=== PATIENT | male | born 1970 | race Caucasian/White ===

== ENCOUNTER 2020-10-26 08:46 | Emergency (ER) | payer OTHER, SELFPAY ==
--- NOTE | ~2020-10-26 | CT_ITS ---
EXAMINATION: CT abdomen pelvis w con DATE: 10/26/2020 11:10 INDICATION: Abdominal pain, nausea and vomiting. TECHNIQUE: Computed tomography (CT) of the abdomen and pelvis was performed with 100 mL Omnipaque-350 intravenous contrast. Automated exposure control and iterative reconstruction technique were employe d. The dose-length product was 579.25 mGy-cm. COMPARISON: None FINDINGS: Minimal atelectasis at the posterior sulcus of the left lower lobe. Visualized inferior heart is norm al. No pericardial or pleural effusion. Small sliding-type hiatal hernia. Diffuse hepatic steatosis w ith focal sparing along the gallbladder fossa and more focal fat at the ligamentum teres. Gallbladder , spleen, pancreas and left adrenal gland are normal. 1.5 cm right adrenal nodule. Normal bilateral k idneys with symmetric parenchymal enhancement and no hydronephrosis. Bowels including the appendix ar e normal. Bladder is normal. Mild prostatomegaly measuring 4.1 x 3.5 cm. No free intraperitoneal gas or fluid. Small bilateral fat-containing inguinal hernias. No pathologically enlarged abdominal or pe lvic lymphadenopathy. Moderate disc height loss with degenerative endplate changes at L5-S1 with 7 mm retrolisthesis L5 on S1. Otherwise mild thoracolumbar spondylosis. IMPRESSION: 1. Small sliding-type hiatal hernia. 2. Diffuse hepatic steatosis. 3. 1.5 cm indeterminate right adrenal nodule statistically most likely to represent an adenoma. Consi abby 12 month follow-up pre and postcontrast adrenal protocol CT. 4. Prostatomegaly. Reviewed, dictated and finalized at location A. IMPRESSION: 1. Small sliding-type hiatal hernia. 2. Diffuse hepatic steatosis. 3. 1.5 cm indeterminate right adrenal nodule statistically most likely to repre sent an adenoma. Consider 12 month follow-up pre and postcontrast adrenal gucci col CT. 4. Prostatomegaly.
--- NOTE | ~2020-10-26 | XR_ITS ---
EXAMINATION: XR chest 2V DATE: 10/26/2020 09:42 INDICATION: Chest pain and shortness of breath TECHNIQUE: PA and lateral views of the chest are obtained. COMPARISON: None available FINDINGS: The lungs are free of acute opacities. There is no pleural effusion or pneumothorax. The ca rdiomediastinal silhouette is normal. There is mild thoracic spondylosis. A chronic-appearing disloca tion of the right acromioclavicular joint is noted. IMPRESSION: 1. No acute cardiopulmonary abnormality. Reviewed, dictated and finalized at location A.
[2020-10-26 08:50] VITALS: BP 162/120; PULSE 112; RESP 15; TEMP 36.4; O2SAT 98
[2020-10-26 09:20] LABS: Basophils Absolute Auto 0.1 K/mm3 (0.0-0.1); Eosinophils Absolute Auto 0.1 K/mm3 (0-0.3); Hematocrit 46.3 % (42.0-52.0); Immature Granulocyte Absolute 0.07 K/mm3 (0.00-0.031); Immature Granulocyte Percent A 0.9 % (0-0.5); Lymphocytes Absolute Auto 1.74 K/mm3 (0.9-3.2); Lymphocytes Percent Auto 21.3 % (18.3-44.2); Mean Corpuscular HGB Conc 34.6 g/dl (32-36); Mean Corpuscular Hemoglobin 34.1 pg (26-34); Mean Corpuscular Volume 98.7 fl (80-100); Mean Platelet Volume 10.1 fl (7.4-10.4); Monocytes Absolute Auto 0.7 K/mm3 (0.1-0.6); Monocytes Percent Auto 9.1 % (2.6-8.5); Neutrophils Absolute Auto 5.5 K/mm3 (1.3-6.7); Neutrophils Percent Auto 66.7 % (45.5-73.1); Nucleated Red Blood Cells Perc 0.2 % (0.0-0.2); Platelet Count Result 179 k/mm3 (150-375); Red Blood Count 4.69 M/mm3 (4.6-6.20); Red Cell Distribution Width 15.5 % (11.5-14.5); White Blood Count 8.2 K/mm3 (4.5-10.0)
--- NOTE | 2020-10-26 09:27 | ECG_ITS ---
Measurements Intervals [place] Rate: 103 P: 40 [place]: 135 QRS: 50 QRSD: 98 T: 59 QT: 323 QTc: 423 Interpretive Statements SINUS TACHYCARDIA BASELINE ARTIFACT- II BORDERLINE ECG Electronically Signed On 10-26-2020 11:03:09 CDT by Mustapha Wooten D.O.
--- NOTE | 2020-10-26 09:28 | ED.GIBLEED ---
HPI - GI Bleed General Chief complaint: GI Bleed Stated complaint: abd pain, bloody stool Time Seen by Provider: 10/26/20 09:13 Source: patient Mode of arrival: ambulatory Limitations: no limitations History of Present Illness HPI Narrative: This is a 50 year old male that presents to the ER for abdominal pain present since yesterday. Reports intermittent sharp pains on the side of his abdomen that radiate medially. Also reports nausea and vomiting. Reports the pain sometimes radiates into his chest. Does report some shortness of breath with exertion. Reports yesterday he was having bright red blood in the stool which then turned dark. He does report history of hemorrhoids. Denies any current pain. Denies fever, dysuria, or hematuria. Related Data Home Medications Medication Instructions Recorded Confirmed folic acid 10/26/20 Allergies Allergy/AdvReac Type Severity Reaction Status Date / Time No Known Allergies Allergy Verified 10/26/20 09:05 Review of Systems Review of Systems: Narrative: CONSTITUTIONAL: Denies fever CARDIOVASCULAR: Reports chest pain. Denies edema. RESPIRATORY: Reports dyspnea. GASTROINTESTINAL: Reports abdominal pain, nausea, vomiting, and diarrhea. GENITOURINARY: Denies dysuria or hematuria. All systems reviewed & are unremarkable except as noted in HPI and below PMFSH Past Medical History Medical History (Updated 10/26/20 @ 14:16 by Ellyn Littlejohn PA-C) No active medical problems Social History Social History (Updated 10/26/20 @ 10:32 by Ellyn Littlejohn PA-C) Smoking status: Current every day smoker Alcohol intake: current Exam Narrative: Exam Narrative: GENERAL: Well-appearing, well-nourished, and in no acute distress. HEAD: Normocephalic, atraumatic. EYES: EOMI. ENT: Mucous membranes moist. Oropharynx without tonsillar hypertrophy exudate or other lesions. CHEST: Clear to auscultation. No respiratory distress. No wheezes rales or rhonchi HEART: Regular rate and rhythm. No murmur heard. Normal peripheral pulses. ABDOMEN: Soft, nontender, nondistended, normal active bowel sounds. No CVA tenderness EXTREMITIES: Normal range of motion. No edema. SKIN: Warm, dry, no rash. NEURO: No focal deficits. Alert and oriented x3. PSYCH: Normal mood and affect RECTAL: No hemorrhoids or fissures noted. Hemoccult negative Course Vital Signs Vital signs: Vital Signs Temperature 97.5 F L 10/26/20 08:50 Pulse Rate 112 H 10/26/20 08:50 Respiratory Rate 15 10/26/20 08:50 Blood Pressure 162/120 H 10/26/20 08:50 Pulse Oximetry 98 10/26/20 08:50 Temperature 97.5 F L 10/26/20 08:50 Pulse Rate 89 10/26/20 14:29 Respiratory Rate 18 10/26/20 14:29 Blood Pressure 133/98 H 10/26/20 14:29 Pulse Oximetry 97 10/26/20 14:29 MDM - GI Bleed MDM Narrative Medical decision making narrative: Patient presents the emergency department for abdominal pain since yesterday. Also reporting blood in the stool. He is Hemoccult negative today. He is afebrile and nontoxic-appearing. Blood pressure and heart rate elevated on arrival, this improved after IV fluid administration antiemetic. Current blood pressure 122/93. Heart rate is in the 80s. He reports improvement in symptoms. CBC without concerning findings. Metabolic panel with transaminitis. Likely due to patient's drinking history. He does report he drinks about 6 beers a night. His last drink was 3 days ago. Denies any history of alcohol withdrawal seizures. Lipase is normal. UA without evidence of infection. CT scan of the abdomen and pelvis is without acute findings. Shows hiatal hernia, diffuse hepatic steatosis, prostatomegaly, and right adrenal adenoma which will need follow-up with further imaging in the next year. Chest x-ray is without acute findings. EKG without concerning changes. Patient reports relief of his symptoms and would like to go home. Does not want to stay for any further evaluation
[2020-10-26 09:29] LABS: Alanine Aminotransferase 67 U/L (4-50); Albumin Level 5.3 g/dL (3.5-5.1); Alkaline Phosphatase 89 U/L (38-126); Anion Gap 16 mmol/L (8-16); Aspartate Amino Transferase 114 U/L (17-59); Bilirubin,Total 2.1 mg/dL (0.2-1.3); Blood Urea Nitrogen 14 mg/dL (9-20); Calcium 10.1 mg/dL (8.4-10.2); Carbon Dioxide 24 mmol/L (22-30); Chloride 92 mmol/L (98-107); Estimated CRCL calculation 81 ml/min; Estimated Glomerular Filt Rate > 60; Glucose 95 mg/dL (75-110); Potassium 3.9 mmol/L (3.4-5.0); Sodium 132 mmol/L (137-145)
[2020-10-26 09:30] LABS: INR 0.9; Prothrombin Time 13.1 Seconds (11.1-14.7)
[2020-10-26] MEDS: SODIUM CHLORIDE 0.9% IV 1,000 ML 999 ML IV CONT (09:44)
[2020-10-26] MEDS: ONDANSETRON INJ 4 MG/2 ML VIAL IV PUSH (09:45)
[2020-10-26 09:55] LABS: Lipase 196 U/L (23-300)
--- NOTE | 2020-10-26 09:55 | PC.NURSE ---
pt unable to give urine sample at this time. and declining straight catheter. started 1000 mL of IV normal saline and will check back.
[2020-10-26 09:58] VITALS: BP 149/106; PULSE 99; RESP 14; O2SAT 97
[2020-10-26 10:00] LABS: Troponin I < 0.012 ng/mL (0.000-0.034)
[2020-10-26 10:05] LABS: Ethanol < 10 mg/dL (<10)
[2020-10-26 10:34] LABS: Add Urine Microscopic? YES; Appearance Urine Clear (Clear); Bilirubin Urine Negative (Negative); Blood Urine Negative (Negative); Color Urine Yellow (Yellow); Glucose Urine UA Negative (Negative); Ketones Urine 1+ mg/dL (Negative); Leukocyte Esterase Ur Negative LEU/UL (Negative); Mucus Urine Rare /lpf; Nitrate Urine Negative (Negative); Protein Urine Negative (Negative); RBC Urine 0-2 /hpf (0-2); Specific Grav Ur 1.011 (1.001-1.035); Squamous Epithelial Cell Urine Rare /hpf (Few); Urobilinogen Urine Negative mg/dL (<2.0); WBC Urine 0-3 /hpf
[2020-10-26] MEDS: PANTOPRAZOLE SODIUM IV 40 MG VIAL IV PUSH (10:39)
[2020-10-26] MEDS: THIAMINE HCL INJ 100 MG, FOLIC ACID INJ 1 MG, MULTIVITAMINS-12 INJ VIAL 1 5 ML, MULTIVI... 250 MG IV CONT (11:23)
[2020-10-26 12:21] VITALS: BP 141/107; PULSE 97; RESP 19; O2SAT 97
[2020-10-26 14:29] VITALS: BP 133/98; PULSE 89; RESP 18; O2SAT 97
== END 2020-10-26 14:52 | disposition home or self-care (01) ==
PROVIDERS: Physician Assistant; Emergency Provider Emergency Medicine
DX: D35.01 Benign neoplasm of right adrenal gland (principal); R74.01 Elevation of levels of liver transaminase levels; K76.0 Fatty (change of) liver, not elsewhere classified; K92.1 Melena; R00.0 Tachycardia, unspecified; F17.210 Nicotine dependence, cigarettes, uncomplicated
CPT/HCPCS: 36415; 71046; 74177; 80053; 80307; 81001; 83690; 84484; 85025; 85610; 85730; 86850; 86900; 86901; 93005; 96361; 96365; 96366; 96375; 99284; C9113; J2405; J3411; J3475; J7030; J7120; Q9967

== ENCOUNTER 2021-01-19 11:47 | Outpatient (CLI) | payer OTHER, SELFPAY ==
[2021-01-19 12:33] LABS: INR 0.9
[2021-01-19 12:41] LABS: Alanine Aminotransferase 45 U/L (4-50); Albumin Level 4.4 g/dL (3.5-5.1); Alkaline Phosphatase 79 U/L (38-126); Anion Gap 9 mmol/L (8-16); Aspartate Amino Transferase 89 U/L (17-59); Bilirubin,Total 0.6 mg/dL (0.2-1.3); Blood Urea Nitrogen 7 mg/dL (9-20); Calcium 9.1 mg/dL (8.4-10.2); Carbon Dioxide 26 mmol/L (22-30); Chloride 108 mmol/L (98-107); Estimated Glomerular Filt Rate > 60; Glucose 83 mg/dL (65-110); Potassium 4.3 mmol/L (3.4-5.0); Sodium 143 mmol/L (137-145)
[2021-01-19 13:29] LABS: Iron 186 ug/dL (49-181); Percent Iron Saturation 67 % (20-50)
[2021-01-19 15:52] LABS: Hepatitis B Surface Antigen Negative (Negative)
[2021-01-19 15:58] LABS: HAV RESULT Negative (Negative); Hepatitis B Core IgM Result Negative (Negative)
[2021-01-19 16:10] LABS: Hepatitis C Virus Antibody Negative (Negative)
[2021-01-22 15:02] LABS: Ceruloplasmin 25 mg/dL (18-36)
[2021-01-22 18:21] LABS: Mitochondrial (M2) Ab (IgG) <=20.0 U (<=20.0)
[2021-01-25 00:13] LABS: ALT 35 U/L (9-46); Alpha-2-Macroglobulin 157 mg/dL (106-279); Apolipoprotein A1 239 mg/dL (94-176); Fibrosis Score 0.12; Fibrosis Stage F0; GGT 155 U/L (3-95); Haptoglobin 133 mg/dL (43-212); Necroinflammat Act Grade A0; Total Bilirubin 0.5 mg/dL (0.2-1.2)
== END 2021-01-19 11:48 | disposition home or self-care (01) ==
PROVIDERS: PCP Emergency Medicine; Visit Provider Internal Medicine Gastroenterology
DX: F10.10 Alcohol abuse, uncomplicated (principal); R74.8 Abnormal levels of other serum enzymes; Z72.0 Tobacco use
CPT/HCPCS: 36415; 80053; 80074; 81596; 82104; 82390; 83520; 83540; 83550; 85610; 86038

== ENCOUNTER 2021-02-01 10:29 | Emergency (ER) | payer OTHER, SELFPAY ==
[2021-02-01] VITALS (7 sets, daily range): BP systolic 140–172; BP diastolic 90–119; PULSE 98–119; RESP 13–20; TEMP 36.6–37.2; O2SAT 96–98
--- NOTE | ~2021-02-01 | XR_ITS ---
EXAMINATION: XR chest 2V EXAM DATE: 02/01/2021 11:10 INDICATION: Shortness of breath. TECHNIQUE: Frontal and lateral projections of the chest obtained and reviewed. Comparison is made to prior examination from 10/26/2020. FINDINGS: The lungs are clear. There are no pleural effusions. The cardiomediastinal silhouette is within normal limits. There is no pneumothorax suspected. 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 Could be sequela from prior injury given asymmetry. IMPRESSION: No acute cardiopulmonary findings. Reviewed, dictated and finalized at location B.
--- NOTE | ~2021-02-01 | CT_ITS ---
EXAMINATION: CT abdomen pelvis wo con DATE: 02/01/2021 14:31 INDICATION: Left flank pain TECHNIQUE: Computed tomography (CT) of the abdomen and pelvis was performed without intravenous contr ast. The dose-length product (DLP) was 364.72 mGy-cm. Automated exposure control and iterative recons truction technique were employed. COMPARISON: 10/26/2020 FINDINGS: The lung bases are clear. The heart size is normal. There is a small sliding hiatal hernia. The liver is diffusely low in attenuation when compared with the spleen, consistent with hepatic edgardo atosis. The spleen, pancreas, gallbladder, and the left adrenal gland are normal. There is a 1.5 cm a denoma of the right adrenal gland. The kidneys are unremarkable. No stones are identified in the kidn eys, ureters, or bladder. There is no hydronephrosis or hydroureter. No pathologically enlarged abdom inal or pelvic lymph nodes are identified. There is no free intraperitoneal gas or evidence of bowel obstruction. The appendix is normal. There is moderate lumbar spondylosis at L5-S1. IMPRESSION: 1. No CT correlate for the patient's symptoms. 2. Diffuse hepatic steatosis. Reviewed, dictated and finalized at location A.
--- NOTE | 2021-02-01 10:50 | ECG_ITS ---
Measurements Intervals [place] Rate: 108 P: 44 [place]: 140 QRS: 58 QRSD: 98 T: 52 QT: 314 QTc: 422 Interpretive Statements SINUS TACHYCARDIA INCOMPLETE RIGHT BUNDLE BRANCH BLOCK DELAYED PRECORDIAL R/S TRANSITION BASELINE ARTIFACT- III, AVF ABNORMAL ECG Electronically Signed On 02-01-2021 11:17:29 CDT by Mustapha Wooten D.O.
[2021-02-01 11:25] LABS: Anion Gap 18 mmol/L (8-16); Blood Urea Nitrogen 8 mg/dL (9-20); Calcium 9.8 mg/dL (8.4-10.2); Carbon Dioxide 21 mmol/L (22-30); Chloride 95 mmol/L (98-107); Estimated CRCL calculation 90 ml/min; Estimated Glomerular Filt Rate > 60; Glucose 93 mg/dL (65-110); Sodium 134 mmol/L (137-145)
[2021-02-01 11:38] LABS: Basophils Absolute Auto 0.1 K/mm3 (0.0-0.1); Basophils Percent Auto 0.8 % (0.2-1.2); Eosinophils Percent Auto 0.3 % (0-4.4); Hematocrit 39.8 % (42.0-52.0); Hemoglobin 13.4 g/dL (14.0-18.0); Immature Granulocyte Absolute 0.06 K/mm3 (0.00-0.031); Immature Granulocyte Percent A 0.8 % (0-0.5); Immature Platelet Fraction Pct 11.1 % (0.9-11.2); Lymphocytes Absolute Auto 1.01 K/mm3 (0.9-3.2); Mean Corpuscular HGB Conc 33.7 g/dl (32-36); Mean Corpuscular Hemoglobin 33.7 pg (26-34); Mean Platelet Volume 10.6 fl (7.4-10.4); Monocytes Absolute Auto 0.5 K/mm3 (0.1-0.6); Monocytes Percent Auto 6.9 % (2.6-8.5); Neutrophils Absolute Auto 5.6 K/mm3 (1.3-6.7); Neutrophils Percent Auto 77.2 % (45.5-73.1); Nucleated Red Blood Cells Perc 0.3 % (0.0-0.2); Platelet Count Result 144 k/mm3 (150-375); Red Blood Count 3.98 M/mm3 (4.6-6.20); Red Cell Distribution Width 15.9 % (11.5-14.5); White Blood Count 7.2 K/mm3 (4.5-10.0)
--- NOTE | 2021-02-01 13:43 | ED.SOB ---
HPI - SOB/Dyspnea General Chief Complaint: Shortness of Breath/Dyspnea Stated Complaint: Multiple C/O Swabbed for COVID today Time Seen by Provider: 02/01/21 13:17 Source: patient Mode of arrival: ambulatory Limitations: no limitations History of Present Illness HPI Narrative: Patient is a 50-year-old male complaining of shortness of breath, worse with exertion x2 days. Patient also complaining of left flank pain that started yesterday. Patient states his pain is a 9 out of 10, sharp, nonradiating. Patient states that he has a history of COPD. Denies any abdominal pain, nausea, vomiting, diarrhea, fever or chills. Patient states that he has not been vaccinated. Related Data Home Medications Medication Instructions Recorded Confirmed folic acid 10/26/20 01/19/21 amlodipine 10 mg tablet 10 mg PO DAILY 01/19/21 01/19/21 bupropion HCl 150 mg 24 hr tablet, 150 mg PO QAM 01/19/21 01/19/21 extended release omeprazole 20 mg capsule,delayed 20 mg PO DAILY 01/19/21 01/19/21 release paroxetine HCl 10 mg tablet 10 mg PO DAILY 01/19/21 01/19/21 rosuvastatin 10 mg tablet 10 mg PO DAILY 01/19/21 01/19/21 Allergies Allergy/AdvReac Type Severity Reaction Status Date / Time No Known Allergies Allergy Verified 01/19/21 11:09 Review of Systems Review of Systems: All systems reviewed & are unremarkable except as noted in HPI and below Constitutional: Constitutional: Denies body ache(s), Denies chills, Denies excessive sweating, Denies fatigue, Denies fever(s), Denies headache(s), Denies lethargy, Denies malaise, Denies weakness and Denies weight loss Eyes: Eyes: Denies blurry vision, Denies change in vision and Denies loss of vision ENT: Denies dizziness, Denies ear discharge, Denies headache(s), Denies lip swelling, Denies epistaxis, Denies nasal congestion, Denies neck pain, Denies throat swelling and Denies tongue swelling Cardiovascular: Cardiovascular: Denies chest pain, Denies chest pain at rest, Denies chest pain with activity, Denies diaphoresis, Denies rapid heart rate, Denies edema, Denies irregular heart rhythm, Denies lightheadedness and Denies palpitations Respiratory: Respiratory: Denies chest congestion, Denies cough and Denies hemoptysis Gastrointestinal: Gastrointestinal: Denies abdominal pain, Denies melena, Denies hematochezia, Denies diarrhea, Denies nausea, Denies vomiting and Denies hematemesis Musculoskeletal: Musculoskeletal: Denies abnormal gait, Denies deformity, Denies joint swelling, Denies limited range of motion, Denies neck pain and Denies numbness Neurologic: Denies Abnormal speech present, Denies abnormal gait, Denies confusion, Denies dizziness, Denies headache(s), Denies focal weakness, Denies loss of vision, Denies numbness, Denies Other visual disturbances, Denies Sensory deficit (Neuro) and Denies weakness Psychiatric: Psychiatric: Denies confusion, Denies depression, Denies auditory hallucinations, Denies homicidal ideation and Denies suicidal ideation Endocrine: Endocrine: Denies cold intolerance, Denies excessive sweating, Denies fatigue, Denies heat intolerance and Denies palpitations Hematologic/Lymphatic: Hematologic/Lymphatic: Denies easy bleeding and Denies easy bruising Allergic/Immunologic: Allergic/Immunologic: Denies lip swelling, Denies throat swelling and Denies tongue swelling PMFSH Past Medical History Medical History Abdominal pain Alcohol abuse Blood in stool Elevated liver enzymes GERD (gastroesophageal reflux disease) No active medical problems Tobacco consumption Social History Social History Smoking status: Current every day smoker Alcohol intake: current Substance use: never Exam Const: General: cooperative, well developed, alert and awake; No confusion Orientation/consciousness: oriented to person, oriented to place, oriented to time, patient oriented x3 and No confusion Limitations: no limita
[2021-02-01] MEDS: IPRATROPIUM BR 0.02% INH SOLN 0.5 MG/2.5 ML VIAL INHALATION (13:52)
[2021-02-01] MEDS: ALBUTEROL SULFATE NEB 2.5 MG/0.5 ML INH 5 MG INHALATION (13:53)
[2021-02-01] MEDS: DEXAMETHASONE SOD PHOS INJ 4 MG/ML VIAL 10 MG IV PUSH (13:59)
[2021-02-01 14:56] LABS: NT Pro B Type Natriuretic Pept 89 pg/mL (5-100)
[2021-02-01 16:31] LABS: Add Urine Microscopic? YES; Appearance Urine Clear (Clear); Bilirubin Urine 1+ (Negative); Blood Urine Negative (Negative); Color Urine Amber (Yellow); Glucose Urine UA Negative (Negative); Hyaline Casts Urine 15-19 /lpf; Ketones Urine 2+ mg/dL (Negative); Leukocyte Esterase Ur Negative LEU/UL (Negative); Mucus Urine Rare /lpf; Nitrate Urine Negative (Negative); Protein Urine 2+ mg/dL (Negative); Specific Grav Ur 1.025 (1.001-1.035); Squamous Epithelial Cell Urine Rare /hpf (Few); WBC Urine 0-3 /hpf
== END 2021-02-01 17:38 | disposition home or self-care (01) ==
PROVIDERS: Emergency Provider Emergency Medicine; PCP Emergency Medicine
DX: J44.1 Chronic obstructive pulmonary disease with (acute) exacerbation (principal); R10.9 Unspecified abdominal pain; K21.9 Gastro-esophageal reflux disease without esophagitis; F17.200 Nicotine dependence, unspecified, uncomplicated; R00.0 Tachycardia, unspecified; I45.10 Unspecified right bundle-branch block
CPT/HCPCS: 36415; 71046; 74176; 80048; 81001; 83880; 85025; 85055; 93005; 94640; 96374; 99284; J1100

== ENCOUNTER 2021-02-13 06:51 | Outpatient (CLI) | payer OTHER, SELFPAY ==
--- NOTE | ~2021-02-13 | US_ITS ---
EXAMINATION: US abdomen complete DATE: 02/13/2021 08:08 INDICATION: Alcohol abuse, uncomplicated TECHNIQUE: Multiple grayscale and Doppler ultrasound images of the abdomen were obtained. COMPARISON: CT, 02/01/2021 FINDINGS: The head and body of the pancreas are normal. The pancreatic tail is obscured by bowel gas. The liver demonstrates increased echogenicity, heterogenous echotexture, and decreased through trans mission. No surface nodularity. Normal hepatopetal flow in the main portal vein. The gallbladder is n ormal with no abnormal wall thickening, pericholecystic fluid or stones. The common bile duct measure s 7 mm. There was no sonographic Bhatt sign. The visualized portions of the aorta and inferior vena cava are normal. The right kidney measures 10.8 x 5.4 x 5.2 cm. The left kidney measures 11.5 x 6.0 x 4.9 cm. The kidn eys demonstrate normal parenchymal echogenicity. There is no hydronephrosis. The spleen is normal in appearance and measures 8.4 cm. IMPRESSION: 1. Mildly dilated common bile duct of unclear significance. Recommend correlation with liver function tests. 2. Diffuse hepatic steatosis. Reviewed, dictated and finalized at location A. IMPRESSION: 1. Mildly dilated common bile duct of unclear significance. Recommend correlati on with liver function tests. 2. Diffuse hepatic steatosis.
== END 2021-02-13 06:52 | disposition home or self-care (01) ==
LOC: ANHIMG 06:55
PROVIDERS: PCP Emergency Medicine; Visit Provider Internal Medicine Gastroenterology
DX: F10.10 Alcohol abuse, uncomplicated (principal); R74.8 Abnormal levels of other serum enzymes; K76.0 Fatty (change of) liver, not elsewhere classified
CPT/HCPCS: 76700

== ENCOUNTER 2021-05-02 02:12 | Day surgery (SDC) | payer OTHER, SELFPAY ==
[2021-05-02 09:20] VITALS: BP 147/98; PULSE 92; RESP 16; TEMP 36; O2SAT 100
--- NOTE | 2021-05-02 09:25 | WPDANESEPPF ---
Anes - Initial Pre Proc Eval Procedure: Operation Date: 05/02/21 11:15 Proposed Procedures p Esophagogastroduodenoscopy & Screening Colonoscopy - Bridger Huston MD Date/Time: 05/02/21 09:25 Surgeon: Bridger Huston MD Pre Op Diagnosis: abdominal pain, neoplasm screening Patient Data Age: 50 Gender: M Height: 1.8 m Weight: 78.6 kg Last Vital Signs Temp 96.8 F L 05/02/21 09:20 Pulse 92 05/02/21 09:20 Resp 16 05/02/21 09:20 BP 147/98 H 05/02/21 09:20 Pulse Ox 100 05/02/21 09:20 Allergies Allergy/AdvReac Type Severity Reaction Status Date / Time No Known Allergies Allergy Verified 05/02/21 09:20 Home Medications Medication Instructions Recorded Confirmed Type folic acid 1 mg PO DAILY 10/26/20 04/13/21 History rosuvastatin 10 mg tablet 10 mg PO DAILY 01/19/21 04/13/21 History multivit with min-folic acid 1 tablet PO DAILY 04/13/21 04/13/21 History [Adult One Daily Multivitamin] potassium chloride 20 meq PO DAILY 04/13/21 04/13/21 History verapamil 240 mg PO DAILY 04/13/21 04/13/21 History Patient hx anesthesia problems: none Family hx anesthesia problems: none Results Review: All pre-operative results and documents have been reviewed as part of the pre-operative evaluation. PMFSH Past Medical History Medical History Abdominal pain Alcohol abuse Blood in stool Elevated liver enzymes GERD (gastroesophageal reflux disease) No active medical problems Tobacco consumption Social History Social History Smoking packs per day: 1 Smoking cigarettes per day: 20.0 Years smoked: 40 Smoking pack-years: 40.00 Smoking status: Current every day smoker Tobacco type: cigarettes Alcohol intake: current Alcohol use details: daily Substance use: current Substance use type: marijuana Other substance usage details: daily Living arrangements: alone Spiritual care concerns: No Anes - Eval Final PreProcedure Day of Procedure 05/02/21 09:25 Patient weight: normal Heart: regular rate and rhythm Lungs: clear to auscultation Airway: Mallampati scale class II Neurological: alert and oriented Last oral intake: >/= 8 hours ASA classification: III Emergent: no Anesthetic plan: proceed Anesthesia type and monitoring: general GIVS and standard monitoring Results Review: All pre-operative results and documents have been reviewed as part of the pre-operative evaluation. Informed Consent: The patient's anesthetic plan and its attendant risks and benefits were discussed with the patient/family/POA. Questions were solicited and answers provided to the satisfaction of the patient/family/POA.
[2021-05-02] MEDS: LACTATED RINGERS 1,000 ML 150 ML IV CONT (09:31)
--- NOTE | 2021-05-02 09:38 | PM.HPGS ---
History of Present Illness History of Present Illness Consent: Risks, benefits, and alternatives have been discussed and questions answered. Patient agrees to proceed with procedure. Chief complaint: abdominal pain, neoplasm screening Narrative: Luigi Beltran is a 50 year old male here for egd and colonoscopy, he drinks alcohol, has bloating and abdominal discomfort. Never had scopes. Review of Systems Constitutional: Constitutional: Denies headache(s) and Denies weakness Eyes: Eyes: Denies blurry vision ENT: Reports Normal hearing present, Denies headache(s) and Denies neck pain Cardiovascular: Cardiovascular: Denies chest pain and Denies dyspnea Respiratory: Respiratory: Denies dyspnea Gastrointestinal: Gastrointestinal: Reports no additional gastrointestinal complaints Genitourinary: Genitourinary: Denies dysuria Musculoskeletal: Musculoskeletal: Denies neck pain Integumentary/Breasts: Skin/Breast: Denies dry skin Neurologic: Reports Normal hearing present, Denies headache(s) and Denies weakness Psychiatric: Psychiatric: Denies anxiety Endocrine: Endocrine: Denies change in body appearance Hematologic/Lymphatic: Hematologic/Lymphatic: Denies easy bleeding Allergic/Immunologic: Allergic/Immunologic: Denies urticaria PMFSH Past Medical History Medical History Abdominal pain Alcohol abuse Blood in stool Colon cancer screening Elevated liver enzymes GERD (gastroesophageal reflux disease) No active medical problems Tobacco consumption Social History Social History Smoking packs per day: 1 Smoking cigarettes per day: 20.0 Years smoked: 40 Smoking pack-years: 40.00 Smoking status: Current every day smoker Tobacco type: cigarettes Alcohol intake: current Alcohol use details: daily Substance use: current Substance use type: marijuana Other substance usage details: daily Living arrangements: alone Spiritual care concerns: No Meds Home Medications and Allergies Home Medications Medication Instructions Recorded Confirmed Type folic acid 1 mg PO DAILY 10/26/20 05/02/21 History rosuvastatin 10 mg tablet 10 mg PO DAILY 01/19/21 05/02/21 History multivit with min-folic acid 1 tablet PO DAILY 04/13/21 05/02/21 History [Adult One Daily Multivitamin] potassium chloride 20 meq PO DAILY 04/13/21 05/02/21 History verapamil 240 mg PO DAILY 04/13/21 05/02/21 History Allergies Allergy/AdvReac Type Severity Reaction Status Date / Time No Known Allergies Allergy Verified 05/02/21 09:20 Vital Signs Vital Signs - 24 hr 05/02/21 09:20 Temperature 96.8 F L Pulse Rate 92 Respiratory Rate 16 Blood Pressure 147/98 H Pulse Oximetry 100 Exam Const: General: comfortable and no acute distress HENMT: General nose exam: Normal nares present Eyes: General: appearance normal, both eyes and all related structures Neck: Neck: no JVD Resp: Auscultation: clear to auscultation bilaterally Cardio: Rate: regular rate Rhythm: regular rhythm GI: Inspection: non-distended GI Palp: Yes Soft to palpation Skin: General skin exam: normal color Neuro: General: gait normal Speech: normal speech Extrem: General: normal to inspection Psych: Mental Status: mental status grossly normal Assessment and Plan Assessment and plan (1) Abdominal pain: Code(s): R10.9 - Unspecified abdominal pain Status: Acute Assessment and Plan: egd with bx (2) Alcohol abuse: Code(s): F10.10 - Alcohol abuse, uncomplicated Status: Acute (3) Colon cancer screening: Code(s): Z12.11 - Encounter for screening for malignant neoplasm of colon Status: Acute Assessment and Plan: colonoscopy
--- NOTE | 2021-05-02 09:54 | SUR.OPER ---
EGD ended at 947. Colonoscopy started at 953.
[2021-05-02 10:09] VITALS: BP 135/101; PULSE 85; RESP 14; O2SAT 97
[2021-05-02 10:19] VITALS: BP 143/109; PULSE 83; RESP 17; O2SAT 100
[2021-05-02 10:29] VITALS: BP 148/100; PULSE 84; RESP 18; O2SAT 98
== END 2021-05-02 10:45 | disposition home or self-care (01) ==
PROVIDERS: PCP Emergency Medicine; Visit Provider Internal Medicine Gastroenterology
PROC: 0DJ08ZZ Inspection of Upper Intestinal Tract, Via Natural or Artificial Opening Endoscopic (ICD-10-PCS; CPT 43235; principal; 2021-05-02 11:15)
DX: Z12.11 Encounter for screening for malignant neoplasm of colon (principal); D12.3 Benign neoplasm of transverse colon; D12.4 Benign neoplasm of descending colon; K64.8 Other hemorrhoids; K21.00 Gastro-esophageal reflux disease with esophagitis, without bleeding; K44.9 Diaphragmatic hernia without obstruction or gangrene; K29.70 Gastritis, unspecified, without bleeding; F17.210 Nicotine dependence, cigarettes, uncomplicated; F12.90 Cannabis use, unspecified, uncomplicated; F10.10 Alcohol abuse, uncomplicated
CPT/HCPCS: 45380; 45385; 43239; 88305; J2704; J7120

== ENCOUNTER 2022-07-04 14:59 | Observation (INO) | payer OTHER, SELFPAY ==
[2022-07-04] VITALS (9 sets, daily range): BP systolic 116–148; BP diastolic 88–107; PULSE 79–99; RESP 14–18; TEMP 36.3–36.4; O2SAT 98–100; BMI 23.6
--- NOTE | ~2022-07-04 | XR_ITS ---
EXAMINATION: XR chest 2V DATE: 07/04/2022 15:56 INDICATION: Chest pain and shortness of breath. TECHNIQUE: Frontal and lateral views of the chest were obtained. COMPARISON: Chest 2 views 02/01/2021, CT abdomen and pelvis 02/01/2021 FINDINGS: The chest demonstrates clear lungs without pneumonia, pleural effusion, or pneumothorax. Th e heart size is normal. There are changes of old right type III acromioclavicular separation. IMPRESSION: 1. No acute cardiopulmonary disease. Reviewed, dictated and finalized at location A. TIME [facility] REPORTER
--- NOTE | 2022-07-04 15:08 | ECG_ITS ---
Measurements Intervals [place] Rate: 94 P: 86 [place]: 162 QRS: 48 QRSD: 110 T: 58 QT: 362 QTc: 453 Interpretive Statements SINUS RHYTHM CANNOT RULE OUT SEPTAL INFARCTION ABNORMAL EKG COMPARED TO ECG 02/01/2021 10:55:37 SINUS RHYTHM NOW PRESENT Electronically Signed On 07-05-2022 10:01:38 WORM [facility]ISER by Jared Smith M.D.
[2022-07-04 15:42] LABS: Basophils Absolute Auto 0.1 K/mm3 (0.0-0.1); Basophils Percent Auto 2.2 % (0.2-1.2); Eosinophils Absolute Auto 0.1 K/mm3 (0-0.3); Eosinophils Percent Auto 2.1 % (0-4.4); Hematocrit 40.6 % (42.0-52.0); Hemoglobin 13.5 g/dL (14.0-18.0); Immature Granulocyte Absolute 0.05 K/mm3 (0.00-0.031); Immature Granulocyte Percent A 0.9 % (0-0.5); Lymphocytes Absolute Auto 2.03 K/mm3 (0.9-3.2); Lymphocytes Percent Auto 34.8 % (18.3-44.2); Mean Corpuscular HGB Conc 33.3 g/dl (32-36); Mean Corpuscular Hemoglobin 33.3 pg (26-34); Mean Platelet Volume 10.6 fl (7.4-10.4); Monocytes Absolute Auto 0.6 K/mm3 (0.1-0.6); Monocytes Percent Auto 9.6 % (2.6-8.5); Neutrophils Percent Auto 50.4 % (45.5-73.1); Nucleated Red Blood Cells Perc 0.3 % (0.0-0.2); Platelet Count Result 153 k/mm3 (150-375); Red Blood Count 4.06 M/mm3 (4.6-6.20); Red Cell Distribution Width 20.5 % (11.5-14.5); White Blood Count 5.8 K/mm3 (4.5-10.0)
--- NOTE | 2022-07-04 15:48 | PC.NURSE ---
Pt to XRAY via stretcher at this time.
[2022-07-04 15:51] LABS: Chloride 106 mmol/L (98-107)
[2022-07-04 15:53] LABS: Partial Thromboplastin Time 29.6 SECONDS (22.3-36.8)
[2022-07-04 16:04] LABS: Alanine Aminotransferase 48 U/L (6-50); Albumin Level 3.8 g/dL (3.5-5.1); Alkaline Phosphatase 136 U/L (38-126); Anion Gap 8 mmol/L (8-16); Aspartate Amino Transferase 137 U/L (17-59); Bilirubin,Total 0.6 mg/dL (0.2-1.3); Blood Urea Nitrogen 5 mg/dL (9-20); Calcium 7.5 mg/dL (8.4-10.2); Carbon Dioxide 28 mmol/L (22-30); Estimated CRCL calculation 93 ml/min; Estimated Glomerular Filt Rate > 60; Glucose 88 mg/dL (65-110); NT Pro B Type Natriuretic Pept 48 pg/mL (19.9-100); Potassium 3.2 mmol/L (3.4-5.0); Sodium 142 mmol/L (137-145); Troponin I < 0.012 ng/mL (0.000-0.034)
--- NOTE | 2022-07-04 16:15 | ED.CHESTPAIN ---
HPI - Chest Pain General Chief Complaint: Chest Pain Stated Complaint: CP/SOB Time Seen by Provider: 07/04/22 15:07 Source: RN notes reviewed History of Present Illness HPI narrative: Patient presents emergency department from home for chest pain. Patient states earlier today he had chest pain left side of his chest states the pain was described as a pressure nature and did not radiate states that it was associated with shortness of breath. Patient states that the pain is resolved at this time and states that he did take an inhaler for his symptoms with minimal relief he denies any fevers or chills abdominal pain nausea or vomiting denies any previous cardiac history patient states he has been drinking alcohol today Related Data Home Medications Medication Instructions Recorded Confirmed folic acid 1 mg PO DAILY 10/26/20 05/02/21 rosuvastatin 10 mg tablet 10 mg PO DAILY 01/19/21 05/02/21 multivitamin with minerals-folic 1 tablet PO DAILY 04/13/21 05/02/21 acid 0.4 mg tablet potassium chloride 20 mEq 20 meq PO DAILY 04/13/21 05/02/21 tablet,extended release verapamil 240 mg tablet,extended 240 mg PO DAILY 04/13/21 05/02/21 release Allergies Allergy/AdvReac Type Severity Reaction Status Date / Time No Known Allergies Allergy Verified 05/02/21 09:20 Review of Systems Review of Systems: Gen.: Denies fevers or chills ENT: Denies congestion Respiratory reports shortness of breath CV: See HPI GI: Denies abdominal pain nausea, emesis or diarrhea Musculoskeletal: Denies back pain or muscle pain Neuro: Denies numbness, tingling, weakness or focal weakness Skin: Denies rash Except as documented, all other systems reviewed and negative [facility] Past Medical History Medical History Abdominal pain Alcohol abuse Blood in stool Colon cancer screening Elevated liver enzymes GERD (gastroesophageal reflux disease) Hyperlipidemia Hypertension Tobacco consumption Surgical History Surgical History (Updated 07/04/22 @ 17:53 by Criss Fuentes NP) History of cardiac cath 2020 History of colonoscopy Hx of chest tube placement Family History Family History (Updated 07/04/22 @ 17:54 by Criss Fuentes NP) Father Respiratory acidosis Mother Arthritis Social History Social History (Updated 07/04/22 @ 17:56 by Criss Fuentes NP) Social History: [place] work beer 12-20 one daughter Smoking packs per day: 1 Smoking cigarettes per day: 20.0 Years smoked: 40 Smoking pack-years: 40.00 Smoking status: Current every day smoker Tobacco type: cigarettes Alcohol intake: current Alcohol use details: daily Substance use: current Substance use type: marijuana Other substance usage details: daily Living arrangements: alone Spiritual care concerns: No Exam Narrative: APPEARANCE: No acute distress, nontoxic, resting in bed EYES: EOMI HEENT: Normocephalic, atraumatic, OMM RESPIRATORY: No respiratory distress Clear to auscultation bilaterally with no rhonchi wheezing or rales. CARDIOVASCULAR: Regular rate and rhythm without murmurs rubs or gallops. ABDOMINAL: Soft, nontender, nondistended, no rebound or guarding MUSCULOSKELETAl: Moves all extremities. No clubbing, cyanosis or edema. NEURO: Awake and alert. Following commands, speech normal, no focal deficits SKIN:: Warm, dry. No rashes lesions or abrasions PSYCHIATRIC: Normal affect/mood, Course Course Emergency Course: Patient remained chest pain-free in ED Discussed with LETICIA Kahn for Dr Koroma presentation work-up agrees with admission Discussed with patient and family results of workup and diagnosis. Discussed need for admission. Patient and family understand and agree to current treatment plan Vital Signs Vital signs: Vital Signs Temperature 97.5 F L 07/04/22 14:58 Pulse Rate 99 07/04/22 14:58 Respiratory Rate 16 07/04/22 14:58 Blood Pressure 138/99 H 07/04/22 14:58 Pulse Oximetry 98 02/
[2022-07-04] MEDS: THIAMINE HCL 200 MG/2 ML VIAL 100 MG IV PUSH (16:30)
[2022-07-04] MEDS: POTASSIUM CHLORIDE 20 MEQ TABLET PO (16:30)
[2022-07-04] MEDS: ASPIRIN 81 MG CHEWABLE TABLET 324 MG PO (16:54)
--- NOTE | 2022-07-04 17:50 | PM.IMHP ---
H&P: HPI History of Present Illness Date/Time: 07/04/22 17:50 Chief Complaint: Chest pain Narrative: This is a 52-year-old male patient who has a history of alcoholism and hypertension. The patient came to the emergency room with complaints of chest pain. The patient stated that he has been started on his left side of his chest and did not radiate. The discomfort was associated with shortness of breath. His chest pain is now gone. The patient stated that he used an inhaler in a did help. He denies any fever chills the patient drinks anywhere from 12-20 beers a day. The patient has had no previous cardiac history he stated that he had a cardiac catheterization within the last year 2 and it was reportedly clear. His H&H is 13.5 and 40.6 which is his baseline. Potassium is 3.2. First troponin is nonreactive. Lipase is 430. Patient's ethyl alcohol level is 446. The patient is negative for influenza A/B and COVID. Chest x-ray was read as no acute cardiopulmonary disease. EKG was read as sinus rhythm. The patient was given a potassium supplement, thiamin an aspirin. Patient is being admitted to observation status on the date of service of 07/04/2022. Review of Systems Review of Systems: see hpi All systems reviewed & are unremarkable except as noted in HPI and below Constitutional: Constitutional: Reports as per HPI and Reports no additional constitutional complaints Eyes: Eyes: Reports as per HPI and Reports no additional eye complaints ENT: Reports system reviewed and no additional complaints, except as documented and Reports Normal hearing present Cardiovascular: Cardiovascular: Reports no additional cardiovascular complaints Respiratory: Respiratory: Reports no additional respiratory complaints and Reports no additional respiratory complaints Gastrointestinal: Gastrointestinal: Reports as per HPI and Reports no additional gastrointestinal complaints Musculoskeletal: Musculoskeletal: Reports no additional musculoskeletal complaints Integumentary/Breasts: Skin/Breast: Reports system reviewed and no additional complaints, except as docu and Reports as per HPI Neurologic: Reports system reviewed and no additional complaints, except as documented, Reports as per HPI and Reports Normal hearing present Psychiatric: Psychiatric: Reports no additional psychiatric complaints and Reports as per HPI Endocrine: Endocrine: Reports no additional endocrine complaints Hematologic/Lymphatic: Hematologic/Lymphatic: Reports no additional hematologic/lymphatic complaints Allergic/Immunologic: Allergic/Immunologic: Reports no additional allergic/immunologic complaints [facility] Past Medical History Medical History Abdominal pain Alcohol abuse Blood in stool Colon cancer screening Elevated liver enzymes GERD (gastroesophageal reflux disease) Hyperlipidemia Hypertension Tobacco consumption Surgical History Surgical History History of cardiac cath 2020 History of colonoscopy Hx of chest tube placement Family History Family History Father Respiratory acidosis Mother Arthritis Social History Social History (Updated 07/04/22 @ 19:41 by Criss Fuentes NP) Social History: The patient does [place] work except for during the winter. The patient will during 12-20 Beers a day. He is and one daughter. The patient continues to smoke at least 1 pack a cigarettes a day. Code status full code Smoking packs per day: 1 Smoking cigarettes per day: 20.0 Years smoked: 43 Smoking pack-years: 43.00 Smoking status: Current every day smoker Tobacco type: cigarettes Alcohol intake: current Drinks per week: 25 Alcohol use details: daily Substance use: unknown Substance use type: marijuana Other substance usage details: daily Lack of Transportation: No Lack of Food: Never True Curre
[2022-07-04 17:59] LABS: Ethanol 446 mg/dL (<10)
[2022-07-04 17:59] LABS: Influenza A QL RT-PCR Negative (Negative); Influenza B QL RT-PCR Negative (Negative); SARS-CoV-2 RNA PCR Negative
[2022-07-04 18:08] LABS: Lipase 430 U/L (23-300); Magnesium 1.7 mg/dL (1.6-2.3)
--- NOTE | 2022-07-04 18:12 | ADMGEN ---
This patient, Luigi Beltran, was admitted to IMU Room 201-01. Patient/family oriented to hospital policies and general routines including ID bracelet, bed and alarms, visiting hours, pain management, procedures, bathroom and other care routines, personal items, smoking policy, room service/diet, and visiting hours. Information on how to activate the Rapid Response Team has been discussed. Patient/Family are encouraged to report perceived risks to care and to ask questions if they do not understand what they are told or what they should do.
[2022-07-04 20:22] LABS: Troponin I < 0.012 ng/mL (0.000-0.034)
[2022-07-04] MEDS: chlordiazePOXIDE (*CRX) 25 MG CAPSULE 50 MG PO (22:19)
[2022-07-04 23:21] LABS: Troponin I < 0.012 ng/mL (0.000-0.034)
[2022-07-05] VITALS (15 sets, daily range): BP systolic 134–161; BP diastolic 82–99; PULSE 58–110; RESP 16–24; TEMP 36.2–36.6; O2SAT 95–100
--- NOTE | 2022-07-05 | ECHO_ITS ---
Patient Info Name: Luigi Beltran Age: 52 years : 1970 Gender: Male Ht: 71 in Wt: 169 lbs BSA: 1.96 m2 HR: 64 bpm BP: 139 / 96 mmHg Technical Quality: Good Exam Date: 07/05/2022 8:25 AM Exam Location: [facility] Patient Status: Inpatient Admit Date: 07/04/2022 Staff Ordering Physician: Criss Fuentes NP [facility] Owner: Anderson Bhatt RDCS, RT Attending Provider: Octavio Koroma MD Referring Physician: Gina US; Exam Type: CA echo doppler color flow Study Info Indications R07.9 - Chest pain, unspecified Complete two-dimensional, color flow and Doppler transthoracic echocardiogram is performed. Strain analysis performed. Summary 1. Complete two-dimensional, color flow and Doppler transthoracic echocardiogram is performed. 2. Left ventricular chamber dimension is normal. 3. Left ventricular systolic function is normal, estimated at 60-65%. 4. There is mild concentric increased left ventricular wall thickness. 5. The left ventricular diastolic function is grade I diastolic dysfunction. 6. E/e' 8 is minimally elevated. 7. Global longitudinal strain is normal at -20.2%. 8. Left atrial chamber dimension is mildly enlarged. Left Ventricle E/e' 8 is minimally elevated. Global longitudinal strain is normal at -20.2%. Left ventricular chamber dimension is normal. Left ventricular systolic function is normal, estimated at 60-65%. There is mild concentric increased left ventricular wall thickness. The left ventricular diastolic function is grade I diastolic dysfunction. Right Ventricle Right ventricular systolic function is normal and with normal TAPSE 2.7 cm. Right ventricular chamber dimension is normal. Left Atria Left atrial chamber dimension is mildly enlarged. Right Atria Right atrial chamber dimension is normal. Aortic Valve The aortic valve is trileaflet. There is no aortic valve stenosis. There is no aortic valve regurgitation. Pulmonic Valve There is no pulmonic regurgitation. Mitral Valve There is no mitral valve stenosis. There is no mitral valve regurgitation. Tricuspid Valve There is no tricuspid valve regurgitation. Pericardium/Pleural There is no pericardial effusion. Inferior Vena Cava Normal inferior vena cava with >50% collapse upon inspiration consistent with normal right atrial pressure, 5 mmHg. Aorta The aortic root size at the sinus of Valsalva is normal. Left Ventricular Outflow Tract Name Value Normal LVOT 2D LVOT Diameter 2.1 cm LVOT Doppler LVOT Peak Gradient 4 mmHg LVOT Mean Gradient 2 mmHg LVOT VTI 20 cm LVOT VTI/AV VTI Ratio 0.9 LVOT Stroke Volume 70 ml LVOT CO 5.4 l/min LVOT CI 2.8 l/min/m2 Mitral Valve Name Value Normal
[2022-07-05] MEDS: chlordiazePOXIDE (*CRX) 25 MG CAPSULE 50 MG PO ×3 (02:02→18:32)
[2022-07-05 04:21] LABS: Basophils Absolute Auto 0.1 K/mm3 (0.0-0.1); Basophils Percent Auto 2.2 % (0.2-1.2); Eosinophils Absolute Auto 0.1 K/mm3 (0-0.3); Hemoglobin 11.7 g/dL (14.0-18.0); Immature Granulocyte Absolute 0.03 K/mm3 (0.00-0.031); Immature Granulocyte Percent A 0.6 % (0-0.5); Lymphocytes Absolute Auto 1.57 K/mm3 (0.9-3.2); Lymphocytes Percent Auto 33.8 % (18.3-44.2); Mean Corpuscular HGB Conc 33.4 g/dl (32-36); Mean Corpuscular Hemoglobin 33.2 pg (26-34); Mean Corpuscular Volume 99.4 fl (80-100); Monocytes Absolute Auto 0.5 K/mm3 (0.1-0.6); Monocytes Percent Auto 9.7 % (2.6-8.5); Neutrophils Absolute Auto 2.4 K/mm3 (1.3-6.7); Neutrophils Percent Auto 50.7 % (45.5-73.1); Platelet Count Result 118 k/mm3 (150-375); Red Blood Count 3.52 M/mm3 (4.6-6.20); Red Cell Distribution Width 20.5 % (11.5-14.5); White Blood Count 4.7 K/mm3 (4.5-10.0)
[2022-07-05 05:19] LABS: Alanine Aminotransferase 41 U/L (6-50); Alkaline Phosphatase 102 U/L (38-126); Anion Gap 7 mmol/L (8-16); Aspartate Amino Transferase 118 U/L (17-59); Bilirubin,Total 0.9 mg/dL (0.2-1.3); Blood Urea Nitrogen 6 mg/dL (9-20); Calcium 6.9 mg/dL (8.4-10.2); Carbon Dioxide 26 mmol/L (22-30); Chloride 108 mmol/L (98-107); Estimated CRCL calculation 111 ml/min; Estimated Glomerular Filt Rate > 60; Glucose 65 mg/dL (65-110); Lipase 189 U/L (23-300); Magnesium 1.6 mg/dL (1.6-2.3); Potassium 3.6 mmol/L (3.4-5.0); Sodium 141 mmol/L (137-145)
[2022-07-05] MEDS: METOPROLOL TARTRATE 50 MG TAB PO (08:54)
[2022-07-05] MEDS: FOLIC ACID 1 MG/0.2 ML INJ IV PUSH (08:55)
[2022-07-05] MEDS: THIAMINE HCL 200 MG/2 ML VIAL 100 MG IV PUSH (08:55)
[2022-07-05] MEDS: ENOXAPARIN 40 MG/0.4 ML SYRINGE SUB-Q (09:00)
[2022-07-05] MEDS: chlordiazePOXIDE (*CRX) 25 MG CAPSULE PO (09:58)
[2022-07-05] MEDS: chlordiazePOXIDE (*CRX) 25 MG CAPSULE 50 MG (14:06)
[2022-07-05] MEDS: NICOTINE (*PBKC) 21 MG PATCH 1 PATCH TRANSDERM (14:08)
[2022-07-05] MEDS: hydrALAZINE HCL 25 MG TABLET PO (17:15)
--- NOTE | 2022-07-05 17:28 | PM.IMPN ---
Progress Note: A&P Assessment and Plan (1) Chest pain: Code(s): R07.9 - Chest pain, unspecified Status: Acute Assessment and Plan: -1st troponin was negative. Continue to monitor troponins. -I did order an echo. -a stress test has been ordered for tomorrow. -the patient stated he had a cardiac catheterization within the last year to and was told that was negative. 07/05/2022 interval history: patient with history of alcohol abuse has visible tremors, anxious and elevated blood pressure patient appeared to be in DT, patient is placed on CIWA protocol, will give the patient Librium 50 mg every 6 hours x4 doses, will give hydralazine 25 mg every 8 hours as needed to keep the blood pressure below 160, patient with complaint of chest, there are no acute changes on EKG, 3 sets of cardiac enzymes are negative and cardiac echo showed preserved LV function with ejection fraction of 65% and grade 1 diastolic dysfunction, will reassess the patient tomorrow and further recommendation to follow (2) Alcohol intoxication: Code(s): F10.929 - Alcohol use, unspecified with intoxication, unspecified Status: Acute Assessment and Plan: Continue with CIWA -scheduled Librium with p.r.n. Ativan -p.r.n. Haldol -thiamin and folic acid (3) Hyperlipidemia: Code(s): E78.5 - Hyperlipidemia, unspecified Status: Acute Assessment and Plan: Check lipid profile and continue with heart healthy diet (4) Hypertension: Code(s): I10 - Essential (primary) hypertension Status: Acute Assessment and Plan: Continue with metoprolol (5) Tobacco consumption: Code(s): Z72.0 - Tobacco use Status: Acute Assessment and Plan: -was discussed smoking cessation for approximately 5 minutes. Subjective Date/time seen: 07/05/22 17:28 Chief Complaint: Chest pain HPI-Narrative: This is a 52-year-old male patient who has a history of alcoholism and hypertension.? The patient came to the emergency room with complaints of chest pain.? The patient stated that he has been started on his left side of his chest and did not radiate.? The discomfort was associated with shortness of breath.? His chest pain is now gone.? The patient stated that he used an inhaler in a did help.? He denies any fever chills the patient drinks anywhere from 12-20 beers a day.? The patient has had no previous cardiac history he stated that he had a cardiac catheterization within the last year 2 and it was reportedly clear.? His H&H is 13.5 and 40.6 which is his baseline.? Potassium is 3.2.? First troponin is nonreactive.? Lipase is 430.? Patient's ethyl alcohol level is 446.? The patient is negative for influenza A/B and COVID.? Chest x-ray was read as no acute cardiopulmonary disease.? EKG was read as sinus rhythm.? The patient was given a potassium supplement, thiamin an aspirin.? 07/05/2022 interval history: patient with history of alcohol abuse has visible tremors, anxious and elevated blood pressure patient appeared to be in DT, patient is placed on CIWA protocol, will give the patient Librium 50 mg every 6 hours x4 doses, will give hydralazine 25 mg every 8 hours as needed to keep the blood pressure below 160, patient with complaint of chest, there are no acute changes on EKG, 3 sets of cardiac enzymes are negative and cardiac echo showed preserved LV function with ejection fraction of 65% and grade 1 diastolic dysfunction, will reassess the patient tomorrow and further recommendation to follow Review of Systems Review of Systems: All systems reviewed & are unremarkable except as noted in HPI and below Objective Data Vital Signs Vital Signs: Vital Signs - 24 hr 07/04/22 18:12 07/04/22 19:59 07/04/22 19:33 Temperature 97.4 F L Pulse Rate 84 Pulse Rate [Bilateral Posterior Tibial] Pulse Rate [Bilateral Radial] Respiratory Rate 18 Blood Pressure 148/107 H 148/107 H Pulse Oximetry 100 Oxygen Delivery
[2022-07-06] VITALS (9 sets, daily range): BP systolic 139–155; BP diastolic 92–106; PULSE 58–123; RESP 16–20; TEMP 36.7–37; O2SAT 96–100
[2022-07-06] MEDS: chlordiazePOXIDE (*CRX) 25 MG CAPSULE 50 MG PO ×3 (00:47→12:07)
[2022-07-06 04:16] LABS: Hematocrit 38.1 % (42.0-52.0); Hemoglobin 12.7 g/dL (14.0-18.0); Immature Platelet Fraction Pct 13.2 % (0.9-11.2); Mean Corpuscular HGB Conc 33.3 g/dl (32-36); Mean Corpuscular Hemoglobin 33.6 pg (26-34); Mean Corpuscular Volume 100.8 fl (80-100); Mean Platelet Volume 11.5 fl (7.4-10.4); Platelet Count Result 118 k/mm3 (150-375); Red Blood Count 3.78 M/mm3 (4.6-6.20); Red Cell Distribution Width 19.8 % (11.5-14.5); White Blood Count 6.1 K/mm3 (4.5-10.0)
[2022-07-06 04:26] LABS: Albumin Level 3.2 g/dL (3.5-5.1); Anion Gap 7 mmol/L (8-16); Blood Urea Nitrogen 6 mg/dL (9-20); Calcium 7.5 mg/dL (8.4-10.2); Carbon Dioxide 25 mmol/L (22-30); Chloride 105 mmol/L (98-107); Estimated CRCL calculation 127 ml/min; Estimated Glomerular Filt Rate > 60; Glucose 77 mg/dL (65-110); Magnesium 1.5 mg/dL (1.6-2.3); Phosphorus 2.4 mg/dL (2.5-4.5); Potassium 3.2 mmol/L (3.4-5.0); Sodium 137 mmol/L (137-145)
[2022-07-06] MEDS: THIAMINE HCL 200 MG/2 ML VIAL 100 MG IV PUSH (08:10)
[2022-07-06] MEDS: METOPROLOL TARTRATE 50 MG TAB PO (08:10)
[2022-07-06] MEDS: ENOXAPARIN 40 MG/0.4 ML SYRINGE SUB-Q (08:11)
[2022-07-06] MEDS: NICOTINE (*PBKC) 21 MG PATCH 1 PATCH TRANSDERM (09:43)
[2022-07-06] MEDS: FOLIC ACID 1 MG/0.2 ML INJ IV PUSH (09:43)
[2022-07-06] MEDS: POTASSIUM CHLORIDE 20 MEQ TABLET 40 MEQ PO (12:08)
[2022-07-06] MEDS: MAGNESIUM SULF 2 GM/WATER 50ML 2 GM/50 ML BAG IVPB (12:08)
--- NOTE | 2022-07-06 16:22 | PM.IMPN ---
Progress Note: A&P Assessment and Plan (1) Chest pain: Code(s): R07.9 - Chest pain, unspecified Status: Acute Assessment and Plan: -1st troponin was negative. Continue to monitor troponins. -I did order an echo. -a stress test has been ordered for tomorrow. -the patient stated he had a cardiac catheterization within the last year to and was told that was negative. 07/06/2022 interval history: patient with history of alcohol abuse on 07/05 had visible tremors, anxious and elevated blood pressure patient appeared to be in DT, patient was placed on CIWA protocol, patient was started on Librium 50 mg every 6 hours x4 doses, and hydralazine 25 mg every 8 hours as needed to keep the blood pressure below 160, patient with complaint of chest, there were no acute changes on EKG, 3 sets of cardiac enzymes were negative and cardiac echo showed preserved LV function with ejection fraction of 65% and grade 1 diastolic dysfunction, today patient is not as tremulous however anxious, will taper Librium 25 mg every 6 hours as needed will continue to monitor CIWA protocol, will reassess the patient tomorrow and further recommendation to follow (2) Alcohol intoxication: Code(s): F10.929 - Alcohol use, unspecified with intoxication, unspecified Status: Acute Assessment and Plan: Continue with CIWA -scheduled Librium with p.r.n. Ativan -p.r.n. Haldol -thiamin and folic acid (3) Hyperlipidemia: Code(s): E78.5 - Hyperlipidemia, unspecified Status: Acute Assessment and Plan: Check lipid profile and continue with heart healthy diet (4) Hypertension: Code(s): I10 - Essential (primary) hypertension Status: Acute Assessment and Plan: Continue with metoprolol (5) Tobacco consumption: Code(s): Z72.0 - Tobacco use Status: Acute Assessment and Plan: -was discussed smoking cessation for approximately 5 minutes. Subjective Date/time seen: 07/06/22 16:22 07/06/2022 interval history: patient with history of alcohol abuse on 07/05 had visible tremors, anxious and elevated blood pressure patient appeared to be in DT, patient was placed on CIWA protocol, patient was started on Librium 50 mg every 6 hours x4 doses, and hydralazine 25 mg every 8 hours as needed to keep the blood pressure below 160, patient with complaint of chest, there were no acute changes on EKG, 3 sets of cardiac enzymes were negative and cardiac echo showed preserved LV function with ejection fraction of 65% and grade 1 diastolic dysfunction, today patient is not as tremulous however anxious, will taper Librium 25 mg every 6 hours as needed will continue to monitor CIWA protocol, will reassess the patient tomorrow and further recommendation to follow Review of Systems Review of Systems: All systems reviewed & are unremarkable except as noted in HPI and below Objective Data Vital Signs Vital Signs: Vital Signs - 24 hr 07/05/22 18:00 07/05/22 20:00 07/05/22 20:00 Temperature Pulse Rate 70 58 L Pulse Rate [Bilateral Posterior Tibial] 62 Pulse Rate [Bilateral Radial] 62 Respiratory Rate Blood Pressure 161/99 H Pulse Oximetry Oxygen Delivery 07/05/22 20:00 07/05/22 20:00 07/05/22 22:00 Temperature 97.7 F Pulse Rate 58 L 58 L 65 Pulse Rate [Bilateral Posterior Tibial] Pulse Rate [Bilateral Radial] Respiratory Rate 16 16 Blood Pressure 145/97 H Pulse Oximetry 96 96 Oxygen Delivery Room Air 07/05/22 23:43 07/06/22 00:00 07/06/22 00:00 Temperature 97.5 F L Pulse Rate 58 L 61 Pulse Rate [Bilateral Posterior Tibial] 62 Pulse Rate [Bilateral Radial] 62 Respiratory Rate 20 Blood Pressure 153/97 H 153/97 H Pulse Oximetry 98 Oxygen Delivery 07/06/22 00:00 07/06/22 02:00 07/06/22 04:00 Temperature Pulse Rate 61 67 58 L Pulse Rate [Bilateral Posterior Tibial] Pulse Rate [Bilateral Radial] Respiratory Rate 20
--- NOTE | 2022-07-06 16:29 | PM.DS ---
DS: Admitting Diagnosis Discharge Date 07/06/22 Admitting Diagnosis chest pain DS: Discharge Diagnosis Discharge Diagnosis (1) Chest pain: Code(s): R07.9 - Chest pain, unspecified Status: Acute Assessment and Plan: -1st troponin was negative. Continue to monitor troponins. -I did order an echo. -a stress test has been ordered for tomorrow. -the patient stated he had a cardiac catheterization within the last year to and was told that was negative. 07/06/2022 interval history: patient with history of alcohol abuse on 07/05 had visible tremors, anxious and elevated blood pressure patient appeared to be in DT, patient was placed on CIWA protocol, patient was started on Librium 50 mg every 6 hours x4 doses, and hydralazine 25 mg every 8 hours as needed to keep the blood pressure below 160, patient with complaint of chest, there were no acute changes on EKG, 3 sets of cardiac enzymes were negative and cardiac echo showed preserved LV function with ejection fraction of 65% and grade 1 diastolic dysfunction, today patient is not as tremulous however anxious, will taper Librium 25 mg every 6 hours as needed will continue to monitor CIWA protocol, will reassess the patient tomorrow and further recommendation to follow (2) Alcohol intoxication: Code(s): F10.929 - Alcohol use, unspecified with intoxication, unspecified Status: Acute Assessment and Plan: Continue with CIWA -scheduled Librium with p.r.n. Ativan -p.r.n. Haldol -thiamin and folic acid (3) Hyperlipidemia: Code(s): E78.5 - Hyperlipidemia, unspecified Status: Acute Assessment and Plan: Check lipid profile and continue with heart healthy diet (4) Hypertension: Code(s): I10 - Essential (primary) hypertension Status: Acute Assessment and Plan: Continue with metoprolol (5) Tobacco consumption: Code(s): Z72.0 - Tobacco use Status: Acute Assessment and Plan: -was discussed smoking cessation for approximately 5 minutes. DS: Summary Hospital Course Reason for hospitalization: Chest pain Narrative: This is a 52-year-old male patient who has a history of alcoholism and hypertension.? The patient came to the emergency room with complaints of chest pain.? The patient stated that he has been started on his left side of his chest and did not radiate.? The discomfort was associated with shortness of breath.? His chest pain is now gone.? The patient stated that he used an inhaler in a did help.? He denies any fever chills the patient drinks anywhere from 12-20 beers a day.? The patient has had no previous cardiac history he stated that he had a cardiac catheterization within the last year 2 and it was reportedly clear.? His H&H is 13.5 and 40.6 which is his baseline.? Potassium is 3.2.? First troponin is nonreactive.? Lipase is 430.? Patient's ethyl alcohol level is 446.? The patient is negative for influenza A/B and COVID.? Chest x-ray was read as no acute cardiopulmonary disease.? EKG was read as sinus rhythm.? The patient was given a potassium supplement, thiamin an aspirin.? Hospital Course: patient with history of alcohol abuse on 07/05? had visible tremors, anxious and elevated blood pressure? patient appeared to be in DT, patient was placed on CIWA protocol, patient was started on Librium 50 mg every 6 hours x4 doses, and? hydralazine 25 mg every 8 hours as needed to keep the blood pressure below 160,? patient with complaint of chest, there were no acute changes on EKG, 3 sets of cardiac enzymes were? negative and cardiac echo showed preserved LV function with ejection fraction of 65% and grade 1 diastolic dysfunction,? today patient is not as tremulous however anxious, will taper Librium 25 mg every 6 hours as needed will continue to monitor CIWA protocol,? will reassess the patient tomorrow and further recommendation to follow left AMA Time Spent with Patient Time attestation: Total time sp
== END 2022-07-06 16:14 | disposition left against medical advice (07) ==
LOC: ANHED 16:00 → ANHIMU 18:13
PROVIDERS: Nurse Practitioner; Admitting Provider Internal Medicine; Emergency Provider Emergency Medicine; PCP Emergency Medicine; Visit Provider Family Medicine
DX: R07.9 Chest pain, unspecified (principal); F10.929 Alcohol use, unspecified with intoxication, unspecified; Y90.8 Blood alcohol level of 240 mg/100 ml or more; R06.02 Shortness of breath; R94.31 Abnormal electrocardiogram [ECG] [EKG]; I11.9 Hypertensive heart disease without heart failure; Z20.822 Contact with and (suspected) exposure to COVID-19; E78.5 Hyperlipidemia, unspecified; F41.9 Anxiety disorder, unspecified; Z79.899 Other long term (current) drug therapy
CPT/HCPCS: 36415; 71046; 80053; 80069; 80307; 83690; 83735; 83880; 84443; 84484; 85025; 85027; 85055; 85610; 85730; 87636; 93005; 93306; 96372; 96374; 96375; 99285; A9270; G0378; J1650; J3411; J3475

== ENCOUNTER 2022-07-18 13:48 | Emergency (ER) | payer OTHER, SELFPAY ==
[2022-07-18] VITALS (15 sets, daily range): BP systolic 57–138; BP diastolic 46–89; PULSE 97–115; RESP 12–23; TEMP 36.6; O2SAT 88–100
--- NOTE | ~2022-07-18 | XR_ITS ---
EXAMINATION: XR chest 1V portable INDICATION: Shortness of breath TECHNIQUE: Portable AP chest at 1424 hours COMPARISON: 07/04/2022 FINDINGS: There are minimal airspace opacities of the left lung base. No pleural effusion or pneumoth orax. The cardiomediastinal silhouette is normal. IMPRESSION: 1. Minimal left basilar airspace opacity, consistent with atelectasis versus pneumonia. Reviewed, dictated and finalized at location B. ROOTER OPERATOR IMPRESSION: 1. Minimal left basilar airspace opacity, consistent with atelectasis versus pn eumonia.
--- NOTE | ~2022-07-18 | CT_ITS ---
EXAMINATION: CT abdomen pelvis w con DATE: 07/18/2022 17:30 INDICATION: epigastric pain TECHNIQUE: Computed tomography (CT) of the abdomen and pelvis was performed with 100 mL Omnipaque-350 intravenous contrast. Automated exposure control and iterative reconstruction technique were employe d. The dose-length product was 354.94 mGy-cm. COMPARISON: 02/01/2021. FINDINGS: Lower thorax: Dependent scar/atelectasis Liver: Enlarged. Diffusely fatty infiltrated. No definite parenchymal defect is detected. Biliary/Gallbladder: Gallbladder is normal. No bile duct dilation. Pancreas: No mass or duct dilation. Spleen: Normal. Adrenals:Stable right adrenal adenoma Kidneys: No mass, stone, or hydronephrosis. Moderate bilateral perinephric stranding. GI tract: No small or large bowel dilation. Normal appendix. Mesentery/Peritoneum: No mass or free air. Mixed density moderate volume perihepatic fluid collection , with most of the hyperdense material along the right lobe (the sentinel clot sign). Moderate volume peritoneal fluid, with layering dependent hyperdense material. Retroperitoneum: No mass. Atherosclerotic abdominal aortic and/or arterial calcifications. No IVC fla ttening. Pelvis: Pelvic organs are within normal limits. Soft Tissues: Soft tissues and body wall unremarkable. Bones: No acute osseous finding. IMPRESSION: Moderate volume hemoperitoneum. The source is likely the right lobe of the liver, although a specific liver injury is not detected. Reviewed, dictated and finalized at [facility] K. SION PLANT ENGINEER IMPRESSION: Moderate volume hemoperitoneum. The source is likely the right lobe of the live r, although a specific liver injury is not detected.
--- NOTE | 2022-07-18 14:02 | ECG_ITS ---
Measurements Intervals [place] Rate: 105 P: 79 [place]: 120 QRS: 34 QRSD: 102 T: 10 QT: 361 QTc: 479 Interpretive Statements SINUS TACHYCARDIA ABNORMAL RHYTHM ECG COMPARED TO ECG 07/04/2022 15:03:31 SINUS TACHYCARDIA NOW PRESENT Electronically Signed On 07-18-2022 15:32:59 [employer]INE ENGINE MACHINIST APPRENTICE by Surjit Bowles M.D.
[2022-07-18] MEDS: SODIUM CHLORIDE 0.9% IV 1,000 ML 999 ML IV CONT ×2 (14:11→16:16)
[2022-07-18 14:17] LABS: Basophils Absolute Auto 0.1 K/mm3 (0.0-0.1); Basophils Percent Auto 0.9 % (0.2-1.2); Eosinophils Absolute Auto 0.1 K/mm3 (0-0.3); Eosinophils Percent Auto 0.9 % (0-4.4); Hematocrit 32.2 % (42.0-52.0); Hemoglobin 10.5 g/dL (14.0-18.0); Immature Granulocyte Absolute 0.09 K/mm3 (0.00-0.031); Immature Granulocyte Percent A 0.9 % (0-0.5); Lymphocytes Absolute Auto 2.53 K/mm3 (0.9-3.2); Lymphocytes Percent Auto 24.5 % (18.3-44.2); Mean Corpuscular HGB Conc 32.6 g/dl (32-36); Mean Corpuscular Hemoglobin 33.1 pg (26-34); Mean Corpuscular Volume 101.6 fl (80-100); Mean Platelet Volume 10.4 fl (7.4-10.4); Monocytes Absolute Auto 0.9 K/mm3 (0.1-0.6); Monocytes Percent Auto 8.6 % (2.6-8.5); Neutrophils Absolute Auto 6.7 K/mm3 (1.3-6.7); Neutrophils Percent Auto 64.2 % (45.5-73.1); Nucleated Red Blood Cells Absolute Auto 0.1 K/mm3 (0.0-0.012); Nucleated Red Blood Cells Perc 0.5 % (0.0-0.2); Platelet Count Result 192 k/mm3 (150-375); Red Blood Count 3.17 M/mm3 (4.6-6.20); Red Cell Distribution Width 20.3 % (11.5-14.5); White Blood Count 10.3 K/mm3 (4.5-10.0)
[2022-07-18 14:28] LABS: INR 1.2; Prothrombin Time 14.7 Seconds (11.1-14.7)
[2022-07-18 14:29] LABS: Partial Thromboplastin Time 31.8 SECONDS (22.3-36.8)
[2022-07-18 14:42] LABS: NT Pro B Type Natriuretic Pept 86 pg/mL (19.9-100); Troponin I < 0.012 ng/mL (0.000-0.034)
[2022-07-18 14:44] LABS: Alanine Aminotransferase 38 U/L (6-50); Albumin Level 2.9 g/dL (3.5-5.1); Alkaline Phosphatase 97 U/L (38-126); Anion Gap 6 mmol/L (8-16); Aspartate Amino Transferase 122 U/L (17-59); Bilirubin,Total 0.5 mg/dL (0.2-1.3); Blood Urea Nitrogen 6 mg/dL (9-20); Carbon Dioxide 27 mmol/L (22-30); Chloride 109 mmol/L (98-107); Estimated CRCL calculation 85 ml/min; Estimated Glomerular Filt Rate > 60; Ethanol 362 mg/dL (<10); Glucose 96 mg/dL (65-110); Potassium 2.8 mmol/L (3.4-5.0); Sodium 142 mmol/L (137-145)
[2022-07-18 15:23] LABS: Influenza A QL RT-PCR Negative (Negative); Influenza B QL RT-PCR Negative (Negative); SARS-CoV-2 RNA PCR Negative
[2022-07-18] MEDS: IPRATROPIUM BR 0.02% INH SOLN 0.5 MG/2.5 ML VIAL INHALATION (15:28)
[2022-07-18] MEDS: ALBUTEROL SULFATE NEB 2.5 MG/3 ML INH INHALATION (15:29)
--- NOTE | 2022-07-18 16:17 | PC.NURSE ---
EDP Dr Luna at bedside due to pt increased lethargy, diaphoretic, hypotensive. BS 200s NS infusing w/ pressure bag Pt remains alert w/ slurred speech, supine position, requesting water and informed cannot have at this time
[2022-07-18 16:19] LABS: Glucose Point of Care 257 mg/dl (65-105)
[2022-07-18] MEDS: LACTATED RINGERS 1,000 ML 999 ML IV CONT (16:22)
[2022-07-18] MEDS: CALCIUM GLUCONATE 1,000 MG/10 ML VIAL 1000 MG IV PUSH (16:22)
[2022-07-18] MEDS: POTASSIUM CHLORIDE INJ 40 MEQ in SODIUM CHLORIDE 0.9% IV 500 ML 130 MEQ IVPB (17:10)
[2022-07-18 17:21] LABS: Troponin I < 0.012 ng/mL (0.000-0.034)
--- NOTE | 2022-07-18 18:01 | ED.GENADULT ---
HPI - General Adult General Chief complaint: Chest Pain Stated complaint: CP Time Seen by Provider: 07/18/22 13:51 History of Present Illness HPI narrative: Patient is a 52-year-old male who presents ER with chest pain and shortness of breath. Reports she has been having cough since being hospitalized last week. He is also has some wheezing. Chest pain is central. Denies exertional chest discomfort. In route EMS gave patient nitro x2. Blood pressure dropped significantly into the 70s. Patient was diaphoretic. Patient reports drinking 3 beers today. Related Data Home Medications Medication Instructions Recorded Confirmed metoprolol tartrate 50 mg tablet 50 mg PO DAILY 07/04/22 07/04/22 Allergies Allergy/AdvReac Type Severity Reaction Status Date / Time No Known Allergies Allergy Verified 07/04/22 18:24 Review of Systems Review of Systems: ROS unobtainable: Yes unobtainable due to medical condition (Intoxication) PMFSH Past Medical History Medical History Abdominal pain Alcohol abuse Blood in stool Colon cancer screening Elevated liver enzymes GERD (gastroesophageal reflux disease) Hyperlipidemia Hypertension Tobacco consumption Surgical History Surgical History History of cardiac cath 2020 History of colonoscopy Hx of chest tube placement Family History Family History Father Respiratory acidosis Mother Arthritis Social History Social History (Updated 07/04/22 @ 19:41 by Criss Fuentes NP) Social History: The patient does [place] work except for during the winter. The patient will during 12-20 Beers a day. He is and one daughter. The patient continues to smoke at least 1 pack a cigarettes a day. Code status full code Smoking packs per day: 1 Smoking cigarettes per day: 20.0 Years smoked: 43 Smoking pack-years: 43.00 Smoking status: Current every day smoker Tobacco type: cigarettes Alcohol intake: current Drinks per week: 25 Alcohol use details: daily Substance use: unknown Substance use type: marijuana Other substance usage details: daily Lack of Transportation: No Lack of Food: Never True Current Housing: I Have Housing Concerned About Future Housing: No Difficulty Paying Gas/Electric Bills: No Difficulty Paying for Meds: No Currently Unemployed: No Education: High School Diploma/GED Difficulty w/ Childcare or Family Care: No Living arrangements: alone Spiritual care concerns: No Exam Narrative: GENERAL: Ill-appearing, well-nourished, and in mild distress. HEAD: Normocephalic, atraumatic. EYES: PERRL and EOMI. ENT: Mucous membranes moist. CHEST: Wheezing bilaterally. No respiratory distress. HEART: Tachycardic and regular. Normal peripheral pulses. ABDOMEN: Soft, mild epigastric tenderness without guarding, nondistended, normal active bowel sounds. Contusion of the right upper quadrant of the abdomen and the lower ribs of the chest wall. EXTREMITIES: Normal range of motion. No edema. Abrasions to the fingers of the left hand with normal strength and range of motion. SKIN: Warm, diaphoretic, no rash. NEURO: Alert and oriented x3. PSYCH: Normal mood and affect. Course Course Emergency Course: Patient initially presented diaphoretic and hypotensive after receiving nitroglycerin. Received IV fluid and was starting to respond into the 90s systolic. Patient then had recurrent diaphoresis with low blood pressure into the 50s. He was given additional 2 L of IV fluid. He has had a total of 2 L of normal saline and 1 L of lactated Ringer's. He is having epigastric discomfort on exam and CT scan was ordered. There is evidence of hemoperitoneum and concern for liver laceration. Patient does have bruising along the right costophrenic border. Patient is receiving IV potassium for his hypokalemia and received
[2022-07-18] MEDS: TUBING, BLOOD SET 1 EACH XX (18:39)
--- NOTE | 2022-07-18 18:44 | PC.NURSE ---
Pt has blood products initiated and transfusing at time of departure w/ [facility]. Bedside report given to Gaetano MAZARIEGOS and medic Marco, EDP Dr Luna at bedside for report as well. Pt is alert and aware of situation/plan. Family notified per pts permission. VSS at time of departure. Pt has belongings.
== END 2022-07-18 18:52 | disposition short-term general hospital (02) ==
PROVIDERS: Emergency Provider Emergency Medicine; PCP Emergency Medicine
DX: K66.1 Hemoperitoneum (principal); F10.129 Alcohol abuse with intoxication, unspecified; Y90.8 Blood alcohol level of 240 mg/100 ml or more; S36.113A Laceration of liver, unspecified degree, initial encounter; E87.6 Hypokalemia; E83.51 Hypocalcemia; R00.0 Tachycardia, unspecified; Z20.822 Contact with and (suspected) exposure to COVID-19; I10 Essential (primary) hypertension; K21.9 Gastro-esophageal reflux disease without esophagitis; F17.210 Nicotine dependence, cigarettes, uncomplicated; X58.XXXA Exposure to other specified factors, initial encounter
CPT/HCPCS: 36415; 36430; 71045; 74177; 80053; 80307; 82948; 83880; 84484; 85025; 85610; 85730; 86850; 86900; 86901; 86920; 87636; 93005; 94640; 96361; 96365; 96366; 96375; 99285; J0610; J3480; J7030; J7040; J7120; P9016; Q9967

== ENCOUNTER 2025-05-04 15:44 | Inpatient (IN) | payer MEDICAID, SELFPAY ==
[2025-05-04] VITALS (20 sets, daily range): BP systolic 128–172; BP diastolic 87–116; PULSE 76–106; RESP 12–22; TEMP 36.8–37.3; O2SAT 95–100; BMI 24.0
--- NOTE | ~2025-05-04 | XR_ITS ---
EXAMINATION:KUB: DATE: 05/10/2025 INDICATION: Pre-MRI clearance TECHNIQUE: Supine AP view of the abdomen. COMPARISON: CT abdomen dated 02/01/2021. FINDINGS: No abnormal radiopaque foreign objects are seen within the field of vision in the abdomen. Soft tissue structures are unremarkable. EKG leads and wires are noted over the lower chest and upper abdomen. IMPRESSION: 1. No radiopaque or abnormal foreign objects in the abdomen. EKG leads are noted. Reviewed, dictated and finalized at location T. AGE MAKER IMPRESSION: 1. No radiopaque or abnormal foreign objects in the abdomen. EKG leads are note d.
--- NOTE | ~2025-05-04 | US_ITS ---
EXAMINATION: US venous doppler [facility], 05/10/2025 17:00 WRAPPING MACHINE TENDER HISTORY: new fever COMPARISON: None Technique: Fritz-scale and color Doppler images were attempted of the lower saphenofemoral junction, common femoral vein,superficial femoral vein, proximal deep femoral vein, proximal deep femoral vein, popliteal vein and posterior tibial veins. Findings: Deep Venous System:Normal flow, augmentation and compressibility. No echogenic thrombus identified. Superficial Venous SystemNo superficial thrombophlebitis. Soft tissues: Soft tissues are unremarkable. Impression: Negative for DVT. Reviewed, dictated and finalized at location P. PING MACHINE TENDER Impression: Negative for DVT.
--- NOTE | ~2025-05-04 | CT_ITS ---
EXAM/PROCEDURE: CT chest abdomen pelvis w con HISTORY: FEver, recurrent COMPARISON: May 13, 2025 TECHNIQUE: IV contrast enhanced CT of the chest abdomen and pelvis performed. FINDINGS: CHEST CT: Minimal dependent atelectatic appearing changes present in the both lung bases right greater than left. Aeration improved since the May 13 exam. Trace effusions also smaller. No focal consolidation or pneumothorax. Central and large airways are patent. Heart and great vessels appear normal. No significant pericardial effusion. No bulky lymphadenopathy. The bony thorax appears intact. ABDOMEN AND PELVIS: Moderate amount of stool is present in the colon extending to the hepatic flexure. Mild wall thickening may be present in the rectosigmoid region Multiple loops of fluid-filled small bowel are present. No grossly distended loops of bowel, free air, free fluid or pneumatosis seen. No AAA. Appendix normal size. No hydroureteronephrosis. Spleen pancreas stomach and adrenal glands and liver unchanged. 1.5 cm right adrenal nodule with minus attenuation on the noncontrast chest CT consistent with benign adenoma. The gallbladder is contracted but no gross CT evidence of acute cholecystitis seen. The bones are intact. No bulky mesenteric or retroperitoneal lymphadenopathy or masses seen. Urinary bladder unremarkable for technique. IMPRESSION: 1. Improved aeration of the lung bases with trace effusion smaller as well compared to the May 13 exam. 2. Mildly thickened appearance of the rectosigmoid large bowel wall. Findings could represent early developing colitis. 3. Fluid-filled loops of small bowel could be associated with inflammatory or infectious enteritis. 4. Other findings as above. Reviewed, dictated and finalized at location A. CLERK PULLMAN IMPRESSION: 1. Improved aeration of the lung bases with trace effusion smaller as well comp ared to the May 13 exam. 2. Mildly thickened appearance of the rectosigmoid large bowel wall. Findings c ould represent early developing colitis. 3. Fluid-filled loops of small bowel could be associated with inflammatory or i nfectious enteritis. 4. Other findings as above.
--- NOTE | ~2025-05-04 | MR_ITS ---
EXAMINATION: MR brain/brain stem wo con DATE: 05/11/2025 12:38 INDICATION: Mental status changes TECHNIQUE: Magnetic resonance imaging (MRI) of the brain and brainstem was performed without intravenous contrast. Sequences included sagittal and axial T1-weighted SE, axial diffusion-weighted FS SE, axial T2*-weighted GRE, axial T2-weighted FLAIR, and axial T2-weighted FSE. Postcontrast axial and coronal T1- weighted SE was obtained. Apparent diffusion coefficient (ADC) maps were created. COMPARISON: Head CT dated 05/04/2025 FINDINGS: There are no areas of restricted diffusion to suggest acute infarction. No intracranial hemorrhage or abnormal intracranial mass lesion. There are no intraparenchymal signal abnormalities seen on the other pulse sequences. The ventricles are symmetric and normal in size. There are no abnormal extra-axial fluid collections. Flow voids are seen in the cerebral arteries on the T2- weighted sequences consistent with their expected patency. Mucosal thickening in the paranasal sinuses with prominent in the posterior right ethmoid and bilateral maxillary sinuses. Visualized orbits and soft tissues are unrem arkable. IMPRESSION: 1. Normal brain. No acute intracranial process. Reviewed, dictated and finalized at location A. BED OPERATOR
--- NOTE | ~2025-05-04 | CT_ITS ---
CT brain wo con HISTORY:ams COMPARISON: None. TECHNIQUE: Axial images were obtained of the head without intravenous contrast. FINDINGS: No acute intracranial hemorrhage, mass effect or midline shift. No extra-axial fluid collections. The calvarium is intact. Visualized paranasal sinuses and mastoid air cells are clear. IMPRESSION: No acute intracranial hemorrhage or extra axial fluid collections. All CT scans at this facility are performed using low dose modulation techniques as appropriate to perform exam including the following: automated exposure control; use of iterative reconstruction technique; adjustment of the mA and/or kV according to patient size (this includes techniques or standardized protocols for targeted exams where dose is matched to indication/reason for exam). Reviewed, dictated and finalized at location S. INE RESERVATION AGENT IMPRESSION: No acute intracranial hemorrhage or extra axial fluid collections. All CT scans at this facility are performed using low dose modulation techniqu es as appropriate to perform exam including the following: automated exposure c ontrol; use of iterative reconstruction technique; adjustment of the mA and/or kV according to patient size (this includes techniques or standardized protocol s for targeted exams where dose is matched to indication/reason for exam).
--- NOTE | ~2025-05-04 | CT_ITS ---
EXAMINATION:CT diagnostic chest wo con DATE: 05/13/2025 12:57 INDICATION: Pneumonia TECHNIQUE: Computed tomography (CT) of the chest was performed without intravenous contrast. The dose-length product (DLP) was 238.50 mGy-cm. COMPARISON: Chest x-ray May 04 FINDINGS: Trace bilateral pleural effusions with subsegmental atelectatic changes, left worse than right; few air bronchograms are present in the left lung base. The remaining lung robertson are clear. Heart size is borderline enlarged. Great vessels appear normal in size. Trace pericardial effusion. No bulky adenopathy. Central large airways are patent. Degenerative changes throughout the bones. No acute process seen in the visualized portions of the upper abdomen or extrathoracic soft tissues. IMPRESSION: Trace bilateral pleural effusions with subsegmental atelectatic changes left worse than right; air bronchograms in the left lung base may represent developing pneumonia or aspiration. Reviewed, dictated and finalized at location A. NESS SUPPORT LIAISON IMPRESSION: Trace bilateral pleural effusions with subsegmental atelectatic chepe nges left worse than right; air bronchograms in the left lung base may represen t developing pneumonia or aspiration.
--- NOTE | ~2025-05-04 | XR_ITS ---
[id number] Indication: PRE MRI CLEARANCE Comparison: None Findings: Levoconvex scoliosis. Moderate loss of vertebral height throughout. Severe loss of disc height C5-6 and C6-7. Soft tissues demonstrate no metallic radiopaque foreign body. Impression: No acute abnormality. Reviewed, dictated and finalized at location P. ETING DEVELOPMENT REPRESENTATIVE Impression: No acute abnormality.
--- NOTE | ~2025-05-04 | CT_ITS ---
EXAMINATION: CT brain wo con, 05/04/2025 17:25 MANUFACTURING ENGINEERING INTERN HISTORY: ETOH use, w/drawal, unresponsive, hypoglycemic COMPARISON: No comparisons available. Technique: Axial images obtained of the brain without contrast. One or more of the following dose reduction techniques were used: automated exposure control, adjustment of the mA and/or kV according to patient size, use of iterative reconstruction technique. Findings: No acute infarct or parenchymal hemorrhage. No abnormal mass or mass effect. No midline shift. No extra-axial fluid collections. No hydrocephalus. Mastoid air cells unremarkable. Sinuses and orbits unremarkable. No acute fracture. No significant facial or scalp soft tissue swelling evident. No radiopaque foreign body is seen. Impression: 1.No acute intracranial abnormality. Reviewed, dictated and finalized at location P. FACTURING ENGINEERING INTERN Impression: 1.No acute intracranial abnormality.
--- NOTE | ~2025-05-04 | US_ITS ---
EXAMINATION: US abdomen limited DATE: 05/09/2025 07:48 INDICATION: Cirrhosis of the liver. TECHNIQUE: Multiple grayscale and Doppler ultrasound images of the abdomen were obtained. COMPARISON: CT abdomen and pelvis 07/18/2022 FINDINGS: The visualized portions of the head and body of the pancreas are normal. There is diffuse hepatic steatosis. No liver surface nodularity. There is normal flow in main portal vein. The gallbladder is normal in size and contains sludge. No gallstones or gallbladder wall thickening. There was no sonographic Bhatt's sign. The common duct is normal and measures 4 mm. IMPRESSION: 1. Diffuse hepatic steatosis. Reviewed, dictated and finalized at location E. D DESIGNER
--- NOTE | ~2025-05-04 | XR_ITS ---
EXAMINATION: XR chest 1V DATE: 05/10/2025 13:54 INDICATION: Chest pain TECHNIQUE: A single frontal view of the chest was obtained. COMPARISON: Chest x-ray dated 07/04/2022. FINDINGS: Heart size is upper normal. Lungs are clear of acute process on the left side. Minimal infiltrates are suspected in the right infrahilar region. No effusion. IMPRESSION: 1. Suspect minimal airspace opacities of right infrahilar region. Please correlate with clinical and lab findings. Reviewed, dictated and finalized at location T. DER MILL OPERATOR IMPRESSION: 1. Suspect minimal airspace opacities of right infrahilar region. Please correl ate with clinical and lab findings.
--- NOTE | ~2025-05-04 | XR_ITS ---
EXAMINATION: XR chest 1V portable DATE: 05/12/2025 22:12 INDICATION: Possible aspiration TECHNIQUE: frontal view of the chest was obtained. COMPARISON: Chest radiograph dated 07/18/2022 05/10/2025 FINDINGS: Mild thin linear atelectasis/scarring at the bilateral lung bases. No other airspace opacities, ulnar edema, pleural effusion or pneumothorax. The cardiomediastinal silhouette is normal. Mild thoracic dextrocurvature with mild spondylosis. IMPRESSION: 1. Mild bibasilar atelectasis. Reviewed, dictated and finalized at location A. APEUTIC RECREATION DIRECTOR
--- NOTE | ~2025-05-04 | XR_ITS ---
EXAMINATION: XR lumbar puncture diagnostic DATE: 05/17/2025 14:56 INDICATION: Altered mental status TECHNIQUE: The procedure including the risks and benefits was discussed with the patient's daughter. The patient's daughter understood the risks and agreed to proceed. A timeout was performed to verify the patient's name, date of , and procedure to be performed. The skin overlying the L4-L5 level was prepped and draped in usual sterile fashion. Subcutaneous 1% lidocaine was used for local anesthesia. A 20 gauge spinal needle was advanced under fluoroscopic guidance. The needle was removed and the entry site was cleaned and dressed. There were no immediate complications. A total of 1 fluoroscopic image(s) were obtained. The amount of fluoroscopy time used during this procedure was 0.4 mi nutes. Total DAP was 2.896 Gycm^2. The patient was returned to the floor in unchanged condition. FINDINGS: Real-time fluoroscopy demonstrates the needle at the L4-L5 level. Opening pressure was 13 cm water. (Normal range is variably defined as 6-20 cm water and up to 25 cm water in obese patients. Pressure >25 cm water is one of the modified Dandy criteria for idiopathic intracranial hypertension). 13 mL of clear, colorless fluid was collected in 4 tubes. IMPRESSION: 1. Successful fluoro-guided lumbar puncture with normal opening pressure of 13 cm water. Reviewed, dictated and finalized at location A. NE ENGINE MECHANIC
--- NOTE | ~2025-05-04 | XR_ITS ---
Examination: XR chest 1V portable Clinical History: fever, BEST OBTAINABLE IMAGES PT UNCOOPERATIVE Comparison: 05/10/2025 Technique: Portable AP Findings: Heart size normal. Lungs clear. No acute bony abnormality. IMPRESSION: 1. No definite acute cardiopulmonary findings given portable technique and poor positioning. Reviewed, dictated and finalized at location R. IS COUNSELOR IMPRESSION: 1. No definite acute cardiopulmonary findings given portable technique and poo r positioning.
--- NOTE | ~2025-05-04 | US_ITS ---
EXAM/PROCEDURE: US venous doppler UE RT HISTORY: Swollen arm COMPARISON: None available. TECHNIQUE: V 70 duplex venous exam of the right arm FINDINGS: No DVT seen in the visualized portions of the right jugular subclavian axillary brachial basilic cephalic radial and ulnar veins.. IMPRESSION: No DVT seen. Reviewed, dictated and finalized at location A. AL DEVELOPER IMPRESSION: No DVT seen.
[2025-05-04] MEDS: THIAMINE HCL 200 MG/2 ML VIAL 100 MG IV PUSH (15:50)
[2025-05-04] MEDS: DEXTROSE 50% 25 GM/50 ML SYRINGE IV PUSH ×2 (15:50→20:03)
[2025-05-04] MEDS: PHENobarbitaL sodium (*CRX) 130 MG/ML VIAL 260 MG IV PUSH (15:57)
[2025-05-04 16:15] LABS: Hematocrit 32.8 % (42.0-52.0); Hemoglobin 10.6 g/dL (14.0-18.0); Immature Granulocyte Percent A 1.3 % (0-0.5); Immature Platelet Fraction Pct 14.9 % (0.9-11.2); Lymphocytes Absolute Auto 0.61 K/mm3 (0.9-3.2); Mean Corpuscular HGB Conc 32.3 g/dl (32-36); Mean Corpuscular Hemoglobin 32.6 pg (26-34); Mean Corpuscular Volume 100.9 fl (80-100); Nucleated Red Blood Cells Absolute Auto 0.020 K/mm3 (0.0-0.012); Nucleated Red Blood Cells Perc 0.2 % (0.0-0.2); Platelet Count Result 74 k/mm3 (150-375); Red Blood Count 3.25 M/mm3 (4.6-6.20); White Blood Count 10.1 K/mm3 (4.5-10.0)
[2025-05-04 16:24] LABS: Anion Gap 9 mmol/L (4-12); Blood Urea Nitrogen 14 mg/dL (9-20); Calcium 8.2 mg/dL (8.4-10.2); Carbon Dioxide 21 mmol/L (22-30); Chloride 105 mmol/L (98-107); Estimated CRCL calculation 93 ml/min; Estimated Glomerular Filt Rate > 60; Glucose 53 mg/dL (65-110); Potassium 3.2 mmol/L (3.4-5.0); Sodium 135 mmol/L (137-145)
--- NOTE | 2025-05-04 16:37 | ED.RECABL ---
HPI - Recheck/Abnormal Lab/Rx General Chief Complaint: Recheck/Abnormal Lab/Rx Stated Complaint: hypoglycemia Time Seen by Provider: 05/04/25 15:50 History of Present Illness HPI narrative: Patient with history of alcohol use disorder presents here with altered mental status, was apparently unresponsive, found have low blood sugar, given glucagon with very minimal/slow improvement. Unable to tell me much other than he drinks 6 shooters daily, that he was brought here for being unresponsive Related Data Home Medications ?Medication ?Instructions ?Recorded ?Confirmed ?Last Taken ?Type metoprolol tartrate 50 mg tablet 50 mg PO DAILY 07/04/22 07/04/22 Unknown History Allergies Allergy/AdvReac Type Severity Reaction Status Date / Time No Known Allergies Allergy Verified 07/04/22 18:24 Review of Systems Review of Systems: All systems reviewed & are unremarkable except as noted in HPI and below PMFSH Past Medical History Medical History Abdominal pain Alcohol abuse Blood in stool Colon cancer screening Elevated liver enzymes GERD (gastroesophageal reflux disease) Hyperlipidemia Hypertension Tobacco consumption Surgical History Surgical History History of cardiac cath 2020 History of colonoscopy Hx of chest tube placement Family History Family History Father Respiratory acidosis Mother Arthritis Social History Social History (Updated 07/04/22 @ 19:41 by Criss Fuentes APRN) Social History: The patient does [place] work except for during the winter. The patient will during 12-20 Beers a day. He is and one daughter. The patient continues to smoke at least 1 pack a cigarettes a day. Code status full code Smoking packs per day: 1 Smoking cigarettes per day: 20.0 Years smoked: 43 Smoking pack-years: 43.00 Smoking status: Current every day smoker Tobacco type: cigarettes Alcohol intake: current Drinks per week: 25 Alcohol use details: daily Substance use: unknown Substance use type: marijuana Other substance usage details: daily Lack of Transportation: No Lack of Food: Never True Current Housing: I Have Housing Concerned About Future Housing: No Difficulty Paying Gas/Electric Bills: No Difficulty Paying for Meds: No Currently Unemployed: No Education: High School Diploma/GED Difficulty w/ Childcare or Family Care: No Living arrangements: alone Spiritual care concerns: No Exam Narrative: EXAMINATION OF ORGAN SYSTEMS/BODY AREAS: Constitutional: Vital signs per nursing GENERAL: Very shaky HEAD: Normal with no signs of head trauma. EYES: Dry eyes ENT: Extensive tongue wag; dry mucous membranes LUNGS: Nonlabored breathing. HEART: [Regular rate and rhythm] ABD: Soft, nontender palpation EXT: Tremors all extremities SKIN: Flushed NEURO: [Extensive tremors, slightly dysarthric speech.] Course Vital Signs Vital signs: Vital Signs Temperature 98.6 F 05/04/25 15:21 Pulse Rate 103 H 05/04/25 15:21 Respiratory Rate 14 05/04/25 15:21 Blood Pressure 159/116 H 05/04/25 15:21 Pulse Oximetry 99 05/04/25 15:21 Oxygen Delivery Room Air 05/04/25 15:21 Temperature 98.6 F 05/04/25 15:21 Pulse Rate 94 05/04/25 17:22 Respiratory Rate 15 05/04/25 17:22 Blood Pressure 172/106 H 05/04/25 17:22 Pulse Oximetry 97 05/04/25 17:22 Oxygen Delivery Room Air 05/04/25 15:21 [facility] MDM Narrative Medical decision making narrative: Patient presents unresponsive, EMS blood sugar was 49, again he gone, not much improvement in symptoms, by the time he arrived he is a bit more alert and blood sugars improved, given the history of alcohol use disorder he is given a dose of thiamine before getting dextrose, on exam he is extremely tremulous, he is able to tell me that he was brought here due to being unresponsive, is denying any complaints to me, tells me he takes 6 shooters a day. Further information obtained from patient's daughter that he drinks much more than that daily. I highly suspect alcohol withdrawal, this is in line with his negative alcohol level here, he is started on phenobarbital, with improvement in his vital signs and symptoms, discussed with hospitalist and business support professional for admission. CT brain obtained within acceptable limits. K repleted. Differential Diagnosis Differential Diagnosis: Alcohol withdrawal, CVA/hemorrhagic stroke, electrolyte abnormality, hypoglycemia , intoxication Lab Data 05/04/25 15:56 05/04/25 15:56 Labs: Lab Results 05/04/25 05/04/25 05/04/25 Range/Units 15:56 16:04 17:19 WBC 10.1 H (4.5-10.0) K/mm3 RBC 3.25 L (4.6-6.20) M/mm3 Hgb 10.6 L (14.0-18.0) g/dL Hct 32.8 L (42.0-52.0) % MCV 100.9 H (80-100) fl MCH 32.6 (26-34) pg MCHC 32.3 (32-36) g/dl RDW 23.7 H (11.5-14.5) % Plt Count 74 L D (150-375) k/mm3 MPV TNP Immature Gran % (Auto) 1.3 H (0-0.5) % Neut % (Auto) 86.8 H (45.5-73.1) % Lymph % (Auto) 6.0 L (18.3-44.2) % [place] % (Auto) 5.4 (2.6-8.5) % Eos % (Auto) 0.0 (0-4.4) % Baso % (Auto) 0.5 (0.2-1.2) % Lymph # (Auto) 0.61 L (0.9-3.2) K/mm3 [place] # (Auto) 0.6 (0.1-0.6) K/mm3 Eos # (Auto) 0.0 (0-0.3) K/mm3 Baso # (Auto) 0.1 (0.0-0.1) K/mm3 Abs Immat Gran (auto) 0.13 H (0.00-0.031) K/mm3 Absolute Neuts (auto) 8.8 H (1.3-6.7) K/mm3 Absolute Nucleated RBC 0.020 H (0.0-0.012) K/mm3 Band Neutrophils % Not Reportable Nucleated RBC % 0.2 (0.0-0.2) % Platelet Estimate Decreased (Adequate) % Immature Plt Fraction 14.9 H (0.9-11.2) % Hypochromasia 1+ Anisocytosis 1+ Tear Drop Cells Occasional Schistocytes None seen Sodium 135 L (137-145) mmol/L Potassium 3.2 L (3.4-5.0) mmol/L Chloride 105 (98-107) mmol/L Carbon Dioxide 21 L (22-30) mmol/L Anion Gap 9 (4-12) mmol/L BUN 14 D (9-20) mg/dL Creatinine 0.77 (0.7-1.3) mg/dL Estim Creat Clear Calc 93 ml/min Estimated GFR > 60 (59 - ) Glucose 53 L* (65-110) mg/dL POC Capillary Glucose 206 H 111 H (65-105) mg/dl Calcium 8.2 L (8.4-10.2) mg/dL Nasal MRSA (PCR) Ethyl Alcohol < 10 (<10) mg/dL 05/04/25 Range/Units 18:04 WBC (4.5-10.0) K/mm3 RBC (4.6-6.20) M/mm3 Hgb (14.0-18.0) g/dL Hct (42.0-52.0) % MCV (80-100) fl MCH (26-34) pg MCHC (32-36) g/dl RDW (11.5-14.5) % Plt Count (150-375) k/mm3 MPV Immature Gran % (Auto) (0-0.5) % Neut % (Auto) (45.5-73.1) % Lymph % (Auto) (18.3-44.2) % [place] % (Auto) (2.6-8.5) % Eos % (Auto) (0-4.4) % Baso % (Auto) (0.2-1.2) % Lymph # (Auto) (0.9-3.2) K/mm3 [place] # (Auto) (0.1-0.6) K/mm3 Eos # (Auto) (0-0.3) K/mm3 Baso # (Auto) (0.0-0.1) K/mm3 Abs Immat Gran (auto) (0.00-0.031) K/mm3 Absolute Neuts (auto) (1.3-6.7) K/mm3 Absolute Nucleated RBC (0.0-0.012) K/mm3 Band Neutrophils % Nucleated RBC % (0.0-0.2) % Platelet Estimate (Adequate) % Immature Plt Fraction (0.9-11.2) % Hypochromasia Anisocytosis Tear Drop Cells Schistocytes Sodium (137-145) mmol/L Potassium (3.4-5.0) mmol/L Chloride (98-107) mmol/L Carbon Dioxide (22-30) mmol/L Anion Gap (4-12) mmol/L BUN (9-20) mg/dL Creatinine (0.7-1.3) mg/dL Estim Creat Clear Calc ml/min Estimated GFR (59 - ) Glucose (65-110) mg/dL POC Capillary Glucose (65-105) mg/dl Calcium (8.4-10.2) mg/dL Nasal MRSA (PCR) Pending Ethyl Alcohol (<10) mg/dL Imaging Data Radiologist's impression: ITS Impressions Head CT 05/04/25 17:33 Impression: 1.No acute intracranial abnormality. Critical Care Time Critical Care Time Critical Care Time: Yes Indication: Alcohol withdrawal, hypoglycemia, altered mental status Initial evaluation, discuss w/ involved parties, attempting to gather old records: 10 minutes Documenting medical record: 5 minutes Review of results (EKG's, labs, imaging): 5 minutes Serial repeat bedside evaluation: 10 minutes Discussing case with multiple memebers of the care team and consultants: 5 minutes Total Critical Care Time: 35 Discharge Plan Discharge Clinical Impression: Alcohol withdrawal, Hypoglycemia, Hypokalemia Patient Disposition: Still a Patient Condition: Serious Patient Language: Slovak Prescriptions: No Action metoprolol tartrate 50 mg tablet 50 mg PO DAILY Follow-up/Referrals: Prem Interiano MD [Primary Care Provider, [facility]]
[2025-05-04 16:48] LABS: Anisocytosis 1+; Hypochromasia 1+; Schistocytes None Seen; Tear Drop Cells Occasional
--- OUTSIDE RECORDS SUMMARY | 2025-05-04 17:07 | XMS_ITS | Clinical Summary ---
Author Organization [facility] Address [address] [place] [address] Care Team Providers Care Custom Car Builder Name Role Phone No, Physician Primary Care Provider [phone] Allergies No known active allergies Medications amLODIPine (NORVASC) 5 mg tabletIndicatio ns:hypertension Take 1 tablet (5 mg total) by mouth daily 30 tablet 2 04/16/2022 Active folic acid (FOLVITE) 1 mg tabletIndicatio ns:Folate Deficiency Take 1 tablet (1 mg total) by mouth daily 30 tablet 2 04/16/2022 Active LORazepam (ATIVAN) 1 mg tabletIndicatio ns:Alcohol Withdrawal Delirium 1 tab t.i.d. x 5 days, 1 tab b.i.d. x5 days, 1 tab daily for 5 days, 0.5 tab daily for 6 days and then stop 33 tablet 04/15/2022 Active magnesium oxide (MAG-OX) 400 mg (241.3 mg elemental magnesium) tabletIndicatio ns:hypomagnesem ia Take 2 tablets (800 mg total) by mouth 2 (two) times a day 120 tablet 2 04/15/2022 Active metoprolol tartrate (LOPRESSOR) 50 mg immediate release tablet Take 1 tablet (50 mg total) by mouth 3 (three) times a day 90 tablet 2 04/15/[address] (PROTONIX) 40 mg EC tabletIndicatio ns:Treatment of Non-Bleeding Gastric Disorder,Gastri c acid reflux disease Take 1 tablet (40 mg total) by mouth daily 30 tablet 2 04/16/2022 Active Active Problems Problem Noted Date Diagnosed Date Thrombocytopenia 04/11/2022 High anion gap metabolic acidosis 04/11/2022 Elevated LFTs 04/11/2022 Hypoglycemia 04/11/2022 Essential (primary) hypertension 04/11/2022 Alcohol withdrawal delirium 04/11/2022 Alcohol withdrawal seizure without complication 04/10/2022 Acute metabolic encephalopathy due to hypoglycem ia Hyponatremia Hypokalemia Hypomagnesemia Hypophosphatemia Hypocalcemia Macrocytic anemia Hyperbilirubinemia Chronic alcohol abuse Medical History Medical History Date Comments ETOH abuse Fatty liver HTN (hypertension) Family History Medical History Relation Name Comments Hypertension Father Relation Name Status Comments Father Social History Tobacco Use Types Packs/Day Years Used Date Smoking Tobacco: Every Day Cigarettes Tobacco Cessation:Ready to Q uit: No; Counseling Given: No AUDIT-C Answer Date Recorded Q1: How often do you have a drink containing alcohol? 4 or more times a week 04/11/2022 Average Number of Drinks Not on file 022 Frequency of Binge Drinking Not on file 02/2022 Personal Safety Answer Date Recorded Getting School Help Needed Not on file 08/02 Sex and Gender Information Value Date Recorded Sex Assigned at Not on file Legal Sex Male 5:59 PM BEER COOLER Gender Identity Not on file Sexual Orientation Not on file Last Filed Vital Signs Vital Sign Reading Time Taken Comments Blood Pressure 140/65 04/15/2022 12:00 PM BEER COOLER Pulse 97 04/15/2022 12:00 PM BEER COOLER Temperature 36.7 C (98 F) 04/15/2022 12:00 PM BEER COOLER Respiratory Rate 18 04/15/2022 12:00 PM BEER COOLER Oxygen Saturation 97% 04/15/2022 12:00 PM BEER COOLER Inhaled Oxygen Concentration - - Weight 80 kg (176 lb 5.9 oz) 04/11/2022 12:18 AM BEER COOLER Height 180.3 cm (5' 11) 04/11/2022 12:18 AM BEER COOLER Body Mass Index 24.6 04/11/2022 12:18 AM BEER COOLER Plan of Treatment Not on file Advance Directives For more information, please contact: [phone] * Full Code (Latest Code Status on File) Date Activated Date Inactivated Comments 04/11/2022 1:33 AM 04/15/2022 9:57 PM Care Teams Custom Car Builder Relationship Specialty Start Date End Date No, Physician PCP - General 04/10/22
--- NOTE | 2025-05-04 17:22 | PC.NURSE ---
PT to CT on portable monitor at this time
--- NOTE | 2025-05-04 18:19 | P.HP_ITS ---
H&P: HPI History of Present Illness Date/Time: 05/04/25 18:19 Chief Complaint: Altered mental status Narrative: 54-year-old male ETOH use, hypertension hyperlipidemia with found unresponsive. Patient was found to be hypoglycemic. He was given glucagon with minimal response. Patient stand emergency room, he is snoring respirations but wakes up to touch. Patient was given phenobarbital in emergency room. Patient is being admitted to the ICU due to alcohol withdrawals. Lab work in the ED shows leukocytosis at 10.1, hemoglobin 10.6, sodium of 135, potassium of 3.2, glucose of 53, calcium 8.2, alcohol level was negative. Patient was given phenobarbital in the emergency room for alcohol withdrawals. CT head shows no acute abnormalities. Review of Systems Review of Systems: ROS unobtainable: Yes unobtainable due to medical condition PMF Past Medical History Medical History Abdominal pain Alcohol abuse Blood in stool Colon cancer screening Elevated liver enzymes GERD (gastroesophageal reflux disease) Hyperlipidemia Hypertension Tobacco consumption Surgical History Surgical History History of cardiac cath 2020 History of colonoscopy Hx of chest tube placement Family History Family History Father Respiratory acidosis Mother Arthritis Social History Social History (Updated 07/04/22 @ 19:41 by Criss Fuentes, DEACON) Social History: The patient does [place] work except for during the winter. The patient will during 12-20 Beers a day. He is and one daughter. The patient continues to smoke at least 1 pack a cigarettes a day. Code status full code Smoking packs per day: 1.5 Smoking cigarettes per day: 30.0 Years smoked: 43 Smoking pack-years: 64.50 Smoking status: Current every day smoker Tobacco type: cigarettes Alcohol intake: current Drinks per week: 80 Alcohol use details: daily Substance use: current Substance use type: marijuana, amphetamines and sedatives Other substance usage details: daily Last use: 05/03/2025 Lack of Transportation: No Lack of Food: Sometimes True Current Housing: I Do Not Have Housing Concerned About Future Housing: YES Difficulty Paying Gas/Electric Bills: YES Difficulty Paying for Meds: YES Currently Unemployed: No Education: High School Diploma/GED Difficulty w/ Childcare or Family Care: No Living arrangements: alone Spiritual care concerns: No Meds Home Medications and Allergies Home Medications ?Medication ?Instructions ?Recorded ?Confirmed ?Type metoprolol tartrate 50 mg tablet 50 mg PO DAILY 05/04/25 History Allergies Allergy/AdvReac Type Severity Reaction Status Date / Time No Known Allergies Allergy Verified 05/04/25 20:33 Vital Signs Vital Signs - 24 hr 05/04/25 15:21 05/04/25 15:44 05/04/25 15:55 Temperature 98.6 F Pulse Rate 103 H 106 H Respiratory Rate 14 13 14 Blood Pressure 159/116 H 172/109 H Pulse Oximetry 99 96 98 Oxygen Delivery Room Air 05/04/25 17:22 Temperature Pulse Rate 94 Respiratory Rate 15 Blood Pressure 172/106 H Pulse Oximetry 97 Oxygen Delivery Exam Narrative: General: well appearing, appears stated age. HEENT: normocephalic, atraumatic. Mucous membranes moist. EOMI, PERRLA, bilateral sclera anicteric, no conjunctival injection. Neck supple without JVD, lymphadenopathy, or bruit. Respiratory: clear bilaterally. No rales/rhonic/wheezes. Cardiovascular: Regular rate and rhythm, normal S1-S2. No murmurs, rubs, or clicks. PMI is nondisplaced, capillary refill less than 3 second. Abdomen: Soft, round, no pulsatile masses, nondistended and nontender. No rebound, no guarding. Bowel sounds present to all four quadrants. No high pitch or tinkling sounds, resonant to percussion. Extremities: No cyanosis, clubbing, or edema present. Pulses are palpable 2/2. Active ROM to all four extremities. Neuro: Able move all extremities, arouses to touch. PERRLA. Cranial nerves 2-12 intact without focal deficit. Skin: Warm, dry, and intact, without rash, erythema, or lesion. Psych: pleasant, cooperative, normal speech, normal affect, no hallucinations, no dysarthia Results Labs Labs: Short CBC 05/04/25 Range/Units 15:56 WBC 10.1 H (4.5-10.0) K/mm3 Hgb 10.6 L (14.0-18.0) g/dL Hct 32.8 L (42.0-52.0) % Plt Count 74 L D (150-375) k/mm3 [facility] 05/04/25 15:56 Sodium 135 L Potassium 3.2 L Chloride 105 Carbon Dioxide 21 L BUN 14 D Creatinine 0.77 Glucose 53 L* Calcium 8.2 L Quality VTE Prophylaxis VTE prophylaxis: mechanical ordered Assessment and Plan Assessment and plan (1) Alcohol withdrawal: Code(s): F10.939 - Alcohol use, unspecified with withdrawal, unspecified Status: Acute Assessment and Plan: Precedex drip Banana bag Valium, thiamine, multivitamin Toxicology screen per incentive for barbiturates, benzos, cannabinoids and amphetamines Ethanol level negative on admission (2) Hypoglycemia: Code(s): E16.2 - Hypoglycemia, unspecified Status: Acute Assessment and Plan: D5 drip Q.6 Accu-Cheks (3) Hypertension: Code(s): I10 - Essential (primary) hypertension Status: Acute Assessment and Plan: Patient does not appear to be on home medications (4) Hypokalemia: Code(s): E87.6 - Hypokalemia Status: Acute Assessment and Plan: Replete as needed Daily labs Hospitalist [facility] Advance Care Plan I have confirmed that the patient's Advanced Care Plan is present, code status is documented, or surrogate decision maker is listed in patient medical record.: Yes Medication Reconciliation I have utilized all available resources to obtain, update and review the patients current medications (includes all prescriptions, OTC, herbals, cannabis, and nutritional supplements).: Yes
[2025-05-04] MEDS: LACTATED RINGERS 1,000 ML 400 ML IV CONT (18:46)
[2025-05-04] MEDS: KCL 20 MEQ/SW 100 ML 100 ML 50 MEQ IVPB (18:49)
[2025-05-04 19:19] LABS: Cannabinoid Screen Urine Positive (Negative)
--- NOTE | 2025-05-04 19:23 | PC.NURSE ---
Report given to Alexus MAZARIEGOS, all questions answered
[2025-05-04 19:24] LABS: MRSA (PCR) NOT DETECTED (NOT DETECTE)
[2025-05-04 19:35] LABS: Add Urine Microscopic? YES; Appearance Urine Clear (Clear); Glucose Urine UA 1+ mg/dL (Negative); Leukocyte Esterase Ur Negative LEU/UL (Negative); Need Manual Microscopic Reviewed; Nitrate Urine Negative (Negative); Non Pathogenic Casts 0-2; Specific Grav Ur 1.019 (1.001-1.035)
[2025-05-04] MEDS: THIAMINE HCL INJ 100 MG, FOLIC ACID INJ 1 MG, MAGNESIUM SULFATE INJ 1 GM, MULTIVITAMINS... 125 MG IV CONT (19:35)
--- NOTE | 2025-05-04 19:56 | WPCEDHO ---
ED Hand Off Checklist All vitals saved: Y IV Site documented: Y All med administrations documented: No, precidex unverfied Triage Note Triage Note Pt to the ED via EMS from home 05/04/25 15:21 for evaluation of hypoglycemia. Pts blood sugar for EMS was 49 and they administered 1mg glucagon IM which brought his blood sugar up to 60. Pt is an alcoholic, drinks 6 shooters a day. Pt states his last drink was this morning. Pt has hx of CVA with R sided deficits. Allergies No Known Allergies Allergy (Verified 07/04/22 18:24) Family History (Last Reviewed 07/04/22 @ 19:33 by Criss Fuentes APRN) Father Respiratory acidosis Mother Arthritis Active Medications including assessments/comments Potassium Chloride (Kcl 20 Meq/Sw 100 Ml) 100 mls @ 50 mls/hr IVPB ONCE STA Stop: 05/04/25 20:21 Last Admin: 05/04/25 18:49 Dose: 50 mls/hr Documented By: AYSHA Co-signed By: CEDRIC Infusion/Titration Document 05/04/25 18:49 AYSHA (Rec: 05/04/25 18:49 AYSHA [id number]) Co-signed By Rosenda Osuna RN Intake IV Site Peripheral Access Right Wrist Container Volume 100 Waste Amount 0 Dosing Infusion Rate 50 Cumulative Dose Not Applicable Increase/Decrease Started Elapsed Time Elapsed Time ( 0m minutes) Potassium Chloride Infusion Document 05/04/25 18:49 AYSHA (Rec: 05/04/25 18:49 AYSHA [id number]) Co-signed By Rosenda Osuna RN Infusion Action Potassium Chloride Initiated Infusion Action Thiamine HCl 100 mg/ Folic Acid 1 mg/ Magnesium Sulfate 1 gm/ Multivitamins 5 ml/Multivitamins 5 ml/ Sodium Chloride 1,013.2 mls @ 125 mls/hr IV CONT .Q8H7M ONE Stop: 05/05/25 03:06 Last Admin: 05/04/25 19:35 Dose: 125 mls/hr Documented By: SAK Co-signed By: HNK Infusion/Titration Document 05/04/25 19:35 SAK (Rec: 05/04/25 19:35 SAK [id number]) Co-signed By Alexus Esquivel RN Intake IV Site Peripheral Access Left Hand Container Volume 1,013.2 Waste Amount 0 Dosing Infusion Rate 125 Cumulative Dose Not Applicable Increase/Decrease Started Elapsed Time Elapsed Time ( 0m minutes) Magnesium Sulfate Infusion Document 05/04/25 19:35 [facility] (Rec: 05/04/25 19:35 [facility] [id number]) Co-signed By Alexus Esquivel RN Infusion Action Magnesium Sulfate Initiated Infusion Action Administered/Completed Medications Discontinued Medications Dextrose (Dextrose 50% 25 Gm/50 Ml Syringe) 25 gm IV PUSH ONCE ONE Stop: 05/04/25 15:48 Last Admin: 05/04/25 15:50 Dose: 25 gm Documented By: AYSHA Dextrose (Dextrose 50% 25 Gm/50 Ml Syringe) Confirm Administered Dose 25 gm .ROUTE .STK-MED ONE Stop: 05/04/25 15:49 Last Admin: 05/04/25 15:52 Dose: Not Given Documented By: AYSHA Non-Admin Reason: Duplicate Dose Lactated Ringer's (Lr - Lactated Ringers Iv) 1,000 mls @ 999 mls/hr IV CONT .Q1H1M STA Stop: 05/04/25 19:23 Last Admin: 05/04/25 18:46 Dose: 400 mls/hr Documented By: AYSHA Phenobarbital Sodium (Phenobarbital Sodium (*Crx) 130 Mg/Ml Vial) 260 mg IV PUSH ONCE ONE Stop: 05/04/25 15:53 Last Admin: 05/04/25 15:57 Dose: 260 mg Documented By: AYSHA Thiamine HCl (Thiamine Hcl 200 Mg/2 Ml Vial) 100 mg IV PUSH ONCE ONE Stop: 05/04/25 15:48 Last Admin: 05/04/25 15:50 Dose: 100 mg Documented By: AYSHA Thiamine HCl (Thiamine Hcl 200 Mg/2 Ml Vial) Confirm Administered Dose 200 mg .ROUTE .STK-MED ONE Stop: 05/04/25 15:49 Last Admin: 05/04/25 15:51 Dose: Not Given Documented By: AYSHA Non-Admin Reason: Duplicate Dose Notes 05/04/25 19:23 Nurse Note by Lakisha Orellana Report given to Alexus MAZARIEGOS, all questions answered Initialized on 05/04/25 19:23 - END OF NOTE 05/04/25 17:22 Nurse Note by Lakisha Orellana PT to CT on portable monitor at this time Initialized on 05/04/25 17:22 - END OF NOTE Interventions/Assessments General Assessment Start: 05/04/25 15:20 Freq: Status: Active Protocol: Document 05/04/25 15:44 KED (Rec: 05/04/25 15:48 KED [id number]) GA Neurological Assessment Level of Drowsy Consciousness Arousable to Verbal Orientation Oriented to Person,Oriented to Place Behavior Fatigued Speech Pattern Slurred GA Respiratory Assessment Symptoms None Respiratory Rate (12 13 -20) Effort Normal Pattern Regular Depth Normal Chest Expansion Symmetrical Adult Capillary Normal/Less than 2 Seconds Refill Oxygen Delivery Room Air Method Pulse Oximetry (90- 96 100) IV / Saline Lock, Insert Start: 05/04/25 15:20 Freq: Status: Active Protocol: Document 05/04/25 19:33 SAK (Rec: 05/04/25 19:34 SAK [id number]) IV Assessment Peripheral Access Left Hand IV Catheter Access Initiated IV Insertion Date 05/04/25 IV Insertion Time 19:33 Catheter Gauge 20 IV Insertion 1 Attempts Ultrasound Used for No Placement IV Site Assessment WNL IV Care and WNL Maintenance PA: Neurological Assessment Start: 05/04/25 18:51 Freq: Status: Active Protocol: Document 05/04/25 18:53 KED (Rec: 05/04/25 18:53 KED [id number]) Neurological Assessment Level of Drowsy Consciousness Arousable to Verbal Orientation Oriented to Person,Oriented to Place Neurological Confusion Symptoms Behavior Fatigued Speech Pattern Slurred Victor Coma Scale Eyes Open Verbal Disoriented Motor Follows Commands Victor Coma Total 14 Score Last Vital Signs Temperature 98.6 F 05/04/25 15:21 Pulse Rate 92 05/04/25 19:46 Respiratory Rate 13 05/04/25 19:46 Pulse Oximetry 96 05/04/25 19:46 Blood Pressure 142/91 H 05/04/25 19:46 Blood Pressure Mean 105 05/04/25 19:46 Blood Pressure Position Sitting 05/04/25 15:21 Oxygen Delivery Room Air 05/04/25 15:21 Weight 75 kg 05/04/25 15:21 Last Result - Abnormals Only WBC 10.1 K/mm3 (4.5-10.0) H 05/04/25 15:56 RBC 3.25 M/mm3 (4.6-6.20) L 05/04/25 15:56 Hgb 10.6 g/dL (14.0-18.0) L 05/04/25 15:56 Hct 32.8 % (42.0-52.0) L 05/04/25 15:56 MCV 100.9 fl (80-100) H 05/04/25 15:56 RDW 23.7 % (11.5-14.5) H 05/04/25 15:56 Plt Count 74 k/mm3 (150-375) L D 05/04/25 15:56 Immature Gran % (Auto) 1.3 % (0-0.5) H 05/04/25 15:56 Neut % (Auto) 86.8 % (45.5-73.1) H 05/04/25 15:56 Lymph % (Auto) 6.0 % (18.3-44.2) L 05/04/25 15:56 Lymph # (Auto) 0.61 K/mm3 (0.9-3.2) L 05/04/25 15:56 Abs Immat Gran (auto) 0.13 K/mm3 (0.00-0.031) H 05/04/25 15:56 Absolute Neuts (auto) 8.8 K/mm3 (1.3-6.7) H 05/04/25 15:56 Absolute Nucleated RBC 0.020 K/mm3 (0.0-0.012) H 05/04/25 15:56 % Immature Plt Fraction 14.9 % (0.9-11.2) H 05/04/25 15:56 Sodium 135 mmol/L (137-145) L 05/04/25 15:56 Potassium 3.2 mmol/L (3.4-5.0) L 05/04/25 15:56 Carbon Dioxide 21 mmol/L (22-30) L 05/04/25 15:56 Glucose 53 mg/dL (65-110) L* 05/04/25 15:56 POC Capillary Glucose 111 mg/dl (65-105) H 05/04/25 17:19 Calcium 8.2 mg/dL (8.4-10.2) L 05/04/25 15:56 Urine Protein 1+ mg/dL (Negative) H 05/04/25 18:47 Urine Glucose (UA) 1+ mg/dL (Negative) H 05/04/25 18:47 Urine Ketones 2+ mg/dL (Negative) H 05/04/25 18:47 Ur Blood (Man) 2+ (Negative) H 05/04/25 18:47 Urine RBC 6-10 /hpf (0-2) H 05/04/25 18:47 Ur Barbiturates Screen Positive (Negative) A 05/04/25 18:47 Ur Amphetamine Screen Positive (Negative) A 05/04/25 18:47 U Benzodiazepines Scrn Positive (Negative) A 05/04/25 18:47 U Cannabinoids Screen Positive (Negative) A 05/04/25 18:47 Most Recent CIWA Score CIWA Total Score 13 05/04/25 15:52
--- NOTE | 2025-05-04 20:37 | ADMGEN ---
This patient, Luigi Beltran, was admitted to Intensive Care Unit-5. Patient/family oriented to hospital policies and general routines including ID bracelet, bed and alarms, visiting hours, pain management, procedures, bathroom and other care routines, personal items, smoking policy, room service/diet, and visiting hours. Information on how to activate the Rapid Response Team has been discussed. Patient/Family are encouraged to report perceived risks to care and to ask questions if they do not understand what they are told or what they should do.
[2025-05-04] MEDS: DEXTROSE 5% 1,000 ML 1,000 ML 40 ML IV CONT (21:12)
[2025-05-04] MEDS: dexmedeTOMIDine 400 MCG/100 ML 400 MCG/100 ML BAG IV CONT (21:51)
--- NOTE | 2025-05-04 22:29 | PC.NURSE ---
Received phone call from patient's daughter Kalia for patient status update. Daughter updated about patient status and patient being in ICU. Daughter lives hours away but did say that patient has estranged himself from ex and daughter. Daughter stated that the patient was living in a trailer with no running water, no electricity, and no heat. Requested that case management be made aware of father's living situation prior to patient discharging. Admission assessment updated and SDOH added to patient's chart.
[2025-05-05] VITALS (40 sets, daily range): BP systolic 111–151; BP diastolic 56–106; PULSE 56–110; RESP 14–27; TEMP 36.6–37.3; O2SAT 90–100
[2025-05-05] MEDS: diazePAM INJ (*CRX) 10 MG/2 ML SYRINGE IV PUSH ×2 (00:55→04:57)
[2025-05-05 04:26] LABS: Alanine Aminotransferase 24 U/L (6-50); Albumin Level 3.4 g/dL (3.5-5.1); Alkaline Phosphatase 113 U/L (38-126); Anion Gap 5 mmol/L (4-12); Aspartate Amino Transferase 84 U/L (17-59); Bilirubin,Total 1.9 mg/dL (0.2-1.3); Blood Urea Nitrogen 12 mg/dL (9-20); Calcium 7.9 mg/dL (8.4-10.2); Carbon Dioxide 23 mmol/L (22-30); Chloride 105 mmol/L (98-107); Estimated CRCL calculation 98 ml/min; Estimated Glomerular Filt Rate > 60; Glucose 70 mg/dL (65-110); Potassium 3.0 mmol/L (3.4-5.0); Sodium 133 mmol/L (137-145); Total Protein 6.9 g/dL (6.3-8.2)
[2025-05-05 07:52] LABS: Lipase 36 U/L (23-300); Triglycerides 49 mg/dL (<150)
[2025-05-05 07:53] LABS: Hematocrit 30.1 % (42.0-52.0); Hemoglobin 10.0 g/dL (14.0-18.0); Immature Granulocyte Percent A 1.1 % (0-0.5); Immature Platelet Fraction Pct 15.6 % (0.9-11.2); Lymphocytes Absolute Auto 1.27 K/mm3 (0.9-3.2); Mean Corpuscular HGB Conc 33.2 g/dl (32-36); Mean Corpuscular Hemoglobin 33.6 pg (26-34); Mean Corpuscular Volume 101.0 fl (80-100); Nucleated Red Blood Cells Absolute Auto 0.050 K/mm3 (0.0-0.012); Nucleated Red Blood Cells Perc 0.9 % (0.0-0.2); Platelet Count Result 68 k/mm3 (150-375); Red Blood Count 2.98 M/mm3 (4.6-6.20); White Blood Count 5.6 K/mm3 (4.5-10.0)
[2025-05-05] MEDS: POTASSIUM CHLORIDE 20 MEQ ER TABLET PO (07:57)
[2025-05-05] MEDS: POTASSIUM CHLORIDE 20 MEQ ER TABLET 40 MEQ PO (08:00)
[2025-05-05] MEDS: LACTATED RINGERS 1,000 ML 999 ML IV CONT (08:01)
[2025-05-05] MEDS: MAGNESIUM SULF 2 GM/WATER 50ML 2 GM/50 ML BAG IVPB (08:08)
[2025-05-05 08:25] LABS: Anisocytosis 1+; Hypochromasia 2+; Schistocytes None Seen
[2025-05-05] MEDS: DEXTROSE 5%/LACTATED RINGERS 1,000 ML 125 ML IV CONT ×2 (09:15→17:15)
[2025-05-05] MEDS: THIAMINE HCL 100 MG TABLET PO (09:19)
[2025-05-05] MEDS: PHENobarbital (*CRX) 60 MG TABLET PO (09:19)
[2025-05-05] MEDS: FOLIC ACID 1 MG TABLET PO (09:20)
[2025-05-05] MEDS: THERAPEUTIC MULTIVITAMINS/MINERALS TAB (*BKC) 1 TABLET PO (09:20)
[2025-05-05] MEDS: METOPROLOL TARTRATE 50 MG TAB PO (09:20)
--- NOTE | 2025-05-05 11:58 | PC.NURSE ---
with pt's consent I spoke with nephews about his progress and possible avenues going forward, nephews express concern that pt has no heat/water at his house at this time and ask that care coordination help with possible short term snf placement, ashley de leon is aware
--- NOTE | 2025-05-05 11:58 | WPDCNINT2 ---
Assessment and Plan Assessment and plan (1) Altered mental status: Code(s): R41.82 - Altered mental status, unspecified Status: Acute Assessment and Plan: 05/04/2025: Patient presented the ED with complaints of altered mental status, hypoglycemia -05/04: CT brain with no acute intracranial abnormality -this morning patient is more awake, able to have liquids and swallow pills. -able to follow simple commands but still has a garbled speech. (2) Alcohol use disorder: Code(s): F10.90 - Alcohol use, unspecified, uncomplicated Status: Acute Assessment and Plan: History of alcohol use disorder, currently drinks 6 units daily but according to the ER physician note when she discussed with patient's daughter, the daughter stated that he drinks more more than what he stated. -alcohol levels were within normal limits -this could be related to alcohol withdrawal -was given a dose of phenobarbital in the ER -will continue phenobarbital p.o. in the ICU and will wean phenobarb gradually over the next 3-4 days -continue CIWA protocol -Precedex if required (3) Alcohol withdrawal: Code(s): F10.939 - Alcohol use, unspecified with withdrawal, unspecified Status: Acute Assessment and Plan: As above (4) Hypoglycemia: Code(s): E16.2 - Hypoglycemia, unspecified Status: Acute Assessment and Plan: Hypoglycemia, could be related to excess alcohol intake, decreased oral intake, patient on metoprolol which can be associated with hypoglycemia -currently on D5% LR at 125 mL/hour -will give glucagon given patient was on metoprolol at home -and blood sugars do not improve, will place him on D10 LR on D10 NS (5) Hypertension: Code(s): I10 - Essential (primary) hypertension Status: Acute Assessment and Plan: Hold metoprolol -will add hydralazine p.r.n. for SBP > 150 mmHg (6) Electrolyte imbalance: Code(s): E87.8 - Other disorders of electrolyte and fluid balance, not elsewhere classified Status: Acute Assessment and Plan: Hypokalemia, potassium was replaced -, will recheck potassium, magnesium and phosphorus (7) Thrombocytopenia: Code(s): D69.6 - Thrombocytopenia, unspecified Status: Acute Assessment and Plan: Thrombocytopenia likely related to alcohol use disorder, possible liver dysfunction given elevated AST. Plan DVT prophylaxis: SCDs, no chemoprophylaxis due to thrombocytopenia Stress ulcer prophylaxis: Not indicated Nutrition: Heart healthy diet Code Status: Full code Critical Care Time Spent: 49 minutes Due to a high probability of clinically significant, life threatening deterioration, the patient required my highest level of preparedness to intervene emergently and I personally spent this critical care time directly and personally managing the patient. This critical care time included obtaining a history; examining the patient; pulse oximetry; ordering and review of studies; arranging urgent treatment with development of a management plan; evaluation of patient's response to treatment; frequent reassessment; and discussions with other providers. It was exclusive of separately billable procedures and treating other patients and teaching time. Please see Assessment and Plan section and the rest of the note for further information on patient assessment and treatment This dictation may have been done utilizing a voice recognition system. Attempts have been made to correct errors. However, there may be uncorrected grammatical, spelling, and recognitions errors present. Infrastructure Security Architect Consult Note Consult date: 05/05/25 Reason for consult: Alcohol withdrawal, hypoglycemia HPI: Luigi Beltran is a 54 year old male gentleman with past medical history of hypertension, hyperlipidemia, alcoholic use disorder presented the ED on 05/04/2025 with complains of altered mental status, unresponsive, garbled speech, found to have low blood sugars by EMS, was given glucagon with not much improvement. Patient stated that he drinks sick showed his daily. Blood sugars were 49 when EMS picked him up from home. After arrival to the ED was little bit more alert and blood sugars were 53. According the ER physician's report the daughter stated that he drinks much more than the 6 sutures daily. He was given phenobarbital for possible alcohol withdrawal as his alcohol levels were normal. Patient was transferred to the ICU for further management Labs on admission: WBC 10.1, hemoglobin 10.6, platelets 74, sodium 135, potassium 3.2, CO2 21, BUN 14, creatinine 0.77, blood sugars 53. Bilirubin 1.9, AST 84, ALT 24. UA was negative. Negative MRSA screen. Urine tox screen was positive for barbiturates, amphetamine, benzodiazepine and cannabinoids, ETOH < 10. 05/04/2025: CT head: No acute intracranial abnormality Patient seen and examined the ICU this morning, is awake,. Continues to have garbled speech, tremulous. Hemodynamically stable, urine output has been adequate, afebrile. Remains hyperglycemic, currently on D5 at 40 mL/hour, have switched that to D5 LR at 125 mL/hour this morning. Patient denies any pain, nausea, vomiting, shortness of breath Review of Systems Review of Systems: All systems reviewed & are unremarkable except as noted in HPI and below PMFSH Past Medical History Medical History Abdominal pain Alcohol abuse Blood in stool Colon cancer screening Elevated liver enzymes GERD (gastroesophageal reflux disease) Hyperlipidemia Hypertension Tobacco consumption Surgical History Surgical History History of cardiac cath 2020 History of colonoscopy Hx of chest tube placement Family History Family History Father Respiratory acidosis Mother Arthritis Social History Social History (Updated 07/04/22 @ 19:41 by Criss Fuentes, [employer] MISTRESS) Social History: The patient does [employer] work except for during the winter. The patient will during 12-20 Beers a day. He is and one daughter. The patient continues to smoke at least 1 pack a cigarettes a day. Code status full code Smoking packs per day: 1.5 Smoking cigarettes per day: 30.0 Years smoked: 43 Smoking pack-years: 64.50 Smoking status: Current every day smoker Tobacco type: cigarettes Alcohol intake: current Drinks per week: 80 Alcohol use details: daily Substance use: current Substance use type: marijuana, amphetamines and sedatives Other substance usage details: daily Last use: 05/03/2025 Lack of Transportation: No Lack of Food: Sometimes True Current Housing: I Do Not Have Housing Concerned About Future Housing: YES Difficulty Paying Gas/Electric Bills: YES Difficulty Paying for Meds: YES Currently Unemployed: No Education: High School Diploma/GED Difficulty w/ Childcare or Family Care: No Living arrangements: alone Spiritual care concerns: No Meds Home Medications and Allergies Home Medications ?Medication ?Instructions ?Recorded ?Confirmed ?Type metoprolol tartrate 50 mg tablet 50 mg PO DAILY 07/04/22 05/04/25 History Allergies Allergy/AdvReac Type Severity Reaction Status Date / Time No Known Allergies Allergy Verified 05/04/25 20:33 Vital Signs Vital Signs - 24 hr 05/04/25 15:21 05/04/25 15:44 05/04/25 15:55 Temperature 98.6 F Pulse Rate 103 H 106 H Pulse Rate [Bilateral Pedal (Dorsalis Pedis) Palpation] Respiratory Rate 14 13 14 Blood Pressure 159/116 H 172/109 H Pulse Oximetry 99 96 98 Oxygen Delivery Room Air 05/04/25 17:22 05/04/25 19:01 05/04/25 19:15 Temperature Pulse Rate 94 92 88 Pulse Rate [Bilateral Pedal (Dorsalis Pedis) Palpation] Respiratory Rate 15 18 14 Blood Pressure 172/106 H 128/87 Pulse Oximetry 97 97 100 Oxygen Delivery 05/04/25 19:16 05/04/25 19:31 05/04/25 19:32 Temperature Pulse Rate 83 90 86 Pulse Rate [Bilateral Pedal (Dorsalis Pedis) Palpation] Respiratory Rate 15 15 13 Blood Pressure 156/90 H 154/97 H Pulse Oximetry 97 Oxygen Delivery 05/04/25 19:45 05/04/25 19:46 05/04/25 19:47 Temperature 98.3 F Pulse Rate 88 92 91 Pulse Rate [Bilateral Pedal (Dorsalis Pedis) Palpation] Respiratory Rate 13 13 14 Blood Pressure 142/91 H 137/87 Pulse Oximetry 96 96 96 Oxygen Delivery 05/04/25 20:29 05/04/25 21:00 05/04/25 21:00 Temperature 98.5 F 98.6 F Pulse Rate 95 76 92 Pulse Rate [Bilateral Pedal (Dorsalis Pedis) Palpation] Respiratory Rate 12 12 14 Blood Pressure 166/102 H 160/96 H Pulse Oximetry 95 97 97 Oxygen Delivery Room Air 05/04/25 21:51 05/04/25 22:00 05/04/25 22:00 Temperature 99.1 F Pulse Rate 104 H 96 95 Pulse Rate [Bilateral Pedal (Dorsalis Pedis) Palpation] Respiratory Rate 22 H 16 Blood Pressure 147/87 H Pulse Oximetry 96 Oxygen Delivery 05/04/25 22:00 05/04/25 22:18 05/04/25 23:00 Temperature 98.9 F Pulse Rate 96 98 92 Pulse Rate [Bilateral Pedal (Dorsalis Pedis) Palpation] Respiratory Rate 17 14 14 Blood Pressure 147/89 H Pulse Oximetry 97 Oxygen Delivery 05/04/25 23:42 05/04/25 23:43 05/05/25 00:00 Temperature 98.4 F Pulse Rate 96 93 Pulse Rate [Bilateral Pedal (Dorsalis Pedis) Palpation] 95 Respiratory Rate 14 14 Blood Pressure 144/88 H Pulse Oximetry 95 97 Oxygen Delivery Room Air 05/05/25 00:00 05/05/25 00:00 05/05/25 01:00 Temperature 98.4 F Pulse Rate 92 94 95 Pulse Rate [Bilateral Pedal (Dorsalis Pedis) Palpation] Respiratory Rate 14 15 Blood Pressure 130/89 Pulse Oximetry 98 Oxygen Delivery 05/05/25 02:00 05/05/25 02:00 05/05/25 02:00 Temperature 98.4 F Pulse Rate 92 91 91 Pulse Rate [Bilateral Pedal (Dorsalis Pedis) Palpation] Respiratory Rate 14 14 Blood Pressure 128/80 Pulse Oximetry 96 Oxygen Delivery 05/05/25 03:00 05/05/25 03:50 05/05/25 04:00 Temperature 98.2 F 98.4 F Pulse Rate 78 75 73 Pulse Rate [Bilateral Pedal (Dorsalis Pedis) Palpation] Respiratory Rate 15 15 16 Blood Pressure 139/85 135/95 H Pulse Oximetry 97 97 97 Oxygen Delivery Room Air 05/05/25 04:00 05/05/25 04:00 05/05/25 04:57 Temperature Pulse Rate 75 74 Pulse Rate [Bilateral Pedal (Dorsalis Pedis) Palpation] 110 H Respiratory Rate 15 Blood Pressure Pulse Oximetry Oxygen Delivery 05/05/25 05:00 05/05/25 06:00 05/05/25 06:00 Temperature 98.7 F 98.2 F Pulse Rate 85 80 83 Pulse Rate [Bilateral Pedal (Dorsalis Pedis) Palpation] Respiratory Rate 18 14 Blood Pressure 150/96 H 137/81 Pulse Oximetry 98 94 Oxygen Delivery 05/05/25 06:00 05/05/25 07:00 05/05/25 08:00 Temperature 98.7 F 98.7 F Pulse Rate 83 106 H 98 Pulse Rate [Bilateral Pedal (Dorsalis Pedis) Palpation] Respiratory Rate 14 25 H 16 Blood Pressure 148/89 H 119/93 H Pulse Oximetry 95 90 Oxygen Delivery 05/05/25 08:00 05/05/25 08:00 05/05/25 08:00 Temperature Pulse Rate 79 99 Pulse Rate [Bilateral Pedal (Dorsalis Pedis) Palpation] 79 Respiratory Rate 14 Blood Pressure Pulse Oximetry Oxygen Delivery 05/05/25 09:00 05/05/25 09:20 05/05/25 10:00 Temperature 98.9 F 98.9 F Pulse Rate 98 95 101 H Pulse Rate [Bilateral Pedal (Dorsalis Pedis) Palpation] Respiratory Rate 22 H 16 Blood Pressure 145/106 H 118/69 Pulse Oximetry 94 96 Oxygen Delivery 05/05/25 10:00 05/05/25 10:00 05/05/25 11:00 Temperature 98.9 F Pulse Rate 84 84 76 Pulse Rate [Bilateral Pedal (Dorsalis Pedis) Palpation] Respiratory Rate 15 16 Blood Pressure 111/56 L Pulse Oximetry 94 Oxygen Delivery Exam Narrative: General: Appears older than his age, currently in no acute distress HEENT:? Pupils equal and reactive, sclera is clear, moist oral mucosa Neck:? Supple Respiratory:? Clear to auscultation bilaterally, no wheezing, adequate air entry Cardiac:? S1-S2 is normal, regular rate and rhythm Abdomen:? Soft, nontender, nondistended, hypoactive bowel sounds Extremities:? No edema, palpable pedal pulses, has a callus on his right foot on the plantar aspect Neuro:? Patient is awake, alert, able to answer few questions but he has a garbled speech, nods to questions and follows simple commands, tremulous and upper extremities Skin:? No skin lesions noted Psych:? Unable to assess at this time Results Labs 05/05/25 04:02 05/05/25 04:09 Labs: Short CBC 05/04/25 05/05/25 Range/Units 15:56 04:02 WBC 10.1 H 5.6 (4.5-10.0) K/mm3 Hgb 10.6 L 10.0 L (14.0-18.0) g/dL Hct 32.8 L 30.1 L (42.0-52.0) % Plt Count 74 L D 68 L (150-375) k/mm3 BMP 05/04/25 05/05/25 15:56 04:09 Sodium 135 L 133 L Potassium 3.2 L 3.0 L Chloride 105 105 Carbon Dioxide 21 L 23 BUN 14 D 12 Creatinine 0.77 0.73 Glucose 53 L* 70 Calcium 8.2 L 7.9 L Liver Function 05/05/25 Range/Units 04:09 Total Bilirubin 1.9 H (0.2-1.3) mg/dL AST 84 H (17-59) U/L ALT 24 (6-50) U/L Alkaline Phosphatase 113 (38-126) U/L Albumin 3.4 L (3.5-5.1) g/dL Urine 05/04/25 Range/Units 18:47 Urine Color Yellow (Yellow) Urine Appearance Clear (Clear) Urine pH 7.5 (5.0-9.0) Ur Specific [place] 1.019 (1.001-1.035) Urine Protein 1+ H (Negative) mg/dL Urine Glucose (UA) 1+ H (Negative) mg/dL Quality VTE Prophylaxis VTE prophylaxis: mechanical ordered Hospitalist MIPS Advance Care Plan I have confirmed that the patient's Advanced Care Plan is present, code status is documented, or surrogate decision maker is listed in patient medical record.: Yes Medication Reconciliation I have utilized all available resources to obtain, update and review the patients current medications (includes all prescriptions, OTC, herbals, cannabis, and nutritional supplements).: Yes
--- NOTE | 2025-05-05 12:19 | PC.NURSE ---
wallet and keys placed in safe with shooters and cigarettes, spoke with daughter jeanna on phone, moises will come up and speak with family
[2025-05-05 13:00] LABS: Anion Gap 1 mmol/L (4-12); Blood Urea Nitrogen 10 mg/dL (9-20); Calcium 7.8 mg/dL (8.4-10.2); Carbon Dioxide 27 mmol/L (22-30); Chloride 105 mmol/L (98-107); Estimated CRCL calculation 94 ml/min; Estimated Glomerular Filt Rate > 60; Glucose 86 mg/dL (65-110); Magnesium 1.9 mg/dL (1.6-2.3); Potassium 3.3 mmol/L (3.4-5.0); Sodium 133 mmol/L (137-145)
[2025-05-05] MEDS: PHENobarbitaL sodium (*CRX) 130 MG/ML VIAL IV PUSH (13:29)
[2025-05-05] MEDS: GLUCAGON FOR INJ 1 MG VIAL 2 MG IV PUSH (13:52)
[2025-05-05] MEDS: LORazepam INJ (*CRX) 2 MG/ML VIAL IV PUSH ×2 (15:17→17:10)
[2025-05-05] MEDS: PHENobarbitaL sodium (*CRX) 130 MG/ML VIAL 60 MG IV PUSH (19:52)
[2025-05-06] VITALS (31 sets, daily range): BP systolic 119–163; BP diastolic 65–120; PULSE 59–104; RESP 12–23; TEMP 36.7–37.9; O2SAT 87–100
[2025-05-06] MEDS: PHENobarbitaL sodium (*CRX) 130 MG/ML VIAL 60 MG IV PUSH ×4 (04:36→22:25)
[2025-05-06] MEDS: dexmedeTOMIDine 400 MCG/100 ML 400 MCG/100 ML BAG 5.63 MCG IV CONT (04:37)
[2025-05-06 05:24] LABS: Hematocrit 31.7 % (42.0-52.0); Hemoglobin 10.3 g/dL (14.0-18.0); Immature Granulocyte Percent A 1.0 % (0-0.5); Immature Platelet Fraction Pct 16.8 % (0.9-11.2); Lymphocytes Absolute Auto 1.07 K/mm3 (0.9-3.2); Mean Corpuscular HGB Conc 32.5 g/dl (32-36); Mean Corpuscular Hemoglobin 32.8 pg (26-34); Mean Corpuscular Volume 101.0 fl (80-100); Nucleated Red Blood Cells Absolute Auto 0.020 K/mm3 (0.0-0.012); Nucleated Red Blood Cells Perc 0.3 % (0.0-0.2); Platelet Count Result 75 k/mm3 (150-375); Red Blood Count 3.14 M/mm3 (4.6-6.20); White Blood Count 6.9 K/mm3 (4.5-10.0)
[2025-05-06 05:34] LABS: Alanine Aminotransferase 27 U/L (6-50); Albumin Level 3.3 g/dL (3.5-5.1); Alkaline Phosphatase 110 U/L (38-126); Anion Gap 3 mmol/L (4-12); Aspartate Amino Transferase 101 U/L (17-59); Bilirubin,Total 1.3 mg/dL (0.2-1.3); Blood Urea Nitrogen 7 mg/dL (9-20); Calcium 8.1 mg/dL (8.4-10.2); Carbon Dioxide 25 mmol/L (22-30); Chloride 107 mmol/L (98-107); Estimated CRCL calculation 96 ml/min; Estimated Glomerular Filt Rate > 60; Glucose 80 mg/dL (65-110); Magnesium 1.5 mg/dL (1.6-2.3); Potassium 3.2 mmol/L (3.4-5.0); Sodium 135 mmol/L (137-145); Total Protein 6.8 g/dL (6.3-8.2)
[2025-05-06 05:45] LABS: INR 1.0; Prothrombin Time 13.7 Seconds (11.1-14.7)
[2025-05-06 05:46] LABS: Partial Thromboplastin Time 35.4 Seconds (22.3-36.8)
[2025-05-06 05:59] LABS: Anisocytosis 1+
[2025-05-06 06:00] LABS: Hypochromasia 1+; Schistocytes None Seen
[2025-05-06 06:09] LABS: Thyroid Stimulating Hormone 4.510 uIU/mL (0.465-4.680)
[2025-05-06] MEDS: FOLIC ACID 1 MG TABLET PO (08:46)
[2025-05-06] MEDS: THIAMINE HCL 100 MG TABLET PO (08:47)
[2025-05-06] MEDS: POTASSIUM CHLORIDE INJ 40 MEQ in SODIUM CHLORIDE 0.9% IV 500 ML 130 MEQ IVPB (08:47)
[2025-05-06] MEDS: THERAPEUTIC MULTIVITAMINS/MINERALS TAB (*BKC) 1 TABLET PO (08:47)
[2025-05-06] MEDS: POTASSIUM CHLORIDE 20 MEQ PACKET (FOR LIQUID) 40 MEQ PO (08:48)
[2025-05-06] MEDS: MAGNESIUM SULF 2 GM/WATER 50ML 2 GM/50 ML BAG IVPB (08:49)
[2025-05-06] MEDS: DEXTROSE 5%/LACTATED RINGERS 1,000 ML 100 ML IV CONT ×2 (08:50→22:34)
--- NOTE | 2025-05-06 12:17 | WPDINTPN2 ---
Assessment and Plan Assessment and Plan (1) Altered mental status: Code(s): R41.82 - Altered mental status, unspecified Status: Acute Assessment and Plan: 05/04/2025: Patient presented to the ED with complaints of altered mental status, hypoglycemia -05/04: CT brain with no acute intracranial abnormality -patient is awake, able to able to have a p.o. diet, drink fluids and take his pills -able to follow simple commands but still has a garbled speech which is clear than yesterday (2) Alcohol use disorder: Code(s): F10.90 - Alcohol use, unspecified, uncomplicated Status: Acute Assessment and Plan: History of alcohol use disorder, currently drinks 6 units daily but according to the ER physician note when she discussed with patient's daughter, the daughter stated that he drinks more more than what he stated. -alcohol levels were within normal limits -this could be related to alcohol withdrawal -was given a dose of phenobarbital in the ER -will continue phenobarbital p.o. in the ICU and will wean phenobarb gradually over the next 3-4 days -continue [facility] protocol -05/06: patient was on Precedex overnight which has been turned of this morning, increased days IV phenobarbital which seems to be helping (3) Alcohol withdrawal: Code(s): F10.939 - Alcohol use, unspecified with withdrawal, unspecified Status: Acute Assessment and Plan: As above (4) Hypoglycemia: Code(s): E16.2 - Hypoglycemia, unspecified Status: Acute Assessment and Plan: Hypoglycemia, could be related to excess alcohol intake, decreased oral intake, patient on metoprolol which can be associated with hypoglycemia -currently on D5% LR at 125 mL/hour -will give glucagon given patient was on metoprolol at home -status post D10 LR on D10 NS -05/06: This morning blood sugars dropped to 97, D5 LR was restarted -TSH within normal limits (5) Hypertension: Code(s): I10 - Essential (primary) hypertension Status: Acute Assessment and Plan: Hold metoprolol -will add hydralazine p.r.n. for SBP > 150 mmHg (6) Electrolyte imbalance: Code(s): E87.8 - Other disorders of electrolyte and fluid balance, not elsewhere classified Status: Acute Assessment and Plan: Hypokalemia, potassium and magnesium replaced (7) Thrombocytopenia: Code(s): D69.6 - Thrombocytopenia, unspecified Status: Acute Assessment and Plan: Thrombocytopenia likely related to alcohol use disorder, possible liver dysfunction given elevated AST. -platelet count gradually improving, continue to monitor Plan DVT prophylaxis: SCDs, no chemoprophylaxis due to thrombocytopenia Stress ulcer prophylaxis: Not indicated Nutrition: Heart healthy diet Code Status: Full code Critical Care Time Spent: 31 minutes Patient be transferred to IMU Due to a high probability of clinically significant, life threatening deterioration, the patient required my highest level of preparedness to intervene emergently and I personally spent this critical care time directly and personally managing the patient. This critical care time included obtaining a history; examining the patient; pulse oximetry; ordering and review of studies; arranging urgent treatment with development of a management plan; evaluation of patient's response to treatment; frequent reassessment; and discussions with other providers. It was exclusive of separately billable procedures and treating other patients and teaching time. Please see Assessment and Plan section and the rest of the note for further information on patient assessment and treatment This dictation may have been done utilizing a voice recognition system. Attempts have been made to correct errors. However, there may be uncorrected grammatical, spelling, and recognitions errors present. Subjective Date/time seen: 05/06/25 12:17 Interval history: Reason for consult: Alcohol withdrawal, hypoglycemia 05/06/2025: Patient seen examined the ICU, is awake, able to answer few questions and follows commands. Has garbled speech which is more clear than yesterday. States he does not want to eat breakfast this morning. Continues to be tremulous. Was on Precedex infusion overnight which has been turned off. Receiving IV phenobarbital. D5 LR was turned off, blood sugars this morning were 97, so restarted D5 LR at 100 mL/hour. Patient is hemodynamically stable, afebrile, good urine output Denies any chest pain, shortness of breath, abdominal pain Lipase and triglycerides a within normal limits Review of Systems Review of Systems: All systems reviewed & are unremarkable except as noted in HPI and below Exam Narrative: General: Appears older than his age, currently in no acute distress HEENT:? Pupils equal and reactive, sclera is clear, moist oral mucosa Neck:? Supple Respiratory:? Clear to auscultation bilaterally, no wheezing, adequate air entry Cardiac:? S1-S2 is normal, regular rate and rhythm Abdomen:? Soft, nontender, nondistended, hypoactive bowel sounds Extremities:? No edema, palpable pedal pulses, has a callus on his right foot on the plantar aspect Neuro:? Patient is awake, alert, able to answer few questions but he has a garbled speech but more clear than yesterday, follows simple commands, tremulous and upper extremities Skin:? No skin lesions noted Psych:? Unable to assess at this time Objective Data Vital Signs Vital Signs: Vital Signs - 24 hr 05/05/25 13:00 05/05/25 14:00 05/05/25 14:00 Temperature 98.7 F 99.1 F Pulse Rate 81 82 86 Pulse Rate [Bilateral Pedal (Dorsalis Pedis) Palpation] Respiratory Rate 27 H 16 Blood Pressure 136/93 H 151/84 H Pulse Oximetry 97 97 Oxygen Delivery Oxygen Flow Rate 05/05/25 15:00 05/05/25 15:33 05/05/25 16:00 Temperature 99.0 F 98.5 F Pulse Rate 76 86 83 Pulse Rate [Bilateral Pedal (Dorsalis Pedis) Palpation] Respiratory Rate 19 18 23 H Blood Pressure 119/65 129/81 Pulse Oximetry 97 92 Oxygen Delivery Oxygen Flow Rate 05/05/25 16:00 05/05/25 16:00 05/05/25 16:00 Temperature Pulse Rate 83 83 Pulse Rate [Bilateral Pedal (Dorsalis Pedis) Palpation] Respiratory Rate 23 H Blood Pressure Pulse Oximetry Oxygen Delivery Room Air Oxygen Flow Rate 05/05/25 17:00 05/05/25 17:24 05/05/25 17:53 Temperature 98.8 F Pulse Rate 91 87 88 Pulse Rate [Bilateral Pedal (Dorsalis Pedis) Palpation] Respiratory Rate 14 16 20 Blood Pressure 146/97 H Pulse Oximetry 99 Oxygen Delivery Oxygen Flow Rate 05/05/25 18:00 05/05/25 18:00 05/05/25 19:00 Temperature 98.8 F 98.5 F Pulse Rate 69 64 64 Pulse Rate [Bilateral Pedal (Dorsalis Pedis) Palpation] Respiratory Rate 21 H 14 Blood Pressure 147/90 H 147/90 H Pulse Oximetry 95 94 Oxygen Delivery Oxygen Flow Rate 05/05/25 19:20 05/05/25 19:34 05/05/25 19:54 Temperature 98.0 F Pulse Rate 60 84 76 Pulse Rate [Bilateral Pedal (Dorsalis Pedis) Palpation] Respiratory Rate 14 16 18 Blood Pressure 139/93 H Pulse Oximetry 98 Oxygen Delivery Oxygen Flow Rate 05/05/25 19:54 05/05/25 19:55 05/05/25 19:56 Temperature Pulse Rate 80 80 Pulse Rate [Bilateral Pedal (Dorsalis Pedis) Palpation] 81 Respiratory Rate 24 H 24 H Blood Pressure Pulse Oximetry 98 Oxygen Delivery Nasal Cannula Oxygen Flow Rate 2 05/05/25 20:00 05/05/25 20:00 05/05/25 20:44 Temperature 98.1 F Pulse Rate 71 56 L 57 L Pulse Rate [Bilateral Pedal (Dorsalis Pedis) Palpation] Respiratory Rate 20 14 Blood Pressure 137/87 Pulse Oximetry 100 Oxygen Delivery Oxygen Flow Rate 05/05/25 20:59 05/05/25 21:50 05/05/25 22:00 Temperature 98.1 F Pulse Rate 60 80 Pulse Rate [Bilateral Pedal (Dorsalis Pedis) Palpation] Respiratory Rate 15 Blood Pressure 127/81 Pulse Oximetry 97 96 Oxygen Delivery Nasal Cannula Oxygen Flow Rate 2 05/05/25 22:00 05/05/25 22:00 05/05/25 23:00 Temperature 97.9 F 98.2 F Pulse Rate 80 78 58 L Pulse Rate [Bilateral Pedal (Dorsalis Pedis) Palpation] Respiratory Rate 19 19 15 Blood Pressure 119/87 125/88 Pulse Oximetry 98 96 Oxygen Delivery Oxygen Flow Rate 05/05/25 23:44 05/05/25 23:45 05/06/25 00:00 Temperature 98.1 F Pulse Rate 58 L 81 Pulse Rate [Bilateral Pedal (Dorsalis Pedis) Palpation] 68 Respiratory Rate 15 21 H Blood Pressure 139/85 Pulse Oximetry 96 98 Oxygen Delivery Nasal Cannula Oxygen Flow Rate 2 05/06/25 00:00 05/06/25 00:00 05/06/25 01:00 Temperature 98.5 F Pulse Rate 80 83 80 Pulse Rate [Bilateral Pedal (Dorsalis Pedis) Palpation] Respiratory Rate 20 20 Blood Pressure 128/74 Pulse Oximetry 98 Oxygen Delivery Oxygen Flow Rate 05/06/25 01:09 05/06/25 02:00 05/06/25 02:00 Temperature 98.5 F Pulse Rate 77 67 65 Pulse Rate [Bilateral Pedal (Dorsalis Pedis) Palpation] Respiratory Rate 14 14 Blood Pressure 133/74 Pulse Oximetry 98 Oxygen Delivery Oxygen Flow Rate 05/06/25 02:00 05/06/25 02:57 05/06/25 03:00 Temperature 98.6 F Pulse Rate 68 82 59 L Pulse Rate [Bilateral Pedal (Dorsalis Pedis) Palpation] Respiratory Rate 14 18 16 Blood Pressure 141/89 H Pulse Oximetry 98 Oxygen Delivery Oxygen Flow Rate 05/06/25 03:20 05/06/25 03:40 05/06/25 04:00 Temperature 98.7 F Pulse Rate 61 61 60 Pulse Rate [Bilateral Pedal (Dorsalis Pedis) Palpation] Respiratory Rate 14 14 12 Blood Pressure 133/89 Pulse Oximetry 98 98 Oxygen Delivery Nasal Cannula Oxygen Flow Rate 2 05/06/25 04:00 05/06/25 04:00 05/06/25 04:37 Temperature Pulse Rate 60 59 L 85 Pulse Rate [Bilateral Pedal (Dorsalis Pedis) Palpation] Respiratory Rate 13 15 Blood Pressure Pulse Oximetry Oxygen Delivery Oxygen Flow Rate 05/06/25 04:37 05/06/25 05:00 05/06/25 05:20 Temperature 98.1 F Pulse Rate 85 92 95 Pulse Rate [Bilateral Pedal (Dorsalis Pedis) Palpation] Respiratory Rate 13 17 21 H Blood Pressure 143/120 H Pulse Oximetry 100 Oxygen Delivery Oxygen Flow Rate 05/06/25 06:00 05/06/25 06:00 05/06/25 06:00 Temperature 98.5 F Pulse Rate 60 62 60 Pulse Rate [Bilateral Pedal (Dorsalis Pedis) Palpation] Respiratory Rate 15 15 Blood Pressure 143/88 H Pulse Oximetry 99 Oxygen Delivery Oxygen Flow Rate 05/06/25 06:35 05/06/25 07:00 05/06/25 08:00 Temperature 98.3 F 98.1 F Pulse Rate 59 L 62 60 Pulse Rate [Bilateral Pedal (Dorsalis Pedis) Palpation] Respiratory Rate 14 13 17 Blood Pressure 148/92 H 129/83 Pulse Oximetry 99 Oxygen Delivery Oxygen Flow Rate 05/06/25 08:00 05/06/25 08:00 05/06/25 08:00 Temperature Pulse Rate 64 64 Pulse Rate [Bilateral Pedal (Dorsalis Pedis) Palpation] 64 Respiratory Rate 13 Blood Pressure 129/83 Pulse Oximetry 99 Oxygen Delivery Nasal Cannula Oxygen Flow Rate 2 05/06/25 09:00 05/06/25 10:00 05/06/25 11:00 Temperature 98.7 F 98.1 F 98.1 F Pulse Rate 67 63 65 Pulse Rate [Bilateral Pedal (Dorsalis Pedis) Palpation] Respiratory Rate 17 13 13 Blood Pressure 130/92 H 123/85 Pulse Oximetry 97 99 99 Oxygen Delivery Oxygen Flow Rate 05/06/25 12:00 Temperature 98.7 F Pulse Rate 76 Pulse Rate [Bilateral Pedal (Dorsalis Pedis) Palpation] Respiratory Rate 22 H Blood Pressure 156/98 H Pulse Oximetry 99 Oxygen Delivery Oxygen Flow Rate Intake/Output Intake/Output: Intake & Output 05/03/25 05/04/25 05/05/25 05/06/25 23:59 23:59 23:59 23:59 Intake Total 1101.7 3463.3 263.1 Output Total 2500 2200 Balance 1101.7 963.3 -1936.9 Meds/Results Medications: Active Medications Generic Name Dose Route Start Last Admin Trade Name Freq PRN Reason Stop Dose Admin Dextrose 12.5 gm 05/04/25 15:47 05/04/25 20:03 Dextrose 50% 25 Gm/50 Ml Syringe IV PUSH 12.5 gm PRN PRN Administration Hypoglycemia Protocol Folic Acid 1 mg 05/05/25 09:00 05/06/25 08:46 Folic Acid 1 Mg Tablet PO 1 mg DAILY VIANEY Administration Glucagon 1 mg 05/04/25 15:47 Glucagon For Inj 1 Mg Vial IM PRN PRN Hypoglycemia Protocol Glucose 15 gm 05/04/25 15:47 Glucose Oral Gel 15 Gm Of Glucse In 37.5 Gm Tube PO PRN PRN Hypoglycemia Protocol Hydralazine HCl 10 mg 05/05/25 12:15 Hydralazine Hcl 20 Mg/Ml Vial IV PUSH Q4H PRN Blood Pressure - High Dextrose 1,000 mls @ 100 mls/hr 05/04/25 15:47 Dextrose 5% 1,000 Ml IVPB PRN PRN Hypoglycemia Protocol Dexmedetomidine HCl 400 mcg in 100 mls @ 5.625 mls/hr 05/04/25 19:50 05/06/25 06:35 Precedex 400 Mcg/100 Ml IV CONT 0.3 mcg/kg/hr .[id number] VIANEY 5.63 mls/hr Protocol Titration 0.3 MCG/KG/HR Dextrose/Lactated Ringer's 1,000 mls @ 100 mls/hr 05/06/25 07:25 05/06/25 08:50 Dextrose 5%/Lactated Ringers IV CONT 05/07/25 03:24 100 mls/hr .Q10H VIANEY Administration Potassium Chloride 40 meq/ 520 mls @ 130 mls/hr 05/06/25 08:30 05/06/25 08:47 Sodium Chloride IVPB 05/06/25 12:29 130 mls/hr ONCE ONE Administration Lorazepam 2 mg 05/05/25 12:38 05/05/25 17:10 Lorazepam Inj (*Crx) 2 Mg/Ml Vial IV PUSH 2 mg Q2H PRN Administration ALCOHOL WITHDRAWAL Metoprolol Tartrate 50 mg 05/05/25 09:00 05/05/25 09:20 Metoprolol Tartrate 50 Mg Tab PO 50 mg On Hold: 05/05/25 12:15 DAILY VIANEY Administration Multivitamins/Calcium 1 tablet 05/05/25 09:00 05/06/25 08:47 Therapeutic Multivitamins/Minerals Tab (*Bkc) PO 1 tablet DAILY VIANEY Administration Phenobarbital Sodium 60 mg 05/06/25 10:00 05/06/25 09:58 Phenobarbital Sodium (*Crx) 130 Mg/Ml Vial IV PUSH 05/08/25 09:59 60 mg Q6H VIANEY Administration Thiamine HCl 100 mg 05/05/25 09:00 05/06/25 08:47 Thiamine Hcl 100 Mg Tablet PO 100 mg DAILY VIANEY Administration Radiology Results: ITS Impressions Head CT 05/04/25 17:33 Impression: 1.No acute intracranial abnormality. Labs Labs: Laboratory Results - last 24 hr 05/05/25 05/05/25 05/05/25 12:28 13:35 18:15 WBC RBC Hgb Hct MCV MCH MCHC RDW Plt Count MPV Immature Gran % (Auto) Neut % (Auto) Lymph % (Auto) [place] % (Auto) Eos % (Auto) Baso % (Auto) Lymph # (Auto) [place] # (Auto) Eos # (Auto) Baso # (Auto) Abs Immat Gran (auto) Absolute Neuts (auto) Absolute Nucleated RBC Band Neutrophils % Nucleated RBC % Platelet Estimate % Immature Plt Fraction Hypochromasia Anisocytosis Schistocytes PT INR APTT Sodium 133 L Potassium 3.3 L Chloride 105 Carbon Dioxide 27 Anion Gap 1 L BUN 10 Creatinine 0.76 Estim Creat Clear Calc 94 Estimated GFR > 60 Glucose 86 POC Capillary Glucose 182 H 120 H Lactic Acid Calcium 7.8 L Phosphorus 1.6 L Magnesium 1.9 Total Bilirubin AST ALT Alkaline Phosphatase Total Protein Albumin TSH 05/05/25 05/06/25 05/06/25 23:31 04:52 11:16 WBC 6.9 RBC 3.14 L Hgb 10.3 L Hct 31.7 L MCV 101.0 H MCH 32.8 MCHC 32.5 RDW 23.1 H Plt Count 75 L MPV TNP Immature Gran % (Auto) 1.0 H Neut % (Auto) 75.8 H Lymph % (Auto) 15.5 L [place] % (Auto) 5.1 Eos % (Auto) 1.9 Baso % (Auto) 0.7 Lymph # (Auto) 1.07 [place] # (Auto) 0.4 Eos # (Auto) 0.1 Baso # (Auto) 0.1 Abs Immat Gran (auto) 0.07 H Absolute Neuts (auto) 5.2 Absolute Nucleated RBC 0.020 H Band Neutrophils % Not Reportable Nucleated RBC % 0.3 H Platelet Estimate Decreased % Immature Plt Fraction 16.8 H Hypochromasia 1+ Anisocytosis 1+ Schistocytes None seen PT 13.7 INR 1.0 APTT 35.4 Sodium 135 L Potassium 3.2 L Chloride 107 Carbon Dioxide 25 Anion Gap 3 L BUN 7 L Creatinine 0.74 Estim Creat Clear Calc 96 Estimated GFR > 60 Glucose 80 POC Capillary Glucose 97 100 Lactic Acid 1.0 Calcium 8.1 L Phosphorus 2.5 Magnesium 1.5 L Total Bilirubin 1.3 AST 101 H ALT 27 Alkaline Phosphatase 110 Total Protein 6.8 Albumin 3.3 L TSH 4.510 Quality VTE Prophylaxis VTE prophylaxis: mechanical ordered
[2025-05-06] MEDS: chlordiazePOXIDE (*CRX) 25 MG CAPSULE PO ×3 (12:26→22:25)
[2025-05-07] VITALS (21 sets, daily range): BP systolic 109–148; BP diastolic 74–91; PULSE 73–117; RESP 15–22; TEMP 36.4–37.6; O2SAT 94–98
[2025-05-07] MEDS: PHENobarbitaL sodium (*CRX) 130 MG/ML VIAL 60 MG IV PUSH ×4 (03:00→22:00)
[2025-05-07] MEDS: chlordiazePOXIDE (*CRX) 25 MG CAPSULE PO ×4 (06:50→23:39)
[2025-05-07 07:52] LABS: Hematocrit 30.0 % (42.0-52.0); Hemoglobin 9.7 g/dL (14.0-18.0); Immature Granulocyte Percent A 1.5 % (0-0.5); Immature Platelet Fraction Pct 13.3 % (0.9-11.2); Lymphocytes Absolute Auto 1.07 K/mm3 (0.9-3.2); Mean Corpuscular HGB Conc 32.3 g/dl (32-36); Mean Corpuscular Hemoglobin 32.9 pg (26-34); Mean Corpuscular Volume 101.7 fl (80-100); Nucleated Red Blood Cells Absolute Auto 0.000 K/mm3 (0.0-0.012); Nucleated Red Blood Cells Perc 0.0 % (0.0-0.2); Platelet Count Result 85 k/mm3 (150-375); Red Blood Count 2.95 M/mm3 (4.6-6.20); White Blood Count 6.6 K/mm3 (4.5-10.0)
[2025-05-07 08:13] LABS: Alanine Aminotransferase 27 U/L (6-50); Albumin Level 3.0 g/dL (3.5-5.1); Alkaline Phosphatase 100 U/L (38-126); Anion Gap 3 mmol/L (4-12); Aspartate Amino Transferase 83 U/L (17-59); Bilirubin,Total 0.9 mg/dL (0.2-1.3); Blood Urea Nitrogen 3 mg/dL (9-20); Calcium 7.8 mg/dL (8.4-10.2); Carbon Dioxide 25 mmol/L (22-30); Chloride 105 mmol/L (98-107); Estimated CRCL calculation 106 ml/min; Estimated Glomerular Filt Rate > 60; Glucose 95 mg/dL (65-110); Magnesium 1.3 mg/dL (1.6-2.3); Potassium 3.0 mmol/L (3.4-5.0); Sodium 133 mmol/L (137-145); Total Protein 6.4 g/dL (6.3-8.2)
[2025-05-07] MEDS: POTASSIUM CHLORIDE 20 MEQ ER TABLET 40 MEQ PO (08:28)
[2025-05-07] MEDS: POTASSIUM CHLORIDE 20 MEQ ER TABLET PO (08:28)
[2025-05-07] MEDS: FOLIC ACID 1 MG TABLET PO (08:29)
[2025-05-07] MEDS: THERAPEUTIC MULTIVITAMINS/MINERALS TAB (*BKC) 1 TABLET PO (08:29)
[2025-05-07] MEDS: THIAMINE HCL 100 MG TABLET PO (08:29)
[2025-05-07 08:35] LABS: Anisocytosis 2+; Hypochromasia 2+
[2025-05-07 08:36] LABS: Schistocytes Occasional
[2025-05-07] MEDS: MAGNESIUM SULF 2 GM/WATER 50ML 2 GM/50 ML BAG IVPB (09:12)
--- NOTE | 2025-05-07 13:01 | P.PNIM_ITS ---
Assessment and Plan Assessment and Plan (1) Altered mental status: Code(s): R41.82 - Altered mental status, unspecified Status: Acute Assessment and Plan: 05/04/2025: Patient presented to the ED with complaints of altered mental status, hypoglycemia -05/04: CT brain with no acute intracranial abnormality -patient is awake, able to able to have a p.o. diet, drink fluids and take his pills -able to follow simple commands but still has a garbled speech which is clear than yesterday (2) Alcohol use disorder: Code(s): F10.90 - Alcohol use, unspecified, uncomplicated Status: Acute Assessment and Plan: History of alcohol use disorder, currently drinks 6 units daily but according to the ER physician note when she discussed with patient's daughter, the daughter stated that he drinks more more than what he stated. -alcohol levels were within normal limits -this could be related to alcohol withdrawal -was given a dose of phenobarbital in the ER -will continue phenobarbital p.o. in the ICU and will wean phenobarb gradually over the next 3-4 days -continue CIWA protocol -05/06: patient was on Precedex overnight which has been turned of this morning, increased days IV phenobarbital which seems to be helping 05/07: Off Precedex since yesterday morning, patient was started on IV phenobarbital which seems to be helping him. -continue Librium -will switch to p.o. phenobarbital on 05/08/2025 and taper him over the next 2-4 days. (3) Alcohol withdrawal: Code(s): F10.939 - Alcohol use, unspecified with withdrawal, unspecified Status: Acute Assessment and Plan: As above (4) Hypoglycemia: Code(s): E16.2 - Hypoglycemia, unspecified Status: Acute Assessment and Plan: Hypoglycemia, could be related to excess alcohol intake, decreased oral intake, patient on metoprolol which can be associated with hypoglycemia -currently on D5% LR at 125 mL/hour -will give glucagon given patient was on metoprolol at home -status post D10 LR on D10 NS -sugars have been adequate, D5 LR was discontinued, encourage oral intake -TSH within normal limits (5) Hypertension: Code(s): I10 - Essential (primary) hypertension Status: Acute Assessment and Plan: Hold metoprolol -continue hydralazine p.r.n. for SBP > 150 mmHg (6) Electrolyte imbalance: Code(s): E87.8 - Other disorders of electrolyte and fluid balance, not elsewhere classified Status: Acute Assessment and Plan: Hypokalemia, potassium and magnesium replaced (7) Thrombocytopenia: Code(s): D69.6 - Thrombocytopenia, unspecified Status: Acute Assessment and Plan: Thrombocytopenia likely related to alcohol use disorder, possible liver dysfunction given elevated AST. -platelet count gradually improving, continue to monitor Plan DVT prophylaxis: SCDs, no chemoprophylaxis due to thrombocytopenia Stress ulcer prophylaxis: Not indicated Nutrition: Heart healthy diet Code Status: Full code Due to a high probability of clinically significant, life threatening deterioration, the patient required my highest level of preparedness to intervene emergently and I personally spent this critical care time directly and personally managing the patient. This critical care time included obtaining a history; examining the patient; pulse oximetry; ordering and review of studies; arranging urgent treatment with development of a management plan; evaluation of patient's response to treatment; frequent reassessment; and discussions with other providers. It was exclusive of separately billable procedures and treating other patients and teaching time. Please see Assessment and Plan section and the rest of the note for further information on patient assessment and treatment This dictation may have been done utilizing a voice recognition system. Attempts have been made to correct errors. However, there may be uncorrected grammatical, spelling, and recognitions errors present. Subjective Date/time seen: 05/07/25 13:01 Interval history: Reason for consult: Alcohol withdrawal, hypoglycemia 05/07/2025: Patient being seen for hospitalist group Patient is awake, alert, more awake and follows simple commands, speech is getting clear. Patient denies any chest pain, shortness on breath abdominal pain, nausea vomiting continues to have mild tremors of the upper extremity. Has been off Precedex infusion since yesterday morning, patient tolerating IV phenobarbital. Urine output has been adequate, hemodynamically stable, afebrile Review of Systems Review of Systems: All systems reviewed & are unremarkable except as noted in HPI and below Exam Narrative: General: Appears older than his age, currently in no acute distress HEENT:? Pupils equal and reactive, sclera is clear, moist oral mucosa Neck:? Supple Respiratory:? Clear to auscultation bilaterally, no wheezing, adequate air entry Cardiac:? S1-S2 is normal, regular rate and rhythm Abdomen:? Soft, nontender, nondistended, hypoactive bowel sounds Extremities:? No edema, palpable pedal pulses, has a callus on his right foot on the plantar aspect Neuro:? Patient is awake, alert, able to answer few questions but he has a garbled speech but more clear than yesterday, follows simple commands, tremulous and upper extremities Skin:? No skin lesions noted Psych:? Unable to assess at this time Objective Data Vital Signs Vital Signs: Vital Signs - 24 hr 05/06/25 14:00 05/06/25 14:00 05/06/25 14:12 Temperature 99.0 F 98.6 F Pulse Rate 91 79 75 Pulse Rate [Bilateral Pedal (Dorsalis Pedis) Palpation] Respiratory Rate 13 16 Blood Pressure 127/79 130/92 H Pulse Oximetry 100 87 L Oxygen Delivery 05/06/25 16:00 05/06/25 16:00 05/06/25 16:00 Temperature 99.5 F Pulse Rate 80 80 Pulse Rate [Bilateral Pedal (Dorsalis Pedis) Palpation] 84 Respiratory Rate 21 H 21 H Blood Pressure 163/85 H 163/85 H Pulse Oximetry 99 99 Oxygen Delivery Room Air 05/06/25 16:00 05/06/25 17:00 05/06/25 18:00 Temperature 99.7 F H 100.2 F H Pulse Rate 84 96 95 Pulse Rate [Bilateral Pedal (Dorsalis Pedis) Palpation] Respiratory Rate 18 23 H Blood Pressure 151/100 H Pulse Oximetry 97 97 Oxygen Delivery 05/06/25 18:00 05/06/25 19:00 05/06/25 19:50 Temperature 100.2 F H Pulse Rate 87 100 100 Pulse Rate [Bilateral Pedal (Dorsalis Pedis) Palpation] Respiratory Rate 20 20 Blood Pressure 122/65 Pulse Oximetry 99 99 Oxygen Delivery Room Air 05/06/25 20:00 05/06/25 20:00 05/06/25 21:00 Temperature 100.3 F H 100.3 F H Pulse Rate 104 H 83 83 Pulse Rate [Bilateral Pedal (Dorsalis Pedis) Palpation] Respiratory Rate 20 23 H Blood Pressure 130/70 130/70 Pulse Oximetry 98 98 Oxygen Delivery 05/06/25 22:00 05/07/25 00:00 05/07/25 00:00 Temperature 99.6 F Pulse Rate 84 89 85 Pulse Rate [Bilateral Pedal (Dorsalis Pedis) Palpation] Respiratory Rate 19 Blood Pressure 139/83 Pulse Oximetry 97 Oxygen Delivery 05/07/25 00:10 05/07/25 00:14 05/07/25 02:00 Temperature Pulse Rate 89 78 Pulse Rate [Bilateral Pedal (Dorsalis Pedis) Palpation] 89 Respiratory Rate 19 Blood Pressure Pulse Oximetry 97 Oxygen Delivery Room Air 05/07/25 03:45 05/07/25 04:00 05/07/25 04:00 Temperature 99.5 F Pulse Rate 83 82 Pulse Rate [Bilateral Pedal (Dorsalis Pedis) Palpation] 82 Respiratory Rate 18 15 Blood Pressure 126/74 Pulse Oximetry 97 97 Oxygen Delivery Room Air 05/07/25 04:00 05/07/25 06:00 05/07/25 08:00 Temperature Pulse Rate 87 86 115 H Pulse Rate [Bilateral Pedal (Dorsalis Pedis) Palpation] Respiratory Rate 22 H Blood Pressure 109/91 H Pulse Oximetry 98 Oxygen Delivery 05/07/25 08:00 05/07/25 08:00 05/07/25 08:00 Temperature Pulse Rate 117 H 117 H Pulse Rate [Bilateral Pedal (Dorsalis Pedis) Palpation] 117 H Respiratory Rate 22 H Blood Pressure 109/91 H Pulse Oximetry 98 Oxygen Delivery Room Air 05/07/25 08:20 05/07/25 10:00 05/07/25 12:00 Temperature 99.4 F 99.4 F Pulse Rate 76 80 Pulse Rate [Bilateral Pedal (Dorsalis Pedis) Palpation] Respiratory Rate 15 Blood Pressure 148/88 H Pulse Oximetry 97 Oxygen Delivery 05/07/25 12:00 05/07/25 12:00 05/07/25 12:00 Temperature Pulse Rate 73 80 Pulse Rate [Bilateral Pedal (Dorsalis Pedis) Palpation] 75 Respiratory Rate 15 Blood Pressure 140/88 Pulse Oximetry 96 Oxygen Delivery Room Air Intake/Output Intake/Output: Intake & Output 05/04/25 05/05/25 05/06/25 05/07/25 23:59 23:59 23:59 23:59 Intake Total 1101.7 3463.3 3443.1 250 Output Total 2500 2850 1700 Balance 1101.7 963.3 593.1 -1450 Meds/Results Medications: Active Medications Generic Name Dose Route Start Last Admin Trade Name Freq PRN Reason Stop Dose Admin Chlordiazepoxide HCl 25 mg 05/06/25 12:20 05/07/25 12:49 Chlordiazepoxide (*Crx) 25 Mg Capsule PO 25 mg Q6HR VIANEY Administration Dextrose 12.5 gm 05/04/25 15:47 05/04/25 20:03 Dextrose 50% 25 Gm/50 Ml Syringe IV PUSH 12.5 gm PRN PRN Administration Hypoglycemia Protocol Folic Acid 1 mg 05/05/25 09:00 05/07/25 08:29 Folic Acid 1 Mg Tablet PO 1 mg DAILY VIANEY Administration Glucagon 1 mg 05/04/25 15:47 Glucagon For Inj 1 Mg Vial IM PRN PRN Hypoglycemia Protocol Glucose 15 gm 05/04/25 15:47 Glucose Oral Gel 15 Gm Of Glucse In 37.5 Gm Tube PO PRN PRN Hypoglycemia Protocol Hydralazine HCl 10 mg 05/05/25 12:15 Hydralazine Hcl 20 Mg/Ml Vial IV PUSH Q4H PRN Blood Pressure - High Dextrose 1,000 mls @ 100 mls/hr 05/04/25 15:47 Dextrose 5% 1,000 Ml IVPB PRN PRN Hypoglycemia Protocol Lorazepam 2 mg 05/05/25 12:38 05/05/25 17:10 Lorazepam Inj (*Crx) 2 Mg/Ml Vial IV PUSH 2 mg Q2H PRN Administration ALCOHOL WITHDRAWAL Metoprolol Tartrate 50 mg 05/05/25 09:00 05/05/25 09:20 Metoprolol Tartrate 50 Mg Tab PO 50 mg On Hold: 05/05/25 12:15 DAILY VIANEY Administration Multivitamins/Calcium 1 tablet 05/05/25 09:00 05/07/25 08:29 Therapeutic Multivitamins/Minerals Tab (*Bkc) PO 1 tablet DAILY VIANEY Administration Phenobarbital Sodium 60 mg 05/06/25 10:00 05/07/25 10:09 Phenobarbital Sodium (*Crx) 130 Mg/Ml Vial IV PUSH 05/08/25 09:59 60 mg Q6H VIANEY Administration Thiamine HCl 100 mg 05/05/25 09:00 05/07/25 08:29 Thiamine Hcl 100 Mg Tablet PO 100 mg DAILY VIANEY Administration Radiology Results: ITS Impressions Head CT 05/04/25 17:33 Impression: 1.No acute intracranial abnormality. Labs Labs: Laboratory Results - last 24 hr 05/06/25 05/06/25 05/07/25 18:23 22:30 07:38 WBC 6.6 RBC 2.95 L Hgb 9.7 L Hct 30.0 L MCV 101.7 H MCH 32.9 MCHC 32.3 RDW 22.7 H Plt Count 85 L MPV 11.2 H Immature Gran % (Auto) 1.5 H Neut % (Auto) 70.0 Lymph % (Auto) 16.3 L [place] % (Auto) 9.0 H Eos % (Auto) 2.1 Baso % (Auto) 1.1 Lymph # (Auto) 1.07 [place] # (Auto) 0.6 Eos # (Auto) 0.1 Baso # (Auto) 0.1 Abs Immat Gran (auto) 0.10 H Absolute Neuts (auto) 4.6 Absolute Nucleated RBC 0.000 Band Neutrophils % Not Reportable Nucleated RBC % 0.0 Platelet Estimate Decreased % Immature Plt Fraction 13.3 H Hypochromasia 2+ Anisocytosis 2+ Schistocytes Occasional Sodium 133 L Potassium 3.0 L Chloride 105 Carbon Dioxide 25 Anion Gap 3 L BUN 3 L Creatinine 0.67 L Estim Creat Clear Calc 106 Estimated GFR > 60 Glucose 95 POC Capillary Glucose 157 H 89 Calcium 7.8 L Phosphorus 2.7 Magnesium 1.3 L Total Bilirubin 0.9 AST 83 H ALT 27 Alkaline Phosphatase 100 Total Protein 6.4 Albumin 3.0 L 05/07/25 11:44 WBC RBC Hgb Hct MCV MCH MCHC RDW Plt Count MPV Immature Gran % (Auto) Neut % (Auto) Lymph % (Auto) [place] % (Auto) Eos % (Auto) Baso % (Auto) Lymph # (Auto) [place] # (Auto) Eos # (Auto) Baso # (Auto) Abs Immat Gran (auto) Absolute Neuts (auto) Absolute Nucleated RBC Band Neutrophils % Nucleated RBC % Platelet Estimate % Immature Plt Fraction Hypochromasia Anisocytosis Schistocytes Sodium Potassium Chloride Carbon Dioxide Anion Gap BUN Creatinine Estim Creat Clear Calc Estimated GFR Glucose POC Capillary Glucose 107 H Calcium Phosphorus Magnesium Total Bilirubin AST ALT Alkaline Phosphatase Total Protein Albumin Quality VTE Prophylaxis VTE prophylaxis: mechanical ordered
--- NOTE | 2025-05-07 13:11 | PC.NURSE ---
Patient transfered to room 203 per bed. Report given to Raquel Thakur RN. All questions answered. Belongings sent.
[2025-05-08] VITALS (19 sets, daily range): BP systolic 137–159; BP diastolic 75–95; PULSE 74–122; RESP 16–22; TEMP 36.5–37.3; O2SAT 93–98
[2025-05-08 04:42] LABS: Hematocrit 27.4 % (42.0-52.0); Hemoglobin 9.0 g/dL (14.0-18.0); Immature Granulocyte Percent A 1.6 % (0-0.5); Immature Platelet Fraction Pct 11.8 % (0.9-11.2); Lymphocytes Absolute Auto 1.40 K/mm3 (0.9-3.2); Mean Corpuscular HGB Conc 32.8 g/dl (32-36); Mean Corpuscular Hemoglobin 33.0 pg (26-34); Mean Corpuscular Volume 100.4 fl (80-100); Nucleated Red Blood Cells Absolute Auto 0.020 K/mm3 (0.0-0.012); Nucleated Red Blood Cells Perc 0.3 % (0.0-0.2); Red Blood Count 2.73 M/mm3 (4.6-6.20); White Blood Count 7.0 K/mm3 (4.5-10.0)
[2025-05-08 05:10] LABS: Platelet Count Result 90 k/mm3 (150-375)
[2025-05-08] MEDS: PHENobarbitaL sodium (*CRX) 130 MG/ML VIAL 60 MG IV PUSH ×2 (05:12→13:10)
[2025-05-08 05:13] LABS: Anisocytosis 1+; Hypochromasia 1+; Microcytosis 1+ (NORMAL); Schistocytes None Seen
[2025-05-08] MEDS: chlordiazePOXIDE (*CRX) 25 MG CAPSULE PO ×4 (05:15→23:24)
[2025-05-08 05:27] LABS: Alanine Aminotransferase 28 U/L (6-50); Albumin Level 3.0 g/dL (3.5-5.1); Alkaline Phosphatase 94 U/L (38-126); Anion Gap 3 mmol/L (4-12); Aspartate Amino Transferase 75 U/L (17-59); Bilirubin,Total 0.6 mg/dL (0.2-1.3); Blood Urea Nitrogen 5 mg/dL (9-20); Calcium 8.3 mg/dL (8.4-10.2); Carbon Dioxide 23 mmol/L (22-30); Chloride 106 mmol/L (98-107); Estimated CRCL calculation 96 ml/min; Estimated Glomerular Filt Rate > 60; Glucose 118 mg/dL (65-110); Lipase 125 U/L (23-300); Magnesium 1.4 mg/dL (1.6-2.3); Potassium 3.3 mmol/L (3.4-5.0); Sodium 132 mmol/L (137-145); Total Protein 6.3 g/dL (6.3-8.2)
[2025-05-08] MEDS: THERAPEUTIC MULTIVITAMINS/MINERALS TAB (*BKC) 1 TABLET PO (09:25)
[2025-05-08] MEDS: FOLIC ACID 1 MG TABLET PO (09:25)
[2025-05-08] MEDS: THIAMINE HCL 100 MG TABLET PO (09:25)
[2025-05-08] MEDS: POTASSIUM CHLORIDE 20 MEQ ER TABLET 40 MEQ PO (09:30)
--- NOTE | 2025-05-08 09:55 | PC.NURSE ---
On 05/08/25, the student, [Flor Cobb & Ailyn Hayes], provided care and completed fypio documentation on this patient. I have reviewed the student's documentation and agree with the findings.
--- NOTE | 2025-05-08 15:13 | P.PNIM_ITS ---
Assessment and Plan Assessment and Plan (1) Altered mental status: Code(s): R41.82 - Altered mental status, unspecified Status: Acute Assessment and Plan: 05/04/2025: Patient presented to the ED with complaints of altered mental status, hypoglycemia -05/04: CT brain with no acute intracranial abnormality -patient is awake, able to able to have a p.o. diet, drink fluids and take his pills -able to follow simple commands but still has a garbled speech which is clear than yesterday (2) Alcohol use disorder: Code(s): F10.90 - Alcohol use, unspecified, uncomplicated Status: Acute Assessment and Plan: History of alcohol use disorder, currently drinks 6 units daily but according to the ER physician note when she discussed with patient's daughter, the daughter stated that he drinks more more than what he stated. -alcohol levels were within normal limits -this could be related to alcohol withdrawal -was given a dose of phenobarbital in the ER -will continue phenobarbital p.o. in the ICU and will wean phenobarb gradually over the next 3-4 days -continue CIAZ protocol -05/06: patient was on Precedex overnight which has been turned of this morning, increased days IV phenobarbital which seems to be helping 05/07: Off Precedex since yesterday morning, patient was started on IV phenobarbital which seems to be helping him. -continue Librium -will switch to p.o. phenobarbital on 05/08/2025 and taper him over the next 2-4 days. 05/08: Tapering down phenobarbital further, switching to p.o. phenobarbital 60 mg b.i.d. (3) Alcohol withdrawal: Code(s): F10.939 - Alcohol use, unspecified with withdrawal, unspecified Status: Acute Assessment and Plan: As above (4) Hypoglycemia: Code(s): E16.2 - Hypoglycemia, unspecified Status: Acute Assessment and Plan: Hypoglycemia, could be related to excess alcohol intake, decreased oral intake, patient on metoprolol which can be associated with hypoglycemia -currently on D5% LR at 125 mL/hour -will give glucagon given patient was on metoprolol at home -status post D10 LR on D10 NS -sugars have been adequate, D5 LR was discontinued, encourage oral intake -TSH within normal limits (5) Hypertension: Code(s): I10 - Essential (primary) hypertension Status: Acute Assessment and Plan: Hold metoprolol -continue hydralazine p.r.n. for SBP > 150 mmHg (6) Electrolyte imbalance: Code(s): E87.8 - Other disorders of electrolyte and fluid balance, not elsewhere classified Status: Acute Assessment and Plan: Hypokalemia, potassium and magnesium replaced (7) Thrombocytopenia: Code(s): D69.6 - Thrombocytopenia, unspecified Status: Acute Assessment and Plan: Thrombocytopenia likely related to alcohol use disorder, possible liver dysfunction given elevated AST. -platelet count gradually improving, continue to monitor -Liver US ordered to assess for cirrhosis- follow Plan Continue down titrating phenobarbital oral as tolerated, follow liver ultrasound DVT prophylaxis: SCDs, no chemoprophylaxis due to thrombocytopenia Stress ulcer prophylaxis: Not indicated Nutrition: Heart healthy diet Subjective Date/time seen: 05/08/25 15:13 Interval history: 54-year-old male ETOH use, hypertension hyperlipidemia with found unresponsive. Patient was found to be hypoglycemic. He was given glucagon with minimal response. Patient stand emergency room, he is snoring respirations but wakes up to touch. Patient was given phenobarbital in emergency room. Patient is being admitted to the ICU due to alcohol withdrawals. Lab work in the ED shows leukocytosis at 10.1, hemoglobin 10.6, sodium of 135, potassium of 3.2, glucose of 53, calcium 8.2, alcohol level was negative. Patient was given phenobarbital in the emergency room for alcohol withdrawals. CT head shows no acute abnormalities. Review of Systems Review of Systems: All systems reviewed & are unremarkable except as noted in HPI and below Exam Narrative: General: Appears older than his age, currently in no acute distress HEENT:? Pupils equal and reactive, sclera is clear, moist oral mucosa Neck:? Supple Respiratory:? Clear to auscultation bilaterally, no wheezing, adequate air entry Cardiac:? S1-S2 is normal, regular rate and rhythm Abdomen:? Soft, nontender, nondistended, hypoactive bowel sounds Extremities:? No edema, palpable pedal pulses, has a callus on his right foot on the plantar aspect Neuro:? Patient is awake, alert, able to answer few questions but he has a garbled speech, follows simple commands, tremulous and upper extremities Skin:? No skin lesions noted Psych:? Unable to assess at this time Objective Data Vital Signs Vital Signs: Vital Signs - 24 hr 05/07/25 15:15 05/07/25 16:00 05/07/25 16:00 Temperature 97.6 F Pulse Rate 109 H 79 Pulse Rate [Apical Monitor] Pulse Rate [Bilateral Pedal (Dorsalis Pedis) Palpation] 83 Respiratory Rate 18 Blood Pressure 148/89 H Pulse Oximetry 94 Oxygen Delivery 05/07/25 17:38 05/07/25 20:00 05/07/25 20:20 Temperature 97.7 F Pulse Rate 101 H 107 H 90 Pulse Rate [Apical Monitor] Pulse Rate [Bilateral Pedal (Dorsalis Pedis) Palpation] Respiratory Rate 15 Blood Pressure 142/84 H Pulse Oximetry 94 Oxygen Delivery 05/07/25 21:09 05/07/25 21:09 05/07/25 22:00 Temperature Pulse Rate 90 102 H Pulse Rate [Apical Monitor] 90 Pulse Rate [Bilateral Pedal (Dorsalis Pedis) Palpation] Respiratory Rate 15 Blood Pressure 142/84 H Pulse Oximetry 94 Oxygen Delivery Room Air 05/07/25 23:38 05/07/25 23:38 05/07/25 23:50 Temperature 97.6 F Pulse Rate 106 H 106 H Pulse Rate [Apical Monitor] 106 H Pulse Rate [Bilateral Pedal (Dorsalis Pedis) Palpation] Respiratory Rate 18 18 Blood Pressure 129/85 129/85 Pulse Oximetry 98 98 Oxygen Delivery Room Air 05/08/25 00:00 05/08/25 02:00 05/08/25 04:00 Temperature Pulse Rate 106 H 95 88 Pulse Rate [Apical Monitor] Pulse Rate [Bilateral Pedal (Dorsalis Pedis) Palpation] Respiratory Rate Blood Pressure Pulse Oximetry Oxygen Delivery 05/08/25 04:38 05/08/25 04:38 05/08/25 05:17 Temperature 98.2 F Pulse Rate 93 93 Pulse Rate [Apical Monitor] 93 Pulse Rate [Bilateral Pedal (Dorsalis Pedis) Palpation] Respiratory Rate 18 18 Blood Pressure 140/75 140/75 Pulse Oximetry 94 94 Oxygen Delivery Room Air 05/08/25 06:00 05/08/25 07:50 05/08/25 08:00 Temperature 98.1 F Pulse Rate 81 97 86 Pulse Rate [Apical Monitor] Pulse Rate [Bilateral Pedal (Dorsalis Pedis) Palpation] Respiratory Rate 22 H Blood Pressure 137/86 Pulse Oximetry 97 Oxygen Delivery 05/08/25 10:00 05/08/25 10:25 05/08/25 11:29 Temperature Pulse Rate 93 Pulse Rate [Apical Monitor] 122 H Pulse Rate [Bilateral Pedal (Dorsalis Pedis) Palpation] Respiratory Rate Blood Pressure Pulse Oximetry Oxygen Delivery Room Air 05/08/25 12:00 05/08/25 12:00 05/08/25 12:39 Temperature 98.7 F Pulse Rate 85 120 H Pulse Rate [Apical Monitor] Pulse Rate [Bilateral Pedal (Dorsalis Pedis) Palpation] Respiratory Rate 16 Blood Pressure 149/95 H Pulse Oximetry 93 Oxygen Delivery Room Air 05/08/25 14:00 Temperature Pulse Rate 99 Pulse Rate [Apical Monitor] Pulse Rate [Bilateral Pedal (Dorsalis Pedis) Palpation] Respiratory Rate Blood Pressure Pulse Oximetry Oxygen Delivery Intake/Output Intake/Output: Intake & Output 05/05/25 05/06/25 05/07/25 05/08/25 23:59 23:59 23:59 23:59 Intake Total 3463.3 3443.1 1420 1455 Output Total 2500 2850 2250 850 Balance 963.3 593.1 -830 605 Meds/Results Medications: Active Medications Generic Name Dose Route Start Last Admin Trade Name Freq PRN Reason Stop Dose Admin Chlordiazepoxide HCl 25 mg 05/06/25 12:20 05/08/25 12:03 Chlordiazepoxide (*Crx) 25 Mg Capsule PO 25 mg Q6HR VIANEY Administration Dextrose 12.5 gm 05/04/25 15:47 05/04/25 20:03 Dextrose 50% 25 Gm/50 Ml Syringe IV PUSH 12.5 gm PRN PRN Administration Hypoglycemia Protocol Folic Acid 1 mg 05/05/25 09:00 05/08/25 09:25 Folic Acid 1 Mg Tablet PO 1 mg DAILY VIANEY Administration Glucagon 1 mg 05/04/25 15:47 Glucagon For Inj 1 Mg Vial IM PRN PRN Hypoglycemia Protocol Glucose 15 gm 05/04/25 15:47 Glucose Oral Gel 15 Gm Of Glucse In 37.5 Gm Tube PO PRN PRN Hypoglycemia Protocol Hydralazine HCl 10 mg 05/05/25 12:15 Hydralazine Hcl 20 Mg/Ml Vial IV PUSH Q4H PRN Blood Pressure - High Dextrose 1,000 mls @ 100 mls/hr 05/04/25 15:47 Dextrose 5% 1,000 Ml IVPB PRN PRN Hypoglycemia Protocol Lorazepam 2 mg 05/05/25 12:38 05/05/25 17:10 Lorazepam Inj (*Crx) 2 Mg/Ml Vial IV PUSH 2 mg Q2H PRN Administration ALCOHOL WITHDRAWAL Metoprolol Tartrate 50 mg 05/05/25 09:00 05/05/25 09:20 Metoprolol Tartrate 50 Mg Tab PO 50 mg On Hold: 05/05/25 12:15 DAILY VIANEY Administration Multivitamins/Calcium 1 tablet 05/05/25 09:00 05/08/25 09:25 Therapeutic Multivitamins/Minerals Tab (*Bkc) PO 1 tablet DAILY VIANEY Administration Phenobarbital Sodium 60 mg 05/08/25 14:00 05/08/25 13:10 Phenobarbital Sodium (*Crx) 130 Mg/Ml Vial IV PUSH 60 mg Q8HR VIANEY Administration Thiamine HCl 100 mg 05/05/25 09:00 05/08/25 09:25 Thiamine Hcl 100 Mg Tablet PO 100 mg DAILY VIANEY Administration Radiology Results: ITS Impressions Head CT 05/04/25 17:33 Impression: 1.No acute intracranial abnormality. Labs Labs: Laboratory Results - last 24 hr 05/07/25 05/08/25 05/08/25 18:30 00:08 04:28 WBC 7.0 RBC 2.73 L Hgb 9.0 L Hct 27.4 L MCV 100.4 H MCH 33.0 MCHC 32.8 RDW 23.1 H Plt Count 90 L MPV TNP Immature Gran % (Auto) 1.6 H Neut % (Auto) 64.8 Lymph % (Auto) 20.1 [place] % (Auto) 10.6 H Eos % (Auto) 2.0 Baso % (Auto) 0.9 Lymph # (Auto) 1.40 [place] # (Auto) 0.7 H Eos # (Auto) 0.1 Baso # (Auto) 0.1 Abs Immat Gran (auto) 0.11 H Absolute Neuts (auto) 4.5 Absolute Nucleated RBC 0.020 H Band Neutrophils % Not Reportable Nucleated RBC % 0.3 H Platelet Estimate Decreased % Immature Plt Fraction 11.8 H Hypochromasia 1+ Anisocytosis 1+ Microcytosis 1+ Schistocytes None seen Sodium 132 L Potassium 3.3 L Chloride 106 Carbon Dioxide 23 Anion Gap 3 L BUN 5 L Creatinine 0.74 Estim Creat Clear Calc 96 Estimated GFR > 60 Glucose 118 H POC Capillary Glucose 137 H 115 H Calcium 8.3 L Phosphorus 2.8 Magnesium 1.4 L Total Bilirubin 0.6 AST 75 H ALT 28 Alkaline Phosphatase 94 Total Protein 6.3 Albumin 3.0 L Lipase 125 05/08/25 11:29 WBC RBC Hgb Hct MCV MCH MCHC RDW Plt Count MPV Immature Gran % (Auto) Neut % (Auto) Lymph % (Auto) [place] % (Auto) Eos % (Auto) Baso % (Auto) Lymph # (Auto) [place] # (Auto) Eos # (Auto) Baso # (Auto) Abs Immat Gran (auto) Absolute Neuts (auto) Absolute Nucleated RBC Band Neutrophils % Nucleated RBC % Platelet Estimate % Immature Plt Fraction Hypochromasia Anisocytosis Microcytosis Schistocytes Sodium Potassium Chloride Carbon Dioxide Anion Gap BUN Creatinine Estim Creat Clear Calc Estimated GFR Glucose POC Capillary Glucose 107 H Calcium Phosphorus Magnesium Total Bilirubin AST ALT Alkaline Phosphatase Total Protein Albumin Lipase Hospitalist MIPS Advance Care Plan I have confirmed that the patient's Advanced Care Plan is present, code status is documented, or surrogate decision maker is listed in patient medical record.: Yes Medication Reconciliation I have utilized all available resources to obtain, update and review the patients current medications (includes all prescriptions, OTC, herbals, cannabis, and nutritional supplements).: Yes
[2025-05-08] MEDS: NICOTINE (*PBKC) 21 MG PATCH 1 PATCH TRANSDERM (19:24)
[2025-05-08] MEDS: PHENobarbital (*CRX) 60 MG TABLET PO (20:27)
[2025-05-08] MEDS: LORazepam INJ (*CRX) 2 MG/ML VIAL IV PUSH ×2 (20:29→22:31)
[2025-05-08] MEDS: ALPRAZolam (*CRX) 0.5 MG TABLET 1 MG PO (23:23)
[2025-05-09] VITALS (19 sets, daily range): BP systolic 142–173; BP diastolic 80–94; PULSE 84–125; RESP 18–24; TEMP 36.3–37.2; O2SAT 95–99
--- NOTE | 2025-05-09 00:18 | ECG_ITS ---
Test Date: 2025-05-09 00:28:20 Measurements Intervals [place] Rate: 118 P: 43 [place]: 100 QRS: 66 QRSD: 102 T: 62 QT: 299 QTc: 419 Interpretive Statements SINUS TACHYCARDIA WITH SHORT WI INTERVAL INCOMPLETE RIGHT BUNDLE BRANCH BLOCK CONSIDER ANTERIOR INFARCT, AGE INDETERMINATE BASELINE ARTIFACT- I, II, III, AVR, AVL ,AVF ABNORMAL ECG No previous ECG available for comparison Electronically Signed On 05-09-2025 09:14:42 [employer] by Mustapha Wooten D.O.
[2025-05-09] MEDS: diazePAM INJ (*CRX) 10 MG/2 ML SYRINGE 5 MG IV PUSH (00:30)
[2025-05-09 04:52] LABS: Hematocrit 27.3 % (42.0-52.0); Hemoglobin 8.8 g/dL (14.0-18.0); Immature Platelet Fraction Pct 10.1 % (0.9-11.2); Mean Corpuscular HGB Conc 32.2 g/dl (32-36); Mean Corpuscular Hemoglobin 32.4 pg (26-34); Mean Corpuscular Volume 100.4 fl (80-100); Platelet Count Result 122 k/mm3 (150-375); Red Blood Count 2.72 M/mm3 (4.6-6.20); White Blood Count 8.0 K/mm3 (4.5-10.0)
[2025-05-09 05:21] LABS: Alanine Aminotransferase 30 U/L (6-50); Albumin Level 3.3 g/dL (3.5-5.1); Alkaline Phosphatase 97 U/L (38-126); Anion Gap 7 mmol/L (4-12); Aspartate Amino Transferase 74 U/L (17-59); Bilirubin,Total 0.7 mg/dL (0.2-1.3); Blood Urea Nitrogen 4 mg/dL (9-20); Calcium 8.8 mg/dL (8.4-10.2); Carbon Dioxide 21 mmol/L (22-30); Chloride 108 mmol/L (98-107); Estimated CRCL calculation 98 ml/min; Estimated Glomerular Filt Rate > 60; Glucose 86 mg/dL (65-110); Potassium 3.2 mmol/L (3.4-5.0); Sodium 136 mmol/L (137-145); Total Protein 6.8 g/dL (6.3-8.2)
[2025-05-09] MEDS: chlordiazePOXIDE (*CRX) 25 MG CAPSULE PO ×4 (05:39→23:19)
[2025-05-09] MEDS: LORazepam INJ (*CRX) 2 MG/ML VIAL IV PUSH ×5 (05:39→23:23)
[2025-05-09] MEDS: THERAPEUTIC MULTIVITAMINS/MINERALS TAB (*BKC) 1 TABLET PO (08:15)
[2025-05-09] MEDS: FOLIC ACID 1 MG TABLET PO (08:15)
[2025-05-09] MEDS: THIAMINE HCL 100 MG TABLET PO (08:15)
[2025-05-09] MEDS: NICOTINE (*PBKC) 21 MG PATCH 1 PATCH TRANSDERM (08:15)
[2025-05-09] MEDS: PHENobarbital (*CRX) 60 MG TABLET PO (08:15)
[2025-05-09] MEDS: POTASSIUM CHLORIDE 20 MEQ ER TABLET 40 MEQ PO ×2 (08:28→12:01)
[2025-05-09] MEDS: MAGNESIUM SULF 2 GM/WATER 50ML 2 GM/50 ML BAG IVPB (08:28)
--- NOTE | 2025-05-09 10:24 | P.PNIM_ITS ---
Assessment and Plan Assessment and Plan (1) Altered mental status: Code(s): R41.82 - Altered mental status, unspecified Status: Acute Assessment and Plan: 05/04/2025: Patient presented to the ED with complaints of altered mental status, hypoglycemia -05/04: CT brain with no acute intracranial abnormality -patient is awake, able to able to have a p.o. diet, drink fluids and take his pills -05/09 Ox3 (2) Alcohol use disorder: Code(s): F10.90 - Alcohol use, unspecified, uncomplicated Status: Acute Assessment and Plan: History of alcohol use disorder, currently drinks 6 units daily but according to the ER physician note when she discussed with patient's daughter, the daughter stated that he drinks more more than what he stated. -alcohol levels were within normal limits, CT brain w/o acute findings -this could be related to alcohol withdrawal -was given a dose of phenobarbital in the ER -will continue phenobarbital p.o. in the ICU and will wean phenobarb gradually over the next 3-4 days -continue [facility] protocol -05/06: patient was on Precedex overnight which has been turned of this morning, increased days IV phenobarbital which seems to be helping 05/07: Off Precedex since yesterday morning, patient was started on IV phenobarbital which seems to be helping him. -continue Librium -will switch to p.o. phenobarbital on 05/08/2025 and taper him over the next 2-4 days. 05/08: Tapering down phenobarbital further, switching to p.o. phenobarbital 60 mg b.i.d. 05/09 D/c phenobarbital, continue chordiazepoxie to 25 mg q 6 hours (3) Alcohol withdrawal: Code(s): F10.939 - Alcohol use, unspecified with withdrawal, unspecified Status: Acute Assessment and Plan: Weaning meds (4) Hypoglycemia: Code(s): E16.2 - Hypoglycemia, unspecified Status: Acute Assessment and Plan: Hypoglycemia, could be related to excess alcohol intake, decreased oral intake, patient on metoprolol which can be associated with hypoglycemia -currently on D5% LR at 125 mL/hour -will give glucagon given patient was on metoprolol at home -status post D10 LR on D10 NS -sugars have been adequate, D5 LR was discontinued, encourage oral intake -TSH within normal limits BS WNL (5) Hypertension: Code(s): I10 - Essential (primary) hypertension Status: Acute Assessment and Plan: Hold metoprolol -continue hydralazine p.r.n. for SBP > 150 mmHg (6) Electrolyte imbalance: Code(s): E87.8 - Other disorders of electrolyte and fluid balance, not elsewhere classified Status: Acute Assessment and Plan: Hypokalemia, potassium and magnesium replaced 05/09 Additional Mag and K given (7) Thrombocytopenia: Code(s): D69.6 - Thrombocytopenia, unspecified Status: Acute Assessment and Plan: Thrombocytopenia likely related to alcohol use disorder, possible liver dysfunction given elevated AST. -platelet count gradually improving, continue to monitor -05/09 Liver US done to assess for cirrhosis, results pending (8) Anemia: Code(s): D64.9 - Anemia, unspecified Status: Acute Assessment and Plan: - 05/09 Hgb 8.8, decreasing, labs ordered, pantoprazole added Subjective Date/time seen: 05/09/25 10:24 Interval history: Denied pain. Hungry. Tolerated diet last night. Denied shortness of breath. Denies GI or difficulties. Notes fatigue and generalized weakness. Denied bleeding. Review of Systems Review of Systems: All systems reviewed & are unremarkable except as noted in HPI and below Exam Narrative: HEENT: PERRL, sclerae nonicteric, pharyngeal mucosa pink and intact NECK: No JVD CHEST: Clear to auscultation, normal effort HEART: NL S1/S2, regular, no murmur ABDOMEN: BS+, soft, nontender, no mass, no bruits EXTREMITIES: No cyanosis, edema, or clubbing NEUROLOGIC: CN intact and symmetric to inspection, DTR's with slight increase reflexes on left vs right, speech slow and slurred MUSCULOSKELETAL: No deformities to inspection PSYCH: Drowsy but arouses easily, oriented to person place year and month Objective Data Vital Signs Vital Signs: Vital Signs - 24 hr 05/08/25 10:25 05/08/25 11:29 05/08/25 12:00 Temperature 98.7 F Pulse Rate 85 Pulse Rate [Apical Monitor] 122 H Pulse Rate [Bilateral Pedal (Dorsalis Pedis) Palpation] Respiratory Rate 16 Blood Pressure 149/95 H Pulse Oximetry 93 Oxygen Delivery Room Air 05/08/25 12:00 05/08/25 12:39 05/08/25 14:00 Temperature Pulse Rate 120 H 99 Pulse Rate [Apical Monitor] Pulse Rate [Bilateral Pedal (Dorsalis Pedis) Palpation] Respiratory Rate Blood Pressure Pulse Oximetry Oxygen Delivery Room Air 05/08/25 16:00 05/08/25 16:00 05/08/25 16:00 Temperature 99.2 F Pulse Rate 88 88 Pulse Rate [Apical Monitor] 74 Pulse Rate [Bilateral Pedal (Dorsalis Pedis) Palpation] Respiratory Rate 16 Blood Pressure 159/91 H Pulse Oximetry 95 Oxygen Delivery 05/08/25 17:49 05/08/25 20:00 05/08/25 20:00 Temperature 97.7 F Pulse Rate 111 H 97 Pulse Rate [Apical Monitor] 104 H Pulse Rate [Bilateral Pedal (Dorsalis Pedis) Palpation] Respiratory Rate 18 Blood Pressure 149/89 H 149/89 H Pulse Oximetry 98 Oxygen Delivery 05/08/25 20:00 05/08/25 20:22 05/08/25 22:00 Temperature Pulse Rate 94 97 93 Pulse Rate [Apical Monitor] Pulse Rate [Bilateral Pedal (Dorsalis Pedis) Palpation] Respiratory Rate 18 Blood Pressure Pulse Oximetry 98 Oxygen Delivery Room Air 05/08/25 22:30 05/08/25 23:44 05/08/25 23:44 Temperature 98.3 F Pulse Rate 88 Pulse Rate [Apical Monitor] 114 H 88 Pulse Rate [Bilateral Pedal (Dorsalis Pedis) Palpation] Respiratory Rate 20 Blood Pressure 149/89 H 159/90 H 159/90 H Pulse Oximetry 98 Oxygen Delivery 05/08/25 23:44 05/09/25 00:00 05/09/25 01:59 Temperature Pulse Rate 88 107 H 125 H Pulse Rate [Apical Monitor] Pulse Rate [Bilateral Pedal (Dorsalis Pedis) Palpation] Respiratory Rate 20 Blood Pressure Pulse Oximetry 98 Oxygen Delivery Room Air 05/09/25 03:50 05/09/25 03:50 05/09/25 03:55 Temperature 97.9 F Pulse Rate 117 H 117 H Pulse Rate [Apical Monitor] 117 H Pulse Rate [Bilateral Pedal (Dorsalis Pedis) Palpation] Respiratory Rate 22 H 22 H Blood Pressure 151/94 H 151/94 H Pulse Oximetry 95 95 Oxygen Delivery Room Air 05/09/25 04:00 05/09/25 06:00 05/09/25 07:19 Temperature 98.9 F Pulse Rate 116 H 94 112 H Pulse Rate [Apical Monitor] Pulse Rate [Bilateral Pedal (Dorsalis Pedis) Palpation] Respiratory Rate 23 H Blood Pressure 142/92 H Pulse Oximetry 95 Oxygen Delivery 05/09/25 08:00 05/09/25 08:00 Temperature Pulse Rate 98 Pulse Rate [Apical Monitor] Pulse Rate [Bilateral Pedal (Dorsalis Pedis) Palpation] 98 Respiratory Rate Blood Pressure Pulse Oximetry Oxygen Delivery Intake/Output Intake/Output: Intake & Output 05/06/25 05/07/25 05/08/25 05/09/25 23:59 23:59 23:59 23:59 Intake Total 3443.1 1420 2175 750 Output Total 2850 2250 1350 1100 Balance 593.1 -830 825 -350 Meds/Results Medications: Active Medications Generic Name Dose Route Start Last Admin Trade Name Freq PRN Reason Stop Dose Admin Chlordiazepoxide HCl 25 mg 05/06/25 12:20 05/09/25 05:39 Chlordiazepoxide (*Crx) 25 Mg Capsule PO 25 mg Q6HR VIANEY Administration Dextrose 12.5 gm 05/04/25 15:47 05/04/25 20:03 Dextrose 50% 25 Gm/50 Ml Syringe IV PUSH 12.5 gm PRN PRN Administration Hypoglycemia Protocol Folic Acid 1 mg 05/05/25 09:00 05/09/25 08:15 Folic Acid 1 Mg Tablet PO 1 mg DAILY VIANEY Administration Glucagon 1 mg 05/04/25 15:47 Glucagon For Inj 1 Mg Vial IM PRN PRN Hypoglycemia Protocol Glucose 15 gm 05/04/25 15:47 Glucose Oral Gel 15 Gm Of Glucse In 37.5 Gm Tube PO PRN PRN Hypoglycemia Protocol Hydralazine HCl 10 mg 05/05/25 12:15 Hydralazine Hcl 20 Mg/Ml Vial IV PUSH Q4H PRN Blood Pressure - High Dextrose 1,000 mls @ 100 mls/hr 05/04/25 15:47 Dextrose 5% 1,000 Ml IVPB PRN PRN Hypoglycemia Protocol Lorazepam 2 mg 05/05/25 12:38 05/09/25 08:15 Lorazepam Inj (*Crx) 2 Mg/Ml Vial IV PUSH 2 mg Q2H PRN Administration ALCOHOL WITHDRAWAL Metoprolol Tartrate 50 mg 05/05/25 09:00 05/05/25 09:20 Metoprolol Tartrate 50 Mg Tab PO 50 mg On Hold: 05/05/25 12:15 DAILY VIANEY Administration Multivitamins/Calcium 1 tablet 05/05/25 09:00 05/09/25 08:15 Therapeutic Multivitamins/Minerals Tab (*Bkc) PO 1 tablet DAILY VIANEY Administration Nicotine 1 patch 05/08/25 19:00 05/09/25 08:15 Nicotine (*Pbkc) 21 Mg Patch TRANSDERM 1 patch DAILY VIANEY Administration Phenobarbital 60 mg 05/08/25 21:00 05/09/25 08:15 Phenobarbital (*Crx) 60 Mg Tablet PO 60 mg Q12HR VIANEY Administration Potassium Chloride 40 meq 05/09/25 12:00 Potassium Chloride 20 Meq Er Tablet PO 05/09/25 12:01 ONCE ONE Thiamine HCl 100 mg 05/05/25 09:00 05/09/25 08:15 Thiamine Hcl 100 Mg Tablet PO 100 mg DAILY VIANEY Administration Radiology Results: ITS Impressions Head CT 05/04/25 17:33 Impression: 1.No acute intracranial abnormality. Labs Labs: Laboratory Results - last 24 hr 05/08/25 05/08/25 05/08/25 11:29 18:06 23:10 WBC RBC Hgb Hct MCV MCH MCHC RDW Plt Count MPV % Immature Plt Fraction Sodium Potassium Chloride Carbon Dioxide Anion Gap BUN Creatinine Estim Creat Clear Calc Estimated GFR Glucose POC Capillary Glucose 107 H 176 H 108 H Calcium Total Bilirubin AST ALT Alkaline Phosphatase Total Protein Albumin 05/09/25 04:24 WBC 8.0 RBC 2.72 L Hgb 8.8 L Hct 27.3 L MCV 100.4 H MCH 32.4 MCHC 32.2 RDW 22.6 H Plt Count 122 L MPV 11.2 H % Immature Plt Fraction 10.1 Sodium 136 L Potassium 3.2 L Chloride 108 H Carbon Dioxide 21 L Anion Gap 7 BUN 4 L Creatinine 0.73 Estim Creat Clear Calc 98 Estimated GFR > 60 Glucose 86 POC Capillary Glucose Calcium 8.8 Total Bilirubin 0.7 AST 74 H ALT 30 Alkaline Phosphatase 97 Total Protein 6.8 Albumin 3.3 L
[2025-05-09] MEDS: PANTOPRAZOLE 40 MG TABLET PO (11:59)
[2025-05-10] VITALS (20 sets, daily range): BP systolic 117–165; BP diastolic 70–109; PULSE 79–133; RESP 16–32; TEMP 36.5–38.9; O2SAT 92–98
[2025-05-10] MEDS: LORazepam INJ (*CRX) 2 MG/ML VIAL IV PUSH ×3 (01:33→09:09)
[2025-05-10 04:16] LABS: Hematocrit 29.1 % (42.0-52.0); Hemoglobin 9.5 g/dL (14.0-18.0); Immature Platelet Fraction Pct 8.6 % (0.9-11.2); Immature Reticulocyte Fraction 30.9 % (3.0-15.9); Mean Corpuscular HGB Conc 32.6 g/dl (32-36); Mean Corpuscular Hemoglobin 32.9 pg (26-34); Mean Corpuscular Volume 100.7 fl (80-100); Platelet Count Result 196 k/mm3 (150-375); Red Blood Count 2.89 M/mm3 (4.6-6.20); Reticulocyte Hemoglobin Conten 32.0 pg (28.2-36.6); Reticulocytes Absolute 0.11 10^6/uL (0.02-0.10); White Blood Count 6.3 K/mm3 (4.5-10.0)
[2025-05-10] MEDS: chlordiazePOXIDE (*CRX) 25 MG CAPSULE PO (05:08)
[2025-05-10 05:30] LABS: Iron 39 ug/dL (49-181)
[2025-05-10 05:40] LABS: Percent Iron Saturation 15 % (20-50)
[2025-05-10 06:13] LABS: Alanine Aminotransferase 33 U/L (6-50); Albumin Level 3.6 g/dL (3.5-5.1); Alkaline Phosphatase 98 U/L (38-126); Anion Gap 7 mmol/L (4-12); Aspartate Amino Transferase 71 U/L (17-59); Bilirubin,Total 0.7 mg/dL (0.2-1.3); Blood Urea Nitrogen 6 mg/dL (9-20); Calcium 8.7 mg/dL (8.4-10.2); Carbon Dioxide 22 mmol/L (22-30); Chloride 106 mmol/L (98-107); Estimated CRCL calculation 93 ml/min; Estimated Glomerular Filt Rate > 60; Glucose 86 mg/dL (65-110); Magnesium 1.5 mg/dL (1.6-2.3); Potassium 3.7 mmol/L (3.4-5.0); Sodium 135 mmol/L (137-145); Total Protein 7.3 g/dL (6.3-8.2)
--- NOTE | 2025-05-10 08:23 | PCPTNOTE ---
Patient sleeping and calm at this time per RN. PT will continue to follow.
[2025-05-10 08:29] LABS: Vitamin B12 800.0 pg/mL (239-931)
--- NOTE | 2025-05-10 08:32 | PCOTNOTE ---
The patient treatment was not able to be completed. Patient in restraints. Will plan to continue treatment per plan of care.
[2025-05-10] MEDS: NICOTINE (*PBKC) 21 MG PATCH 1 PATCH TRANSDERM (09:09)
[2025-05-10] MEDS: MAGNESIUM SULF 2 GM/WATER 50ML 2 GM/50 ML BAG IVPB (11:16)
--- NOTE | 2025-05-10 11:45 | PC.NURSE ---
daughter jeanna called for update, aware of fever and that we are starting fluids for 70 sugar
--- NOTE | 2025-05-10 12:21 | PC.NURSE ---
spoke with daughter jeanna, she gives phone consent for mri
--- NOTE | 2025-05-10 13:31 | PC.NURSE ---
pt taken down to xray with float nurse daryl
[2025-05-10] MEDS: DEXTROSE 10% 1,000 ML 50 ML IV CONT (14:08)
[2025-05-10 15:15] LABS: Add Urine Microscopic? NO; Appearance Urine Clear (Clear); Glucose Urine UA Negative (Negative); Leukocyte Esterase Ur Negative LEU/UL (Negative); Nitrate Urine Negative (Negative); Specific Grav Ur 1.018 (1.001-1.035)
--- NOTE | 2025-05-10 15:22 | PM.IMPN2 ---
Assessment and Plan Assessment and Plan (1) Altered mental status: Code(s): R41.82 - Altered mental status, unspecified Status: Acute (2) Alcohol use disorder: Code(s): F10.90 - Alcohol use, unspecified, uncomplicated Status: Acute (3) Alcohol withdrawal: Code(s): F10.939 - Alcohol use, unspecified with withdrawal, unspecified Status: Acute (4) Hypoglycemia: Code(s): E16.2 - Hypoglycemia, unspecified Status: Acute (5) Hypertension: Code(s): I10 - Essential (primary) hypertension Status: Acute (6) Electrolyte imbalance: Code(s): E87.8 - Other disorders of electrolyte and fluid balance, not elsewhere classified Status: Acute (7) Thrombocytopenia: Code(s): D69.6 - Thrombocytopenia, unspecified Status: Acute (8) Anemia: Code(s): D64.9 - Anemia, unspecified Status: Acute Plan 54-year-old male ETOH use, hypertension hyperlipidemia with found unresponsive. Patient was found to be hypoglycemic. He was given glucagon with minimal response. Patient stand emergency room, he is snoring respirations but wakes up to touch. Patient was given phenobarbital in emergency room. Patient was admitted to ICU initially. CT head was unremarkable. (1) Altered mental status: Presented to the ER with altered mental status, hypoglycemia CT head on admission was unremarkable Continues to be very drowsy Await MRI brain this morning Neurology consult 2. Fever: New onset Obtain blood culture, urinalysis Will start on vancomycin, ceftriaxone, ampicillin Neurology consult Unable to assess for meningeal signs given drowsy status If continues to worsen we might get LP tomorrow morning Obtain DVT study as well NPO except for sips with meds Noted tachycardia as well Takes metoprolol at home Will switch to IV metoprolol 3. Alcohol use disorder: Currently drinks 6 units daily Alcohol levels were within normal limits Received phenobarbital in the ER Continue with CIWA protocol Persistent elevated CIWA scores Continue with Librium Monitor mental status Continue with thiamine, folic acid Supplement magnesium 4. Hypoglycemia: Likely secondary to excess alcohol intake Will start on D10 today Blood glucose check q.6 hours 5. Code status: Full 6. DVT prophylaxis: Heparin SubQ 7. Disposition: Pending improvement, critically sick Time Spent With Patient Time with patient: Greater than 35 minutes Subjective Date/time seen: 05/10/25 15:22 Interval history: Patient is lethargic, new onset of fever Persistent elevated CIWA score Review of Systems Review of Systems: ROS unobtainable: Yes unobtainable due to medical condition Exam Narrative: HEENT: Drowsy NECK: No JVD CHEST: Clear to auscultation, normal effort HEART: NL S1/S2, regular, no murmur ABDOMEN: BS+, soft, EXTREMITIES: Moving spontaneously NEUROLOGIC: Unable to assess MUSCULOSKELETAL: No deformities to inspection PSYCH: Very drowsy, moans with deep sternal rub Objective Data Vital Signs Vital Signs: Vital Signs - 24 hr 05/09/25 16:00 05/09/25 16:00 05/09/25 16:00 Temperature Pulse Rate 97 Pulse Rate [Apical Monitor] Pulse Rate [Bilateral Pedal (Dorsalis Pedis) Palpation] 97 Respiratory Rate Blood Pressure Pulse Oximetry 95 Oxygen Delivery Room Air 05/09/25 16:00 05/09/25 18:00 05/09/25 20:00 Temperature 97.4 F L Pulse Rate 103 H 103 H 100 Pulse Rate [Apical Monitor] Pulse Rate [Bilateral Pedal (Dorsalis Pedis) Palpation] Respiratory Rate 24 H Blood Pressure 146/80 H Pulse Oximetry 99 Oxygen Delivery 05/09/25 20:24 05/09/25 22:00 05/09/25 22:31 Temperature 97.6 F Pulse Rate 99 84 Pulse Rate [Apical Monitor] 99 Pulse Rate [Bilateral Pedal (Dorsalis Pedis) Palpation] Respiratory Rate 18 Blood Pressure 173/92 H 173/92 H Pulse Oximetry 99 Oxygen Delivery 05/09/25 22:31 05/09/25 23:02 05/10/25 00:00 Temperature Pulse Rate 99 93 Pulse Rate [Apical Monitor] 93 Pulse Rate [Bilateral Pedal (Dorsalis Pedis) Palpation] Respiratory Rate 18 16 Blood Pressure 173/92 H Pulse Oximetry 99 98 Oxygen Delivery Room Air Room Air 05/10/25 00:00 05/10/25 00:06 05/10/25 01:27 Temperature 97.8 F Pulse Rate 87 93 Pulse Rate [Apical Monitor] 133 H Pulse Rate [Bilateral Pedal (Dorsalis Pedis) Palpation] Respiratory Rate 16 Blood Pressure 149/87 H 149/87 H Pulse Oximetry 98 Oxygen Delivery 05/10/25 02:00 05/10/25 04:00 05/10/25 04:30 Temperature 97.7 F Pulse Rate 109 H 96 95 Pulse Rate [Apical Monitor] Pulse Rate [Bilateral Pedal (Dorsalis Pedis) Palpation] Respiratory Rate 18 Blood Pressure 165/70 H Pulse Oximetry 96 Oxygen Delivery 05/10/25 04:52 05/10/25 04:52 05/10/25 06:00 Temperature Pulse Rate 95 79 Pulse Rate [Apical Monitor] 95 Pulse Rate [Bilateral Pedal (Dorsalis Pedis) Palpation] Respiratory Rate 18 Blood Pressure 165/70 H Pulse Oximetry 96 Oxygen Delivery Room Air 05/10/25 08:00 05/10/25 08:00 05/10/25 12:00 Temperature 100.8 F H 102.0 F H Pulse Rate 117 H 104 H Pulse Rate [Apical Monitor] Pulse Rate [Bilateral Pedal (Dorsalis Pedis) Palpation] 101 H Respiratory Rate 24 H 22 H Blood Pressure 144/93 H 144/93 H 165/95 H Pulse Oximetry 97 96 Oxygen Delivery 05/10/25 12:00 Temperature Pulse Rate Pulse Rate [Apical Monitor] Pulse Rate [Bilateral Pedal (Dorsalis Pedis) Palpation] 119 H Respiratory Rate Blood Pressure 165/95 H Pulse Oximetry Oxygen Delivery Intake/Output Intake/Output: Intake & Output 05/07/25 05/08/25 05/09/25 05/10/25 23:59 23:59 23:59 23:59 Intake Total 1420 2175 1480 600 Output Total 2250 1350 1100 Balance -830 825 380 600 Meds/Results Medications: Active Medications Generic Name Dose Route Start Last Admin Trade Name Freq PRN Reason Stop Dose Admin Acetaminophen 650 mg 05/10/25 11:47 Acetaminophen 650 Mg Suppository RECTAL Q6H PRN Mild Pain (1-3) or Fever Acetaminophen 650 mg 05/10/25 11:47 Acetaminophen 325 Mg Tablet PO Q4H PRN Mild Pain (1-3) or Fever Chlordiazepoxide HCl 25 mg 05/10/25 18:00 Chlordiazepoxide (*Crx) 25 Mg Capsule PO Q6HR [facility] Dextrose 12.5 gm 05/04/25 15:47 05/04/25 20:03 Dextrose 50% 25 Gm/50 Ml Syringe IV PUSH 12.5 gm PRN PRN Administration Hypoglycemia Protocol Folic Acid 1 mg 05/05/25 09:00 05/10/25 12:35 Folic Acid 1 Mg Tablet PO Not Given DAILY VIANEY Glucagon 1 mg 05/04/25 15:47 Glucagon For Inj 1 Mg Vial IM PRN PRN Hypoglycemia Protocol Glucose 15 gm 05/04/25 15:47 Glucose Oral Gel 15 Gm Of Glucse In 37.5 Gm Tube PO PRN PRN Hypoglycemia Protocol Hydralazine HCl 10 mg 05/05/25 12:15 05/10/25 05:08 Hydralazine Hcl 20 Mg/Ml Vial IV PUSH 10 mg Q4H PRN Administration Blood Pressure - High Dextrose 1,000 mls @ 100 mls/hr 05/04/25 15:47 Dextrose 5% 1,000 Ml IVPB PRN PRN Hypoglycemia Protocol Dextrose 1,000 mls @ 50 mls/hr 05/10/25 11:50 05/10/25 14:08 Dextrose 10% IV CONT 50 mls/hr .Q20H VIANEY Administration Ceftriaxone Sodium 2 gm/ 100 mls @ 200 mls/hr 05/10/25 17:00 Sodium Chloride IVPB Q24H VIANEY Ampicillin Sodium 1 gm/ Sodium 50 mls @ 100 mls/hr 05/10/25 16:00 Chloride IVPB Q6H VIANEY Lorazepam 2 mg 05/05/25 12:38 05/10/25 09:09 Lorazepam Inj (*Crx) 2 Mg/Ml Vial IV PUSH 2 mg Q2H PRN Administration ALCOHOL WITHDRAWAL Metoprolol Tartrate 50 mg 05/05/25 09:00 05/05/25 09:20 Metoprolol Tartrate 50 Mg Tab PO 50 mg On Hold: 05/05/25 12:15 DAILY VIANEY Administration Multivitamins/Calcium 1 tablet 05/05/25 09:00 05/10/25 12:35 Therapeutic Multivitamins/Minerals Tab (*Bkc) PO Not Given DAILY VIANEY Nicotine 1 patch 05/08/25 19:00 05/10/25 09:09 Nicotine (*Pbkc) 21 Mg Patch TRANSDERM 1 patch DAILY VIANEY Administration Pantoprazole Sodium 40 mg 05/09/25 10:55 05/10/25 12:35 Pantoprazole 40 Mg Tablet PO Not Given QAM VIANEY Thiamine HCl 100 mg 05/05/25 09:00 05/10/25 12:35 Thiamine Hcl 100 Mg Tablet PO Not Given DAILY VIANEY Vancomycin HCl 1 each 05/10/25 15:20 Vancomycin Pharmacist To Dose IVPB PER PROTOCOL [facility] Radiology Results: ITS Impressions Head CT 05/04/25 17:33 Impression: 1.No acute intracranial abnormality. Abdomen Ultrasound 05/09/25 11:01 IMPRESSION: 1. Diffuse hepatic steatosis. Chest X-Ray 05/10/25 13:58 IMPRESSION: 1. Suspect minimal airspace opacities of right infrahilar region. Please correlate with clinical and lab findings. Abdomen X-Ray 05/10/25 14:00 IMPRESSION: 1. No radiopaque or abnormal foreign objects in the abdomen. EKG leads are noted. Cervical Spine X-Ray 05/10/25 14:00 Impression: No acute abnormality. Labs Labs: Laboratory Results - last 24 hr 05/09/25 05/10/25 05/10/25 18:47 00:37 03:52 WBC 6.3 RBC 2.89 L Hgb 9.5 L Hct 29.1 L MCV 100.7 H MCH 32.9 MCHC 32.6 RDW 23.1 H Plt Count 196 D MPV 10.1 % Immature Plt Fraction 8.6 Absolute Retic 0.11 H Percent Retic 3.89 Immature Retic Fraction 30.9 H Retic Hgb Content 32.0 Sodium 135 L Potassium 3.7 Chloride 106 Carbon Dioxide 22 Anion Gap 7 BUN 6 L Creatinine 0.77 Estim Creat Clear Calc 93 Estimated GFR > 60 Glucose 86 POC Capillary Glucose 101 76 Calcium 8.7 Magnesium 1.5 L Iron 39 L TIBC 261 L % Saturation 15 L Total Bilirubin 0.7 AST 71 H ALT 33 Alkaline Phosphatase 98 Total Protein 7.3 Albumin 3.6 Vitamin B12 800.0 Folate 14.5 05/10/25 05/10/25 11:40 14:32 WBC RBC Hgb Hct MCV MCH MCHC RDW Plt Count MPV % Immature Plt Fraction Absolute Retic Percent Retic Immature Retic Fraction Retic Hgb Content Sodium Potassium Chloride Carbon Dioxide Anion Gap BUN Creatinine Estim Creat Clear Calc Estimated GFR Glucose POC Capillary Glucose 70 86 Calcium Magnesium Iron TIBC % Saturation Total Bilirubin AST ALT Alkaline Phosphatase Total Protein Albumin Vitamin B12 Folate Quality VTE Prophylaxis VTE prophylaxis: pharmacologic ordered
[2025-05-10] MEDS: METOPROLOL TARTRATE INJ 5 MG/5 ML VIAL IV PUSH ×2 (16:32→21:40)
[2025-05-10] MEDS: AMPICILLIN SODIUM 1 GM in SODIUM CHLORIDE 0.9% IV 50 ML 100 ML IVPB ×2 (16:35→21:39)
[2025-05-10 16:38] LABS: Alveolar/Arterial O2 Gradient 91.5 mmHg; Fractional Inspired Oxygen 28 %; HCO3 ABG 19.8 mEq/l (22.0-26.0); Oxygen Content ABG 18.3 %vol (16.0-22.0); Oxygen Saturation ABG 94.6 % (95.0-100.0); PCO2 ABG 31.8 mmHg (35.0-45.0); PO2 ABG 70.6 mmHg (80.0-100.0); PO2 FiO2 Ratio Arterial Blood 2.52 %
[2025-05-10 16:40] LABS: Liters per Minute 2.0 LPM; Modified Allen's Test Pass; Site Drawn RIGHT RADIAL
[2025-05-10] MEDS: cefTRIAXone 2 GM in SODIUM CHLORIDE 0.9% IV 100 ML 200 ML IVPB (16:41)
--- NOTE | 2025-05-10 16:41 | PCRCNOTE ---
ABG'S delayed pt hard stick
[2025-05-10] MEDS: VANCOMYCIN 1,750 MG/NS 500 ML 1,750 MG/500 ML BAG 250 MG IVPB (17:25)
--- NOTE | 2025-05-10 20:51 | PC.NURSE ---
Report received from day shift that Richardson catheter was removed today, patient experienced retention, and catheter was again placed. Richardson catheter patent and draining jaleel urine.
[2025-05-10] MEDS: PANTOPRAZOLE SODIUM IV 40 MG VIAL IV PUSH (21:30)
[2025-05-10] MEDS: ACETAMINOPHEN 650 MG SUPPOSITORY RECTAL (23:51)
[2025-05-11] VITALS (19 sets, daily range): BP systolic 119–157; BP diastolic 71–86; PULSE 63–102; RESP 16–24; TEMP 36.5–38.3; O2SAT 94–99; BMI 23.2
[2025-05-11 04:23] LABS: Hematocrit 30.8 % (42.0-52.0); Hemoglobin 9.7 g/dL (14.0-18.0); Mean Corpuscular HGB Conc 31.5 g/dl (32-36); Mean Corpuscular Hemoglobin 32.6 pg (26-34); Mean Corpuscular Volume 103.4 fl (80-100); Platelet Count Result 240 k/mm3 (150-375); Red Blood Count 2.98 M/mm3 (4.6-6.20); White Blood Count 9.1 K/mm3 (4.5-10.0)
[2025-05-11] MEDS: AMPICILLIN SODIUM 1 GM in SODIUM CHLORIDE 0.9% IV 50 ML 100 ML IVPB ×2 (04:35→09:46)
[2025-05-11 04:52] LABS: Alanine Aminotransferase 25 U/L (6-50); Albumin Level 3.4 g/dL (3.5-5.1); Alkaline Phosphatase 85 U/L (38-126); Anion Gap 4 mmol/L (4-12); Aspartate Amino Transferase 44 U/L (17-59); Bilirubin,Total 0.5 mg/dL (0.2-1.3); Blood Urea Nitrogen 8 mg/dL (9-20); Calcium 8.7 mg/dL (8.4-10.2); Carbon Dioxide 25 mmol/L (22-30); Chloride 105 mmol/L (98-107); Estimated CRCL calculation 87 ml/min; Estimated Glomerular Filt Rate > 60; Glucose 137 mg/dL (65-110); Potassium 4.3 mmol/L (3.4-5.0); Sodium 134 mmol/L (137-145); Total Protein 7.0 g/dL (6.3-8.2)
[2025-05-11] MEDS: VANCOMYCIN 1,250 MG/NS 250 ML 1,250 MG/250 ML BAG 166.67 MG IVPB (06:35)
[2025-05-11] MEDS: METOPROLOL TARTRATE INJ 5 MG/5 ML VIAL IV PUSH ×3 (06:44→21:11)
[2025-05-11] MEDS: DEXTROSE 10% 1,000 ML 50 ML IV CONT (09:45)
[2025-05-11] MEDS: PANTOPRAZOLE SODIUM IV 40 MG VIAL IV PUSH ×2 (09:48→21:06)
[2025-05-11] MEDS: NICOTINE (*PBKC) 21 MG PATCH 1 PATCH TRANSDERM (09:48)
--- NOTE | 2025-05-11 11:23 | PCPTNOTE ---
The patient treatment was not able to be completed. Patient sleeping soundly and does not arouse to participate in therapy. RN aware. Will plan to continue treatment per plan of care.
--- NOTE | 2025-05-11 12:09 | PCOTNOTE ---
Patient out of the room at this time. Patient is down having a MRI.
[2025-05-11] MEDS: cefTRIAXone 2 GM in SODIUM CHLORIDE 0.9% IV 100 ML 200 ML IVPB ×2 (12:48→20:24)
[2025-05-11] MEDS: AMPICILLIN SODIUM 2 GM in SODIUM CHLORIDE 0.9% IV 100 ML 200 ML IVPB ×3 (13:27→20:27)
--- NOTE | 2025-05-11 14:29 | PM.IMPN2 ---
Assessment and Plan Assessment and Plan (1) Altered mental status: Code(s): R41.82 - Altered mental status, unspecified Status: Acute (2) Alcohol use disorder: Code(s): F10.90 - Alcohol use, unspecified, uncomplicated Status: Acute (3) Alcohol withdrawal: Code(s): F10.939 - Alcohol use, unspecified with withdrawal, unspecified Status: Acute (4) Hypoglycemia: Code(s): E16.2 - Hypoglycemia, unspecified Status: Acute (5) Hypertension: Code(s): I10 - Essential (primary) hypertension Status: Acute (6) Electrolyte imbalance: Code(s): E87.8 - Other disorders of electrolyte and fluid balance, not elsewhere classified Status: Acute (7) Thrombocytopenia: Code(s): D69.6 - Thrombocytopenia, unspecified Status: Acute (8) Anemia: Code(s): D64.9 - Anemia, unspecified Status: Acute Plan 54-year-old male ETOH use, hypertension hyperlipidemia with found unresponsive. Patient was found to be hypoglycemic. He was given glucagon with minimal response. Patient stand emergency room, he is snoring respirations but wakes up to touch. Patient was given phenobarbital in emergency room. Patient was admitted to ICU initially. CT head was unremarkable. (1) Altered mental status: Presented to the ER with altered mental status, hypoglycemia CT head on admission was unremarkable Continues to be very drowsy MRI brain no acute changes, LP and CSF analysis Neurology consult 2. Fever: New onset Obtain blood culture, urinalysis Will start on vancomycin, ceftriaxone, ampicillin Unable to assess for meningeal signs given drowsy status If continues to worsen we might get LP tomorrow morning Obtain DVT study as well NPO except for sips with meds Takes metoprolol at home Will switch to IV metoprolol Neurology following ID consulted 3. Alcohol use disorder: Currently drinks 6 units daily Alcohol levels were within normal limits Received phenobarbital in the ER Continue with CIWA protocol Persistent elevated CIWA scores Continue with Librium Monitor mental status Continue with thiamine, folic acid Supplement magnesium 4. Hypoglycemia: Likely secondary to excess alcohol intake D5/NS Blood glucose check q.6 hours 5. Code status: Full 6. DVT prophylaxis: Heparin SubQ 7. Disposition: Pending improvement, critically sick PT/OT/ST Subjective Date/time seen: 05/11/25 14:29 Interval history: Patient is lethargic, new onset of fever Persistent elevated CIWA score Review of Systems Review of Systems: 12 systems were reviewed and are negative except for as per HPI. All systems reviewed & are unremarkable except as noted in HPI and below ROS unobtainable: Yes unobtainable due to medical condition Exam Narrative: HEENT: Drowsy NECK: No JVD CHEST: Clear to auscultation, normal effort HEART: NL S1/S2, regular, no murmur ABDOMEN: BS+, soft, EXTREMITIES: Moving spontaneously NEUROLOGIC: Unable to assess MUSCULOSKELETAL: No deformities to inspection PSYCH: Very drowsy, moans with deep sternal rub Objective Data Vital Signs Vital Signs: Vital Signs - 24 hr 05/10/25 16:00 05/10/25 16:00 05/10/25 16:00 Temperature 100.0 F H Pulse Rate 89 95 Pulse Rate [Bilateral Pedal (Dorsalis Pedis) Palpation] 89 Respiratory Rate 32 H Blood Pressure 117/74 117/74 Pulse Oximetry 92 Oxygen Delivery Oxygen Flow Rate 05/10/25 16:00 05/10/25 16:23 05/10/25 16:32 Temperature Pulse Rate 101 H 92 Pulse Rate [Bilateral Pedal (Dorsalis Pedis) Palpation] Respiratory Rate 20 Blood Pressure Pulse Oximetry 93 92 Oxygen Delivery Nasal Cannula Nasal Cannula Oxygen Flow Rate 3 2 05/10/25 18:00 05/10/25 20:00 05/10/25 20:00 Temperature Pulse Rate 90 Pulse Rate [Bilateral Pedal (Dorsalis Pedis) Palpation] 88 Respiratory Rate Blood Pressure Pulse Oximetry 93 Oxygen Delivery Nasal Cannula Oxygen Flow Rate 2 05/10/25 20:00 05/10/25 20:00 05/10/25 21:40 Temperature 99.1 F Pulse Rate 112 H 83 91 Pulse Rate [Bilateral Pedal (Dorsalis Pedis) Palpation] Respiratory Rate 28 H Blood Pressure 137/109 H Pulse Oximetry 94 Oxygen Delivery Oxygen Flow Rate 05/10/25 22:00 05/10/25 23:51 05/11/25 00:00 Temperature 101 F H 101.0 F H Pulse Rate 81 96 Pulse Rate [Bilateral Pedal (Dorsalis Pedis) Palpation] Respiratory Rate 24 H Blood Pressure 157/86 H Pulse Oximetry 94 Oxygen Delivery Oxygen Flow Rate 05/11/25 00:00 05/11/25 00:00 05/11/25 00:00 Temperature Pulse Rate 102 H Pulse Rate [Bilateral Pedal (Dorsalis Pedis) Palpation] 102 H Respiratory Rate Blood Pressure Pulse Oximetry 94 Oxygen Delivery Nasal Cannula Oxygen Flow Rate 2 05/11/25 00:50 05/11/25 02:00 05/11/25 04:00 Temperature 98.6 F Pulse Rate 82 Pulse Rate [Bilateral Pedal (Dorsalis Pedis) Palpation] 73 Respiratory Rate Blood Pressure Pulse Oximetry Oxygen Delivery Oxygen Flow Rate 05/11/25 04:00 05/11/25 04:00 05/11/25 04:00 Temperature 98.7 F Pulse Rate 66 94 Pulse Rate [Bilateral Pedal (Dorsalis Pedis) Palpation] Respiratory Rate 24 H Blood Pressure 119/71 Pulse Oximetry 94 99 Oxygen Delivery Nasal Cannula Oxygen Flow Rate 2 05/11/25 06:00 05/11/25 06:44 05/11/25 08:00 Temperature 99.5 F Pulse Rate 72 95 63 Pulse Rate [Bilateral Pedal (Dorsalis Pedis) Palpation] Respiratory Rate 20 Blood Pressure 129/77 Pulse Oximetry 97 Oxygen Delivery Oxygen Flow Rate 05/11/25 12:00 05/11/25 14:13 Temperature 99 F Pulse Rate 75 84 Pulse Rate [Bilateral Pedal (Dorsalis Pedis) Palpation] Respiratory Rate 20 Blood Pressure 136/73 Pulse Oximetry 99 Oxygen Delivery Oxygen Flow Rate Intake/Output Intake/Output: Intake & Output 05/08/25 05/09/25 05/10/25 05/11/25 23:59 23:59 23:59 23:59 Intake Total 2175 7444 943 7437.8 Output Total 1350 1100 400 250 Balance 825 534 569 8641.8 Meds/Results Medications: Active Medications Generic Name Dose Route Start Last Admin Trade Name Freq PRN Reason Stop Dose Admin Acetaminophen 650 mg 05/10/25 11:47 05/10/25 23:51 Acetaminophen 650 Mg Suppository RECTAL 650 mg Q6H PRN Administration Mild Pain (1-3) or Fever Acetaminophen 650 mg 05/10/25 11:47 Acetaminophen 325 Mg Tablet PO Q4H PRN Mild Pain (1-3) or Fever Chlordiazepoxide HCl 25 mg 05/10/25 18:00 05/11/25 13:28 Chlordiazepoxide (*Crx) 25 Mg Capsule PO Not Given Q6HR VIANEY Dextrose 12.5 gm 05/04/25 15:47 05/04/25 20:03 Dextrose 50% 25 Gm/50 Ml Syringe IV PUSH 12.5 gm PRN PRN Administration Hypoglycemia Protocol Folic Acid 1 mg 05/05/25 09:00 05/11/25 13:27 Folic Acid 1 Mg Tablet PO Not Given DAILY VIANEY Folic Acid 1 mg 05/12/25 09:00 Folic Acid 1 Mg/0.2 Ml Inj IV PUSH QAM VIANEY Glucagon 1 mg 05/04/25 15:47 Glucagon For Inj 1 Mg Vial IM PRN PRN Hypoglycemia Protocol Glucose 15 gm 05/04/25 15:47 Glucose Oral Gel 15 Gm Of Glucse In 37.5 Gm Tube PO PRN PRN Hypoglycemia Protocol Heparin Sodium (Porcine) 5,000 units 05/10/25 22:00 05/11/25 14:13 Heparin Sodium 5,000 Units/Ml Vial SUB-Q 5,000 units Q8HR VIANEY Administration Hydralazine HCl 10 mg 05/05/25 12:15 05/10/25 05:08 Hydralazine Hcl 20 Mg/Ml Vial IV PUSH 10 mg Q4H PRN Administration Blood Pressure - High Dextrose 1,000 mls @ 100 mls/hr 05/04/25 15:47 Dextrose 5% 1,000 Ml IVPB PRN PRN Hypoglycemia Protocol Dextrose 1,000 mls @ 50 mls/hr 05/10/25 11:50 05/11/25 09:45 Dextrose 10% IV CONT 50 mls/hr .Q20H VIANEY Administration Vancomycin HCl 1,250 mg in 250 mls @ 166.667 mls/hr 05/11/25 06:00 05/11/25 08:10 Vancomycin 1,250 Mg/Ns 250 Ml IVPB Infused Q12H VIANEY Infusion Ceftriaxone Sodium 2 gm/ 100 mls @ 200 mls/hr 05/11/25 11:35 05/11/25 14:07 Sodium Chloride IVPB Infused Q12HR VIANEY Infusion Ampicillin Sodium 2 gm/ Sodium 100 mls @ 200 mls/hr 05/11/25 13:00 05/11/25 14:07 Chloride IVPB Infused Q4HR VIANEY Infusion Dextrose/Sodium Chloride 1,000 mls @ 75 mls/hr 05/11/25 14:30 Dextrose 5% Sodium Chloride 0.9% IV CONT .[id number] VIANEY Ketorolac Tromethamine 15 mg 05/10/25 15:31 Ketorolac 15 Mg/Ml Vial (*Bkc) IV PUSH Q6H PRN Pain Rated 4-6 Lorazepam 2 mg 05/05/25 12:38 05/10/25 09:09 Lorazepam Inj (*Crx) 2 Mg/Ml Vial IV PUSH 2 mg Q2H PRN Administration ALCOHOL WITHDRAWAL Metoprolol Tartrate 50 mg 05/05/25 09:00 05/05/25 09:20 Metoprolol Tartrate 50 Mg Tab PO 50 mg On Hold: 05/05/25 12:15 DAILY VIANEY Administration Metoprolol Tartrate 5 mg 05/10/25 15:30 05/11/25 14:13 Metoprolol Tartrate Inj 5 Mg/5 Ml Vial IV PUSH 5 mg Q8HR VIANEY Administration Multivitamins/Calcium 1 tablet 05/05/25 09:00 05/10/25 12:35 Therapeutic Multivitamins/Minerals Tab (*Bkc) PO Not Given On Hold: 05/10/25 15:32 DAILY [facility] Nicotine 1 patch 05/08/25 19:00 05/11/25 09:48 Nicotine (*Pbkc) 21 Mg Patch TRANSDERM 1 patch DAILY [facility] Administration Pantoprazole Sodium 40 mg 05/09/25 10:55 05/10/25 12:35 Pantoprazole 40 Mg Tablet PO Not Given On Hold: 05/10/25 15:32 QAM [facility] Pantoprazole Sodium 40 mg 05/10/25 21:00 05/11/25 09:48 Pantoprazole Sodium Iv 40 Mg Vial IV PUSH 40 mg Q12HR [facility] Administration Thiamine HCl 100 mg 05/05/25 09:00 05/11/25 13:27 Thiamine Hcl 100 Mg Tablet PO Not Given DAILY [facility] Thiamine HCl 100 mg 05/12/25 09:00 Thiamine Hcl 200 Mg/2 Ml Vial IV PUSH QAM [facility] Radiology Results: ITS Impressions Head CT 05/04/25 17:33 Impression: 1.No acute intracranial abnormality. Abdomen Ultrasound 05/09/25 11:01 IMPRESSION: 1. Diffuse hepatic steatosis. Chest X-Ray 05/10/25 13:58 IMPRESSION: 1. Suspect minimal airspace opacities of right infrahilar region. Please correlate with clinical and lab findings. Abdomen X-Ray 05/10/25 14:00 IMPRESSION: 1. No radiopaque or abnormal foreign objects in the abdomen. EKG leads are noted. Cervical Spine X-Ray 05/10/25 14:00 Impression: No acute abnormality. Venous Doppler Study 05/10/25 17:25 Impression: Negative for DVT. Brain MRI 05/11/25 12:40 IMPRESSION: 1. Normal brain. No acute intracranial process. Labs Labs: Laboratory Results - last 24 hr 05/10/25 05/10/25 05/10/25 14:32 15:08 16:21 WBC RBC Hgb Hct MCV MCH MCHC RDW Plt Count MPV Puncture Site Right radial ABG pH 7.413 ABG pCO2 31.8 L ABG pO2 70.6 L ABG PO2/FiO2 Ratio 2.52 ABG HCO3 19.8 L ABG O2 Saturation 94.6 L ABG O2 Content 18.3 ABG Base Excess -3.7 A-a Gradient 91.5 Oxyhemoglobin 92.7 Total Hemoglobin 14.0 O2 Delivery Device Nasal cannula O2 Liters/Min 2.0 FiO2 28 Sodium Potassium Chloride Carbon Dioxide Anion Gap BUN Creatinine Estim Creat Clear Calc Estimated GFR Glucose POC Capillary Glucose 86 Calcium Total Bilirubin AST ALT Alkaline Phosphatase Total Protein Albumin Urine Color Yellow Urine Appearance Clear Urine pH 5.5 Ur Specific [place] 1.018 Urine Protein Negative Urine Glucose (UA) Negative Urine Ketones 3+ H Ur Blood (Man) Negative Urine Nitrate Negative Urine Bilirubin Negative Urine Urobilinogen 1.0 Leukocyte Esterase Rfl Negative 05/10/25 05/10/25 05/11/25 18:10 23:27 03:57 WBC 9.1 RBC 2.98 L Hgb 9.7 L Hct 30.8 L MCV 103.4 H MCH 32.6 MCHC 31.5 L RDW 24.0 H Plt Count 240 MPV 10.2 Puncture Site ABG pH ABG pCO2 ABG pO2 ABG PO2/FiO2 Ratio ABG HCO3 ABG O2 Saturation ABG O2 Content ABG Base Excess A-a Gradient Oxyhemoglobin Total Hemoglobin O2 Delivery Device O2 Liters/Min FiO2 Sodium 134 L Potassium 4.3 Chloride 105 Carbon Dioxide 25 Anion Gap 4 BUN 8 L Creatinine 0.83 Estim Creat Clear Calc 87 Estimated GFR > 60 Glucose 137 H POC Capillary Glucose 107 H 116 H Calcium 8.7 Total Bilirubin 0.5 AST 44 ALT 25 Alkaline Phosphatase 85 Total Protein 7.0 Albumin 3.4 L Urine Color Urine Appearance Urine pH Ur Specific [place] Urine Protein Urine Glucose (UA) Urine Ketones Ur Blood (Man) Urine Nitrate Urine Bilirubin Urine Urobilinogen Leukocyte Esterase Rfl 05/11/25 11:36 WBC RBC Hgb Hct MCV MCH MCHC RDW Plt Count MPV Puncture Site ABG pH ABG pCO2 ABG pO2 ABG PO2/FiO2 Ratio ABG HCO3 ABG O2 Saturation ABG O2 Content ABG Base Excess A-a Gradient Oxyhemoglobin Total Hemoglobin O2 Delivery Device O2 Liters/Min FiO2 Sodium Potassium Chloride Carbon Dioxide Anion Gap BUN Creatinine Estim Creat Clear Calc Estimated GFR Glucose POC Capillary Glucose 117 H Calcium Total Bilirubin AST ALT Alkaline Phosphatase Total Protein Albumin Urine Color Urine Appearance Urine pH Ur Specific [place] Urine Protein Urine Glucose (UA) Urine Ketones Ur Blood (Man) Urine Nitrate Urine Bilirubin Urine Urobilinogen Leukocyte Esterase Rfl Quality VTE Prophylaxis VTE prophylaxis: pharmacologic ordered
[2025-05-11] MEDS: DEXTROSE 5%/0.9% SOD CHL 1,000 ML 75 ML IV CONT (14:53)
[2025-05-11] MEDS: THIAMINE HCL 200 MG/2 ML VIAL 100 MG IV PUSH (14:58)
[2025-05-11] MEDS: FOLIC ACID 1 MG/0.2 ML INJ IV PUSH (14:59)
--- NOTE | 2025-05-11 15:37 | PCSTNOTE ---
Please refer to the Bedside Swallow Evaluation in the EMR. Please note, silent aspiration cannot be ruled out at bedside. Pt seen for a bedside swallow evaluation; pt was confused but was able to follow simple commands for an oral motor exam which revealed mild generalized weakness and slowness; no asymmetry. Missing teeth in both upper and lower areas. Vocal quality was hoarse and dried secretions coated the back tongue and hard palate; [employer] QUALITY TECHNICIAN cleared oral cavity of secretions before any PO trials could be given. Pt was then presented with ice chips, tsp amounts of water, pudding and crackers in varying but controlled amounts. The thin liquids were also tested in uncontrolled amounts via cup sips and a straw. The oral stages were slow but pt did not exhibit leakage, pocketing or residue. Pharyngeal stage: the swallow appeared timely and laryngeal elevation appeared adequate. Pt ate the entire cup of pudding, pack of arslan crackers, and drank approximately 8 oz of water. Incidental cough noted x1 through the entire session which did not appear to be related to aspiration given the vast amount he ate without difficulty. Recommend: trial of level 6 soft diet with thin liquids via small sips through the evening; ST will follow up with nursing tomorrow to determine diet tolerance or need for further testing.
[2025-05-11] MEDS: chlordiazePOXIDE (*CRX) 25 MG CAPSULE PO (17:36)
[2025-05-11] MEDS: VANCOMYCIN 1,250 MG/NS 250 ML 1,250 MG/250 ML BAG 166.7 MG IVPB (17:38)
[2025-05-11 18:01] LABS: INR 1.3; Prothrombin Time 16.1 Seconds (11.1-14.7)
[2025-05-11 18:02] LABS: Partial Thromboplastin Time 38.4 Seconds (22.3-36.8)
[2025-05-12] VITALS (21 sets, daily range): BP systolic 102–151; BP diastolic 53–114; PULSE 68–101; RESP 14–18; TEMP 36.6–37.4; O2SAT 92–100
[2025-05-12] MEDS: DEXTROSE 5%/0.9% SOD CHL 1,000 ML 75 ML IV CONT ×2 (00:08→17:47)
[2025-05-12] MEDS: chlordiazePOXIDE (*CRX) 25 MG CAPSULE PO ×4 (00:09→17:09)
[2025-05-12] MEDS: AMPICILLIN SODIUM 2 GM in SODIUM CHLORIDE 0.9% IV 100 ML 200 ML IVPB ×5 (00:17→17:08)
[2025-05-12 05:07] LABS: Hematocrit 28.0 % (42.0-52.0); Hemoglobin 8.8 g/dL (14.0-18.0); Immature Granulocyte Percent A 4.4 % (0-0.5); Lymphocytes Absolute Auto 1.27 K/mm3 (0.9-3.2); Mean Corpuscular HGB Conc 31.4 g/dl (32-36); Mean Corpuscular Hemoglobin 32.2 pg (26-34); Mean Corpuscular Volume 102.6 fl (80-100); Nucleated Red Blood Cells Absolute Auto 0.040 K/mm3 (0.0-0.012); Nucleated Red Blood Cells Perc 0.6 % (0.0-0.2); Platelet Count Result 257 k/mm3 (150-375); Red Blood Count 2.73 M/mm3 (4.6-6.20); White Blood Count 7.0 K/mm3 (4.5-10.0)
[2025-05-12 05:23] LABS: Alanine Aminotransferase 19 U/L (6-50); Albumin Level 3.0 g/dL (3.5-5.1); Alkaline Phosphatase 79 U/L (38-126); Anion Gap 4 mmol/L (4-12); Aspartate Amino Transferase 35 U/L (17-59); Bilirubin,Total 0.4 mg/dL (0.2-1.3); Blood Urea Nitrogen 6 mg/dL (9-20); Calcium 8.2 mg/dL (8.4-10.2); Carbon Dioxide 22 mmol/L (22-30); Chloride 109 mmol/L (98-107); Estimated CRCL calculation 91 ml/min; Estimated Glomerular Filt Rate > 60; Glucose 113 mg/dL (65-110); Magnesium 1.6 mg/dL (1.6-2.3); Potassium 3.5 mmol/L (3.4-5.0); Sodium 135 mmol/L (137-145); Total Protein 6.2 g/dL (6.3-8.2)
[2025-05-12] MEDS: METOPROLOL TARTRATE INJ 5 MG/5 ML VIAL IV PUSH ×3 (05:29→21:40)
[2025-05-12 05:49] LABS: Anisocytosis 1+
[2025-05-12 05:50] LABS: Burr Cells 1+; Polychromasia 1+; Schistocytes None Seen
[2025-05-12] MEDS: VANCOMYCIN 1,500 MG/NS 500 ML 1,500 MG/500 ML BAG 250 MG IVPB ×2 (06:31→17:48)
[2025-05-12] MEDS: LORazepam INJ (*CRX) 2 MG/ML VIAL IV PUSH ×2 (06:42→20:19)
[2025-05-12 07:09] LABS: Varicella-Zoster Ab, IgG Non Reactive (Non Reactive)
[2025-05-12] MEDS: cefTRIAXone 2 GM in SODIUM CHLORIDE 0.9% IV 100 ML 200 ML IVPB (09:25)
[2025-05-12] MEDS: NICOTINE (*PBKC) 21 MG PATCH 1 PATCH TRANSDERM (09:28)
[2025-05-12] MEDS: PANTOPRAZOLE SODIUM IV 40 MG VIAL IV PUSH ×2 (09:30→21:39)
[2025-05-12] MEDS: THIAMINE HCL 200 MG/2 ML VIAL 100 MG IV PUSH (09:31)
[2025-05-12] MEDS: FOLIC ACID 1 MG/0.2 ML INJ IV PUSH (09:38)
[2025-05-12 12:08] LABS: CMV Quant DNA PCR, Plasma Negative (Negative)
--- NOTE | 2025-05-12 12:34 | P.PNIM_ITS ---
Assessment and Plan Assessment and Plan (1) Altered mental status: Code(s): R41.82 - Altered mental status, unspecified Status: Acute (2) Alcohol use disorder: Code(s): F10.90 - Alcohol use, unspecified, uncomplicated Status: Acute (3) Alcohol withdrawal: Code(s): F10.939 - Alcohol use, unspecified with withdrawal, unspecified Status: Acute (4) Hypoglycemia: Code(s): E16.2 - Hypoglycemia, unspecified Status: Acute (5) Hypertension: Code(s): I10 - Essential (primary) hypertension Status: Acute (6) Electrolyte imbalance: Code(s): E87.8 - Other disorders of electrolyte and fluid balance, not elsewhere classified Status: Acute (7) Thrombocytopenia: Code(s): D69.6 - Thrombocytopenia, unspecified Status: Acute (8) Anemia: Code(s): D64.9 - Anemia, unspecified Status: Acute Plan 54-year-old male ETOH use, hypertension hyperlipidemia with found unresponsive. Patient was found to be hypoglycemic. He was given glucagon with minimal response. Patient stand emergency room, he is snoring respirations but wakes up to touch. Patient was given phenobarbital in emergency room. Patient was admitted to ICU initially. CT head was unremarkable. (1) Altered mental status: Presented to the ER with altered mental status, hypoglycemia CT head on admission was unremarkable Continues to be very drowsy MRI brain no acute changes, LP and CSF analysis Neurology consult 2. Fever: New onset Obtain blood culture, urinalysis Will start on vancomycin, ceftriaxone, ampicillin Last fever was more than 24 hrs ago Venous doppler negative Takes metoprolol at home Will switch to IV metoprolol Neurology following ID consulted 3. Alcohol use disorder: Currently drinks 6 units daily Alcohol levels were within normal limits Received phenobarbital in the ER Continue with CIWA protocol Persistent elevated CIWA scores Continue with Librium Monitor mental status Continue with thiamine, folic acid Supplement magnesium 4. Hypoglycemia: Likely secondary to excess alcohol intake D5/NS Blood glucose check q.6 hours 5. Code status: Full 6. DVT prophylaxis: Heparin SubQ 7. Disposition: Pending improvement, critically sick PT/OT/ST Subjective Date/time seen: 05/12/25 12:34 Interval history: Patient is alert and oriented x 3 at bedside today, denies any discomfort Persistent elevated CIWA score Review of Systems Review of Systems: 12 systems were reviewed and are negativ e except for as per HPI. All systems reviewed & are unremarkable except as noted in HPI and below ROS unobtainable: Yes unobtainable due to medical condition Exam Narrative: HEENT: Drowsy NECK: No JVD CHEST: Clear to auscultation, normal effort HEART: NL S1/S2, regular, no murmur ABDOMEN: BS+, soft, EXTREMITIES: Moving spontaneously NEUROLOGIC: Unable to assess MUSCULOSKELETAL: No deformities to inspection PSYCH: Very drowsy, moans with deep sternal rub Objective Data Vital Signs Vital Signs: Vital Signs - 24 hr 05/11/25 14:00 05/11/25 14:13 05/11/25 16:00 Temperature 97.7 F Pulse Rate 86 84 78 Pulse Rate [Bilateral Pedal (Dorsalis Pedis) Palpation] Respiratory Rate 16 Blood Pressure 125/77 Pulse Oximetry 99 Oxygen Delivery Oxygen Flow Rate 05/11/25 16:00 05/11/25 16:00 05/11/25 18:00 Temperature Pulse Rate 84 84 Pulse Rate [Bilateral Pedal (Dorsalis Pedis) Palpation] 83 Respiratory Rate Blood Pressure Pulse Oximetry Oxygen Delivery Oxygen Flow Rate 05/11/25 19:22 05/11/25 19:44 05/11/25 20:00 Temperature 97.8 F Pulse Rate 84 81 Pulse Rate [Bilateral Pedal (Dorsalis Pedis) Palpation] Respiratory Rate 16 Blood Pressure 141/82 H Pulse Oximetry 96 94 Oxygen Delivery Nasal Cannula Oxygen Flow Rate 2 05/11/25 21:11 05/11/25 22:43 05/12/25 00:00 Temperature 98.5 F Pulse Rate 82 86 85 Pulse Rate [Bilateral Pedal (Dorsalis Pedis) Palpation] Respiratory Rate 18 Blood Pressure 140/72 Pulse Oximetry 93 Oxygen Delivery Oxygen Flow Rate 05/12/25 00:00 05/12/25 00:00 05/12/25 00:00 Temperature Pulse Rate 101 H Pulse Rate [Bilateral Pedal (Dorsalis Pedis) Palpation] 81 Respiratory Rate Blood Pressure Pulse Oximetry 95 Oxygen Delivery Nasal Cannula Oxygen Flow Rate 2 05/12/25 02:00 05/12/25 04:00 05/12/25 04:00 Temperature Pulse Rate 76 Pulse Rate [Bilateral Pedal (Dorsalis Pedis) Palpation] 79 Respiratory Rate Blood Pressure Pulse Oximetry 95 Oxygen Delivery Nasal Cannula Oxygen Flow Rate 2 05/12/25 04:00 05/12/25 04:31 05/12/25 05:29 Temperature 98.6 F Pulse Rate 76 80 76 Pulse Rate [Bilateral Pedal (Dorsalis Pedis) Palpation] Respiratory Rate 14 Blood Pressure 134/71 Pulse Oximetry 96 Oxygen Delivery Oxygen Flow Rate 05/12/25 06:00 05/12/25 06:38 05/12/25 07:37 Temperature 98 F Pulse Rate 80 68 Pulse Rate [Bilateral Pedal (Dorsalis Pedis) Palpation] 79 Respiratory Rate 16 Blood Pressure 102/53 L Pulse Oximetry 93 Oxygen Delivery Oxygen Flow Rate 05/12/25 12:00 Temperature 98.2 F Pulse Rate 73 Pulse Rate [Bilateral Pedal (Dorsalis Pedis) Palpation] Respiratory Rate 16 Blood Pressure 136/85 Pulse Oximetry 97 Oxygen Delivery Oxygen Flow Rate Intake/Output Intake/Output: Intake & Output 05/09/25 05/10/25 05/11/25 05/12/25 23:59 23:59 23:59 23:59 Intake Total 7929 480 4509.8 1693.8 Output Total 1100 400 625 625 Balance 627 265 9610.8 1068.8 Meds/Results Medications: Active Medications Generic Name Dose Route Start Last Admin Trade Name Freq PRN Reason Stop Dose Admin Acetaminophen 650 mg 05/10/25 11:47 05/10/25 23:51 Acetaminophen 650 Mg Suppository RECTAL 650 mg Q6H PRN Administration Mild Pain (1-3) or Fever Acetaminophen 650 mg 05/10/25 11:47 Acetaminophen 325 Mg Tablet PO Q4H PRN Mild Pain (1-3) or Fever Chlordiazepoxide HCl 25 mg 05/10/25 18:00 05/12/25 05:35 Chlordiazepoxide (*Crx) 25 Mg Capsule PO 25 mg Q6HR VIANEY Administration Dextrose 12.5 gm 05/04/25 15:47 05/04/25 20:03 Dextrose 50% 25 Gm/50 Ml Syringe IV PUSH 12.5 gm PRN PRN Administration Hypoglycemia Protocol Folic Acid 1 mg 05/05/25 09:00 05/11/25 13:27 Folic Acid 1 Mg Tablet PO Not Given On Hold: 05/11/25 14:37 DAILY VIANEY Comment: HOLD WHILE NPO Folic Acid 1 mg 05/12/25 09:00 05/12/25 09:38 Folic Acid 1 Mg/0.2 Ml Inj IV PUSH 1 mg QAM VIANEY Administration Glucagon 1 mg 05/04/25 15:47 Glucagon For Inj 1 Mg Vial IM PRN PRN Hypoglycemia Protocol Glucose 15 gm 05/04/25 15:47 Glucose Oral Gel 15 Gm Of Glucse In 37.5 Gm Tube PO PRN PRN Hypoglycemia Protocol Heparin Sodium (Porcine) 5,000 units 05/10/25 22:00 05/12/25 05:33 Heparin Sodium 5,000 Units/Ml Vial SUB-Q 5,000 units Q8HR VIANEY Administration Hydralazine HCl 10 mg 05/05/25 12:15 05/10/25 05:08 Hydralazine Hcl 20 Mg/Ml Vial IV PUSH 10 mg Q4H PRN Administration Blood Pressure - High Dextrose 1,000 mls @ 100 mls/hr 05/04/25 15:47 Dextrose 5% 1,000 Ml IVPB PRN PRN Hypoglycemia Protocol Ceftriaxone Sodium 2 gm/ 100 mls @ 200 mls/hr 05/11/25 11:35 05/12/25 09:25 Sodium Chloride IVPB 200 mls/hr Q12HR VIANEY Administration Ampicillin Sodium 2 gm/ Sodium 100 mls @ 200 mls/hr 05/11/25 13:00 05/12/25 10:00 Chloride IVPB Infused Q4HR VIANEY Infusion Dextrose/Sodium Chloride 1,000 mls @ 75 mls/hr 05/11/25 14:30 05/12/25 00:08 Dextrose 5% Sodium Chloride 0.9% IV CONT 75 mls/hr .[id number] VIANEY Administration Vancomycin HCl 1,500 mg in 500 mls @ 250 mls/hr 05/12/25 06:00 05/12/25 06:31 Vancomycin 1,500 Mg/Ns 500 Ml IVPB 250 mls/hr Q12H VIANEY Administration Ketorolac Tromethamine 15 mg 05/10/25 15:31 Ketorolac 15 Mg/Ml Vial (*Bkc) IV PUSH Q6H PRN Pain Rated 4-6 Lorazepam 2 mg 05/05/25 12:38 05/12/25 06:42 Lorazepam Inj (*Crx) 2 Mg/Ml Vial IV PUSH 2 mg Q2H PRN Administration ALCOHOL WITHDRAWAL Metoprolol Tartrate 50 mg 05/05/25 09:00 05/05/25 09:20 Metoprolol Tartrate 50 Mg Tab PO 50 mg On Hold: 05/05/25 12:15 DAILY VIANEY Administration Metoprolol Tartrate 5 mg 05/10/25 15:30 05/12/25 05:29 Metoprolol Tartrate Inj 5 Mg/5 Ml Vial IV PUSH 5 mg Q8HR VIANEY Administration Multivitamins/Calcium 1 tablet 05/05/25 09:00 05/10/25 12:35 Therapeutic Multivitamins/Minerals Tab (*Bkc) PO Not Given On Hold: 05/10/25 15:32 DAILY VIANEY Nicotine 1 patch 05/08/25 19:00 05/12/25 09:28 Nicotine (*Pbkc) 21 Mg Patch TRANSDERM 1 patch DAILY VIANEY Administration Pantoprazole Sodium 40 mg 05/09/25 10:55 05/10/25 12:35 Pantoprazole 40 Mg Tablet PO Not Given On Hold: 05/10/25 15:32 QAM VIANEY Pantoprazole Sodium 40 mg 05/10/25 21:00 05/12/25 09:30 Pantoprazole Sodium Iv 40 Mg Vial IV PUSH 40 mg Q12HR VIANEY Administration Thiamine HCl 100 mg 05/05/25 09:00 05/11/25 13:27 Thiamine Hcl 100 Mg Tablet PO Not Given On Hold: 05/11/25 14:39 DAILY VIANEY Comment: HOLD WHILE NPO Thiamine HCl 100 mg 05/12/25 09:00 05/12/25 09:31 Thiamine Hcl 200 Mg/2 Ml Vial IV PUSH 100 mg QAM VIANEY Administration Radiology Results: ITS Impressions Head CT 05/04/25 17:33 Impression: 1.No acute intracranial abnormality. Abdomen Ultrasound 05/09/25 11:01 IMPRESSION: 1. Diffuse hepatic steatosis. Chest X-Ray 05/10/25 13:58 IMPRESSION: 1. Suspect minimal airspace opacities of right infrahilar region. Please correlate with clinical and lab findings. Abdomen X-Ray 05/10/25 14:00 IMPRESSION: 1. No radiopaque or abnormal foreign objects in the abdomen. EKG leads are noted. Cervical Spine X-Ray 05/10/25 14:00 Impression: No acute abnormality. Venous Doppler Study 05/10/25 17:25 Impression: Negative for DVT. Brain MRI 05/11/25 12:40 IMPRESSION: 1. Normal brain. No acute intracranial process. Labs Labs: Laboratory Results - last 24 hr 05/11/25 05/11/25 05/11/25 11:36 15:59 16:07 WBC RBC Hgb Hct MCV MCH MCHC RDW Plt Count MPV Immature Gran % (Auto) Neut % (Auto) Lymph % (Auto) [place] % (Auto) Eos % (Auto) Baso % (Auto) Lymph # (Auto) [place] # (Auto) Eos # (Auto) Baso # (Auto) Abs Immat Gran (auto) Absolute Neuts (auto) Absolute Nucleated RBC Band Neutrophils % Nucleated RBC % Platelet Estimate Large Platelets Polychromasia Anisocytosis [place] Cells Schistocytes PT INR APTT Sodium Potassium Chloride Carbon Dioxide Anion Gap BUN Creatinine Estim Creat Clear Calc Estimated GFR Glucose POC Capillary Glucose 117 H Calcium Magnesium Total Bilirubin AST ALT Alkaline Phosphatase Total Protein Albumin Vancomycin Trough CMV DNA Quant PCR Negative CMV DNA PCR log IU/mL VZV IgG Antibody Non reactive 05/11/25 05/11/25 05/11/25 17:39 17:51 20:30 WBC RBC Hgb Hct MCV MCH MCHC RDW Plt Count MPV Immature Gran % (Auto) Neut % (Auto) Lymph % (Auto) [place] % (Auto) Eos % (Auto) Baso % (Auto) Lymph # (Auto) [place] # (Auto) Eos # (Auto) Baso # (Auto) Abs Immat Gran (auto) Absolute Neuts (auto) Absolute Nucleated RBC Band Neutrophils % Nucleated RBC % Platelet Estimate Large Platelets Polychromasia Anisocytosis [place] Cells Schistocytes PT 16.1 H INR 1.3 APTT 38.4 H Sodium Potassium Chloride Carbon Dioxide Anion Gap BUN Creatinine Estim Creat Clear Calc Estimated GFR Glucose POC Capillary Glucose 112 H 102 Calcium Magnesium Total Bilirubin AST ALT Alkaline Phosphatase Total Protein Albumin Vancomycin Trough CMV DNA Quant PCR CMV DNA PCR log IU/mL VZV IgG Antibody 05/12/25 05/12/25 05/12/25 00:11 04:54 12:02 WBC 7.0 RBC 2.73 L Hgb 8.8 L Hct 28.0 L MCV 102.6 H MCH 32.2 MCHC 31.4 L RDW 23.6 H Plt Count 257 MPV 10.3 Immature Gran % (Auto) 4.4 H Neut % (Auto) 60.4 Lymph % (Auto) 18.1 L [place] % (Auto) 12.7 H Eos % (Auto) 3.1 Baso % (Auto) 1.3 H Lymph # (Auto) 1.27 [place] # (Auto) 0.9 H Eos # (Auto) 0.2 Baso # (Auto) 0.1 Abs Immat Gran (auto) 0.31 H Absolute Neuts (auto) 4.2 Absolute Nucleated RBC 0.040 H Band Neutrophils % Not Reportable Nucleated RBC % 0.6 H Platelet Estimate Adequate Large Platelets Present Polychromasia 1+ Anisocytosis 1+ Michel Cells 1+ Schistocytes None seen PT INR APTT Sodium 135 L Potassium 3.5 Chloride 109 H Carbon Dioxide 22 Anion Gap 4 BUN 6 L Creatinine 0.79 Estim Creat Clear Calc 91 Estimated GFR > 60 Glucose 113 H POC Capillary Glucose 124 H 106 H Calcium 8.2 L Magnesium 1.6 Total Bilirubin 0.4 AST 35 ALT 19 Alkaline Phosphatase 79 Total Protein 6.2 L Albumin 3.0 L Vancomycin Trough 12.2 CMV DNA Quant PCR CMV DNA PCR log IU/mL VZV IgG Antibody Quality VTE Prophylaxis VTE prophylaxis: pharmacologic ordered
[2025-05-12 13:09] LABS: Varicella-Zoster Ab, IgM <0.91 index (0.00-0.90)
--- NOTE | 2025-05-12 15:18 | PC.NURSE ---
returned estephania che to pt - confirm 3 checks in jenniferet
--- NOTE | 2025-05-12 17:43 | WPDIDCN ---
Assessment and Plan Assessment and plan (1) Fever: Code(s): R50.9 - Fever, unspecified Status: Acute Plan ASSESSMENT: 1. low grade temps on 05/06 followed by fevers on 05/10--05/11--now resolved. Also with drowsiness. C/f meningitis was raised. No JENKINS, no neck stiffness, no leukocytosis. No fever on admit with AMS. Doubt this is meningitis; UA not c/w UTI. Blood cxs in process; MRI and CT neck without infectious focus 2. alcohol withdrawal with AUD 3. HTN HL RECOMMENDATIONS: -f/u on blood cxs--in process -repeat CXR but PA&L to look for aspiration -MRSA nares neg -doubt need for LP -stop ampicillin and ceftriaxone -start zosyn for possible aspiration and continue vanco while blood cxs in process d/w pharmacy staff Pt was seen via video telehealth consultation with the assistance of staff. Chart, data and patient info reviewed. Patient was located at [facility] while I was in my [place] office. Pt gave consent. HPI Data of Consult Date/Time: 05/12/25 17:43 Requesting Physician: Bora Lechuga MD Primary Care Provider: Prem Interiano MD Consult Narrative Reason for consult: AMS; possible meningitis Narrative: Luigi Beltran is a 54 year old male with pmhx/o HTN, HL, AUD, presented to ED with AMS, hypoglycemcia and alcohol withdrawal. Admitted to ICU. Had no fever or real leukocytosis on admit. Later developed low grade temps on 05/06 and then higher temps on 05/10--05/11. UA at that time was not c/w UTI. CXR with ???infiltrate. Blood cxs are still in process. Pt was drowsy. Given abx. Concern for meningitis. Now continues with no leukocytosis and fevers down. No headache. PMFSH Past Medical History Medical History Abdominal pain Alcohol abuse Blood in stool Colon cancer screening Elevated liver enzymes GERD (gastroesophageal reflux disease) Hyperlipidemia Hypertension Tobacco consumption Surgical History Surgical History History of cardiac cath 2020 History of colonoscopy Hx of chest tube placement Family History Family History Father Respiratory acidosis Mother Arthritis Social History Social History (Updated 07/04/22 @ 19:41 by Criss Fuentes, DEACON) Social History: The patient does [place] work except for during the winter. The patient will during 12-20 Beers a day. He is and one daughter. The patient continues to smoke at least 1 pack a cigarettes a day. Code status full code Smoking packs per day: 1.5 Smoking cigarettes per day: 30.0 Years smoked: 43 Smoking pack-years: 64.50 Smoking status: Current every day smoker Tobacco type: cigarettes Alcohol intake: current Drinks per week: 80 Alcohol use details: daily Substance use: current Substance use type: marijuana, amphetamines and sedatives Other substance usage details: daily Last use: 05/03/2025 Lack of Transportation: No Lack of Food: Sometimes True Current Housing: I Do Not Have Housing Concerned About Future Housing: YES Difficulty Paying Gas/Electric Bills: YES Difficulty Paying for Meds: YES Currently Unemployed: No Education: High School Diploma/GED Difficulty w/ Childcare or Family Care: No Living arrangements: alone Spiritual care concerns: No Meds Home Medications and Allergies Home Medications ?Medication ?Instructions ?Recorded ?Confirmed ?Type metoprolol tartrate 50 mg tablet 50 mg PO DAILY 07/04/22 05/04/25 History Allergies Allergy/AdvReac Type Severity Reaction Status Date / Time No Known Allergies Allergy Verified 05/04/25 20:33 Vital Signs Vital Signs - 24 hr 05/11/25 18:00 05/11/25 19:22 05/11/25 19:44 Temperature 97.8 F Pulse Rate 84 84 Pulse Rate [Bilateral Pedal (Dorsalis Pedis) Palpation] Respiratory Rate 16 Blood Pressure 141/82 H Pulse Oximetry 96 94 Oxygen Delivery Nasal Cannula Oxygen Flow Rate 2 05/11/25 20:00 05/11/25 21:11 05/11/25 22:43 Temperature Pulse Rate 81 82 86 Pulse Rate [Bilateral Pedal (Dorsalis Pedis) Palpation] Respiratory Rate Blood Pressure Pulse Oximetry Oxygen Delivery Oxygen Flow Rate 05/12/25 00:00 05/12/25 00:00 05/12/25 00:00 Temperature 98.5 F Pulse Rate 85 Pulse Rate [Bilateral Pedal (Dorsalis Pedis) Palpation] 81 Respiratory Rate 18 Blood Pressure 140/72 Pulse Oximetry 93 95 Oxygen Delivery Nasal Cannula Oxygen Flow Rate 2 05/12/25 00:00 05/12/25 02:00 05/12/25 04:00 Temperature Pulse Rate 101 H 76 Pulse Rate [Bilateral Pedal (Dorsalis Pedis) Palpation] 79 Respiratory Rate Blood Pressure Pulse Oximetry Oxygen Delivery Oxygen Flow Rate 05/12/25 04:00 05/12/25 04:00 05/12/25 04:31 Temperature 98.6 F Pulse Rate 76 80 Pulse Rate [Bilateral Pedal (Dorsalis Pedis) Palpation] Respiratory Rate 14 Blood Pressure 134/71 Pulse Oximetry 95 96 Oxygen Delivery Nasal Cannula Oxygen Flow Rate 2 05/12/25 05:29 05/12/25 06:00 05/12/25 06:38 Temperature Pulse Rate 76 80 Pulse Rate [Bilateral Pedal (Dorsalis Pedis) Palpation] 79 Respiratory Rate Blood Pressure Pulse Oximetry Oxygen Delivery Oxygen Flow Rate 05/12/25 07:37 05/12/25 08:35 05/12/25 08:35 Temperature 98 F Pulse Rate 68 71 Pulse Rate [Bilateral Pedal (Dorsalis Pedis) Palpation] 71 Respiratory Rate 16 Blood Pressure 102/53 L Pulse Oximetry 93 Oxygen Delivery Oxygen Flow Rate 05/12/25 10:00 05/12/25 12:00 05/12/25 12:00 Temperature 98.2 F Pulse Rate 79 73 Pulse Rate [Bilateral Pedal (Dorsalis Pedis) Palpation] 76 Respiratory Rate 16 Blood Pressure 136/85 Pulse Oximetry 97 Oxygen Delivery Oxygen Flow Rate 05/12/25 12:00 05/12/25 13:41 05/12/25 14:00 Temperature Pulse Rate 76 91 81 Pulse Rate [Bilateral Pedal (Dorsalis Pedis) Palpation] Respiratory Rate Blood Pressure Pulse Oximetry Oxygen Delivery Oxygen Flow Rate 05/12/25 15:34 Temperature 98.2 F Pulse Rate 88 Pulse Rate [Bilateral Pedal (Dorsalis Pedis) Palpation] Respiratory Rate 16 Blood Pressure 135/84 Pulse Oximetry 100 Oxygen Delivery Oxygen Flow Rate Exam Narrative: Pt standing up with walker on 2L O2 NC no neck stiffness +presley with clear urine Results Labs 05/12/25 04:54 05/12/25 04:54 Labs: Short CBC 05/12/25 Range/Units 04:54 WBC 7.0 (4.5-10.0) K/mm3 Hgb 8.8 L (14.0-18.0) g/dL Hct 28.0 L (42.0-52.0) % Plt Count 257 (150-375) k/mm3 BMP 05/12/25 04:54 Sodium 135 L Potassium 3.5 Chloride 109 H Carbon Dioxide 22 BUN 6 L Creatinine 0.79 Glucose 113 H Calcium 8.2 L Liver Function 05/12/25 Range/Units 04:54 Total Bilirubin 0.4 (0.2-1.3) mg/dL AST 35 (17-59) U/L ALT 19 (6-50) U/L Alkaline Phosphatase 79 (38-126) U/L Albumin 3.0 L (3.5-5.1) g/dL
[2025-05-12] MEDS: diazePAM INJ (*CRX) 10 MG/2 ML SYRINGE IV PUSH (20:39)
[2025-05-12] MEDS: PIPERACILLIN/TAZOBACTAM SOD 3.375 GM in SODIUM CHLORIDE 0.9% IV 50 ML 100 ML IVPB (21:55)
[2025-05-13] VITALS (24 sets, daily range): BP systolic 128–167; BP diastolic 69–94; PULSE 63–104; RESP 13–25; TEMP 36.6–37; O2SAT 87–99
[2025-05-13] MEDS: chlordiazePOXIDE (*CRX) 25 MG CAPSULE 50 MG PO ×3 (00:40→17:21)
[2025-05-13] MEDS: LORazepam INJ (*CRX) 2 MG/ML VIAL IV PUSH (01:19)
[2025-05-13] MEDS: diazePAM INJ (*CRX) 10 MG/2 ML SYRINGE IV PUSH ×4 (01:25→16:58)
--- NOTE | 2025-05-13 03:30 | PC.NURSE ---
This patient, Luigi Beltran, was transferred to ICU 6 on 05/13/25 at 0330. Personal belongings sent with patient. Report given to Antonette MAZARIEGOS. Appropriate documentation sent with patient.
[2025-05-13 04:28] LABS: Hematocrit 27.8 % (42.0-52.0); Hemoglobin 8.6 g/dL (14.0-18.0); Immature Granulocyte Percent A 2.9 % (0-0.5); Lymphocytes Absolute Auto 1.41 K/mm3 (0.9-3.2); Mean Corpuscular HGB Conc 30.9 g/dl (32-36); Mean Corpuscular Hemoglobin 32.2 pg (26-34); Mean Corpuscular Volume 104.1 fl (80-100); Nucleated Red Blood Cells Absolute Auto 0.030 K/mm3 (0.0-0.012); Nucleated Red Blood Cells Perc 0.3 % (0.0-0.2); Platelet Count Result 374 k/mm3 (150-375); Red Blood Count 2.67 M/mm3 (4.6-6.20); White Blood Count 8.9 K/mm3 (4.5-10.0)
[2025-05-13 04:51] LABS: Polychromasia Occasional
[2025-05-13 04:52] LABS: Anisocytosis 1+; Burr Cells Occasional; Ovalocytes Occasional; Schistocytes None Seen; Target Cells Occasional
[2025-05-13 04:54] LABS: Alanine Aminotransferase 22 U/L (6-50); Albumin Level 3.1 g/dL (3.5-5.1); Alkaline Phosphatase 84 U/L (38-126); Anion Gap 5 mmol/L (4-12); Aspartate Amino Transferase 39 U/L (17-59); Bilirubin,Total 0.4 mg/dL (0.2-1.3); Blood Urea Nitrogen 3 mg/dL (9-20); Calcium 8.5 mg/dL (8.4-10.2); Carbon Dioxide 21 mmol/L (22-30); Chloride 113 mmol/L (98-107); Estimated CRCL calculation 92 ml/min; Estimated Glomerular Filt Rate > 60; Glucose 87 mg/dL (65-110); Magnesium 1.5 mg/dL (1.6-2.3); Potassium 3.4 mmol/L (3.4-5.0); Sodium 139 mmol/L (137-145); Total Protein 6.6 g/dL (6.3-8.2)
[2025-05-13] MEDS: PIPERACILLIN/TAZOBACTAM SOD 3.375 GM in SODIUM CHLORIDE 0.9% IV 50 ML 100 ML IVPB ×3 (06:11→21:48)
[2025-05-13] MEDS: METOPROLOL TARTRATE INJ 5 MG/5 ML VIAL IV PUSH (06:18)
[2025-05-13] MEDS: DEXTROSE 5%/0.9% SOD CHL 1,000 ML 75 ML IV CONT (07:03)
[2025-05-13] MEDS: VANCOMYCIN 1,500 MG/NS 500 ML 1,500 MG/500 ML BAG 250 MG IVPB (07:03)
[2025-05-13] MEDS: THIAMINE HCL 200 MG/2 ML VIAL 100 MG IV PUSH (08:49)
[2025-05-13] MEDS: PANTOPRAZOLE SODIUM IV 40 MG VIAL IV PUSH ×2 (08:49→20:21)
[2025-05-13] MEDS: NICOTINE (*PBKC) 21 MG PATCH 1 PATCH TRANSDERM (08:49)
[2025-05-13] MEDS: POTASSIUM BICARBONATE 25 MEQ TABEF 50 MEQ PO (09:26)
[2025-05-13] MEDS: MAGNESIUM SULF 2 GM/WATER 50ML 2 GM/50 ML BAG IVPB (09:27)
[2025-05-13 09:29] LABS: Procalcitonin 0.2 ng/mL
[2025-05-13] MEDS: THERAPEUTIC MULTIVITAMINS/MINERALS TAB (*BKC) 1 TABLET PO (09:56)
[2025-05-13] MEDS: METOPROLOL TARTRATE 50 MG TAB PO (09:56)
[2025-05-13] MEDS: FOLIC ACID 1 MG/0.2 ML INJ IV PUSH (09:59)
--- NOTE | 2025-05-13 10:39 | PM.IMPN2 ---
Assessment and Plan Assessment and Plan (1) Alcohol withdrawal: Code(s): F10.939 - Alcohol use, unspecified with withdrawal, unspecified Status: Acute Assessment and Plan: History of alcohol use disorder, currently drinks 6 units daily but according to the ER physician note when she discussed with patient's daughter, the daughter stated that he drinks more more than what he stated. Continue scheduled Librium and p.r.n. Valium Thiamine and folic acid (2) Alcohol use disorder: Code(s): F10.90 - Alcohol use, unspecified, uncomplicated Status: Acute (3) Hypoglycemia: Code(s): E16.2 - Hypoglycemia, unspecified Status: Acute Assessment and Plan: Hypoglycemia, could be related to excess alcohol intake, decreased oral intake, patient on metoprolol which can be associated with hypoglycemia Change fluids to D5 half NS at 50 mL/hour Start diet Will try to wean dextrose infusion off -TSH within normal limits (4) Hypertension: Code(s): I10 - Essential (primary) hypertension Status: Acute Assessment and Plan: Continue metoprolol (5) Electrolyte imbalance: Code(s): E87.8 - Other disorders of electrolyte and fluid balance, not elsewhere classified Status: Acute Assessment and Plan: Potassium replacement ordered (6) Thrombocytopenia: Code(s): D69.6 - Thrombocytopenia, unspecified Status: Acute Assessment and Plan: Thrombocytopenia likely related to alcohol use disorder, possible liver dysfunction given elevated AST. -platelet count gradually improved and normalized (7) Fever: Code(s): R50.9 - Fever, unspecified Status: Acute Assessment and Plan: Patient had couple of episodes of low-grade fever on 05/10 patient was started on broad-spectrum antibiotics and cultures and other investigations ordered. Patient was also seen by ID Chest X suggested right basilar infiltrate suggestive of aspiration as patient was altered on presentation and later because of sedatives he received He has no signs meningismus and his WBC is normal Low procalcitonin level Continue Zosyn. DC vancomycin as cultures have been negative and MRSA screen is negative I do not think patient needs an LP Obtain CT chest noncontrast to better evaluate right basilar infiltrate (8) Aspiration pneumonia: Code(s): J69.0 - Pneumonitis due to inhalation of food and vomit Status: Acute Assessment and Plan: See above Plan DVT prophylaxis: SCDs, SC heparin Nutrition: Heart healthy diet Code Status: Full code Subjective Date/time seen: 05/13/25 Patient was transferred to IMU overnight after he was agitated and received several doses of sedatives and then became drowsy. There was concern for patient's airway protection hence he was transferred. This morning patient is drowsy but awake and answering questions and following commands. He states he feels fine and denies any complaints. He is AO x2. Afebrile Patient denies fever, chest pain, shortness of breath, cough, nausea vomiting, abdominal pain,, diarrhea, headache or constipation. All systems were reviewed and were negative Review of Systems Review of Systems: All systems reviewed & are unremarkable except as noted in HPI and below (HPI) Exam Narrative: General: Appears older than his age, currently in no acute distress HEENT:? Pupils equal and reactive, sclera is clear, moist oral mucosa Neck:? Supple Respiratory:? Clear to auscultation bilaterally, no wheezing, adequate air entry Cardiac:? S1-S2 is normal, regular rate and rhythm Abdomen:? Soft, nontender, nondistended, hypoactive bowel sounds Extremities:? No edema, palpable pedal pulses, has a callus on his right foot on the plantar aspect Neuro:? Patient is confused but awake, alert, able to answer questions. AO x2. He thought he was in [facility]. He follows commands with all 4 extremities. Very minimal tremor, no nuchal rigidity or signs of meningismus Skin:? No skin lesions noted Objective Data Vital Signs Vital Signs: Vital Signs - 24 hr 05/12/25 12:00 05/12/25 12:00 05/12/25 12:00 Temperature 36.8 C Pulse Rate 73 76 Pulse Rate [Apical Monitor] Pulse Rate [Bilateral Pedal (Dorsalis Pedis) Palpation] 76 Respiratory Rate 16 Blood Pressure 136/85 Pulse Oximetry 97 Oxygen Delivery 05/12/25 13:41 05/12/25 14:00 05/12/25 15:34 Temperature 36.8 C Pulse Rate 91 81 88 Pulse Rate [Apical Monitor] Pulse Rate [Bilateral Pedal (Dorsalis Pedis) Palpation] Respiratory Rate 16 Blood Pressure 135/84 Pulse Oximetry 100 Oxygen Delivery 05/12/25 16:00 05/12/25 16:00 05/12/25 18:00 Temperature Pulse Rate 88 80 Pulse Rate [Apical Monitor] Pulse Rate [Bilateral Pedal (Dorsalis Pedis) Palpation] 76 Respiratory Rate Blood Pressure 135/84 Pulse Oximetry Oxygen Delivery 05/12/25 20:00 05/12/25 20:00 05/12/25 20:14 Temperature 37.4 C Pulse Rate 87 87 Pulse Rate [Apical Monitor] Pulse Rate [Bilateral Pedal (Dorsalis Pedis) Palpation] 88 Respiratory Rate 16 Blood Pressure 151/114 H Pulse Oximetry 96 Oxygen Delivery 05/12/25 20:26 05/12/25 21:40 05/12/25 22:00 Temperature Pulse Rate 75 72 Pulse Rate [Apical Monitor] Pulse Rate [Bilateral Pedal (Dorsalis Pedis) Palpation] Respiratory Rate Blood Pressure Pulse Oximetry 92 Oxygen Delivery Room Air 05/13/25 00:00 05/13/25 00:00 05/13/25 00:00 Temperature 37.0 C Pulse Rate 66 89 Pulse Rate [Apical Monitor] Pulse Rate [Bilateral Pedal (Dorsalis Pedis) Palpation] 84 Respiratory Rate 16 Blood Pressure 167/86 H Pulse Oximetry 97 Oxygen Delivery 05/13/25 01:24 05/13/25 02:00 05/13/25 02:07 Temperature Pulse Rate 97 Pulse Rate [Apical Monitor] 93 Pulse Rate [Bilateral Pedal (Dorsalis Pedis) Palpation] 104 H Respiratory Rate Blood Pressure Pulse Oximetry Oxygen Delivery 05/13/25 03:45 05/13/25 04:00 05/13/25 04:00 Temperature Pulse Rate 85 Pulse Rate [Apical Monitor] 85 Pulse Rate [Bilateral Pedal (Dorsalis Pedis) Palpation] 86 Respiratory Rate Blood Pressure 143/85 H Pulse Oximetry Oxygen Delivery 05/13/25 04:00 05/13/25 04:00 05/13/25 06:00 Temperature 36.7 C Pulse Rate 85 85 71 Pulse Rate [Apical Monitor] Pulse Rate [Bilateral Pedal (Dorsalis Pedis) Palpation] Respiratory Rate 18 18 Blood Pressure Pulse Oximetry 87 L 96 Oxygen Delivery Room Air 05/13/25 06:18 05/13/25 09:56 Temperature Pulse Rate 70 80 Pulse Rate [Apical Monitor] Pulse Rate [Bilateral Pedal (Dorsalis Pedis) Palpation] Respiratory Rate Blood Pressure Pulse Oximetry Oxygen Delivery Intake/Output Intake/Output: Intake & Output 05/10/25 05/11/25 05/12/25 05/13/25 23:59 23:59 23:59 23:59 Intake Total 800 2030.8 4851.3 1350 Output Total 108 654 1392 600 Balance 400 1405.8 3626.3 750 Meds/Results Medications: Active Medications Generic Name Dose Route Start Last Admin Trade Name Freq PRN Reason Stop Dose Admin Acetaminophen 650 mg 05/10/25 11:47 05/10/25 23:51 Acetaminophen 650 Mg Suppository RECTAL 650 mg Q6H PRN Administration Mild Pain (1-3) or Fever Acetaminophen 650 mg 05/10/25 11:47 Acetaminophen 325 Mg Tablet PO Q4H PRN Mild Pain (1-3) or Fever Chlordiazepoxide HCl 50 mg 05/13/25 00:00 05/13/25 09:55 Chlordiazepoxide (*Crx) 25 Mg Capsule PO 50 mg Q6HR VIANEY Administration Dextrose 12.5 gm 05/04/25 15:47 05/04/25 20:03 Dextrose 50% 25 Gm/50 Ml Syringe IV PUSH 12.5 gm PRN PRN Administration Hypoglycemia Protocol Diazepam 10 mg 05/12/25 21:27 05/13/25 02:19 Diazepam Inj (*Crx) 10 Mg/2 Ml Syringe IV PUSH 10 mg Q5M PRN Administration CIWA > 15 Folic Acid 1 mg 05/12/25 09:00 05/13/25 09:59 Folic Acid 1 Mg/0.2 Ml Inj IV PUSH 1 mg QAM VIANEY Administration Glucagon 1 mg 05/04/25 15:47 Glucagon For Inj 1 Mg Vial IM PRN PRN Hypoglycemia Protocol Glucose 15 gm 05/04/25 15:47 Glucose Oral Gel 15 Gm Of Glucse In 37.5 Gm Tube PO PRN PRN Hypoglycemia Protocol Heparin Sodium (Porcine) 5,000 units 05/10/25 22:00 05/13/25 06:18 Heparin Sodium 5,000 Units/Ml Vial SUB-Q 5,000 units Q8HR VIANEY Administration Hydralazine HCl 10 mg 05/05/25 12:15 05/10/25 05:08 Hydralazine Hcl 20 Mg/Ml Vial IV PUSH 10 mg Q4H PRN Administration Blood Pressure - High Dextrose 1,000 mls @ 100 mls/hr 05/04/25 15:47 Dextrose 5% 1,000 Ml IVPB PRN PRN Hypoglycemia Protocol Piperacillin Sod/Tazobactam 50 mls @ 100 mls/hr 05/12/25 22:00 05/13/25 07:00 Sod 3.375 gm/ Sodium Chloride IVPB Infused Q8H VIANEY Infusion Magnesium Sulfate 2 gm in 50 mls @ 25 mls/hr 05/13/25 08:48 05/13/25 09:27 Magnesium Sulf 2 Gm/Water 50ml IVPB 05/13/25 10:47 25 mls/hr ONCE ONE Administration Ketorolac Tromethamine 15 mg 05/10/25 15:31 Ketorolac 15 Mg/Ml Vial (*Bkc) IV PUSH Q6H PRN Pain Rated 4-6 Lorazepam 2 mg 05/05/25 12:38 05/13/25 01:19 Lorazepam Inj (*Crx) 2 Mg/Ml Vial IV PUSH 2 mg Q2H PRN Administration ALCOHOL WITHDRAWAL Metoprolol Tartrate 50 mg 05/13/25 09:55 05/13/25 09:56 Metoprolol Tartrate 50 Mg Tab PO 50 mg DAILY VIANEY Administration Multivitamins/Calcium 1 tablet 05/13/25 09:55 05/13/25 09:56 Therapeutic Multivitamins/Minerals Tab (*Bkc) PO 1 tablet DAILY VIANEY Administration Nicotine 1 patch 05/08/25 19:00 05/13/25 08:49 Nicotine (*Pbkc) 21 Mg Patch TRANSDERM 1 patch DAILY VIANEY Administration Pantoprazole Sodium 40 mg 05/10/25 21:00 05/13/25 08:49 Pantoprazole Sodium Iv 40 Mg Vial IV PUSH 40 mg Q12HR VIANEY Administration Thiamine HCl 100 mg 05/12/25 09:00 05/13/25 08:49 Thiamine Hcl 200 Mg/2 Ml Vial IV PUSH 100 mg QAM VIANEY Administration Radiology Results: ITS Impressions Head CT 05/04/25 17:33 Impression: 1.No acute intracranial abnormality. Abdomen Ultrasound 05/09/25 11:01 IMPRESSION: 1. Diffuse hepatic steatosis. Abdomen X-Ray 05/10/25 14:00 IMPRESSION: 1. No radiopaque or abnormal foreign objects in the abdomen. EKG leads are noted. Cervical Spine X-Ray 05/10/25 14:00 Impression: No acute abnormality. Venous Doppler Study 05/10/25 17:25 Impression: Negative for DVT. Brain MRI 05/11/25 12:40 IMPRESSION: 1. Normal brain. No acute intracranial process. Chest X-Ray 05/13/25 08:08 IMPRESSION: 1. Mild bibasilar atelectasis. Labs Labs: Laboratory Results - last 24 hr 05/11/25 05/11/25 05/12/25 16:00 16:07 12:02 WBC RBC Hgb Hct MCV MCH MCHC RDW Plt Count MPV Immature Gran % (Auto) Neut % (Auto) Lymph % (Auto) [place] % (Auto) Eos % (Auto) Baso % (Auto) Lymph # (Auto) [place] # (Auto) Eos # (Auto) Baso # (Auto) Abs Immat Gran (auto) Absolute Neuts (auto) Absolute Nucleated RBC Band Neutrophils % Nucleated RBC % Platelet Estimate Polychromasia Anisocytosis Target Cells Ovalocytes Michel Cells Schistocytes Sodium Potassium Chloride Carbon Dioxide Anion Gap BUN Creatinine Estim Creat Clear Calc Estimated GFR Glucose POC Capillary Glucose 106 H Calcium Magnesium Total Bilirubin AST ALT Alkaline Phosphatase Total Protein Albumin Procalcitonin Ethyl Alcohol CMV DNA Quant PCR Negative CMV DNA PCR log IU/mL VZV IgM Antibody <0.91 05/12/25 05/12/25 05/12/25 18:06 20:51 23:54 WBC RBC Hgb Hct MCV MCH MCHC RDW Plt Count MPV Immature Gran % (Auto) Neut % (Auto) Lymph % (Auto) [place] % (Auto) Eos % (Auto) Baso % (Auto) Lymph # (Auto) [place] # (Auto) Eos # (Auto) Baso # (Auto) Abs Immat Gran (auto) Absolute Neuts (auto) Absolute Nucleated RBC Band Neutrophils % Nucleated RBC % Platelet Estimate Polychromasia Anisocytosis Target Cells Ovalocytes Michel Cells Schistocytes Sodium Potassium Chloride Carbon Dioxide Anion Gap BUN Creatinine Estim Creat Clear Calc Estimated GFR Glucose POC Capillary Glucose 118 H 104 Calcium Magnesium Total Bilirubin AST ALT Alkaline Phosphatase Total Protein Albumin Procalcitonin Ethyl Alcohol < 10 CMV DNA Quant PCR CMV DNA PCR log IU/mL VZV IgM Antibody 05/13/25 04:10 WBC 8.9 RBC 2.67 L Hgb 8.6 L Hct 27.8 L MCV 104.1 H MCH 32.2 MCHC 30.9 L RDW 23.7 H Plt Count 374 MPV 10.9 H Immature Gran % (Auto) 2.9 H Neut % (Auto) 66.0 Lymph % (Auto) 15.8 L [place] % (Auto) 11.6 H Eos % (Auto) 1.9 Baso % (Auto) 1.8 H Lymph # (Auto) 1.41 [place] # (Auto) 1.0 H Eos # (Auto) 0.2 Baso # (Auto) 0.2 H Abs Immat Gran (auto) 0.26 H Absolute Neuts (auto) 5.9 Absolute Nucleated RBC 0.030 H Band Neutrophils % Not Reportable Nucleated RBC % 0.3 H Platelet Estimate Adequate Polychromasia Occasional Anisocytosis 1+ Target Cells Occasional Ovalocytes Occasional [place] Cells Occasional Schistocytes None seen Sodium 139 Potassium 3.4 Chloride 113 H Carbon Dioxide 21 L Anion Gap 5 BUN 3 L Creatinine 0.78 Estim Creat Clear Calc 92 Estimated GFR > 60 Glucose 87 POC Capillary Glucose Calcium 8.5 Magnesium 1.5 L Total Bilirubin 0.4 AST 39 ALT 22 Alkaline Phosphatase 84 Total Protein 6.6 Albumin 3.1 L Procalcitonin 0.2 Ethyl Alcohol CMV DNA Quant PCR CMV DNA PCR log IU/mL VZV IgM Antibody
--- NOTE | 2025-05-13 10:55 | WPDINFPN2 ---
Progress Note: A&P Assessment and Plan (1) Fever: Code(s): R50.9 - Fever, unspecified Status: Acute Plan ASSESSMENT: 1. low grade temps on 05/06 followed by fevers on 05/10--05/11--now essentially resolved. ??+aspiration; MRSA nares neg 2. alcohol withdrawal with AUD 3. HTN HL RECOMMENDATIONS: -f/u on blood cxs 05/10--NGTD -zosyn only d/w pharmacy staff and nursing staff Pt was seen via video telehealth consultation with the assistance of staff. Chart, data and patient info reviewed. Patient was located at [facility] while I was in my [place] office. Subjective Date/time seen: 05/13/25 10:55 Interval history: no high temps no leukocytosis in ICU Exam Narrative: on room air, sedated RRR lungs clear abd soft NT no central lines Objective Data Vital Signs Vital Signs: Vital Signs - 24 hr 05/12/25 12:00 05/12/25 12:00 05/12/25 12:00 Temperature 98.2 F Pulse Rate 73 76 Pulse Rate [Apical Monitor] Pulse Rate [Bilateral Pedal (Dorsalis Pedis) Palpation] 76 Respiratory Rate 16 Blood Pressure 136/85 Pulse Oximetry 97 Oxygen Delivery 05/12/25 13:41 05/12/25 14:00 05/12/25 15:34 Temperature 98.2 F Pulse Rate 91 81 88 Pulse Rate [Apical Monitor] Pulse Rate [Bilateral Pedal (Dorsalis Pedis) Palpation] Respiratory Rate 16 Blood Pressure 135/84 Pulse Oximetry 100 Oxygen Delivery 05/12/25 16:00 05/12/25 16:00 05/12/25 18:00 Temperature Pulse Rate 88 80 Pulse Rate [Apical Monitor] Pulse Rate [Bilateral Pedal (Dorsalis Pedis) Palpation] 76 Respiratory Rate Blood Pressure 135/84 Pulse Oximetry Oxygen Delivery 05/12/25 20:00 05/12/25 20:00 05/12/25 20:14 Temperature 99.4 F Pulse Rate 87 87 Pulse Rate [Apical Monitor] Pulse Rate [Bilateral Pedal (Dorsalis Pedis) Palpation] 88 Respiratory Rate 16 Blood Pressure 151/114 H Pulse Oximetry 96 Oxygen Delivery 05/12/25 20:26 05/12/25 21:40 05/12/25 22:00 Temperature Pulse Rate 75 72 Pulse Rate [Apical Monitor] Pulse Rate [Bilateral Pedal (Dorsalis Pedis) Palpation] Respiratory Rate Blood Pressure Pulse Oximetry 92 Oxygen Delivery Room Air 05/13/25 00:00 05/13/25 00:00 05/13/25 00:00 Temperature 98.6 F Pulse Rate 66 89 Pulse Rate [Apical Monitor] Pulse Rate [Bilateral Pedal (Dorsalis Pedis) Palpation] 84 Respiratory Rate 16 Blood Pressure 167/86 H Pulse Oximetry 97 Oxygen Delivery 05/13/25 01:24 05/13/25 02:00 05/13/25 02:07 Temperature Pulse Rate 97 Pulse Rate [Apical Monitor] 93 Pulse Rate [Bilateral Pedal (Dorsalis Pedis) Palpation] 104 H Respiratory Rate Blood Pressure Pulse Oximetry Oxygen Delivery 05/13/25 03:45 05/13/25 04:00 05/13/25 04:00 Temperature Pulse Rate 85 Pulse Rate [Apical Monitor] 85 Pulse Rate [Bilateral Pedal (Dorsalis Pedis) Palpation] 86 Respiratory Rate Blood Pressure 143/85 H Pulse Oximetry Oxygen Delivery 05/13/25 04:00 05/13/25 04:00 05/13/25 06:00 Temperature 98.0 F Pulse Rate 85 85 71 Pulse Rate [Apical Monitor] Pulse Rate [Bilateral Pedal (Dorsalis Pedis) Palpation] Respiratory Rate 18 18 Blood Pressure Pulse Oximetry 87 L 96 Oxygen Delivery Room Air 05/13/25 06:18 05/13/25 09:56 Temperature Pulse Rate 70 80 Pulse Rate [Apical Monitor] Pulse Rate [Bilateral Pedal (Dorsalis Pedis) Palpation] Respiratory Rate Blood Pressure Pulse Oximetry Oxygen Delivery Intake/Output Intake/Output: Intake & Output 05/10/25 05/11/25 05/12/25 05/13/25 23:59 23:59 23:59 23:59 Intake Total 800 2030.8 4851.3 1350 Output Total 934 227 4656 600 Balance 400 1405.8 3626.3 750 Meds/Results Medications: Active Medications Generic Name Dose Route Start Last Admin Trade Name Freq PRN Reason Stop Dose Admin Acetaminophen 650 mg 05/10/25 11:47 05/10/25 23:51 Acetaminophen 650 Mg Suppository RECTAL 650 mg Q6H PRN Administration Mild Pain (1-3) or Fever Acetaminophen 650 mg 05/10/25 11:47 Acetaminophen 325 Mg Tablet PO Q4H PRN Mild Pain (1-3) or Fever Chlordiazepoxide HCl 50 mg 05/13/25 00:00 05/13/25 09:55 Chlordiazepoxide (*Crx) 25 Mg Capsule PO 50 mg Q6HR VIANEY Administration Dextrose 12.5 gm 05/04/25 15:47 05/04/25 20:03 Dextrose 50% 25 Gm/50 Ml Syringe IV PUSH 12.5 gm PRN PRN Administration Hypoglycemia Protocol Diazepam 10 mg 05/12/25 21:27 05/13/25 02:19 Diazepam Inj (*Crx) 10 Mg/2 Ml Syringe IV PUSH 10 mg Q5M PRN Administration CIWA > 15 Folic Acid 1 mg 05/12/25 09:00 05/13/25 09:59 Folic Acid 1 Mg/0.2 Ml Inj IV PUSH 1 mg QAM VIANEY Administration Glucagon 1 mg 05/04/25 15:47 Glucagon For Inj 1 Mg Vial IM PRN PRN Hypoglycemia Protocol Glucose 15 gm 05/04/25 15:47 Glucose Oral Gel 15 Gm Of Glucse In 37.5 Gm Tube PO PRN PRN Hypoglycemia Protocol Heparin Sodium (Porcine) 5,000 units 05/10/25 22:00 05/13/25 06:18 Heparin Sodium 5,000 Units/Ml Vial SUB-Q 5,000 units Q8HR VIANEY Administration Hydralazine HCl 10 mg 05/05/25 12:15 05/10/25 05:08 Hydralazine Hcl 20 Mg/Ml Vial IV PUSH 10 mg Q4H PRN Administration Blood Pressure - High Dextrose 1,000 mls @ 100 mls/hr 05/04/25 15:47 Dextrose 5% 1,000 Ml IVPB PRN PRN Hypoglycemia Protocol Piperacillin Sod/Tazobactam 50 mls @ 100 mls/hr 05/12/25 22:00 05/13/25 07:00 Sod 3.375 gm/ Sodium Chloride IVPB Infused Q8H VIANEY Infusion Dextrose/Sodium Chloride 1,000 mls @ 50 mls/hr 05/13/25 10:45 Dextrose 5% Sodium Chloride 0.45% IV CONT .Q20H VIANEY Ketorolac Tromethamine 15 mg 05/10/25 15:31 Ketorolac 15 Mg/Ml Vial (*Bkc) IV PUSH Q6H PRN Pain Rated 4-6 Lorazepam 2 mg 05/05/25 12:38 05/13/25 01:19 Lorazepam Inj (*Crx) 2 Mg/Ml Vial IV PUSH 2 mg Q2H PRN Administration ALCOHOL WITHDRAWAL Metoprolol Tartrate 50 mg 05/13/25 09:55 05/13/25 09:56 Metoprolol Tartrate 50 Mg Tab PO 50 mg DAILY VIANEY Administration Multivitamins/Calcium 1 tablet 05/13/25 09:55 05/13/25 09:56 Therapeutic Multivitamins/Minerals Tab (*Bkc) PO 1 tablet DAILY VIANEY Administration Nicotine 1 patch 05/08/25 19:00 05/13/25 08:49 Nicotine (*Pbkc) 21 Mg Patch TRANSDERM 1 patch DAILY VIANEY Administration Pantoprazole Sodium 40 mg 05/10/25 21:00 05/13/25 08:49 Pantoprazole Sodium Iv 40 Mg Vial IV PUSH 40 mg Q12HR VIANEY Administration Thiamine HCl 100 mg 05/12/25 09:00 12 08:49 Thiamine Hcl 200 Mg/2 Ml Vial IV PUSH 100 mg QAM VIANEY Administration Radiology Results: ITS Impressions Head CT 05/04/25 17:33 Impression: 1.No acute intracranial abnormality. Abdomen Ultrasound 05/09/25 11:01 IMPRESSION: 1. Diffuse hepatic steatosis. Abdomen X-Ray 05/10/25 14:00 IMPRESSION: 1. No radiopaque or abnormal foreign objects in the abdomen. EKG leads are noted. Cervical Spine X-Ray 05/10/25 14:00 Impression: No acute abnormality. Venous Doppler Study 05/10/25 17:25 Impression: Negative for DVT. Brain MRI 05/11/25 12:40 IMPRESSION: 1. Normal brain. No acute intracranial process. Chest X-Ray 05/13/25 08:08 IMPRESSION: 1. Mild bibasilar atelectasis. Labs Labs: Laboratory Results - last 24 hr 05/11/25 05/11/25 05/12/25 16:00 16:07 12:02 WBC RBC Hgb Hct MCV MCH MCHC RDW Plt Count MPV Immature Gran % (Auto) Neut % (Auto) Lymph % (Auto) [place] % (Auto) Eos % (Auto) Baso % (Auto) Lymph # (Auto) [place] # (Auto) Eos # (Auto) Baso # (Auto) Abs Immat Gran (auto) Absolute Neuts (auto) Absolute Nucleated RBC Band Neutrophils % Nucleated RBC % Platelet Estimate Polychromasia Anisocytosis Target Cells Ovalocytes Michel Cells Schistocytes Sodium Potassium Chloride Carbon Dioxide Anion Gap BUN Creatinine Estim Creat Clear Calc Estimated GFR Glucose POC Capillary Glucose 106 H Calcium Magnesium Total Bilirubin AST ALT Alkaline Phosphatase Total Protein Albumin Procalcitonin Ethyl Alcohol CMV DNA Quant PCR Negative CMV DNA PCR log IU/mL VZV IgM Antibody <0.91 05/12/25 05/12/25 05/12/25 18:06 20:51 23:54 WBC RBC Hgb Hct MCV MCH MCHC RDW Plt Count MPV Immature Gran % (Auto) Neut % (Auto) Lymph % (Auto) [place] % (Auto) Eos % (Auto) Baso % (Auto) Lymph # (Auto) [place] # (Auto) Eos # (Auto) Baso # (Auto) Abs Immat Gran (auto) Absolute Neuts (auto) Absolute Nucleated RBC Band Neutrophils % Nucleated RBC % Platelet Estimate Polychromasia Anisocytosis Target Cells Ovalocytes [place] Cells Schistocytes Sodium Potassium Chloride Carbon Dioxide Anion Gap BUN Creatinine Estim Creat Clear Calc Estimated GFR Glucose POC Capillary Glucose 118 H 104 Calcium Magnesium Total Bilirubin AST ALT Alkaline Phosphatase Total Protein Albumin Procalcitonin Ethyl Alcohol < 10 CMV DNA Quant PCR CMV DNA PCR log IU/mL VZV IgM Antibody 05/13/25 04:10 WBC 8.9 RBC 2.67 L Hgb 8.6 L Hct 27.8 L MCV 104.1 H MCH 32.2 MCHC 30.9 L RDW 23.7 H Plt Count 374 MPV 10.9 H Immature Gran % (Auto) 2.9 H Neut % (Auto) 66.0 Lymph % (Auto) 15.8 L [place] % (Auto) 11.6 H Eos % (Auto) 1.9 Baso % (Auto) 1.8 H Lymph # (Auto) 1.41 [place] # (Auto) 1.0 H Eos # (Auto) 0.2 Baso # (Auto) 0.2 H Abs Immat Gran (auto) 0.26 H Absolute Neuts (auto) 5.9 Absolute Nucleated RBC 0.030 H Band Neutrophils % Not Reportable Nucleated RBC % 0.3 H Platelet Estimate Adequate Polychromasia Occasional Anisocytosis 1+ Target Cells Occasional Ovalocytes Occasional Michel Cells Occasional Schistocytes None seen Sodium 139 Potassium 3.4 Chloride 113 H Carbon Dioxide 21 L Anion Gap 5 BUN 3 L Creatinine 0.78 Estim Creat Clear Calc 92 Estimated GFR > 60 Glucose 87 POC Capillary Glucose Calcium 8.5 Magnesium 1.5 L Total Bilirubin 0.4 AST 39 ALT 22 Alkaline Phosphatase 84 Total Protein 6.6 Albumin 3.1 L Procalcitonin 0.2 Ethyl Alcohol CMV DNA Quant PCR CMV DNA PCR log IU/mL VZV IgM Antibody
--- NOTE | 2025-05-13 11:06 | PCFNICU ---
ICU Rounding Note: Pt current nutrition is Regular. Last recorded weight is 73.5 kg. Bowel Motility: Last reported BM 05/04 Labs Reviewed: Mg 1.5, Alb 3.1, BUN 3, Hgb 8.6, Hct 27.8 Meds Noted: Thiamine, Folic Acid, MVI Skin: WNL Additional Notes: Patient remains on a regular diet. Tolerating PO > 75% of meals. Agree wtih diet orders. No further nutritional interventions needed at this time. Following daily in ICU rounds. Monitor diet orders, intake, tolerance, wt, labs. Follow up every 7 days.
[2025-05-13] MEDS: diazePAM INJ (*CRX) 10 MG/2 ML SYRINGE 5 MG IV PUSH ×2 (13:08→16:03)
[2025-05-13] MEDS: DEXTROSE 5%/0.45% SOD CHL 1,000 ML 50 ML IV CONT (15:04)
[2025-05-13] MEDS: OLANZapine 5 MG, WATER, STERILE FOR INJECTION 2.1 ML IM (17:01)
[2025-05-14] VITALS (19 sets, daily range): BP systolic 106–141; BP diastolic 67–97; PULSE 57–112; RESP 12–29; TEMP 36.6–37.1; O2SAT 89–100
[2025-05-14] MEDS: chlordiazePOXIDE (*CRX) 25 MG CAPSULE 50 MG PO ×2 (00:58→05:37)
[2025-05-14 03:48] LABS: Hematocrit 29.1 % (42.0-52.0); Hemoglobin 9.1 g/dL (14.0-18.0); Mean Corpuscular HGB Conc 31.3 g/dl (32-36); Mean Corpuscular Hemoglobin 32.0 pg (26-34); Mean Corpuscular Volume 102.5 fl (80-100); Platelet Count Result 435 k/mm3 (150-375); Red Blood Count 2.84 M/mm3 (4.6-6.20); White Blood Count 7.5 K/mm3 (4.5-10.0)
[2025-05-14 03:58] LABS: Alanine Aminotransferase 19 U/L (6-50); Albumin Level 3.0 g/dL (3.5-5.1); Alkaline Phosphatase 70 U/L (38-126); Anion Gap 2 mmol/L (4-12); Aspartate Amino Transferase 38 U/L (17-59); Bilirubin,Total 0.4 mg/dL (0.2-1.3); Blood Urea Nitrogen 3 mg/dL (9-20); Calcium 8.7 mg/dL (8.4-10.2); Carbon Dioxide 25 mmol/L (22-30); Chloride 113 mmol/L (98-107); Estimated CRCL calculation 78 ml/min; Estimated Glomerular Filt Rate > 60; Glucose 110 mg/dL (65-110); Magnesium 1.8 mg/dL (1.6-2.3); Potassium 3.5 mmol/L (3.4-5.0); Sodium 140 mmol/L (137-145); Total Protein 6.5 g/dL (6.3-8.2)
[2025-05-14] MEDS: PIPERACILLIN/TAZOBACTAM SOD 3.375 GM in SODIUM CHLORIDE 0.9% IV 50 ML 100 ML IVPB (05:37)
--- NOTE | 2025-05-14 07:30 | PC.NURSE ---
Updated daughter , Kalia, via telephone on patient status and plan of care.
[2025-05-14] MEDS: METOPROLOL TARTRATE 50 MG TAB PO (08:40)
[2025-05-14] MEDS: POTASSIUM BICARBONATE 25 MEQ TABEF 50 MEQ PO (08:40)
[2025-05-14] MEDS: NICOTINE (*PBKC) 21 MG PATCH 1 PATCH TRANSDERM (08:41)
[2025-05-14] MEDS: FUROSEMIDE INJ 40 MG/4 ML VIAL IV PUSH (08:41)
[2025-05-14] MEDS: FOLIC ACID 1 MG TABLET PO (08:41)
[2025-05-14] MEDS: MAGNESIUM SULF 2 GM/WATER 50ML 2 GM/50 ML BAG IVPB (08:41)
[2025-05-14] MEDS: THIAMINE HCL 100 MG TABLET PO (08:41)
[2025-05-14] MEDS: diazePAM (*CRX) 5 MG TABLET PO (08:41)
[2025-05-14] MEDS: THERAPEUTIC MULTIVITAMINS/MINERALS TAB (*BKC) 1 TABLET PO (08:41)
--- NOTE | 2025-05-14 09:09 | P.PNIM_ITS ---
Assessment and Plan Assessment and Plan (1) Alcohol withdrawal: Code(s): F10.939 - Alcohol use, unspecified with withdrawal, unspecified Status: Acute Assessment and Plan: History of alcohol use disorder, currently drinks 6 units daily but according to the ER physician note when she discussed with patient's daughter, the daughter stated that he drinks more more than what he stated. Continue scheduled Librium but decrease dose to 25 mg q.6 hours Continue p.r.n. Valium Continue Thiamine and folic acid. Change to p.o. (2) Alcohol use disorder: Code(s): F10.90 - Alcohol use, unspecified, uncomplicated Status: Acute Assessment and Plan: See above (3) Hypoglycemia: Code(s): E16.2 - Hypoglycemia, unspecified Status: Acute Assessment and Plan: Hypoglycemia, could be related to excess alcohol intake, decreased oral intake, patient on metoprolol which can be associated with hypoglycemia Improved. Tolerating diet. DC IV fluid -TSH within normal limits (4) Hypertension: Code(s): I10 - Essential (primary) hypertension Status: Acute Assessment and Plan: Continue metoprolol (5) Electrolyte imbalance: Code(s): E87.8 - Other disorders of electrolyte and fluid balance, not elsewhere classified Status: Acute Assessment and Plan: Potassium and magnesium replacement ordered (6) Thrombocytopenia: Code(s): D69.6 - Thrombocytopenia, unspecified Status: Acute Assessment and Plan: Thrombocytopenia likely related to alcohol use disorder, possible liver dysfunction given elevated AST. -platelet count gradually improved and normalized (7) Fever: Code(s): R50.9 - Fever, unspecified Status: Acute Assessment and Plan: Patient had couple of episodes of low-grade fever on 05/10 patient was started on broad-spectrum antibiotics and cultures and other investigations ordered. Patient was also seen by ID Chest X suggested right basilar infiltrate suggestive of aspiration as patient was altered on presentation and later because of sedatives he received He has no signs meningismus and his WBC is normal Low procalcitonin level CT chest IMPRESSION: Trace bilateral pleural effusions with subsegmental atelectatic changes left worse than right; air bronchograms in the left lung base may represent developing pneumonia or aspiration. Change Zosyn to p.o. Augmentin (8) Aspiration pneumonia: Code(s): J69.0 - Pneumonitis due to inhalation of food and vomit Status: Acute Assessment and Plan: See above (9) Pleural effusion: Code(s): J90 - Pleural effusion, not elsewhere classified Status: Acute Assessment and Plan: Lasix IV Plan DVT prophylaxis: SCDs, SC heparin Nutrition: Heart healthy diet Code Status: Full code Subjective Date/time seen: 05/14/25 No new complaints. Vital signs stable. Little drowsy this morning. Has been taking his medications regularly. Tolerating p.o. diet. Afebrile. Vital signs stable. All other systems were reviewed and were negative. Review of Systems Review of Systems: All systems reviewed & are unremarkable except as noted in HPI and below (HPI) Exam Narrative: General: Appears older than his age, currently in no acute distress HEENT:? Pupils equal and reactive, sclera is clear, moist oral mucosa Neck:? Supple Respiratory:? Clear to auscultation bilaterally, no wheezing, adequate air entry Cardiac:? S1-S2 is normal, regular rate and rhythm Abdomen:? Soft, nontender, nondistended, hypoactive bowel sounds Extremities:? No edema, palpable pedal pulses, has a callus on his right foot on the plantar aspect Neuro:? Patient is confused but awake, alert, able to answer questions. AO x2. He thought he was in [facility]. He follows commands with all 4 extremities. Very minimal tremor, no nuchal rigidity or signs of meningismus Skin:? No skin lesions noted Objective Data Vital Signs Vital Signs: Vital Signs - 24 hr 05/13/25 09:56 05/13/25 10:00 05/13/25 12:00 Temperature Pulse Rate 80 91 Pulse Rate [Apical Monitor] Pulse Rate [Bilateral Pedal (Dorsalis Pedis) Palpation] Respiratory Rate Blood Pressure Pulse Oximetry Oxygen Delivery Room Air 05/13/25 12:00 05/13/25 12:00 05/13/25 14:00 Temperature 36.6 C Pulse Rate 71 72 63 Pulse Rate [Apical Monitor] Pulse Rate [Bilateral Pedal (Dorsalis Pedis) Palpation] Respiratory Rate 19 Blood Pressure 136/94 H Pulse Oximetry 96 Oxygen Delivery 05/13/25 16:00 05/13/25 16:00 05/13/25 16:59 Temperature Pulse Rate 73 98 Pulse Rate [Apical Monitor] Pulse Rate [Bilateral Pedal (Dorsalis Pedis) Palpation] Respiratory Rate 25 H Blood Pressure Pulse Oximetry 95 Oxygen Delivery Room Air 05/13/25 17:14 05/13/25 17:29 05/13/25 17:59 Temperature Pulse Rate 87 73 81 Pulse Rate [Apical Monitor] Pulse Rate [Bilateral Pedal (Dorsalis Pedis) Palpation] Respiratory Rate 16 14 18 Blood Pressure 154/91 H 136/91 H 136/94 H Pulse Oximetry 96 93 93 Oxygen Delivery 05/13/25 18:00 05/13/25 18:45 05/13/25 18:59 Temperature 36.6 C Pulse Rate 78 71 82 Pulse Rate [Apical Monitor] Pulse Rate [Bilateral Pedal (Dorsalis Pedis) Palpation] Respiratory Rate 15 17 Blood Pressure 146/89 H 151/87 H Pulse Oximetry 95 93 Oxygen Delivery 05/13/25 20:00 05/13/25 20:00 05/13/25 20:00 Temperature 36.9 C Pulse Rate 74 80 Pulse Rate [Apical Monitor] 76 Pulse Rate [Bilateral Pedal (Dorsalis Pedis) Palpation] 78 Respiratory Rate 22 H Blood Pressure 128/69 Pulse Oximetry 94 Oxygen Delivery 05/13/25 20:00 05/13/25 21:00 05/13/25 22:00 Temperature Pulse Rate 78 78 74 Pulse Rate [Apical Monitor] Pulse Rate [Bilateral Pedal (Dorsalis Pedis) Palpation] Respiratory Rate 13 13 Blood Pressure 140/85 Pulse Oximetry 99 93 Oxygen Delivery Room Air 05/14/25 00:00 05/14/25 00:00 05/14/25 00:00 Temperature 36.6 C Pulse Rate 76 76 63 Pulse Rate [Apical Monitor] Pulse Rate [Bilateral Pedal (Dorsalis Pedis) Palpation] Respiratory Rate 13 18 Blood Pressure 135/67 Pulse Oximetry 99 92 Oxygen Delivery Room Air 05/14/25 02:00 05/14/25 04:00 05/14/25 04:00 Temperature 37.1 C Pulse Rate 61 57 L 57 L Pulse Rate [Apical Monitor] Pulse Rate [Bilateral Pedal (Dorsalis Pedis) Palpation] Respiratory Rate 12 13 Blood Pressure 130/70 Pulse Oximetry 92 99 Oxygen Delivery Room Air 05/14/25 04:00 05/14/25 06:00 05/14/25 08:00 Temperature Pulse Rate 59 L 73 61 Pulse Rate [Apical Monitor] Pulse Rate [Bilateral Pedal (Dorsalis Pedis) Palpation] Respiratory Rate 29 H Blood Pressure 137/76 Pulse Oximetry 92 Oxygen Delivery 05/14/25 08:40 Temperature Pulse Rate 82 Pulse Rate [Apical Monitor] Pulse Rate [Bilateral Pedal (Dorsalis Pedis) Palpation] Respiratory Rate Blood Pressure Pulse Oximetry Oxygen Delivery Intake/Output Intake/Output: Intake & Output 05/11/25 05/12/25 05/13/25 05/14/25 23:59 23:59 23:59 23:59 Intake Total 2030.8 4851.3 2680 540 Output Total 625 1225 2400 375 Balance 1405.8 3626.3 280 165 Meds/Results Medications: Active Medications Generic Name Dose Route Start Last Admin Trade Name Freq PRN Reason Stop Dose Admin Acetaminophen 650 mg 05/10/25 11:47 Acetaminophen 325 Mg Tablet PO Q4H PRN Mild Pain (1-3) or Fever Amoxicillin/Clavulanate Potassium 1 tablet 05/14/25 09:00 05/14/25 08:40 Amoxicillin/Clavulanate K 875-125 Mg Tab PO 1 tablet Q12HR VIANEY Administration Chlordiazepoxide HCl 25 mg 05/14/25 12:00 Chlordiazepoxide (*Crx) 25 Mg Capsule PO Q6HR VIANEY Dextrose 12.5 gm 05/04/25 15:47 05/04/25 20:03 Dextrose 50% 25 Gm/50 Ml Syringe IV PUSH 12.5 gm PRN PRN Administration Hypoglycemia Protocol Diazepam 5 mg 05/13/25 10:56 05/14/25 08:41 Diazepam (*Crx) 5 Mg Tablet PO 5 mg Q2H PRN Administration CIWA score 8-10 Diazepam 10 mg 05/13/25 10:57 Diazepam Inj (*Crx) 10 Mg/2 Ml Syringe IV PUSH Q1H PRN CIWA > 15 Diazepam 5 mg 05/13/25 10:57 05/13/25 16:03 Diazepam Inj (*Crx) 10 Mg/2 Ml Syringe IV PUSH 5 mg Q1H PRN Administration CIWA score 11-14 Folic Acid 1 mg 05/14/25 09:00 05/14/25 08:41 Folic Acid 1 Mg Tablet PO 1 mg DAILY VIANEY Administration Glucagon 1 mg 05/04/25 15:47 Glucagon For Inj 1 Mg Vial IM PRN PRN Hypoglycemia Protocol Glucose 15 gm 05/04/25 15:47 Glucose Oral Gel 15 Gm Of Glucse In 37.5 Gm Tube PO PRN PRN Hypoglycemia Protocol Heparin Sodium (Porcine) 5,000 units 05/10/25 22:00 05/14/25 05:37 Heparin Sodium 5,000 Units/Ml Vial SUB-Q 5,000 units Q8HR VIANEY Administration Hydralazine HCl 10 mg 05/05/25 12:15 05/10/25 05:08 Hydralazine Hcl 20 Mg/Ml Vial IV PUSH 10 mg Q4H PRN Administration Blood Pressure - High Dextrose 1,000 mls @ 100 mls/hr 05/04/25 15:47 Dextrose 5% 1,000 Ml IVPB PRN PRN Hypoglycemia Protocol Magnesium Sulfate 2 gm in 50 mls @ 25 mls/hr 05/14/25 08:04 05/14/25 08:41 Magnesium Sulf 2 Gm/Water 50ml IVPB 05/14/25 10:03 25 mls/hr ONCE ONE Administration Metoprolol Tartrate 50 mg 05/13/25 09:55 05/14/25 08:40 Metoprolol Tartrate 50 Mg Tab PO 50 mg DAILY VIANEY Administration Multivitamins/Calcium 1 tablet 05/13/25 09:55 05/14/25 08:41 Therapeutic Multivitamins/Minerals Tab (*Bkc) PO 1 tablet DAILY VIANEY Administration Nicotine 1 patch 05/08/25 19:00 05/14/25 08:41 Nicotine (*Pbkc) 21 Mg Patch TRANSDERM 1 patch DAILY VIANEY Administration Thiamine HCl 100 mg 05/14/25 09:00 05/14/25 08:41 Thiamine Hcl 100 Mg Tablet PO 100 mg QAM VIANEY Administration Radiology Results: ITS Impressions Head CT 05/04/25 17:33 Impression: 1.No acute intracranial abnormality. Abdomen Ultrasound 05/09/25 11:01 IMPRESSION: 1. Diffuse hepatic steatosis. Abdomen X-Ray 05/10/25 14:00 IMPRESSION: 1. No radiopaque or abnormal foreign objects in the abdomen. EKG leads are noted. Cervical Spine X-Ray 05/10/25 14:00 Impression: No acute abnormality. Venous Doppler Study 05/10/25 17:25 Impression: Negative for DVT. Brain MRI 05/11/25 12:40 IMPRESSION: 1. Normal brain. No acute intracranial process. Chest X-Ray 05/13/25 08:08 IMPRESSION: 1. Mild bibasilar atelectasis. Chest CT 05/13/25 12:59 IMPRESSION: Trace bilateral pleural effusions with subsegmental atelectatic changes left worse than right; air bronchograms in the left lung base may represent developing pneumonia or aspiration. Labs Labs: Laboratory Results - last 24 hr 05/13/25 05/13/25 05/14/25 04:10 18:46 00:56 WBC RBC Hgb Hct MCV MCH MCHC RDW Plt Count MPV Sodium Potassium Chloride Carbon Dioxide Anion Gap BUN Creatinine Estim Creat Clear Calc Estimated GFR Glucose POC Capillary Glucose 95 99 Calcium Phosphorus Magnesium Total Bilirubin AST ALT Alkaline Phosphatase Total Protein Albumin Procalcitonin 0.2 05/14/25 03:42 WBC 7.5 RBC 2.84 L Hgb 9.1 L Hct 29.1 L MCV 102.5 H MCH 32.0 MCHC 31.3 L RDW 23.5 H Plt Count 435 H MPV 10.9 H Sodium 140 Potassium 3.5 Chloride 113 H Carbon Dioxide 25 Anion Gap 2 L BUN 3 L Creatinine 0.93 Estim Creat Clear Calc 78 Estimated GFR > 60 Glucose 110 POC Capillary Glucose Calcium 8.7 Phosphorus 4.3 Magnesium 1.8 Total Bilirubin 0.4 AST 38 ALT 19 Alkaline Phosphatase 70 Total Protein 6.5 Albumin 3.0 L Procalcitonin
[2025-05-14 10:08] LABS: JC Virus DNA,PCR (Whole Blood) Negative (Negative)
--- NOTE | 2025-05-14 10:39 | WPDINFPN2 ---
Progress Note: A&P Assessment and Plan (1) Fever: Code(s): R50.9 - Fever, unspecified Status: Acute Plan ASSESSMENT: 1. low grade temps on 05/06 followed by fevers on 05/10--05/11--fevers now resolved. ??+aspiration; MRSA nares neg 2. alcohol withdrawal with AUD 3. HTN HL RECOMMENDATIONS: -f/u on blood cxs 05/10--NGTD -Augmentin through 05/16 then stop and monitor off abx d/w pharmacy staff Pt was seen via video telehealth consultation with the assistance of staff. Chart, data and patient info reviewed. Patient was located at [facility] while I was in my [place] office. Subjective Date/time seen: 05/14/25 10:39 Interval history: Remains in ICU no fevers no leukocytosis Exam Narrative: up in chair on room air, non-toxic, NAD Lungs with decreased BS Objective Data Vital Signs Vital Signs: Vital Signs - 24 hr 05/13/25 12:00 05/13/25 12:00 05/13/25 12:00 Temperature 97.9 F Pulse Rate 71 72 Pulse Rate [Apical Monitor] Pulse Rate [Bilateral Pedal (Dorsalis Pedis) Palpation] Respiratory Rate 19 Blood Pressure 136/94 H Pulse Oximetry 96 Oxygen Delivery Room Air 05/13/25 14:00 05/13/25 16:00 05/13/25 16:00 Temperature Pulse Rate 63 73 Pulse Rate [Apical Monitor] Pulse Rate [Bilateral Pedal (Dorsalis Pedis) Palpation] Respiratory Rate Blood Pressure Pulse Oximetry Oxygen Delivery Room Air 05/13/25 16:59 05/13/25 17:14 05/13/25 17:29 Temperature Pulse Rate 98 87 73 Pulse Rate [Apical Monitor] Pulse Rate [Bilateral Pedal (Dorsalis Pedis) Palpation] Respiratory Rate 25 H 16 14 Blood Pressure 154/91 H 136/91 H Pulse Oximetry 95 96 93 Oxygen Delivery 05/13/25 17:59 05/13/25 18:00 05/13/25 18:45 Temperature 98 F Pulse Rate 81 78 71 Pulse Rate [Apical Monitor] Pulse Rate [Bilateral Pedal (Dorsalis Pedis) Palpation] Respiratory Rate 18 15 Blood Pressure 136/94 H 146/89 H Pulse Oximetry 93 95 Oxygen Delivery 05/13/25 18:59 05/13/25 20:00 05/13/25 20:00 Temperature 98.4 F Pulse Rate 82 74 Pulse Rate [Apical Monitor] 76 Pulse Rate [Bilateral Pedal (Dorsalis Pedis) Palpation] 78 Respiratory Rate 17 22 H Blood Pressure 151/87 H 128/69 Pulse Oximetry 93 94 Oxygen Delivery 05/13/25 20:00 05/13/25 20:00 05/13/25 21:00 Temperature Pulse Rate 80 78 78 Pulse Rate [Apical Monitor] Pulse Rate [Bilateral Pedal (Dorsalis Pedis) Palpation] Respiratory Rate 13 13 Blood Pressure 140/85 Pulse Oximetry 99 93 Oxygen Delivery Room Air 05/13/25 22:00 05/14/25 00:00 05/14/25 00:00 Temperature Pulse Rate 74 76 76 Pulse Rate [Apical Monitor] Pulse Rate [Bilateral Pedal (Dorsalis Pedis) Palpation] Respiratory Rate 13 Blood Pressure Pulse Oximetry 99 Oxygen Delivery Room Air 05/14/25 00:00 05/14/25 02:00 05/14/25 04:00 Temperature 97.9 F 98.8 F Pulse Rate 63 61 57 L Pulse Rate [Apical Monitor] Pulse Rate [Bilateral Pedal (Dorsalis Pedis) Palpation] Respiratory Rate 18 12 Blood Pressure 135/67 130/70 Pulse Oximetry 92 92 Oxygen Delivery 05/14/25 04:00 05/14/25 04:00 05/14/25 06:00 Temperature Pulse Rate 57 L 59 L 73 Pulse Rate [Apical Monitor] Pulse Rate [Bilateral Pedal (Dorsalis Pedis) Palpation] Respiratory Rate 13 Blood Pressure Pulse Oximetry 99 Oxygen Delivery Room Air 05/14/25 08:00 05/14/25 08:00 05/14/25 08:00 Temperature Pulse Rate 61 60 Pulse Rate [Apical Monitor] 60 Pulse Rate [Bilateral Pedal (Dorsalis Pedis) Palpation] Respiratory Rate 29 H 25 H Blood Pressure 137/76 137/76 Pulse Oximetry 92 92 Oxygen Delivery Room Air 05/14/25 08:00 05/14/25 08:40 05/14/25 10:00 Temperature Pulse Rate 60 82 62 Pulse Rate [Apical Monitor] Pulse Rate [Bilateral Pedal (Dorsalis Pedis) Palpation] Respiratory Rate Blood Pressure Pulse Oximetry Oxygen Delivery Intake/Output Intake/Output: Intake & Output 05/11/25 05/12/25 05/13/25 05/14/25 23:59 23:59 23:59 23:59 Intake Total 2030.8 4851.3 2680 540 Output Total 625 1225 2400 375 Balance 1405.8 3626.3 280 165 Meds/Results Medications: Active Medications Generic Name Dose Route Start Last Admin Trade Name Freq PRN Reason Stop Dose Admin Acetaminophen 650 mg 05/10/25 11:47 Acetaminophen 325 Mg Tablet PO Q4H PRN Mild Pain (1-3) or Fever Amoxicillin/Clavulanate Potassium 1 tablet 05/14/25 09:00 05/14/25 08:40 Amoxicillin/Clavulanate K 875-125 Mg Tab PO 1 tablet Q12HR VIANEY Administration Chlordiazepoxide HCl 25 mg 05/14/25 12:00 Chlordiazepoxide (*Crx) 25 Mg Capsule PO Q6HR VIANEY Dextrose 12.5 gm 05/04/25 15:47 05/04/25 20:03 Dextrose 50% 25 Gm/50 Ml Syringe IV PUSH 12.5 gm PRN PRN Administration Hypoglycemia Protocol Diazepam 5 mg 05/13/25 10:56 05/14/25 08:41 Diazepam (*Crx) 5 Mg Tablet PO 5 mg Q2H PRN Administration CIWA score 8-10 Diazepam 10 mg 05/13/25 10:57 Diazepam Inj (*Crx) 10 Mg/2 Ml Syringe IV PUSH Q1H PRN CIWA > 15 Diazepam 5 mg 05/13/25 10:57 05/13/25 16:03 Diazepam Inj (*Crx) 10 Mg/2 Ml Syringe IV PUSH 5 mg Q1H PRN Administration CIWA score 11-14 Folic Acid 1 mg 05/14/25 09:00 05/14/25 08:41 Folic Acid 1 Mg Tablet PO 1 mg DAILY VIANEY Administration Glucagon 1 mg 05/04/25 15:47 Glucagon For Inj 1 Mg Vial IM PRN PRN Hypoglycemia Protocol Glucose 15 gm 05/04/25 15:47 Glucose Oral Gel 15 Gm Of Glucse In 37.5 Gm Tube PO PRN PRN Hypoglycemia Protocol Heparin Sodium (Porcine) 5,000 units 05/10/25 22:00 05/14/25 05:37 Heparin Sodium 5,000 Units/Ml Vial SUB-Q 5,000 units Q8HR VIANEY Administration Hydralazine HCl 10 mg 05/05/25 12:15 05/10/25 05:08 Hydralazine Hcl 20 Mg/Ml Vial IV PUSH 10 mg Q4H PRN Administration Blood Pressure - High Dextrose 1,000 mls @ 100 mls/hr 05/04/25 15:47 Dextrose 5% 1,000 Ml IVPB PRN PRN Hypoglycemia Protocol Metoprolol Tartrate 50 mg 05/13/25 09:55 05/14/25 08:40 Metoprolol Tartrate 50 Mg Tab PO 50 mg DAILY VIANEY Administration Multivitamins/Calcium 1 tablet 05/13/25 09:55 05/14/25 08:41 Therapeutic Multivitamins/Minerals Tab (*Bkc) PO 1 tablet DAILY VIANEY Administration Nicotine 1 patch 05/08/25 19:00 05/14/25 08:41 Nicotine (*Pbkc) 21 Mg Patch TRANSDERM 1 patch DAILY VIANEY Administration Thiamine HCl 100 mg 05/14/25 09:00 05/14/25 08:41 Thiamine Hcl 100 Mg Tablet PO 100 mg QAM VIANEY Administration Radiology Results: ITS Impressions Head CT 05/04/25 17:33 Impression: 1.No acute intracranial abnormality. Abdomen Ultrasound 05/09/25 11:01 IMPRESSION: 1. Diffuse hepatic steatosis. Abdomen X-Ray 05/10/25 14:00 IMPRESSION: 1. No radiopaque or abnormal foreign objects in the abdomen. EKG leads are noted. Cervical Spine X-Ray 05/10/25 14:00 Impression: No acute abnormality. Venous Doppler Study 05/10/25 17:25 Impression: Negative for DVT. Brain MRI 05/11/25 12:40 IMPRESSION: 1. Normal brain. No acute intracranial process. Chest X-Ray 05/13/25 08:08 IMPRESSION: 1. Mild bibasilar atelectasis. Chest CT 05/13/25 12:59 IMPRESSION: Trace bilateral pleural effusions with subsegmental atelectatic changes left worse than right; air bronchograms in the left lung base may represent developing pneumonia or aspiration. Labs Labs: Laboratory Results - last 24 hr 05/11/25 05/13/25 05/14/25 16:00 18:46 00:56 WBC RBC Hgb Hct MCV MCH MCHC RDW Plt Count MPV Sodium Potassium Chloride Carbon Dioxide Anion Gap BUN Creatinine Estim Creat Clear Calc Estimated GFR Glucose POC Capillary Glucose 95 99 Calcium Phosphorus Magnesium Total Bilirubin AST ALT Alkaline Phosphatase Total Protein Albumin ABDULAZIZ Virus DNA (PCR) Negative 05/14/25 03:42 WBC 7.5 RBC 2.84 L Hgb 9.1 L Hct 29.1 L MCV 102.5 H MCH 32.0 MCHC 31.3 L RDW 23.5 H Plt Count 435 H MPV 10.9 H Sodium 140 Potassium 3.5 Chloride 113 H Carbon Dioxide 25 Anion Gap 2 L BUN 3 L Creatinine 0.93 Estim Creat Clear Calc 78 Estimated GFR > 60 Glucose 110 POC Capillary Glucose Calcium 8.7 Phosphorus 4.3 Magnesium 1.8 Total Bilirubin 0.4 AST 38 ALT 19 Alkaline Phosphatase 70 Total Protein 6.5 Albumin 3.0 L ABDULAZIZ Virus DNA (PCR)
[2025-05-14] MEDS: chlordiazePOXIDE (*CRX) 25 MG CAPSULE PO ×3 (11:29→23:00)
--- NOTE | 2025-05-14 15:39 | PC.NURSE ---
Bed alarm sounded in patient room. Upon this RN arrival, the patient sitter stated he was insisting on leaving tonight. At this time the patient was out of bed and attempting to dress himself in order to catch the bus to [place] When asked why he was trying to leave at this time after having a good day of progress in his care. He proceeded to list battery acid, red pedro, among other indiscernible things and to shake the bag and place it under the sink. At this time, security was at the bedside to assist in safely getting the patient back into bed and to stop dressing in his soiled personal clothing. He proceeded to state profanities at female staff present in the room. After assessing patient, this RN treated patient with ordered CIWA scale PRN medication (see mar) He then proceeded to verbally berate staff present and attempted to get out of bed again despite redirection. One time dose of additional 10 mg of Valium obtained. (see orders, mar, and physician communication) Patient is no longer attempting to exit bed or leave hospital but continues to insult bedside sitter and claims that we are trying to kill him. Bed alarm active. See Chemical restraint documentation for further assessments.
[2025-05-14] MEDS: diazePAM INJ (*CRX) 10 MG/2 ML SYRINGE IV PUSH ×2 (15:42→15:53)
[2025-05-14 16:08] LABS: West Nile Virus, IgG Negative (Negative); West Nile Virus, IgM Negative (Negative)
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
[2025-05-15] VITALS (7 sets, daily range): BP systolic 117–133; BP diastolic 79–87; PULSE 67–100; RESP 14–20; TEMP 36.5–36.6; O2SAT 94–100
[2025-05-15 07:59] LABS: Hematocrit 28.2 % (42.0-52.0); Hemoglobin 8.8 g/dL (14.0-18.0); Mean Corpuscular HGB Conc 31.2 g/dl (32-36); Mean Corpuscular Hemoglobin 32.5 pg (26-34); Mean Corpuscular Volume 104.1 fl (80-100); Platelet Count Result 488 k/mm3 (150-375); Red Blood Count 2.71 M/mm3 (4.6-6.20); White Blood Count 7.3 K/mm3 (4.5-10.0)
[2025-05-15] MEDS: chlordiazePOXIDE (*CRX) 25 MG CAPSULE PO ×4 (08:05→23:15)
[2025-05-15] MEDS: THIAMINE HCL 100 MG TABLET PO (08:05)
[2025-05-15] MEDS: NICOTINE (*PBKC) 21 MG PATCH 1 PATCH TRANSDERM (08:05)
[2025-05-15] MEDS: THERAPEUTIC MULTIVITAMINS/MINERALS TAB (*BKC) 1 TABLET PO (08:05)
[2025-05-15] MEDS: FOLIC ACID 1 MG TABLET PO (08:05)
[2025-05-15] MEDS: METOPROLOL TARTRATE 50 MG TAB PO (08:05)
[2025-05-15 08:18] LABS: Alanine Aminotransferase 16 U/L (6-50); Albumin Level 2.9 g/dL (3.5-5.1); Alkaline Phosphatase 71 U/L (38-126); Anion Gap 3 mmol/L (4-12); Aspartate Amino Transferase 28 U/L (17-59); Bilirubin,Total 0.3 mg/dL (0.2-1.3); Blood Urea Nitrogen 8 mg/dL (9-20); Calcium 8.9 mg/dL (8.4-10.2); Carbon Dioxide 27 mmol/L (22-30); Chloride 109 mmol/L (98-107); Estimated CRCL calculation 68 ml/min; Estimated Glomerular Filt Rate > 60; Glucose 104 mg/dL (65-110); Magnesium 1.8 mg/dL (1.6-2.3); Potassium 3.6 mmol/L (3.4-5.0); Sodium 139 mmol/L (137-145); Total Protein 6.4 g/dL (6.3-8.2)
--- NOTE | 2025-05-15 08:22 | PC.NURSE ---
This patient, Luigi Beltran, was transferred to room 333 on 05/15/25 at 0822. Personal belongings sent with patient. Report given to YAIR Lynch . Appropriate documentation sent with patient.
--- NOTE | 2025-05-15 08:27 | PM.IMPN2 ---
Assessment and Plan Assessment and Plan (1) Alcohol withdrawal: Code(s): F10.939 - Alcohol use, unspecified with withdrawal, unspecified Status: Acute Assessment and Plan: History of alcohol use disorder, currently drinks 6 units daily but according to the ER physician note when she discussed with patient's daughter, the daughter stated that he drinks more more than what he stated. Continue scheduled Librium but decrease dose to 25 mg q.6 hours Continue p.r.n. Valium Continue p.o. Thiamine and folic acid. (2) Alcohol use disorder: Code(s): F10.90 - Alcohol use, unspecified, uncomplicated Status: Acute Assessment and Plan: See above (3) Hypoglycemia: Code(s): E16.2 - Hypoglycemia, unspecified Status: Acute Assessment and Plan: Hypoglycemia, could be related to excess alcohol intake, decreased oral intake, patient on metoprolol which can be associated with hypoglycemia Improved. Tolerating diet. DC IV fluid -TSH within normal limits (4) Hypertension: Code(s): I10 - Essential (primary) hypertension Status: Acute Assessment and Plan: Continue metoprolol (5) Electrolyte imbalance: Code(s): E87.8 - Other disorders of electrolyte and fluid balance, not elsewhere classified Status: Acute Assessment and Plan: Potassium replacement ordered (6) Thrombocytopenia: Code(s): D69.6 - Thrombocytopenia, unspecified Status: Acute Assessment and Plan: Thrombocytopenia likely related to alcohol use disorder, possible liver dysfunction given elevated AST. -platelet count gradually improved and normalized (7) Fever: Code(s): R50.9 - Fever, unspecified Status: Acute Assessment and Plan: Patient had couple of episodes of low-grade fever on 05/10 patient was started on broad-spectrum antibiotics and cultures and other investigations ordered. Patient was also seen by ID Chest X suggested right basilar infiltrate suggestive of aspiration as patient was altered on presentation and later because of sedatives he received He has no signs meningismus and his WBC is normal Low procalcitonin level CT chest IMPRESSION: Trace bilateral pleural effusions with subsegmental atelectatic changes left worse than right; air bronchograms in the left lung base may represent developing pneumonia or aspiration. Continue p.o. Augmentin (8) Aspiration pneumonia: Code(s): J69.0 - Pneumonitis due to inhalation of food and vomit Status: Acute Assessment and Plan: See above (9) Pleural effusion: Code(s): J90 - Pleural effusion, not elsewhere classified Status: Acute Assessment and Plan: Received Lasix IV Plan DVT prophylaxis: SCDs, SC heparin Nutrition: Heart healthy diet Code Status: Full code Subjective Date/time seen: 05/15/25 Patient states that he feels better and would like to be discharged. He denies any pain or shortness of breath. Patient denies fever, chest pain, cough, nausea vomiting, abdominal pain, diarrhea, headache or constipation. All other systems were reviewed negative. Yesterday evening patient got agitated after talking to the bedside sitter had to be given a additional dose of Valium. Exam Narrative: General: Appears older than his age, currently in no acute distress HEENT:? Pupils equal and reactive, sclera is clear, moist oral mucosa Neck:? Supple Respiratory:? Clear to auscultation bilaterally, no wheezing, adequate air entry Cardiac:? S1-S2 is normal, regular rate and rhythm Abdomen:? Soft, nontender, nondistended, hypoactive bowel sounds Extremities:? No edema, palpable pedal pulses, has a callus on his right foot on the plantar aspect Neuro:? Patient is confused but awake, alert, able to answer questions. AO x2. He thought he was in [facility]. He follows commands with all 4 extremities. Very minimal tremor, no nuchal rigidity or signs of meningismus. Appears weak and unsteady Skin:? No skin lesions noted Objective Data Vital Signs Vital Signs: Vital Signs - 24 hr 05/14/25 08:40 05/14/25 10:00 05/14/25 15:30 Temperature Pulse Rate 82 62 Pulse Rate [Apical Monitor] Respiratory Rate Blood Pressure 140/93 H Pulse Oximetry Oxygen Delivery 05/14/25 15:54 05/14/25 16:00 05/14/25 16:09 Temperature 36.8 C Pulse Rate 80 86 Pulse Rate [Apical Monitor] Respiratory Rate 25 H Blood Pressure 141/97 H 140/93 H Pulse Oximetry 100 92 Oxygen Delivery 05/14/25 16:17 05/14/25 16:24 05/14/25 16:39 Temperature Pulse Rate 74 77 Pulse Rate [Apical Monitor] Respiratory Rate 16 18 Blood Pressure 140/93 H Pulse Oximetry 90 89 L 95 Oxygen Delivery 05/14/25 16:54 05/14/25 17:54 05/14/25 17:56 Temperature Pulse Rate 76 91 92 Pulse Rate [Apical Monitor] Respiratory Rate 12 16 Blood Pressure 137/84 131/97 H 131/97 H Pulse Oximetry 93 96 97 Oxygen Delivery 05/14/25 18:54 05/14/25 20:00 05/14/25 20:00 Temperature 36.6 C Pulse Rate 89 112 H Pulse Rate [Apical Monitor] Respiratory Rate 17 16 Blood Pressure 114/82 106/80 Pulse Oximetry 95 99 Oxygen Delivery Room Air 05/15/25 08:00 Temperature Pulse Rate Pulse Rate [Apical Monitor] 72 Respiratory Rate Blood Pressure 133/87 Pulse Oximetry Oxygen Delivery Intake/Output Intake/Output: Intake & Output 05/12/25 05/13/25 05/14/25 05/15/25 23:59 23:59 23:59 23:59 Intake Total 4851.3 2680 2920 Output Total 1225 2400 1825 300 Balance 3626.3 280 1095 -300 Meds/Results Medications: Active Medications Generic Name Dose Route Start Last Admin Trade Name Freq PRN Reason Stop Dose Admin Acetaminophen 650 mg 05/10/25 11:47 Acetaminophen 325 Mg Tablet PO Q4H PRN Mild Pain (1-3) or Fever Amoxicillin/Clavulanate Potassium 1 tablet 05/14/25 09:00 05/15/25 08:05 Amoxicillin/Clavulanate K 875-125 Mg Tab PO 05/16/25 21:01 1 tablet Q12HR VIANEY Administration Chlordiazepoxide HCl 25 mg 05/14/25 12:00 05/15/25 08:05 Chlordiazepoxide (*Crx) 25 Mg Capsule PO 25 mg Q6HR VIANEY Administration Dextrose 12.5 gm 05/04/25 15:47 05/04/25 20:03 Dextrose 50% 25 Gm/50 Ml Syringe IV PUSH 12.5 gm PRN PRN Administration Hypoglycemia Protocol Diazepam 5 mg 05/13/25 10:56 05/14/25 08:41 Diazepam (*Crx) 5 Mg Tablet PO 5 mg Q2H PRN Administration CIWA score 8-10 Diazepam 10 mg 05/13/25 10:57 05/14/25 15:42 Diazepam Inj (*Crx) 10 Mg/2 Ml Syringe IV PUSH 10 mg Q1H PRN Administration CIWA > 15 Diazepam 5 mg 05/13/25 10:57 05/13/25 16:03 Diazepam Inj (*Crx) 10 Mg/2 Ml Syringe IV PUSH 5 mg Q1H PRN Administration CIWA score 11-14 Folic Acid 1 mg 05/14/25 09:00 05/15/25 08:05 Folic Acid 1 Mg Tablet PO 1 mg DAILY VIANEY Administration Glucagon 1 mg 05/04/25 15:47 Glucagon For Inj 1 Mg Vial IM PRN PRN Hypoglycemia Protocol Glucose 15 gm 05/04/25 15:47 Glucose Oral Gel 15 Gm Of Glucse In 37.5 Gm Tube PO PRN PRN Hypoglycemia Protocol Heparin Sodium (Porcine) 5,000 units 05/10/25 22:00 05/15/25 08:05 Heparin Sodium 5,000 Units/Ml Vial SUB-Q 5,000 units Q8HR VIANEY Administration Hydralazine HCl 10 mg 05/05/25 12:15 05/10/25 05:08 Hydralazine Hcl 20 Mg/Ml Vial IV PUSH 10 mg Q4H PRN Administration Blood Pressure - High Dextrose 1,000 mls @ 100 mls/hr 05/04/25 15:47 Dextrose 5% 1,000 Ml IVPB PRN PRN Hypoglycemia Protocol Metoprolol Tartrate 50 mg 05/13/25 09:55 05/15/25 08:05 Metoprolol Tartrate 50 Mg Tab PO 50 mg DAILY VIANEY Administration Multivitamins/Calcium 1 tablet 05/13/25 09:55 05/15/25 08:05 Therapeutic Multivitamins/Minerals Tab (*Bkc) PO 1 tablet DAILY VIANEY Administration Nicotine 1 patch 05/08/25 19:00 05/15/25 08:05 Nicotine (*Pbkc) 21 Mg Patch TRANSDERM 1 patch DAILY VIANEY Administration Thiamine HCl 100 mg 05/14/25 09:00 05/15/25 08:05 Thiamine Hcl 100 Mg Tablet PO 100 mg QAM VIANEY Administration Radiology Results: ITS Impressions Head CT 05/04/25 17:33 Impression: 1.No acute intracranial abnormality. Abdomen Ultrasound 05/09/25 11:01 IMPRESSION: 1. Diffuse hepatic steatosis. Abdomen X-Ray 05/10/25 14:00 IMPRESSION: 1. No radiopaque or abnormal foreign objects in the abdomen. EKG leads are noted. Cervical Spine X-Ray 05/10/25 14:00 Impression: No acute abnormality. Venous Doppler Study 05/10/25 17:25 Impression: Negative for DVT. Brain MRI 05/11/25 12:40 IMPRESSION: 1. Normal brain. No acute intracranial process. Chest X-Ray 05/13/25 08:08 IMPRESSION: 1. Mild bibasilar atelectasis. Chest CT 05/13/25 12:59 IMPRESSION: Trace bilateral pleural effusions with subsegmental atelectatic changes left worse than right; air bronchograms in the left lung base may represent developing pneumonia or aspiration. Labs Labs: Laboratory Results - last 24 hr 05/11/25 05/11/25 05/14/25 15:59 16:00 11:55 WBC RBC Hgb Hct MCV MCH MCHC RDW Plt Count MPV Sodium Potassium Chloride Carbon Dioxide Anion Gap BUN Creatinine Estim Creat Clear Calc Estimated GFR Glucose POC Capillary Glucose 94 Calcium Phosphorus Magnesium Total Bilirubin AST ALT Alkaline Phosphatase Total Protein Albumin West Nile Virus IgG Ab Negative West Nile Virus IgM Ab Negative ABDULAZIZ Virus DNA (PCR) Negative 05/15/25 07:54 WBC 7.3 RBC 2.71 L Hgb 8.8 L Hct 28.2 L MCV 104.1 H MCH 32.5 MCHC 31.2 L RDW 23.9 H Plt Count 488 H MPV 10.9 H Sodium 139 Potassium 3.6 Chloride 109 H Carbon Dioxide 27 Anion Gap 3 L BUN 8 L D Creatinine 1.07 Estim Creat Clear Calc 68 Estimated GFR > 60 Glucose 104 POC Capillary Glucose Calcium 8.9 Phosphorus 5.8 H Magnesium 1.8 Total Bilirubin 0.3 AST 28 ALT 16 Alkaline Phosphatase 71 Total Protein 6.4 Albumin 2.9 L West Nile Virus IgG Ab West Nile Virus IgM Ab ABDULAZIZ Virus DNA (PCR)
[2025-05-15] MEDS: POTASSIUM BICARBONATE 25 MEQ TABEF 50 MEQ PO (09:14)
[2025-05-15] MEDS: diazePAM (*CRX) 5 MG TABLET PO ×2 (13:45→18:35)
[2025-05-15] MEDS: diazePAM INJ (*CRX) 10 MG/2 ML SYRINGE IV PUSH (14:25)
--- NOTE | 2025-05-15 14:35 | PC.NURSE ---
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
--- NOTE | 2025-05-15 15:40 | PC.NURSE ---
pt attempting again to get out of bed stating he needed a pen and needed to make some calls, he did get upset with staff and verbally aggressive once again, security did come to room and pt did calm down in their presence
--- NOTE | 2025-05-15 18:00 | PC.NURSE ---
pt was sleeping but awakened to meal being delivered, he asked if he was still at the [facility] and was agitated, he again came out of room to nurse's station and security was called, security did stay with pt for a short time and he eventually calmed down
[2025-05-15] MEDS: diazePAM INJ (*CRX) 10 MG/2 ML SYRINGE 5 MG IV PUSH (20:54)
--- NOTE | 2025-05-15 22:00 | PC.NURSE ---
Pt stated he was leaving and that his special weapons and tactics officer says he can leave. Multiple attempts made to redirect. Security notified and arrived to the floor, spoke with pt. Notified Loree Fuentes regarding this, new order for 5mg Zyprexa IM. Security and supercharge repair supervisor Piero were able to redirect pt. Zyprexa order D/C. 0615 pt refused heparin again, stated I said no shots. Educated on the importance of heparin. Pt stated no. Notified Criss Fuentes regarding this.
[2025-05-16] VITALS (7 sets, daily range): BP systolic 131–181; BP diastolic 89–102; PULSE 72–114; RESP 16–20; TEMP 36.2–37.7; O2SAT 95–97
[2025-05-16] MEDS: chlordiazePOXIDE (*CRX) 25 MG CAPSULE PO ×4 (06:20→23:10)
[2025-05-16] MEDS: THIAMINE HCL 100 MG TABLET PO (08:19)
[2025-05-16] MEDS: FOLIC ACID 1 MG TABLET PO (08:19)
[2025-05-16] MEDS: THERAPEUTIC MULTIVITAMINS/MINERALS TAB (*BKC) 1 TABLET PO (08:19)
[2025-05-16] MEDS: NICOTINE (*PBKC) 21 MG PATCH 1 PATCH TRANSDERM (08:20)
[2025-05-16] MEDS: METOPROLOL TARTRATE 50 MG TAB PO (08:20)
--- NOTE | 2025-05-16 09:24 | P.PNIM_ITS ---
Assessment and Plan Assessment and Plan (1) Alcohol withdrawal: Code(s): F10.939 - Alcohol use, unspecified with withdrawal, unspecified Status: Acute Assessment and Plan: History of alcohol use disorder, currently drinks 6 units daily but according to the ER physician note when she discussed with patient's daughter, the daughter stated that he drinks more more than what he stated. Continue scheduled Librium but decrease dose to 25 mg q.6 hours Continue p.r.n. Valium Continue p.o. Thiamine and folic acid. (2) Alcohol use disorder: Code(s): F10.90 - Alcohol use, unspecified, uncomplicated Status: Acute Assessment and Plan: See above (3) Hypoglycemia: Code(s): E16.2 - Hypoglycemia, unspecified Status: Acute Assessment and Plan: Hypoglycemia, could be related to excess alcohol intake, decreased oral intake, patient on metoprolol which can be associated with hypoglycemia Improved. Tolerating diet. DC IV fluid -TSH within normal limits (4) Hypertension: Code(s): I10 - Essential (primary) hypertension Status: Acute Assessment and Plan: Continue metoprolol (5) Electrolyte imbalance: Code(s): E87.8 - Other disorders of electrolyte and fluid balance, not elsewhere classified Status: Acute Assessment and Plan: Potassium replacement ordered (6) Thrombocytopenia: Code(s): D69.6 - Thrombocytopenia, unspecified Status: Acute Assessment and Plan: resolved Plts 488 (7) Fever: Code(s): R50.9 - Fever, unspecified Status: Acute Assessment and Plan: Patient had couple of episodes of low-grade fever on 05/10 patient was started on broad-spectrum antibiotics and cultures and other investigations ordered. Patient was also seen by ID Chest X suggested right basilar infiltrate suggestive of aspiration as patient was altered on presentation and later because of sedatives he received He has no signs meningismus and his WBC is normal Low procalcitonin level CT chest IMPRESSION: Trace bilateral pleural effusions with subsegmental atelectatic changes left worse than right; air bronchograms in the left lung base may represent developing pneumonia or aspiration. Completed Augmentin per ID monitor (8) Aspiration pneumonia: Code(s): J69.0 - Pneumonitis due to inhalation of food and vomit Status: Acute Assessment and Plan: See above (9) Pleural effusion: Code(s): J90 - Pleural effusion, not elsewhere classified Status: Acute Assessment and Plan: Received Lasix IV Plan Iron deficiency anemia Hb 8.8, isat 15 started on Venofer 500/1000 monitor H and H DVT prophylaxis: SCDs, SC heparin Nutrition: Heart healthy diet Code Status: Full code Subjective Date/time seen: 05/16/25 09:24 Interval history: Comfortable at bedside Combative this morning and wanting to leave the hospital eventually administered Olanzapine and on Abilify, discharging to tomorrow Review of Systems Review of Systems: 12 systems were reviewed and are negativ e except for as per HPI. All systems reviewed & are unremarkable except as noted in HPI and below (HPI) ROS unobtainable: Yes unobtainable due to medical condition Exam Narrative: General: Appears older than his age, currently in no acute distress HEENT:? Pupils equal and reactive, sclera is clear, moist oral mucosa Neck:? Supple Respiratory:? Clear to auscultation bilaterally, no wheezing, adequate air entry Cardiac:? S1-S2 is normal, regular rate and rhythm Abdomen:? Soft, nontender, nondistended, hypoactive bowel sounds Extremities:? No edema, palpable pedal pulses, has a callus on his right foot on the plantar aspect Neuro:? Patient is confused but awake, alert, able to answer questions. AO x2. He thought he was in [facility]. He follows commands with all 4 extremities. Very minimal tremor, no nuchal rigidity or signs of meningismus. Appears weak and unsteady Skin:? No skin lesions noted Objective Data Vital Signs Vital Signs: Vital Signs - 24 hr 05/15/25 12:00 05/15/25 14:25 05/15/25 15:43 Temperature Pulse Rate Pulse Rate [Apical Monitor] 72 Pulse Rate [Bilateral Pedal (Dorsalis Pedis) Palpation] 78 100 88 Respiratory Rate Blood Pressure Pulse Oximetry Oxygen Delivery 05/15/25 16:00 05/15/25 20:00 05/15/25 20:58 Temperature 97.7 F 97.8 F Pulse Rate 67 89 Pulse Rate [Apical Monitor] Pulse Rate [Bilateral Pedal (Dorsalis Pedis) Palpation] Respiratory Rate 14 20 Blood Pressure 117/83 130/79 Pulse Oximetry 100 94 Oxygen Delivery Room Air 05/15/25 21:30 05/16/25 06:00 Temperature 97.7 F Pulse Rate 88 Pulse Rate [Apical Monitor] Pulse Rate [Bilateral Pedal (Dorsalis Pedis) Palpation] 89 Respiratory Rate 20 Blood Pressure 130/79 131/93 H Pulse Oximetry 97 Oxygen Delivery Intake/Output Intake/Output: Intake & Output 05/13/25 05/14/25 05/15/25 05/16/25 23:59 23:59 23:59 23:59 Intake Total 2680 2920 236 300 Output Total 2400 1825 300 Balance 280 1095 -64 300 Meds/Results Medications: Active Medications Generic Name Dose Route Start Last Admin Trade Name Freq PRN Reason Stop Dose Admin Acetaminophen 650 mg 05/10/25 11:47 Acetaminophen 325 Mg Tablet PO Q4H PRN Mild Pain (1-3) or Fever Amoxicillin/Clavulanate Potassium 1 tablet 05/14/25 09:00 05/16/25 08:19 Amoxicillin/Clavulanate K 875-125 Mg Tab PO 05/16/25 21:01 1 tablet Q12HR VIANEY Administration Chlordiazepoxide HCl 25 mg 05/14/25 12:00 05/16/25 06:20 Chlordiazepoxide (*Crx) 25 Mg Capsule PO 25 mg Q6HR VIANEY Administration Dextrose 12.5 gm 05/04/25 15:47 05/04/25 20:03 Dextrose 50% 25 Gm/50 Ml Syringe IV PUSH 12.5 gm PRN PRN Administration Hypoglycemia Protocol Diazepam 5 mg 05/13/25 10:56 05/15/25 18:35 Diazepam (*Crx) 5 Mg Tablet PO 5 mg Q2H PRN Administration CIWA score 8-10 Diazepam 10 mg 05/13/25 10:57 05/15/25 14:25 Diazepam Inj (*Crx) 10 Mg/2 Ml Syringe IV PUSH 10 mg Q1H PRN Administration CIWA > 15 Diazepam 5 mg 05/13/25 10:57 05/15/25 20:54 Diazepam Inj (*Crx) 10 Mg/2 Ml Syringe IV PUSH 5 mg Q1H PRN Administration CIWA score 11-14 Folic Acid 1 mg 05/14/25 09:00 05/16/25 08:19 Folic Acid 1 Mg Tablet PO 1 mg DAILY VIANEY Administration Glucagon 1 mg 05/04/25 15:47 Glucagon For Inj 1 Mg Vial IM PRN PRN Hypoglycemia Protocol Glucose 15 gm 05/04/25 15:47 Glucose Oral Gel 15 Gm Of Glucse In 37.5 Gm Tube PO PRN PRN Hypoglycemia Protocol Heparin Sodium (Porcine) 5,000 units 05/10/25 22:00 05/16/25 06:23 Heparin Sodium 5,000 Units/Ml Vial SUB-Q Not Given Q8HR VIANEY Hydralazine HCl 10 mg 05/05/25 12:15 05/10/25 05:08 Hydralazine Hcl 20 Mg/Ml Vial IV PUSH 10 mg Q4H PRN Administration Blood Pressure - High Dextrose 1,000 mls @ 100 mls/hr 05/04/25 15:47 Dextrose 5% 1,000 Ml IVPB PRN PRN Hypoglycemia Protocol Iron Sucrose 400 mg/ Iron 275 mls @ 78.571 mls/hr 05/16/25 09:00 Sucrose 100 mg/ Sodium IVPB 05/16/25 12:29 Chloride ONCE ONE Metoprolol Tartrate 50 mg 05/13/25 09:55 05/16/25 08:20 Metoprolol Tartrate 50 Mg Tab PO 50 mg DAILY VIANEY Administration Multivitamins/Calcium 1 tablet 05/13/25 09:55 05/16/25 08:19 Therapeutic Multivitamins/Minerals Tab (*Bkc) PO 1 tablet DAILY VIANEY Administration Nicotine 1 patch 05/08/25 19:00 05/16/25 08:20 Nicotine (*Pbkc) 21 Mg Patch TRANSDERM 1 patch DAILY VIANEY Administration Thiamine HCl 100 mg 05/14/25 09:00 05/16/25 08:19 Thiamine Hcl 100 Mg Tablet PO 100 mg QAM VIANEY Administration Radiology Results: ITS Impressions Head CT 05/04/25 17:33 Impression: 1.No acute intracranial abnormality. Abdomen Ultrasound 05/09/25 11:01 IMPRESSION: 1. Diffuse hepatic steatosis. Abdomen X-Ray 05/10/25 14:00 IMPRESSION: 1. No radiopaque or abnormal foreign objects in the abdomen. EKG leads are noted. Cervical Spine X-Ray 05/10/25 14:00 Impression: No acute abnormality. Venous Doppler Study 05/10/25 17:25 Impression: Negative for DVT. Brain MRI 05/11/25 12:40 IMPRESSION: 1. Normal brain. No acute intracranial process. Chest X-Ray 05/13/25 08:08 IMPRESSION: 1. Mild bibasilar atelectasis. Chest CT 12/11/25 12:59 IMPRESSION: Trace bilateral pleural effusions with subsegmental atelectatic changes left worse than right; air bronchograms in the left lung base may represent developing pneumonia or aspiration. Labs Labs: Laboratory Results - last 24 hr 05/11/25 05/15/25 05/16/25 16:00 12:35 02:35 POC Capillary Glucose 117 H 137 H Coccidioides Ab (CF) <1:2 05/16/25 06:23 POC Capillary Glucose 100 Coccidioides Ab (CF) Quality VTE Prophylaxis VTE prophylaxis: pharmacologic ordered
[2025-05-16] MEDS: IRON SUCROSE COMPLEX 400 MG, IRON SUCROSE COMPLEX 100 MG in SODIUM CHLORIDE 0.9% IV 250 ML 78.57 MG IVPB (09:31)
[2025-05-16] MEDS: diazePAM (*CRX) 5 MG TABLET PO (15:43)
[2025-05-16] MEDS: diazePAM INJ (*CRX) 10 MG/2 ML SYRINGE 5 MG IV PUSH (16:50)
[2025-05-16] MEDS: ACETAMINOPHEN 325 MG TABLET 650 MG PO (20:06)
[2025-05-16] MEDS: diazePAM INJ (*CRX) 10 MG/2 ML SYRINGE IV PUSH (23:39)
--- NOTE | 2025-05-16 23:53 | PC.NURSE ---
Addendum entered by Ella Bazan RN 05/17/25 06:53: 0652:hospitalist yet to see pt at bedside. Will relay to day shift RN Addendum entered by Ella Bazan RN 05/17/25 05:49: 0530: pt HR in 130s. BP 124/71. Temp 100.9. Unable to give Tylenol pt refused. Notified hospitalist for possible early sepsis alert. Hospitalist to assess pt bedside. Original Note: 1900: pt with a sitter, video monitor 2015: noted pt right lower arm swollen, warm and tight. Notified hospitalist. Hospitalist assessed pt in a room. Plan to do US RUE 2330: per charge nurse, no sitter available. Pt very high fall risk. Video monitor, bed alarm and utilizing security when needed for safe care. Able to administer meds on time. Will continue to monitor
[2025-05-17] VITALS (7 sets, daily range): BP systolic 92–126; BP diastolic 49–75; PULSE 98–137; RESP 20–26; TEMP 37.3–39.6; O2SAT 90–96
[2025-05-17 06:10] LABS: Hematocrit 31.3 % (42.0-52.0); Hemoglobin 9.6 g/dL (14.0-18.0); Immature Granulocyte Percent A 1.0 % (0-0.5); Lymphocytes Absolute Auto 1.17 K/mm3 (0.9-3.2); Mean Corpuscular HGB Conc 30.7 g/dl (32-36); Mean Corpuscular Hemoglobin 31.9 pg (26-34); Mean Corpuscular Volume 104.0 fl (80-100); Nucleated Red Blood Cells Absolute Auto 0.040 K/mm3 (0.0-0.012); Nucleated Red Blood Cells Perc 0.2 % (0.0-0.2); Platelet Count Result 549 k/mm3 (150-375); Red Blood Count 3.01 M/mm3 (4.6-6.20); White Blood Count 18.5 K/mm3 (4.5-10.0)
[2025-05-17 06:24] LABS: Alanine Aminotransferase 14 U/L (6-50); Albumin Level 3.5 g/dL (3.5-5.1); Alkaline Phosphatase 77 U/L (38-126); Anion Gap 5 mmol/L (4-12); Aspartate Amino Transferase 32 U/L (17-59); Bilirubin,Total 0.6 mg/dL (0.2-1.3); Blood Urea Nitrogen 8 mg/dL (9-20); Calcium 9.4 mg/dL (8.4-10.2); Carbon Dioxide 22 mmol/L (22-30); Chloride 107 mmol/L (98-107); Estimated CRCL calculation 63 ml/min; Estimated Glomerular Filt Rate > 60; Glucose 92 mg/dL (65-110); Magnesium 1.5 mg/dL (1.6-2.3); Potassium 4.2 mmol/L (3.4-5.0); Sodium 134 mmol/L (137-145); Total Protein 7.4 g/dL (6.3-8.2)
[2025-05-17 07:07] LABS: Anisocytosis 2+; Hypochromasia 1+; Polychromasia 1+; Target Cells 1+
[2025-05-17 07:08] LABS: Schistocytes None Seen
[2025-05-17 08:34] LABS: CRP 5.3 mg/dL (<1.0)
[2025-05-17 09:07] LABS: Procalcitonin 0.5 ng/mL
[2025-05-17] MEDS: FOLIC ACID 1 MG TABLET PO (09:53)
[2025-05-17] MEDS: METOPROLOL TARTRATE 50 MG TAB PO (09:53)
[2025-05-17] MEDS: THIAMINE HCL 100 MG TABLET PO (09:53)
[2025-05-17] MEDS: NICOTINE (*PBKC) 21 MG PATCH 1 PATCH TRANSDERM (09:53)
[2025-05-17] MEDS: THERAPEUTIC MULTIVITAMINS/MINERALS TAB (*BKC) 1 TABLET PO (09:53)
--- NOTE | 2025-05-17 12:03 | PM.IMPN2 ---
Assessment and Plan Assessment and Plan (1) Alcohol withdrawal: Code(s): F10.939 - Alcohol use, unspecified with withdrawal, unspecified Status: Acute Assessment and Plan: History of alcohol use disorder, currently drinks 6 units daily but according to the ER physician note when she discussed with patient's daughter, the daughter stated that he drinks more more than what he stated. Continue scheduled Librium but decrease dose to 25 mg q.6 hours Continue p.r.n. Valium Continue p.o. Thiamine and folic acid. (2) Alcohol use disorder: Code(s): F10.90 - Alcohol use, unspecified, uncomplicated Status: Acute Assessment and Plan: See above (3) Hypoglycemia: Code(s): E16.2 - Hypoglycemia, unspecified Status: Acute Assessment and Plan: Hypoglycemia, could be related to excess alcohol intake, decreased oral intake, patient on metoprolol which can be associated with hypoglycemia Improved. Tolerating diet. DC IV fluid -TSH within normal limits (4) Hypertension: Code(s): I10 - Essential (primary) hypertension Status: Acute Assessment and Plan: Continue metoprolol (5) Electrolyte imbalance: Code(s): E87.8 - Other disorders of electrolyte and fluid balance, not elsewhere classified Status: Acute Assessment and Plan: Potassium replacement ordered (6) Thrombocytopenia: Code(s): D69.6 - Thrombocytopenia, unspecified Status: Acute Assessment and Plan: resolved Plts 488 (7) Fever: Code(s): R50.9 - Fever, unspecified Status: Acute Assessment and Plan: Patient completed antibiotics per IC on 05/16, and then started having fever again this mornign, latest T 101.[address] chest and AP, venous doppler and V/q scan ordered WBC 18, ESR elevated Prior imaging showed showed bilateral developing pneumonia/Aspiration F/u repeat CT AP and chest, venous doppler and V/Q scan Blood culture, Urine culture Completed Augmentin per ID Restarted Meropenem, while awaiting ID re-eval Neurology consulted (8) Aspiration pneumonia: Code(s): J69.0 - Pneumonitis due to inhalation of food and vomit Status: Acute Assessment and Plan: See above (9) Pleural effusion: Code(s): J90 - Pleural effusion, not elsewhere classified Status: Acute Assessment and Plan: Received Lasix IV Plan Iron deficiency anemia Hb 8.8, isat 15 started on Venofer 1000/1000 monitor H and H DVT prophylaxis: SCDs, SC heparin Nutrition: Heart healthy diet Code Status: Full code Subjective Date/time seen: 05/17/25 12:03 Interval history: Comfortable at bedside Patient started on having fever this morning it is escalating. CT Chest and AP, Venous doppler and V/Q scan Review of Systems Review of Systems: 12 systems were reviewed and are negative except for as per HPI. All systems reviewed & are unremarkable except as noted in HPI and below (HPI) ROS unobtainable: Yes unobtainable due to medical condition Exam Narrative: General: Appears older than his age, currently in no acute distress HEENT:? Pupils equal and reactive, sclera is clear, moist oral mucosa Neck:? Supple Respiratory:? Clear to auscultation bilaterally, no wheezing, adequate air entry Cardiac:? S1-S2 is normal, regular rate and rhythm Abdomen:? Soft, nontender, nondistended, hypoactive bowel sounds Extremities:? No edema, palpable pedal pulses, has a callus on his right foot on the plantar aspect Neuro:? Patient is confused but awake, alert, able to answer questions. AO x2. He thought he was in [facility]. He follows commands with all 4 extremities. Very minimal tremor, no nuchal rigidity or signs of meningismus. Appears weak and unsteady Skin:? No skin lesions noted Objective Data Vital Signs Vital Signs: Vital Signs - 24 hr 05/16/25 12:21 05/16/25 14:00 05/16/25 16:27 Temperature 97.2 F L Pulse Rate 75 Pulse Rate [Apical Monitor] 72 75 Pulse Rate [Bilateral Pedal (Dorsalis Pedis) Palpation] 89 82 Respiratory Rate 16 Blood Pressure 131/93 H 164/102 H 164/102 H Pulse Oximetry 97 05/16/25 21:58 05/17/25 05:53 05/17/25 10:49 Temperature 99.9 F H 100.9 F H 101.9 F H Pulse Rate 114 H 137 H 127 H Pulse Rate [Apical Monitor] Pulse Rate [Bilateral Pedal (Dorsalis Pedis) Palpation] Respiratory Rate 19 21 H 26 H Blood Pressure 181/89 H 124/71 115/66 Pulse Oximetry 95 94 90 Intake/Output Intake/Output: Intake & Output 05/14/25 05/15/25 05/16/2525 23:59 23:59 23:59 23:59 Intake Total 7970 236 1002 50 Output Total 1825 300 Balance 1095 -64 1002 50 Meds/Results Medications: Active Medications Generic Name Dose Route Start Last Admin Trade Name Freq PRN Reason Stop Dose Admin Acetaminophen 650 mg 05/10/25 11:47 05/16/25 20:06 Acetaminophen 325 Mg Tablet PO 650 mg Q4H PRN Administration Mild Pain (1-3) or Fever Acetaminophen 650 mg 05/17/25 07:29 Acetaminophen 650 Mg Suppository RECTAL Q6H PRN Fever Chlordiazepoxide HCl 25 mg 05/14/25 12:00 05/17/25 05:51 Chlordiazepoxide (*Crx) 25 Mg Capsule PO Not Given Q6HR VIANEY Dextrose 12.5 gm 05/04/25 15:47 05/04/25 20:03 Dextrose 50% 25 Gm/50 Ml Syringe IV PUSH 12.5 gm PRN PRN Administration Hypoglycemia Protocol Diazepam 5 mg 05/13/25 10:56 05/16/25 15:43 Diazepam (*Crx) 5 Mg Tablet PO 5 mg Q2H PRN Administration CIWA score 8-10 Diazepam 10 mg 05/13/25 10:57 05/16/25 23:39 Diazepam Inj (*Crx) 10 Mg/2 Ml Syringe IV PUSH 10 mg Q1H PRN Administration CIWA > 15 Diazepam 5 mg 05/13/25 10:57 05/16/25 16:50 Diazepam Inj (*Crx) 10 Mg/2 Ml Syringe IV PUSH 5 mg Q1H PRN Administration CIWA score 11-14 Folic Acid 1 mg 05/14/25 09:00 05/17/25 09:53 Folic Acid 1 Mg Tablet PO 1 mg DAILY VIANEY Administration Glucagon 1 mg 05/04/25 15:47 Glucagon For Inj 1 Mg Vial IM PRN PRN Hypoglycemia Protocol Glucose 15 gm 05/04/25 15:47 Glucose Oral Gel 15 Gm Of Glucse In 37.5 Gm Tube PO PRN PRN Hypoglycemia Protocol Heparin Sodium (Porcine) 5,000 units 05/10/25 22:00 05/17/25 05:25 Heparin Sodium 5,000 Units/Ml Vial SUB-Q 5,000 units Q8HR VIANEY Administration Hydralazine HCl 10 mg 05/05/25 12:15 05/16/25 20:07 Hydralazine Hcl 20 Mg/Ml Vial IV PUSH 10 mg Q4H PRN Administration Blood Pressure - High Dextrose 1,000 mls @ 100 mls/hr 05/04/25 15:47 Dextrose 5% 1,000 Ml IVPB PRN PRN Hypoglycemia Protocol Metoprolol Tartrate 50 mg 05/13/25 09:55 05/17/25 09:53 Metoprolol Tartrate 50 Mg Tab PO 50 mg DAILY VIANEY Administration Multivitamins/Calcium 1 tablet 05/13/25 09:55 05/17/25 09:53 Therapeutic Multivitamins/Minerals Tab (*Bkc) PO 1 tablet DAILY VIANEY Administration Nicotine 1 patch 05/08/25 19:00 05/17/25 09:53 Nicotine (*Pbkc) 21 Mg Patch TRANSDERM 1 patch DAILY VIANEY Administration Thiamine HCl 100 mg 05/14/25 09:00 05/17/25 09:53 Thiamine Hcl 100 Mg Tablet PO 100 mg QAM VIANEY Administration Radiology Results: ITS Impressions Head CT 05/04/25 17:33 Impression: 1.No acute intracranial abnormality. Abdomen Ultrasound 05/09/25 11:01 IMPRESSION: 1. Diffuse hepatic steatosis. Abdomen X-Ray 05/10/25 14:00 IMPRESSION: 1. No radiopaque or abnormal foreign objects in the abdomen. EKG leads are noted. Cervical Spine X-Ray 05/10/25 14:00 Impression: No acute abnormality. Venous Doppler Study 05/10/25 17:25 Impression: Negative for DVT. Brain MRI 05/11/25 12:40 IMPRESSION: 1. Normal brain. No acute intracranial process. Chest CT 05/13/25 12:59 IMPRESSION: Trace bilateral pleural effusions with subsegmental atelectatic changes left worse than right; air bronchograms in the left lung base may represent developing pneumonia or aspiration. Chest X-Ray 05/17/25 07:56 IMPRESSION: 1. No definite acute cardiopulmonary findings given portable technique and poor positioning. Labs Labs: Laboratory Results - last 24 hr 05/16/25 05/17/25 05/17/25 18:23 00:56 05:31 WBC RBC Hgb Hct MCV MCH MCHC RDW Plt Count MPV Immature Gran % (Auto) Neut % (Auto) Lymph % (Auto) Johnson % (Auto) Eos % (Auto) Baso % (Auto) Lymph # (Auto) Johnson # (Auto) Eos # (Auto) Baso # (Auto) Abs Immat Gran (auto) Absolute Neuts (auto) Absolute Nucleated RBC Band Neutrophils % Nucleated RBC % Platelet Estimate Polychromasia Hypochromasia Anisocytosis Target Cells Schistocytes ESR Sodium Potassium Chloride Carbon Dioxide Anion Gap BUN Creatinine Estim Creat Clear Calc Estimated GFR Glucose POC Capillary Glucose 115 H 106 H 108 H Lactic Acid Calcium Phosphorus Magnesium Total Bilirubin AST ALT Alkaline Phosphatase C-Reactive Protein Total Protein Albumin Procalcitonin 05/17/25 05/17/25 05/17/25 05:37 08:10 11:11 WBC 18.5 H RBC 3.01 L Hgb 9.6 L Hct 31.3 L MCV 104.0 H MCH 31.9 MCHC 30.7 L RDW 25.5 H Plt Count 549 H MPV 11.8 H Immature Gran % (Auto) 1.0 H Neut % (Auto) 85.1 H Lymph % (Auto) 6.3 L Johnson % (Auto) 6.3 Eos % (Auto) 0.1 Baso % (Auto) 1.2 Lymph # (Auto) 1.17 Johnson # (Auto) 1.2 H Eos # (Auto) 0.0 Baso # (Auto) 0.2 H Abs Immat Gran (auto) 0.19 H Absolute Neuts (auto) 15.7 H Absolute Nucleated RBC 0.040 H Band Neutrophils % Not Reportable Nucleated RBC % 0.2 Platelet Estimate Increased Polychromasia 1+ Hypochromasia 1+ Anisocytosis 2+ Target Cells 1+ Schistocytes None seen ESR > 140 H Sodium 134 L Potassium 4.2 Chloride 107 Carbon Dioxide 22 Anion Gap 5 BUN 8 L Creatinine 1.16 Estim Creat Clear Calc 63 Estimated GFR > 60 Glucose 92 POC Capillary Glucose 92 Lactic Acid 0.9 Calcium 9.4 Phosphorus 3.1 Magnesium 1.5 L Total Bilirubin 0.6 AST 32 ALT 14 Alkaline Phosphatase 77 C-Reactive Protein 5.3 H Total Protein 7.4 Albumin 3.5 Procalcitonin 0.5 Quality VTE Prophylaxis VTE prophylaxis: pharmacologic ordered
[2025-05-17 12:07] LABS: INR 1.2; Prothrombin Time 15.8 Seconds (11.1-14.7)
[2025-05-17] MEDS: ONDANSETRON INJ 4 MG/2 ML VIAL IV PUSH (12:15)
[2025-05-17] MEDS: chlordiazePOXIDE (*CRX) 25 MG CAPSULE PO ×2 (12:15→18:11)
[2025-05-17] MEDS: ACETAMINOPHEN 325 MG TABLET 650 MG PO (12:59)
--- NOTE | 2025-05-17 13:18 | PC.NURSE ---
held 1400 heparin dose due to LP scheduled today
--- NOTE | 2025-05-17 13:30 | PCOTNOTE ---
Attempted to see Patient at this time. Patient is very lethargic and mumbling speech. Per RN, Patient has a 103 temperature and going down for several tests . Patient unable to particiapte
--- NOTE | 2025-05-17 14:25 | CY_PTH ---
PATIENT: Luigi Beltran LOC: [facility] U#:[id number] AGE/SX: 54/M ROOM: 231 RE05/04/[address]: Danny Walker MD : [id number] BED: 01 DIS: 05/18/2025 SPEC #: [id number] RECD: 05/19/25 15:04 STATUS: ENT REQ #: [id number] OCTAVIO: 05/17/25 14:[address]: Jamari Rye DEPT: [facility] Cytology RECD BY: Prerna Renae ENTERED: 05/19/25 15:05 SP TYPE: Cytology OTHR DR: MD Loy Buckley, MD Rogerio Aguilar, MD Luigi Elizondo, MD Darien Nava, MD Criss Fuentes, [employer] Mustapha Wooten, DO MD Cat Vences, MD Rosalind Batista, MD Corey hurtado Oca, MD Mariella Archer, MD Bladimir Cotton, MD Azam Mitchell, MD Rakesh Page, MD Prem Interiano, MD Guillermo Bowser, MD Bora Lechuga, MD Ayde Abarca, MD Enedina Fuentes, BOM[employer]ER Tissues: A - CSF Procedures: Cytopathology Cytospin
[2025-05-17] MEDS: diazePAM INJ (*CRX) 10 MG/2 ML SYRINGE IV PUSH (15:02)
[2025-05-17] MEDS: MEROPENEM 1 GM in SODIUM CHLORIDE 0.9% IV 100 ML 200 ML IVPB ×2 (15:04→21:32)
[2025-05-17] MEDS: IRON SUCROSE COMPLEX 400 MG, IRON SUCROSE COMPLEX 100 MG in SODIUM CHLORIDE 0.9% IV 250 ML 78.57 MG IVPB (15:04)
[2025-05-17 16:29] LABS: Nucleated Cell CSF 1 /uL (0-5); Red Blood Cell CSF 15 (0-2)
[2025-05-17 16:31] LABS: Lymphocytes CSF 89 % (40-80); Monocytes CSF 10 % (15-45); Neutrophils CSF 1 % (0-6)
--- NOTE | 2025-05-17 18:37 | WPDNEURCNPN ---
Assessment and Plan Assessment and plan (1) Metabolic encephalopathy: Code(s): G93.41 - Metabolic encephalopathy Status: Acute (2) Alcohol use disorder: Code(s): F10.90 - Alcohol use, unspecified, uncomplicated Status: Acute (3) Aspiration pneumonia: Code(s): J69.0 - Pneumonitis due to inhalation of food and vomit Status: Acute (4) Fever: Code(s): R50.9 - Fever, unspecified Status: Acute Plan I suggest a spinal tap he was subsequently performed by the radiologist. Other or total of 1 white cell was noted. Protein was 57. Overall findings do not seem seem to be in favor of meningitis or encephalitis. I would suggest continued treatment for possible underlying infection. His white cell count of 18.5 and is running temperature. Her EEG is also recommended. Consult date: 05/17/25 HPI: Luigi Beltran is a 54 year old male With history of alcoholism currently febrile and also drowsy. He is unable to cooperate at the time of this evaluation in the morning. I noted that he has had a CT scan of brain as well as MRI of the brain which did not show any significant abnormalities. Was found to have evidence for aspiration pneumonia which was thought to the reason for the fever. He has not had any seizure-like spells. Patient admitted to the hospital on 05/04/2025 with altered mental status. He was apparently unresponsive and found to have low blood glucose. He was given glucagon own with very minimal improvement. He was subsequently hospitalized to intensive care unit. He was thought to alcohol withdrawal features. Infectious Disease has consider spinal tap but this was deferred based upon overall evaluation. Patient was described as being combative yesterday and want to leave the hospital pre was administered olanzapine and Abilify. His temperature has ranged from 101.9 to 103.2 from morning to 2:00 p.m.. No nausea or vomiting reported. Patient does not offer any history since he is drowsy. Review of Systems Review of Systems: ROS unobtainable: Yes unobtainable due to mental status [facility] Past Medical History Medical History (Updated 05/17/25 @ 18:45 by Mariella Archer MD) Metabolic encephalopathy Hyperlipidemia Hypertension Colon cancer screening GERD (gastroesophageal reflux disease) Abdominal pain Blood in stool Tobacco consumption Alcohol abuse Elevated liver enzymes Surgical History Surgical History Hx of chest tube placement History of colonoscopy History of cardiac cath 2020 Family History Family History Father Respiratory acidosis Mother Arthritis Social History Social History (Updated 07/04/22 @ 19:41 by Criss Fuentes APRN) Social History: The patient does [employer] work except for during the winter. The patient will during 12-20 Beers a day. He is and one daughter. The patient continues to smoke at least 1 pack a cigarettes a day. Code status full code Smoking packs per day: 1.5 Smoking cigarettes per day: 30.0 Years smoked: 43 Smoking pack-years: 64.50 Smoking status: Current every day smoker Tobacco type: cigarettes Alcohol intake: current Drinks per week: 80 Alcohol use details: daily Substance use: current Substance use type: marijuana, amphetamines and sedatives Other substance usage details: daily Last use: 05/03/2025 Lack of Transportation: No Lack of Food: Sometimes True Current Housing: I Do Not Have Housing Concerned About Future Housing: YES Difficulty Paying Gas/Electric Bills: YES Difficulty Paying for Meds: YES Currently Unemployed: No Education: High School Diploma/GED Difficulty w/ Childcare or Family Care: No Living arrangements: alone Spiritual care concerns: No Meds Home Medications and Allergies Home Medications ?Medication ?Instructions ?Recorded ?Confirmed ?Type metoprolol tartrate 50 mg tablet 50 mg PO DAILY 07/04/22 05/04/25 History Allergies Allergy/AdvReac Type Severity Reaction Status Date / Time No Known Allergies Allergy Verified 05/04/25 20:33 Vital Signs Vital Signs - 24 hr 05/16/25 21:58 05/17/25 05:53 05/17/25 10:49 Temperature 99.9 F H 100.9 F H 101.9 F H Pulse Rate 114 H 137 H 127 H Respiratory Rate 19 21 H 26 H Blood Pressure 181/89 H 124/71 115/66 Pulse Oximetry 95 94 90 05/17/25 12:59 05/17/25 14:00 05/17/25 15:04 Temperature 103.2 F H 103.2 F H 99.6 F Pulse Rate 123 H Respiratory Rate 26 H Blood Pressure 126/75 Pulse Oximetry 90 05/17/25 18:15 Temperature 99.2 F Pulse Rate Respiratory Rate Blood Pressure Pulse Oximetry Exam Narrative: patient unable to cooperate. He is drowsy. He is lying on the side difficult to evaluate since he almost versus the examination. Does seem to be able to move his limbs in response to stimulation. No involuntary movements are seen. Examination was limited. Results Labs 05/17/25 05:37 05/17/25 05:37 Labs: Short CBC 05/17/25 Range/Units 05:37 WBC 18.5 H (4.5-10.0) K/mm3 Hgb 9.6 L (14.0-18.0) g/dL Hct 31.3 L (42.0-52.0) % Plt Count 549 H (150-375) k/mm3 BMP 05/17/25 05:37 Sodium 134 L Potassium 4.2 Chloride 107 Carbon Dioxide 22 BUN 8 L Creatinine 1.16 Glucose 92 Calcium 9.4 Liver Function 05/17/25 Range/Units 05:37 Total Bilirubin 0.6 (0.2-1.3) mg/dL AST 32 (17-59) U/L ALT 14 (6-50) U/L Alkaline Phosphatase 77 (38-126) U/L Albumin 3.5 (3.5-5.1) g/dL
--- NOTE | 2025-05-17 21:51 | PM.EVENT ---
Event Note Event Note Event Note: I was called to the bedside by the nurse taking care of the patient. She stated that he is difficult to arouse. ABGs and head CT been ordered. Blood sugar was checked by the nursing staff and it was reported as 107. Vital signs are stable.
--- NOTE | 2025-05-17 21:59 | PC.NURSE ---
Addendum entered by Ella Bazan RN 05/18/25 00:09: 0000: Pt transferred to IMU, Room 231 in a stable condition. Addendum entered by Ella Bazan RN 05/17/25 22:53: 2253: Doppler negative for DVT (per US tech) Addendum entered by Ella Bazan RN 05/17/25 22:51: 2250: pt to be transferred to IMU Room 231 Addendum entered by Ella Bazan RN 05/17/25 22:40: 2240: Pt to be transferred to IMU; waiting for bed Addendum entered by Ella Bazan RN 05/17/25 22:39: 2230: took pt for stat head CT Original Note: 2139: pt SBp in low 90s with MAP over 60. Pt septic; tests initiated this morning; on abx. Notified provider of pt's being febrile, declining in mentation, and being fatigued, not able to answer questions, and for possible high level care transfer. Hospitalist assessed pt in a room; stat ABG, head Ct ordered. Urne sample ordered at 730am has not been collected by day shift RN 2149: called US to do ARIEL US to rule out DVT 2216: straight cathed for urine sample; sent
[2025-05-17 22:09] LABS: Alveolar/Arterial O2 Gradient 23.6 mmHg; Fractional Inspired Oxygen 21 %; HCO3 ABG 18.4 mEq/l (22.0-26.0); Oxygen Content ABG 14.1 %vol (16.0-22.0); Oxygen Saturation ABG 97.8 % (95.0-100.0); PCO2 ABG 25.8 mmHg (35.0-45.0); PO2 ABG 95.2 mmHg (80.0-100.0); PO2 FiO2 Ratio Arterial Blood 4.53 %
[2025-05-17 22:12] LABS: Modified Allen's Test Pass; Site Drawn LEFT RADIAL
[2025-05-17 22:49] LABS: Add Urine Microscopic? YES; Appearance Urine Clear (Clear); Glucose Urine UA Negative (Negative); Leukocyte Esterase Ur Trace LEU/UL (Negative); Nitrate Urine Negative (Negative); Non Pathogenic Casts 0-2; Specific Grav Ur > 1.045 (1.001-1.035)
[2025-05-18] VITALS (10 sets, daily range): BP systolic 88–123; BP diastolic 46–76; PULSE 73–104; RESP 18–20; TEMP 37.2–38.2; O2SAT 93–95
[2025-05-18 04:41] LABS: Hematocrit 30.6 % (42.0-52.0); Hemoglobin 9.3 g/dL (14.0-18.0); Immature Granulocyte Percent A 5.9 % (0-0.5); Lymphocytes Absolute Auto 1.06 K/mm3 (0.9-3.2); Mean Corpuscular HGB Conc 30.4 g/dl (32-36); Mean Corpuscular Hemoglobin 32.5 pg (26-34); Mean Corpuscular Volume 107.0 fl (80-100); Nucleated Red Blood Cells Absolute Auto 0.060 K/mm3 (0.0-0.012); Nucleated Red Blood Cells Perc 0.5 % (0.0-0.2); Platelet Count Result 435 k/mm3 (150-375); Red Blood Count 2.86 M/mm3 (4.6-6.20); White Blood Count 12.4 K/mm3 (4.5-10.0)
[2025-05-18 05:04] LABS: Alanine Aminotransferase 14 U/L (6-50); Albumin Level 3.2 g/dL (3.5-5.1); Alkaline Phosphatase 67 U/L (38-126); Anion Gap 3 mmol/L (4-12); Aspartate Amino Transferase 27 U/L (17-59); Bilirubin,Total 0.5 mg/dL (0.2-1.3); Blood Urea Nitrogen 17 mg/dL (9-20); Calcium 8.6 mg/dL (8.4-10.2); Carbon Dioxide 22 mmol/L (22-30); Chloride 110 mmol/L (98-107); Estimated CRCL calculation 56 ml/min; Estimated Glomerular Filt Rate 56; Glucose 106 mg/dL (65-110); Magnesium 1.5 mg/dL (1.6-2.3); Potassium 3.5 mmol/L (3.4-5.0); Sodium 135 mmol/L (137-145); Total Protein 6.7 g/dL (6.3-8.2)
[2025-05-18] MEDS: MEROPENEM 1 GM in SODIUM CHLORIDE 0.9% IV 100 ML 200 ML IVPB (05:26)
[2025-05-18] MEDS: chlordiazePOXIDE (*CRX) 25 MG CAPSULE PO (05:35)
[2025-05-18 05:56] LABS: Anisocytosis 1+; Polychromasia 1+
[2025-05-18 05:57] LABS: Schistocytes None Seen; Target Cells Occasional; Tear Drop Cells Occasional
[2025-05-18 07:58] LABS: Cannabinoid Screen Urine Negative (Negative)
--- NOTE | 2025-05-18 09:40 | PM.IMPN2 ---
Assessment and Plan Assessment and Plan (1) Alcohol withdrawal: Code(s): F10.939 - Alcohol use, unspecified with withdrawal, unspecified Status: Acute Assessment and Plan: History of alcohol use disorder, currently drinks 6 units daily but according to the ER physician note when she discussed with patient's daughter, the daughter stated that he drinks more more than what he stated. Continue scheduled Librium but decrease dose to 25 mg q.6 hours Continue p.r.n. Valium Continue p.o. Thiamine and folic acid. (2) Alcohol use disorder: Code(s): F10.90 - Alcohol use, unspecified, uncomplicated Status: Acute Assessment and Plan: See above (3) Hypoglycemia: Code(s): E16.2 - Hypoglycemia, unspecified Status: Acute Assessment and Plan: Hypoglycemia, could be related to excess alcohol intake, decreased oral intake, patient on metoprolol which can be associated with hypoglycemia Improved. Tolerating diet. DC IV fluid -TSH within normal limits (4) Hypertension: Code(s): I10 - Essential (primary) hypertension Status: Acute Assessment and Plan: Continue metoprolol (5) Electrolyte imbalance: Code(s): E87.8 - Other disorders of electrolyte and fluid balance, not elsewhere classified Status: Acute Assessment and Plan: Potassium replacement ordered (6) Thrombocytopenia: Code(s): D69.6 - Thrombocytopenia, unspecified Status: Acute Assessment and Plan: resolved Plts 488 (7) Fever: Code(s): R50.9 - Fever, unspecified Status: Acute Assessment and Plan: Patient completed antibiotics per IC on 05/16, and then started having fever again this mornign, latest T 101.[address] chest and AP, venous doppler and V/q scan ordered WBC 18, ESR elevated Prior imaging showed showed bilateral developing pneumonia/Aspiration F/u repeat CT AP and chest, venous doppler and V/Q scan Blood culture, Urine culture Completed Augmentin per ID Restarted Meropenem, while awaiting ID re-eval Neurology consulted (8) Aspiration pneumonia: Code(s): J69.0 - Pneumonitis due to inhalation of food and vomit Status: Acute Assessment and Plan: See above (9) Pleural effusion: Code(s): J90 - Pleural effusion, not elsewhere classified Status: Acute Assessment and Plan: Received Lasix IV Plan Iron deficiency anemia Hb 8.8, isat 15 started on Venofer 1000/1000 monitor H and H DVT prophylaxis: SCDs, SC heparin Nutrition: Heart healthy diet Code Status: Full code Subjective Date/time seen: 05/18/25 09:40 Review of Systems Review of Systems: 12 systems were reviewed and are negative except for as per HPI. All systems reviewed & are unremarkable except as noted in HPI and below (HPI) ROS unobtainable: Yes unobtainable due to medical condition Exam Narrative: General: Appears older than his age, currently in no acute distress HEENT:? Pupils equal and reactive, sclera is clear, moist oral mucosa Neck:? Supple Respiratory:? Clear to auscultation bilaterally, no wheezing, adequate air entry Cardiac:? S1-S2 is normal, regular rate and rhythm Abdomen:? Soft, nontender, nondistended, hypoactive bowel sounds Extremities:? No edema, palpable pedal pulses, has a callus on his right foot on the plantar aspect Neuro:? Patient is confused but awake, alert, able to answer questions. AO x2. He thought he was in [facility]. He follows commands with all 4 extremities. Very minimal tremor, no nuchal rigidity or signs of meningismus. Appears weak and unsteady Skin:? No skin lesions noted Objective Data Vital Signs Vital Signs: Vital Signs - 24 hr 05/17/25 10:49 05/17/25 12:59 05/17/25 14:00 Temperature 101.9 F H 103.2 F H 103.2 F H Pulse Rate 127 H 123 H Pulse Rate [Apical Monitor] Respiratory Rate 26 H 26 H Blood Pressure 115/66 126/75 Pulse Oximetry 90 90 Oxygen Delivery 05/17/25 15:04 05/17/25 18:15 05/17/25 22:00 Temperature 99.6 F 99.2 F 100.6 F H Pulse Rate 98 Pulse Rate [Apical Monitor] Respiratory Rate 20 Blood Pressure 92/49 L Pulse Oximetry 96 Oxygen Delivery 05/18/25 00:00 05/18/25 00:00 05/18/25 00:00 Temperature Pulse Rate 90 Pulse Rate [Apical Monitor] 87 Respiratory Rate Blood Pressure Pulse Oximetry Oxygen Delivery Room Air 05/18/25 02:00 05/18/25 03:24 05/18/25 04:00 Temperature Pulse Rate 96 Pulse Rate [Apical Monitor] 92 99 Respiratory Rate Blood Pressure Pulse Oximetry Oxygen Delivery 05/18/25 04:00 05/18/25 04:00 05/18/25 04:00 Temperature 98.9 F Pulse Rate 104 H 94 Pulse Rate [Apical Monitor] Respiratory Rate 20 Blood Pressure 123/76 Pulse Oximetry 95 Oxygen Delivery Room Air 05/18/25 06:27 05/18/25 08:00 Temperature 100.8 F H Pulse Rate 91 90 Pulse Rate [Apical Monitor] Respiratory Rate 18 Blood Pressure 99/46 L Pulse Oximetry 93 Oxygen Delivery Intake/Output Intake/Output: Intake & Output 05/15/25 05/16/25 05/17/25 05/18/25 23:59 23:59 23:59 23:59 Intake Total 236 1002 250 Output Total 300 50 Balance -64 1002 250 -50 Meds/Results Medications: Active Medications Generic Name Dose Route Start Last Admin Trade Name Freq PRN Reason Stop Dose Admin Acetaminophen 650 mg 05/10/25 11:47 05/17/25 12:59 Acetaminophen 325 Mg Tablet PO 650 mg Q4H PRN Administration Mild Pain (1-3) or Fever Acetaminophen 650 mg 05/18/25 00:26 Acetaminophen 650 Mg Suppository RECTAL Q6H PRN Mild Pain (1-3) or Fever Chlordiazepoxide HCl 25 mg 05/14/25 12:00 05/18/25 05:35 Chlordiazepoxide (*Crx) 25 Mg Capsule PO 25 mg Q6HR VIANEY Administration Dextrose 12.5 gm 05/04/25 15:47 05/04/25 20:03 Dextrose 50% 25 Gm/50 Ml Syringe IV PUSH 12.5 gm PRN PRN Administration Hypoglycemia Protocol Diazepam 5 mg 05/13/25 10:56 05/16/25 15:43 Diazepam (*Crx) 5 Mg Tablet PO 5 mg Q2H PRN Administration CIWA score 8-10 Diazepam 10 mg 05/13/25 10:57 05/17/25 15:02 Diazepam Inj (*Crx) 10 Mg/2 Ml Syringe IV PUSH 10 mg Q1H PRN Administration CIWA > 15 Diazepam 5 mg 05/13/25 10:57 05/16/25 16:50 Diazepam Inj (*Crx) 10 Mg/2 Ml Syringe IV PUSH 5 mg Q1H PRN Administration CIWA score 11-14 Folic Acid 1 mg 05/14/25 09:00 05/17/25 09:53 Folic Acid 1 Mg Tablet PO 1 mg DAILY VIANEY Administration Glucagon 1 mg 05/04/25 15:47 Glucagon For Inj 1 Mg Vial IM PRN PRN Hypoglycemia Protocol Glucose 15 gm 05/04/25 15:47 Glucose Oral Gel 15 Gm Of Glucse In 37.5 Gm Tube PO PRN PRN Hypoglycemia Protocol Heparin Sodium (Porcine) 5,000 units 05/10/25 22:00 05/18/25 05:31 Heparin Sodium 5,000 Units/Ml Vial SUB-Q 5,000 units Q8HR VIANEY Administration Hydralazine HCl 10 mg 05/05/25 12:15 05/16/25 20:07 Hydralazine Hcl 20 Mg/Ml Vial IV PUSH 10 mg Q4H PRN Administration Blood Pressure - High Dextrose 1,000 mls @ 100 mls/hr 05/04/25 15:47 Dextrose 5% 1,000 Ml IVPB PRN PRN Hypoglycemia Protocol Meropenem 1 gm/ Sodium 100 mls @ 200 mls/hr 05/17/25 13:00 05/18/25 05:26 Chloride IVPB 200 mls/hr Q8HR VIANEY Administration Metoprolol Tartrate 50 mg 05/13/25 09:55 05/17/25 09:53 Metoprolol Tartrate 50 Mg Tab PO 50 mg DAILY VIANEY Administration Multivitamins/Calcium 1 tablet 05/13/25 09:55 05/17/25 09:53 Therapeutic Multivitamins/Minerals Tab (*Bkc) PO 1 tablet DAILY VIANEY Administration Nicotine 1 patch 05/08/25 19:00 05/17/25 09:53 Nicotine (*Pbkc) 21 Mg Patch TRANSDERM 1 patch DAILY VIANEY Administration Ondansetron HCl 4 mg 05/17/25 12:06 05/17/25 12:15 Ondansetron Inj 4 Mg/2 Ml Vial IV PUSH 4 mg Q4H PRN Administration Nausea And Vomiting Thiamine HCl 100 mg 05/14/25 09:00 05/17/25 09:53 Thiamine Hcl 100 Mg Tablet PO 100 mg QAM VIANEY Administration Radiology Results: ITS Impressions Abdomen Ultrasound 05/09/25 11:01 IMPRESSION: 1. Diffuse hepatic steatosis. Abdomen X-Ray 05/10/25 14:00 IMPRESSION: 1. No radiopaque or abnormal foreign objects in the abdomen. EKG leads are noted. Cervical Spine X-Ray 05/10/25 14:00 Impression: No acute abnormality. Brain MRI 05/11/25 12:40 IMPRESSION: 1. Normal brain. No acute intracranial process. Chest CT 05/13/25 12:59 IMPRESSION: Trace bilateral pleural effusions with subsegmental atelectatic changes left worse than right; air bronchograms in the left lung base may represent developing pneumonia or aspiration. Chest X-Ray 05/17/25 07:56 IMPRESSION: 1. No definite acute cardiopulmonary findings given portable technique and poor positioning. Chest/Abdomen/Pelvis CT 05/17/25 14:34 IMPRESSION: 1. Improved aeration of the lung bases with trace effusion smaller as well compared to the May 13 exam. 2. Mildly thickened appearance of the rectosigmoid large bowel wall. Findings could represent early developing colitis. 3. Fluid-filled loops of small bowel could be associated with inflammatory or infectious enteritis. 4. Other findings as above. Lumbar Puncture Fluoroscopy 05/17/25 15:14 IMPRESSION: 1. Successful fluoro-guided lumbar puncture with normal opening pressure of [address] 05/17/25 22:37 IMPRESSION: No acute intracranial hemorrhage or extra axial fluid collections. All CT scans at this facility are performed using low dose modulation techniques as appropriate to perform exam including the following: automated exposure control; use of iterative reconstruction technique; adjustment of the mA and/or kV according to patient size (this includes techniques or standardized protocols for targeted exams where dose is matched to indication/reason for exam). Venous Doppler Study 05/18/25 07:53 IMPRESSION: No DVT seen. Labs Labs: Laboratory Results - last 24 hr 05/17/25 05/17/25 05/17/25 11:11 11:45 14:26 WBC RBC Hgb Hct MCV MCH MCHC RDW Plt Count MPV Immature Gran % (Auto) Neut % (Auto) Lymph % (Auto) [place] % (Auto) Eos % (Auto) Baso % (Auto) Lymph # (Auto) [place] # (Auto) Eos # (Auto) Baso # (Auto) Abs Immat Gran (auto) Absolute Neuts (auto) Absolute Nucleated RBC Band Neutrophils % Nucleated RBC % Platelet Estimate Large Platelets Polychromasia Hyperchromasia Anisocytosis Target Cells Tear Drop Cells Schistocytes PT 15.8 H INR 1.2 Puncture Site ABG pH ABG pCO2 ABG pO2 ABG PO2/FiO2 Ratio ABG HCO3 ABG O2 Saturation ABG O2 Content ABG Base Excess A-a Gradient Oxyhemoglobin Total Hemoglobin O2 Delivery Device O2 Liters/Min FiO2 Sodium Potassium Chloride Carbon Dioxide Anion Gap BUN Creatinine Estim Creat Clear Calc Estimated GFR Glucose POC Capillary Glucose 92 Lactic Acid Calcium Phosphorus Magnesium Total Bilirubin AST ALT Alkaline Phosphatase Total Protein Albumin Urine Color Urine Appearance Urine pH Ur Specific [place] Urine Protein Urine Glucose (UA) Urine Ketones Ur Blood (Man) Urine Nitrate Urine Bilirubin Urine Urobilinogen Leukocyte Esterase Rfl Urine RBC Urine WBC Ur Squamous Epith Cells Urine Bacteria Urine Casts CSF Source Csf CSF RBC CSF Color (1) CSF Appearance (1) CSF Color (2) CSF Appearance (2) CSF Color (3) CSF Appearance (3) CSF Color (4) CSF Appearance (4) CSF Tot Nucleated Cells CSF Neutrophils CSF Lymphocytes CSF Monocytes CSF Glucose CSF Total Protein CSF [place] RNA Urine Opiates Screen Urine Methadone Screen Ur Barbiturates Screen Ur Phencyclidine Scrn Ur Amphetamine Screen U Benzodiazepines Scrn Urine Cocaine Screen U Cannabinoids Screen Methyl Alcohol Level 05/17/25 05/17/25 05/17/25 14:26 14:27 17:43 WBC RBC Hgb Hct MCV MCH MCHC RDW Plt Count MPV Immature Gran % (Auto) Neut % (Auto) Lymph % (Auto) [place] % (Auto) Eos % (Auto) Baso % (Auto) Lymph # (Auto) [place] # (Auto) Eos # (Auto) Baso # (Auto) Abs Immat Gran (auto) Absolute Neuts (auto) Absolute Nucleated RBC Band Neutrophils % Nucleated RBC % Platelet Estimate Large Platelets Polychromasia Hyperchromasia Anisocytosis Target Cells Tear Drop Cells Schistocytes PT INR Puncture Site ABG pH ABG pCO2 ABG pO2 ABG PO2/FiO2 Ratio ABG HCO3 ABG O2 Saturation ABG O2 Content ABG Base Excess A-a Gradient Oxyhemoglobin Total Hemoglobin O2 Delivery Device O2 Liters/Min FiO2 Sodium Potassium Chloride Carbon Dioxide Anion Gap BUN Creatinine Estim Creat Clear Calc Estimated GFR Glucose POC Capillary Glucose 97 Lactic Acid Calcium Phosphorus Magnesium Total Bilirubin AST ALT Alkaline Phosphatase Total Protein Albumin Urine Color Urine Appearance Urine pH Ur Specific [place] Urine Protein Urine Glucose (UA) Urine Ketones Ur Blood (Man) Urine Nitrate Urine Bilirubin Urine Urobilinogen Leukocyte Esterase Rfl Urine RBC Urine WBC Ur Squamous Epith Cells Urine Bacteria Urine Casts CSF Source Cancelled CSF RBC 15 H CSF Color (1) Colorless CSF Appearance (1) Clear CSF Color (2) Colorless CSF Appearance (2) Clear CSF Color (3) Colorless CSF Appearance (3) Clear CSF Color (4) Colorless CSF Appearance (4) Clear CSF Tot Nucleated Cells 1 CSF Neutrophils 1 CSF Lymphocytes 89 H CSF Monocytes 10 L CSF Glucose 50 CSF Total Protein 57 CSF [place] RNA Cancelled Urine Opiates Screen Urine Methadone Screen Ur Barbiturates Screen Ur Phencyclidine Scrn Ur Amphetamine Screen U Benzodiazepines Scrn Urine Cocaine Screen U Cannabinoids Screen Methyl Alcohol Level 05/17/25 05/17/25 05/17/25 21:49 21:54 22:37 WBC RBC Hgb Hct MCV MCH MCHC RDW Plt Count MPV Immature Gran % (Auto) Neut % (Auto) Lymph % (Auto) Dixie % (Auto) Eos % (Auto) Baso % (Auto) Lymph # (Auto) Dixie # (Auto) Eos # (Auto) Baso # (Auto) Abs Immat Gran (auto) Absolute Neuts (auto) Absolute Nucleated RBC Band Neutrophils % Nucleated RBC % Platelet Estimate Large Platelets Polychromasia Hyperchromasia Anisocytosis Target Cells Tear Drop Cells Schistocytes PT INR Puncture Site Left radial ABG pH 7.472 H ABG pCO2 25.8 L ABG pO2 95.2 ABG PO2/FiO2 Ratio 4.53 ABG HCO3 18.4 L ABG O2 Saturation 97.8 ABG O2 Content 14.1 L ABG Base Excess -4.1 A-a Gradient 23.6 Oxyhemoglobin 97.1 Total Hemoglobin 10.2 L O2 Delivery Device Room air O2 Liters/Min Not Reportable FiO2 21 Sodium Potassium Chloride Carbon Dioxide Anion Gap BUN Creatinine Estim Creat Clear Calc Estimated GFR Glucose POC Capillary Glucose 107 H Lactic Acid Calcium Phosphorus Magnesium Total Bilirubin AST ALT Alkaline Phosphatase Total Protein Albumin Urine Color Dark yellow Urine Appearance Clear Urine pH 5.5 Ur Specific [place] > 1.045 H Urine Protein 1+ H Urine Glucose (UA) Negative Urine Ketones Trace H Ur Blood (Man) 3+ H Urine Nitrate Negative Urine Bilirubin 1+ H Urine Urobilinogen 0.2 Leukocyte Esterase Rfl Trace H Urine RBC 21-50 H Urine WBC 0-5 Ur Squamous Epith Cells None seen Urine Bacteria None seen Urine Casts 0-2 CSF Source CSF RBC CSF Color (1) CSF Appearance (1) CSF Color (2) CSF Appearance (2) CSF Color (3) CSF Appearance (3) CSF Color (4) CSF Appearance (4) CSF Tot Nucleated Cells CSF Neutrophils CSF Lymphocytes CSF Monocytes CSF Glucose CSF Total Protein CSF [place] RNA Urine Opiates Screen Urine Methadone Screen Ur Barbiturates Screen Ur Phencyclidine Scrn Ur Amphetamine Screen U Benzodiazepines Scrn Urine Cocaine Screen U Cannabinoids Screen Methyl Alcohol Level 05/18/25 05/18/25 05/18/25 02:30 04:28 06:40 WBC 12.4 H RBC 2.86 L Hgb 9.3 L Hct 30.6 L MCV 107.0 H MCH 32.5 MCHC 30.4 L RDW 24.4 H Plt Count 435 H MPV 10.8 H Immature Gran % (Auto) 5.9 H Neut % (Auto) 73.5 H Lymph % (Auto) 8.6 L [place] % (Auto) 9.1 H Eos % (Auto) 0.6 Baso % (Auto) 2.3 H Lymph # (Auto) 1.06 Dixie # (Auto) 1.1 H Eos # (Auto) 0.1 Baso # (Auto) 0.3 H Abs Immat Gran (auto) 0.73 H Absolute Neuts (auto) 9.1 H Absolute Nucleated RBC 0.060 H Band Neutrophils % Not Reportable Nucleated RBC % 0.5 H Platelet Estimate Increased Large Platelets Present Polychromasia 1+ Hyperchromasia 1+ Anisocytosis 1+ Target Cells Occasional Tear Drop Cells Occasional Schistocytes None seen PT INR Puncture Site ABG pH ABG pCO2 ABG pO2 ABG PO2/FiO2 Ratio ABG HCO3 ABG O2 Saturation ABG O2 Content ABG Base Excess A-a Gradient Oxyhemoglobin Total Hemoglobin O2 Delivery Device O2 Liters/Min FiO2 Sodium 135 L Potassium 3.5 Chloride 110 H Carbon Dioxide 22 Anion Gap 3 L BUN 17 Creatinine 1.32 H Estim Creat Clear Calc 56 Estimated GFR 56 L Glucose 106 POC Capillary Glucose 97 Lactic Acid 1.0 Calcium 8.6 Phosphorus 4.0 Magnesium 1.5 L Total Bilirubin 0.5 AST 27 ALT 14 Alkaline Phosphatase 67 Total Protein 6.7 Albumin 3.2 L Urine Color Urine Appearance Urine pH Ur Specific [place] Urine Protein Urine Glucose (UA) Urine Ketones Ur Blood (Man) Urine Nitrate Urine Bilirubin Urine Urobilinogen Leukocyte Esterase Rfl Urine RBC Urine WBC Ur Squamous Epith Cells Urine Bacteria Urine Casts CSF Source CSF RBC CSF Color (1) CSF Appearance (1) CSF Color (2) CSF Appearance (2) CSF Color (3) CSF Appearance (3) CSF Color (4) CSF Appearance (4) CSF Tot Nucleated Cells CSF Neutrophils CSF Lymphocytes CSF Monocytes CSF Glucose CSF Total Protein CSF [place] RNA Urine Opiates Screen Negative Urine Methadone Screen Negative Ur Barbiturates Screen Positive A Ur Phencyclidine Scrn Negative Ur Amphetamine Screen Negative U Benzodiazepines Scrn Positive A Urine Cocaine Screen Negative U Cannabinoids Screen Negative Methyl Alcohol Level Cancelled Quality VTE Prophylaxis VTE prophylaxis: pharmacologic ordered
[2025-05-18] MEDS: THERAPEUTIC MULTIVITAMINS/MINERALS TAB (*BKC) 1 TABLET PO (09:44)
[2025-05-18] MEDS: FOLIC ACID 1 MG TABLET PO (09:44)
[2025-05-18] MEDS: THIAMINE HCL 100 MG TABLET PO (09:44)
[2025-05-18] MEDS: METOPROLOL TARTRATE 50 MG TAB PO (09:44)
--- NOTE | 2025-05-18 11:24 | PCNEURO ---
Entered room to perform EEG. Pt stated that he was not having seizure activity and that he wanted to go home. He was getting ride. Tried talking patient through getting the test done and he refused.
--- NOTE | 2025-05-18 12:18 | PC.NURSE ---
Addendum entered by Judy Macdonald RN 05/18/25 12:36: RN informed MD of situation. RN notified MD of situation and MD stated I can't return to his room until this afternoon. MD stated pt wasn't alert enough to leave AMA. This RN, Preceptor RN, Case Management, neurology director, Nursing Therapist all at bedside. Pt answers questions appropriately. Pt states date of is 66, he's in [facility]. It's May and the year is 2024. Case Management obtained bus tokens for pt. Pt signed AMA form and MD was updated on situation. Original Note: Pt attempting to get out of bed. This RN and another RN at bedside. Pt stating I want to go the fuck home. Let me out of here. The doctor said I could leave and I want to leave. RN informed MD of situ
--- NOTE | 2025-05-18 12:35 | PCOTNOTE ---
Per RN, Patient is not appropriate at this time. Patient is very agitated and attempting to climb out of bed. Patient not seen this date.
--- NOTE | 2025-05-18 12:57 | PC.NURSE ---
This RN, Orientee RN, supervisor display fabrication, Nursing Lead Press Operator and MD at bedside. Pt answers questions appropriately. MD called daughter to inform her of situation. Pt informed of risks and still agrees to leave AMA Patient notified of risks of leaving AMA. [Aaron ] notified. Follow up instructions given to patient. Patient signed AMA form.
--- NOTE | 2025-05-18 16:58 | P.DS_ITS ---
DS: Admitting Diagnosis Discharge Date 05/18/25 Admitting Diagnosis Altered mental status DS: Discharge Diagnosis Discharge Diagnosis (1) Alcohol withdrawal: Code(s): F10.939 - Alcohol use, unspecified with withdrawal, unspecified Status: Acute Assessment and Plan: Please refer to hospital course for brief summary History of alcohol use disorder, currently drinks 6 units daily but according to the ER physician note when she discussed with patient's daughter, the daughter stated that he drinks more more than what he stated. Continue scheduled Librium but decrease dose to 25 mg q.6 hours Continue p.r.n. Valium Continue p.o. Thiamine and folic acid. (2) Alcohol use disorder: Code(s): F10.90 - Alcohol use, unspecified, uncomplicated Status: Acute Assessment and Plan: See above (3) Hypoglycemia: Code(s): E16.2 - Hypoglycemia, unspecified Status: Acute Assessment and Plan: Hypoglycemia, could be related to excess alcohol intake, decreased oral intake, patient on metoprolol which can be associated with hypoglycemia Improved. Tolerating diet. DC IV fluid -TSH within normal limits (4) Hypertension: Code(s): I10 - Essential (primary) hypertension Status: Acute Assessment and Plan: Continue metoprolol (5) Electrolyte imbalance: Code(s): E87.8 - Other disorders of electrolyte and fluid balance, not elsewhere classified Status: Acute Assessment and Plan: Potassium replacement ordered (6) Thrombocytopenia: Code(s): D69.6 - Thrombocytopenia, unspecified Status: Acute Assessment and Plan: resolved Plts 488 (7) Fever: Code(s): R50.9 - Fever, unspecified Status: Acute Assessment and Plan: Patient completed antibiotics per IC on 05/16, and then started having fever again this mornign, latest T 101.[address] chest and AP, venous doppler and V/q scan ordered WBC 18, ESR elevated Prior imaging showed showed bilateral developing pneumonia/Aspiration F/u repeat CT AP and chest, venous doppler and V/Q scan Blood culture, Urine culture Completed Augmentin per ID Restarted Meropenem, while awaiting ID re-eval Neurology consulted (8) Aspiration pneumonia: Code(s): J69.0 - Pneumonitis due to inhalation of food and vomit Status: Acute Assessment and Plan: See above (9) Pleural effusion: Code(s): J90 - Pleural effusion, not elsewhere classified Status: Acute Assessment and Plan: Received Lasix IV DS: Summary Hospital Course Hospital Course: 54-year-old male ETOH use, hypertension hyperlipidemia with found unresponsive. Patient was found to be hypoglycemic. He was given glucagon with minimal response. Patient stand emergency room, he is snoring respirations but wakes up to touch. Patient was given phenobarbital in emergency room. Patient is being admitted to the ICU due to alcohol withdrawals. Lab work in the ED shows leukocytosis at 10.1, hemoglobin 10.6, sodium of 135, potassium of 3.2, glucose of 53, calcium 8.2, alcohol level was negative. Patient was given phenobarbital in the emergency room for alcohol withdrawals. CT head shows no acute abnormalities. I assumed care 05/18/2025: Patient had fever. Id was reconsulted. Patient antibiotic was escalated to Merrem. Patient wanted to leave AMA. Called his daughter and she reported patient is isolated from his family. His mother lives in [place] and she lives about 3-4 hours from [place], [place]. She is aware the patient is leaving AM. Status at Discharge Cognitive/behavioral status at discharge: Guarded Time Spent with Patient Time attestation: Total time spent providing and/or coordinating discharge services: 45 minutes Exam Narrative: General: Appears older than his age, currently in no acute distress HEENT:? Pupils equal and reactive, sclera is clear, moist oral mucosa Neck:? Supple Respiratory:? Clear to auscultation bilaterally, no wheezing, adequate air entry Cardiac:? S1-S2 is normal, regular rate and rhythm Abdomen:? Soft, nontender, nondistended, hypoactive bowel sounds Extremities:? No edema, palpable pedal pulses, has a callus on his right foot on the plantar aspect Neuro:? Patient is confused but awake, alert, able to answer questions. AO x2. He thought he was in [facility]. He follows commands with all 4 extremities. Very minimal tremor, no nuchal rigidity or signs of meningismus. Appears weak and unsteady Skin:? No skin lesions noted DS: Data Data Completed and Pending Pending studies at discharge: Pending at discharge 05/11/25 15:32 Cytology [PTH] Routine Labs on day of discharge: Labs from last 24 hours 05/18/25 05/18/25 05/18/25 06:40 04:28 02:30 WBC 12.4 H RBC 2.86 L Hgb 9.3 L Hct 30.6 L MCV 107.0 H MCH 32.5 MCHC 30.4 L RDW 24.4 H Plt Count 435 H MPV 10.8 H Immature Gran % (Auto) 5.9 H Neut % (Auto) 73.5 H Lymph % (Auto) 8.6 L Emery % (Auto) 9.1 H Eos % (Auto) 0.6 Baso % (Auto) 2.3 H Lymph # (Auto) 1.06 Emery # (Auto) 1.1 H Eos # (Auto) 0.1 Baso # (Auto) 0.3 H Abs Immat Gran (auto) 0.73 H Absolute Neuts (auto) 9.1 H Absolute Nucleated RBC 0.060 H Band Neutrophils % Not Reportable Nucleated RBC % 0.5 H Platelet Estimate Increased Large Platelets Present Polychromasia 1+ Hyperchromasia 1+ Anisocytosis 1+ Target Cells Occasional Tear Drop Cells Occasional Schistocytes None seen Puncture Site ABG pH ABG pCO2 ABG pO2 ABG PO2/FiO2 Ratio ABG HCO3 ABG O2 Saturation ABG O2 Content ABG Base Excess A-a Gradient Oxyhemoglobin Total Hemoglobin O2 Delivery Device O2 Liters/Min FiO2 Sodium 135 L Potassium 3.5 Chloride 110 H Carbon Dioxide 22 Anion Gap 3 L BUN 17 Creatinine 1.32 H Estim Creat Clear Calc 56 Estimated GFR 56 L Glucose 106 POC Capillary Glucose 97 Lactic Acid 1.0 Calcium 8.6 Phosphorus 4.0 Magnesium 1.5 L Total Bilirubin 0.5 AST 27 ALT 14 Alkaline Phosphatase 67 Total Protein 6.7 Albumin 3.2 L Urine Color Urine Appearance Urine pH Ur Specific [place] Urine Protein Urine Glucose (UA) Urine Ketones Ur Blood (Man) Urine Nitrate Urine Bilirubin Urine Urobilinogen Leukocyte Esterase Rfl Urine RBC Urine WBC Ur Squamous Epith Cells Urine Bacteria Urine Casts Urine Opiates Screen Negative Urine Methadone Screen Negative Ur Barbiturates Screen Positive A Ur Phencyclidine Scrn Negative Ur Amphetamine Screen Negative U Benzodiazepines Scrn Positive A Urine Cocaine Screen Negative U Cannabinoids Screen Negative Methyl Alcohol Level Cancelled Miscellaneous Test Pending 05/17/25 05/17/25 05/17/25 22:37 21:54 21:49 WBC RBC Hgb Hct MCV MCH MCHC RDW Plt Count MPV Immature Gran % (Auto) Neut % (Auto) Lymph % (Auto) Emery % (Auto) Eos % (Auto) Baso % (Auto) Lymph # (Auto) Emery # (Auto) Eos # (Auto) Baso # (Auto) Abs Immat Gran (auto) Absolute Neuts (auto) Absolute Nucleated RBC Band Neutrophils % Nucleated RBC % Platelet Estimate Large Platelets Polychromasia Hyperchromasia Anisocytosis Target Cells Tear Drop Cells Schistocytes Puncture Site Left radial ABG pH 7.472 H ABG pCO2 25.8 L ABG pO2 95.2 ABG PO2/FiO2 Ratio 4.53 ABG HCO3 18.4 L ABG O2 Saturation 97.8 ABG O2 Content 14.1 L ABG Base Excess -4.1 A-a Gradient 23.6 Oxyhemoglobin 97.1 Total Hemoglobin 10.2 L O2 Delivery Device Room air O2 Liters/Min Not Reportable FiO2 21 Sodium Potassium Chloride Carbon Dioxide Anion Gap BUN Creatinine Estim Creat Clear Calc Estimated GFR Glucose POC Capillary Glucose 107 H Lactic Acid Calcium Phosphorus Magnesium Total Bilirubin AST ALT Alkaline Phosphatase Total Protein Albumin Urine Color Dark yellow Urine Appearance Clear Urine pH 5.5 Ur Specific [place] > 1.045 H Urine Protein 1+ H Urine Glucose (UA) Negative Urine Ketones Trace H Ur Blood (Man) 3+ H Urine Nitrate Negative Urine Bilirubin 1+ H Urine Urobilinogen 0.2 Leukocyte Esterase Rfl Trace H Urine RBC 21-50 H Urine WBC 0-5 Ur Squamous Epith Cells None seen Urine Bacteria None seen Urine Casts 0-2 Urine Opiates Screen Urine Methadone Screen Ur Barbiturates Screen Ur Phencyclidine Scrn Ur Amphetamine Screen U Benzodiazepines Scrn Urine Cocaine Screen U Cannabinoids Screen Methyl Alcohol Level Miscellaneous Test 05/17/25 17:43 WBC RBC Hgb Hct MCV MCH MCHC RDW Plt Count MPV Immature Gran % (Auto) Neut % (Auto) Lymph % (Auto) Emery % (Auto) Eos % (Auto) Baso % (Auto) Lymph # (Auto) Emery # (Auto) Eos # (Auto) Baso # (Auto) Abs Immat Gran (auto) Absolute Neuts (auto) Absolute Nucleated RBC Band Neutrophils % Nucleated RBC % Platelet Estimate Large Platelets Polychromasia Hyperchromasia Anisocytosis Target Cells Tear Drop Cells Schistocytes Puncture Site ABG pH ABG pCO2 ABG pO2 ABG PO2/FiO2 Ratio ABG HCO3 ABG O2 Saturation ABG O2 Content ABG Base Excess A-a Gradient Oxyhemoglobin Total Hemoglobin O2 Delivery Device O2 Liters/Min FiO2 Sodium Potassium Chloride Carbon Dioxide Anion Gap BUN Creatinine Estim Creat Clear Calc Estimated GFR Glucose POC Capillary Glucose 97 Lactic Acid Calcium Phosphorus Magnesium Total Bilirubin AST ALT Alkaline Phosphatase Total Protein Albumin Urine Color Urine Appearance Urine pH Ur Specific [place] Urine Protein Urine Glucose (UA) Urine Ketones Ur Blood (Man) Urine Nitrate Urine Bilirubin Urine Urobilinogen Leukocyte Esterase Rfl Urine RBC Urine WBC Ur Squamous Epith Cells Urine Bacteria Urine Casts Urine Opiates Screen Urine Methadone Screen Ur Barbiturates Screen Ur Phencyclidine Scrn Ur Amphetamine Screen U Benzodiazepines Scrn Urine Cocaine Screen U Cannabinoids Screen Methyl Alcohol Level Miscellaneous Test Preliminary micro results at discharge 05/11/25 13:34 Fungal Culture - Preliminary Cerebral Spinal Fluid 05/17/25 14:26 Acid Fast Bacilli Culture - Preliminary Cerebral Spinal Fluid Discharge Plan Discharge Consulting providers: Jamari Rey; Cat Uribe; Michael Green; Rosalind Batista; Jordan Portillo Patient Disposition: Left Against Medical Advice Patient Instructions: How to Stop Smoking (ED), Alcohol Withdrawal (GEN), Polysubstance Use Disorder (GEN), Alcohol Dependence (GEN) Patient Language: [place] Discharge Medications: No Action metoprolol tartrate 50 mg tablet 50 mg PO DAILY Date of admission: 05/04/25 17:52 Primary Care Provider: Prem Interiano Admitting Provider: Bora Lechuga Attending physician on admission: Bora Lechuga Condition: Serious
[2025-05-19 14:09] LABS: VDRL, CSF Non Reactive (Non Rea:<1:1)
[2025-05-20 08:08] LABS: Epstein-Barr Virus RT PCR, CSF Negative (Negative)
[2025-05-21 10:08] LABS: West Nile Virus Source Serum (.); West Nile Virus by PCR Not Detected (.)
== END 2025-05-18 13:17 | disposition left against medical advice (07) | DRG 770 ==
LOC: ANHED 18:24 → ANHICU 19:46 → ANHIMU 05-07 13:07 → ANHICU 05-13 05:04 → ANHIMU 05-14 21:07 → ANHICU 05-14 21:25 → ANH3MEDSUR 05-15 08:27 → ANHIMU 05-18 08:53 → ANH3MEDSUR 05-19 09:25 → ANHIMU 05-19 09:25
PROVIDERS: Internal Medicine; Nurse Practitioner; Nurse Practitioner Adult Health; Nurse Practitioner Gerontology; Student in an Organized Health Care Education/Training Program; Admitting Provider Internal Medicine; Emergency Provider Emergency Medicine; PCP Emergency Medicine; Visit Provider General Practice
DX: F10.939 Alcohol use, unspecified with withdrawal, unspecified (principal); G93.41 Metabolic encephalopathy; E16.1 Other hypoglycemia; I10 Essential (primary) hypertension; J69.0 Pneumonitis due to inhalation of food and vomit; R50.9 Fever, unspecified; J90 Pleural effusion, not elsewhere classified; E78.5 Hyperlipidemia, unspecified; E87.6 Hypokalemia; D69.59 Other secondary thrombocytopenia; K21.9 Gastro-esophageal reflux disease without esophagitis; E83.51 Hypocalcemia; F17.210 Nicotine dependence, cigarettes, uncomplicated; D50.9 Iron deficiency anemia, unspecified
CPT/HCPCS: 36415; 36600; 62328; 70450; 70551; 71045; 71250; 71260; 72040; 74018; 74177; 76705; 80048; 80053; 80202; 80307; 81001; 81003; 82077; 82607; 82746; 82805; 82945; 82948; 83540; 83550; 83605; 83690; 83735; 84100; 84145; 84157; 84443; 84478; 85018; 85025; 85027; 85046; 85055; 85610; 85652; 85730; 86140; 86592; 86617; 86635; 86787; 86788; 87040; 87086; 87206; 87497; 87641; 87798; 88108; 89051; 92610; 93005; 93970; 93971; 96374; 96375; 97110; 97116; 97161; 97165; 97530; 97535; 99285; A9270; J0290; J0360; J0616; J0696; J1610; J1644; J1756; J1938; J2060; J2185; J2359; J2405; J2470; J2543; J2560; J3360; J3373; J3411; J3475; J3480; J7030; J7040; J7042; J7050; J7070; J7120; J7121; Q9967